=== PATIENT | female | born 1955 | race Caucasian/White ===

== ENCOUNTER 2016-10-04 21:54 | Emergency (ER) | payer SELFPAY ==
[2016-10-04] MEDS ORDERED: CEPHALEXIN 250 MG Prepack 8 PO STA (22:54)
[2016-10-04] MEDS ORDERED: CEPHALEXIN 250 MG CAPSULE PO STA (22:54)
[2016-10-04] MEDS ORDERED: SULFAMETH/TRIMETH DS 800/160 MG TABLET PO STA (22:55)
[2016-10-04] MEDS ORDERED: CEPHALEXIN 250 MG CAPSULE PO ONE (23:21)
[2016-10-04] MEDS ORDERED: CEPHALEXIN 250 MG Prepack 8 PO ONE (23:21)
[2016-10-04] MEDS ORDERED: SULFAMETH/TRIMETH DS 800/160 MG TABLET PO ONE (23:21)
== END 2016-10-05 01:05 | disposition home or self-care (01) ==
DX: L03.116 Cellulitis of left lower limb (principal); Z59.0 Homelessness; I10 Essential (primary) hypertension
CPT/HCPCS: 93971; 99283; A9270

== ENCOUNTER 2017-03-16 14:43 | Outpatient (CLI) | payer OTHER ==
--- NOTE | 2017-03-17 16:49 | Mammography Report ---
DIGITAL SCREENING MAMMOGRAM: 03/16/2017 CLINICAL INDICATION: A 61-year-old, for screening. COMPARISON: 06/2011, 12/2006. TECHNIQUE: Routine CC and MLO projections were obtained of the breasts. Bilateral laterally exaggera viktoria craniocaudal views. FINDINGS: Scattered fibroglandular tissue is present within the breasts. There are no dominant christina s, suspicious microcalcifications, or secondary signs of malignancy. In comparison to the previous st udies, there are no significant changes. ASSESSMENT: NO MAMMOGRAPHIC EVIDENCE OF MALIGNANCY. NO SIGNIFICANT INTERVAL CHANGES. RECOMMENDATION: Screening mammography is recommended annually. BIRADS category 1 - negative. STANDARD QUALIFYING STATEMENTS 1. This examination was reviewed with the aid of Computed-Aided Detection (CAD). 2. A negative or benign imaging report should not delay biopsy if clinically suspicious findings are present. Consider surgical consultation if warranted. More than 5% of cancers are not identified by i maging. 3. Dense breasts may obscure an underlying neoplasm. JOB #: [id number] EXT JOB #:[id number]
== END 2017-03-16 14:44 | disposition home or self-care (01) ==
LOC: DI.S 14:43
PROVIDERS: ATTEND Physician Assistant
DX: Z12.31 Encounter for screening mammogram for malignant neoplasm of breast (principal)
CPT/HCPCS: 77067

== ENCOUNTER 2017-10-06 12:03 | Outpatient (CLI) | payer OTHER ==
--- NOTE | 2017-10-06 17:16 | XRAY Report ---
THREE VIEW LEFT SHOULDER: 10/06/2017 CLINICAL INDICATION: Pain. FINDINGS: Internal and external rotational views and a scapular Y view of the left shoulder were obtained. There are degenerative changes at the acromioclavicular and glenohumeral joints, mild. There is no evidence of acute fracture or dislocation. No radiopaque foreign body is seen in the soft tissues. IMPRESSION: MILD OSTEOARTHRITIS. TD: 10/06/2017 17:10
== END 2017-10-06 12:04 | disposition home or self-care (01) ==
LOC: DI 12:03
PROVIDERS: ATTEND Physician Assistant
DX: M19.012 Primary osteoarthritis, left shoulder (principal)

== ENCOUNTER 2018-07-07 15:57 | Emergency (ER) | payer OTHER ==
--- NOTE | 2018-07-07 17:25 | XRAY Report ---
Reason: Trauma Procedure Date: 07/07/2018 Accession Number: [id number] / [id number] Procedure: XR - Humerus RT CPT Code: FULL RESULT: EXAM: RIGHT HUMERUS RADIOGRAPHY EXAM DATE: 07/07/2018 04:40 PM. CLINICAL HISTORY: Trauma. COMPARISON: XR HUMERUS 06/17/2012 12:38 AM. TECHNIQUE: 2 views. FINDINGS: Bones: No humerus fracture. Joints: Alignment at the shoulder and elbow appears unremarkable. Soft Tissues: No soft tissue foreign body. IMPRESSION: No fracture or displacement. RADIA
--- NOTE | 2018-07-07 17:26 | XRAY Report ---
Reason: Trauma Procedure Date: 07/07/2018 Accession Number: [id number] / [id number] Procedure: XR - Knee 4 View LT CPT Code: FULL RESULT: EXAM: LEFT KNEE RADIOGRAPHY EXAM DATE: 07/07/2018 04:40 PM. CLINICAL HISTORY: Trauma. COMPARISON: XR KNEE 3 VIEW 08/05/2008 7:28 AM. TECHNIQUE: 4 views. FINDINGS: Bones: There is mild spurring and degenerative disease of the medial compartment of the knee. Negative for fracture and bony destruction. Joints: Normal. No effusion. No subluxations. Soft Tissues: There is mild spurring of the superior patella. IMPRESSION: Mild degenerative disease of medial and patellofemoral compartment. No fracture. RADIA
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
[2018-07-07] MEDS ORDERED: NAPROXEN 250 MG TABLET PO STA (17:58)
[2018-07-07 18:27] VITALS: BP 130/70
== END 2018-07-07 18:25 | disposition home or self-care (01) ==
LOC: ED 15:57
DX: S43.401A Unspecified sprain of right shoulder joint, initial encounter (principal); S80.02XA Contusion of left knee, initial encounter; W10.9XXA Fall (on) (from) unspecified stairs and steps, initial encounter; I10 Essential (primary) hypertension
CPT/HCPCS: 73060; 73564; 99283; A9270

== ENCOUNTER 2018-07-20 12:58 | Emergency (ER) | payer OTHER ==
[2018-07-20] MEDS ORDERED: cephALEXin 250 MG CAPSULE PO STA (16:08)
--- NOTE | 2018-07-20 16:10 | ED Physician Documentation ---
PD HPI LOWER EXT INJURY - Stated complaint Stated Complaint: BILAT LEG SWELLING - Chief complaint Chief Complaint: Ext Problem - History obtained from History obtained from: Patient - History of Present Illness PD HPI LOW EXT INJURY LOCATION: Other (She fell about a week ago injuring her right shoulder and her left knee. Since then she has had progressive swelling of both legs, left greater than right with redness of the left leg similar prior cellulitis. No fevers. 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 - Present Medications Home Medications: Ambulatory Orders Medication Instructions Recorded Confirmed Venlafaxine [Effexor] 75 mg PO DAILY 04/03/15 04/09/15 RX: Hydrochlorothiazide 25 mg PO DAILY 04/09/15 04/09/15 Cyclobenzaprine [Flexeril] 10 mg PO TID PRN #20 tablet 07/07/18 Cephalexin [Keflex] 500 mg PO Q6H #28 capsule 07/20/18 Fluconazole [Diflucan] 150 mg PO ONCE PRN #1 tablet 07/20/18 Naproxen Sodium [Aleve] 07/20/18 RX: Hydrochlorothiazide 07/20/18 RX: Levothyroxine [Synthroid] 07/20/18 RX: Losartan [Cozaar] 07/20/18 RX: Metoprolol Tartrate 50 mg PO 07/20/18 RX: Venlafaxine HCl 07/20/18 Turmeric/Turmeric Root Extract 07/20/18 [Turmeric 500 mg Capsule] - Allergies Allergies/Adverse Reactions: Allergies Allergy/AdvReac Type Severity Reaction Status Date / Time iodine AdvReac Rash Verified 07/20/18 16:22 - Social History Does the pt smoke?: No Smoking Status: Never smoker Does the pt drink ETOH?: No Does the pt have substance abuse?: No - Immunizations Immunizations are current?: Yes PD ED PE NORMAL - Vitals Vital signs reviewed: Yes - General General: Alert and oriented X 3, No acute distress - Extremities Extremities: Other (She does have leg swelling below the knee especially in the left but bilaterally with some cellulitic changes of the [place] on the left.) - Neuro Neuro: Alert and oriented X 3, Normal speech Results - Vitals Vitals: Vital Signs - 24 hr 07/20/18 07/20/18 13:44 18:07 Temperature 36.7 C Heart Rate 99 90 Respiratory 16 16 Rate Blood Pressure 136/84 H 134/80 H O2 Saturation 97 98 Oxygen O2 Source Room air - Rads (name of study) BLE DVT sono Radiology: EMP read contemporaneously (neg) PD MEDICAL DECISION MAKING - ED course ED course: 62-year-old woman with bilateral leg swelling, left greater than right with cellulitis of the left leg. This is posttraumatic. DVT ultrasound was checked and negative. She is nontoxic and treated with Keflex. Departure - Departure Disposition: 01 Home, Self Care Clinical Impression: Cellulitis Condition: Good Record reviewed to determine appropriate education?: Yes Instructions: Cellulitis Dc Prescriptions: Cephalexin [Keflex] 500 mg PO Q6H #28 capsule Fluconazole [Diflucan] 150 mg PO ONCE PRN #1 tablet PRN Reason: yeast infection Comments: Call your doctor to arrange a follow-up appointment, make the next available appointment. In the interim, return anytime if worse or if new symptoms develop. Your blood pressure was elevated today on check into the emergency department. This does not mean that you have hypertension, it is a common phenomenon to come to the emergency department and have elevated blood pressure. I recommend that you see your primary care physician within the week to have it rechecked when you are feeling better. Discharge Date/Time: 07/20/18 18:07
[2018-07-20 18:08] VITALS: BP 134/80
--- NOTE | 2018-07-20 18:19 | Ultrasound Report ---
Reason: leg swelling Procedure Date: 07/20/2018 Accession Number: [id number] / [id number] Procedure: US - Duplex Ext Veins Bilateral CPT Code: FULL RESULT: EXAM: BILATERAL LOWER EXTREMITY VENOUS ULTRASOUND EXAM DATE: 07/20/2018 05:50 PM. CLINICAL HISTORY: Leg swelling. COMPARISON: None. TECHNIQUE: Real-time sonographic vascular imaging was performed by the real estate legal secretary through the lower extremities utilizing both color-flow and Doppler spectral analysis. Multiple customer retention representative static images were saved for review. FINDINGS: Right: Common Femoral Vein (CFV): Normal. CFV-GSV Junction: Normal. Profunda Femoral Vein (PFV): Normal. Femoral Vein (FV) Prox: Normal. Femoral Vein (FV) Mid: Normal. Femoral Vein (FV) Dist: Normal. Popliteal Vein: Normal. Posterior Tibial Veins: Normal. Peroneal Veins: Normal. Left: Common Femoral Vein (CFV): Normal. CFV-GSV Junction: Normal. Profunda Femoral Vein (PFV): Normal. Femoral Vein (FV) Prox: Normal. Femoral Vein (FV) Mid: Normal. Femoral Vein (FV) Dist: Normal. Popliteal Vein: Normal. Posterior Tibial Veins: Normal. Peroneal Veins: Normal. Other: None. IMPRESSION: No evidence for deep venous thrombosis bilaterally. RADIA
== END 2018-07-20 18:07 | disposition home or self-care (01) ==
LOC: MERGE 12:58 → ED 12:58
DX: L03.116 Cellulitis of left lower limb (principal); I10 Essential (primary) hypertension
CPT/HCPCS: 93970; 99283; A9270

== ENCOUNTER 2018-12-20 16:44 | Outpatient (CLI) | payer MEDICARE ==
--- NOTE | 2018-12-21 09:50 | XRAY Report ---
Reason: SHORTNESS OF BREATH Procedure Date: 12/20/2018 Accession Number: [id number] / [id number] Procedure: XR - Chest 2 View X-Ray CPT Code: 16335 FULL RESULT: EXAM: CHEST RADIOGRAPHY EXAM DATE: 12/20/2018 04:45 PM. CLINICAL HISTORY: Shortness of breath. COMPARISON: CHEST 1 VIEW 04/03/2015 5:56 PM. TECHNIQUE: 2 views. FINDINGS: Lungs/Pleura: No focal opacities evident. No pleural effusion. No pneumothorax. Normal volumes. Mediastinum: Heart and mediastinal contours are unremarkable. Other: The bones are qualitatively osteopenic; this limits evaluation for underlying fractures or masses. IMPRESSION: No definite airspace disease is detected. RADIA
== END 2018-12-20 16:45 | disposition home or self-care (01) ==
LOC: DI 16:44
PROVIDERS: ATTEND Physician Assistant
DX: R06.02 Shortness of breath (principal)
CPT/HCPCS: 71046

== ENCOUNTER 2019-02-05 15:44 | Outpatient (CLI) | payer MEDICARE ==
--- NOTE | 2019-02-05 17:20 | Ultrasound Report ---
Reason: PAIN IN LEFT LOWER LIMB Procedure Date: 02/05/2019 Accession Number: [id number] / [id number] Procedure: US - Duplex Ext Veins Left CPT Code: FULL RESULT: EXAM: LEFT LOWER EXTREMITY VENOUS ULTRASOUND EXAM DATE: 02/05/2019 04:59 PM. CLINICAL HISTORY: Left lower extremity pain and swelling. COMPARISON: DUPLEX EXT VEINS LEFT 10/04/2016 11:16 PM. TECHNIQUE: Real-time sonographic vascular imaging was performed by the multi share program coordinator through the lower extremity utilizing both color-flow and Doppler spectral analysis. Multiple school admissions representative static images were saved for review. FINDINGS: Common Femoral Vein (CFV): Normal. CFV-GSV Junction: Normal. Profunda Femoral Vein (PFV): Normal. Femoral Vein (FV) Prox: Normal. Femoral Vein (FV) Mid: Normal. Femoral Vein (FV) Dist: Normal. Popliteal Vein: Normal. Posterior Tibial Veins: Normal. Peroneal Veins: Normal. IMPRESSION: No evidence for deep venous thrombosis. RADIA The call report notification system was initiated by Dr. Shamar Michele at 05:19 PM on 02/05/2019.
== END 2019-02-05 15:45 | disposition home or self-care (01) ==
LOC: DI 15:44
PROVIDERS: ATTEND Nurse Practitioner Family
DX: M79.605 Pain in left leg (principal)

== ENCOUNTER 2019-02-11 14:01 | Emergency (ER) | payer MEDICARE ==
--- NOTE | 2019-02-11 15:53 | ED Physician Documentation ---
PD HPI LOWER EXT INJURY - Stated complaint Stated Complaint: LEFT LEG PX - Chief complaint Chief Complaint: Back Pain - History obtained from History obtained from: Patient - History of Present Illness PD HPI LOW EXT INJURY LOCATION: Left, Lower leg, Ankle Type of injury: No: Fall, Twist Timing - onset: How many months ago Timing - duration: Months Timing - details: Gradual onset (has had edema and pain in legs, mostly the left, with feeling of pain from the pressure and aching up side of leg to hip. Started on diuretic by PMD but not improved. Tried to elevate often.) Worsened by: Palpating Associated symptoms: Swelling (both legs, mostly the left, from knee on down.). No: Weakness, Numbness Similar symptoms before: No diagnosis, Work up / diagnostics (had Duplex 2 weeks ago without DVT.) Recently seen: Clinic (had diuretic started but it has not helped the swelling.) Review of Systems Constitutional: denies: Fever Nose: denies: Rhinorrhea / runny nose, Congestion Throat: denies: Sore throat Cardiac: denies: Chest pain / pressure, Palpitations Respiratory: denies: Dyspnea (no orthopnea) GI: denies: Vomiting, Diarrhea, Bloody / black stool Musculoskeletal: reports: Extremity swelling Neurologic: reports: Generalized weakness. 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 - Present Medications Home Medications: Ambulatory Orders Medication Instructions Recorded Confirmed Venlafaxine [Effexor] 75 mg PO DAILY 04/03/15 04/09/15 Hydrochlorothiazide 25 mg PO DAILY 04/09/15 04/09/15 Cyclobenzaprine [Flexeril] 10 mg PO TID PRN #20 tablet 07/07/18 Cephalexin [Keflex] 500 mg PO Q6H #28 capsule 07/20/18 Fluconazole [Diflucan] 150 mg PO ONCE PRN #1 tablet 07/20/18 Hydrochlorothiazide 07/20/18 Levothyroxine [Synthroid] 07/20/18 Losartan [Cozaar] 07/20/18 Metoprolol Tartrate 50 mg PO 07/20/18 Naproxen Sodium [Aleve] 07/20/18 Turmeric/Turmeric Root Extract 07/20/18 [Turmeric 500 mg Capsule] Venlafaxine HCl 07/20/18 Hydrocodone/Acetaminophen [Kennard 1 each PO Q6H PRN #20 tablet 02/11/19 5-325 Tablet] - Allergies Allergies/Adverse Reactions: Allergies Allergy/AdvReac Type Severity Reaction Status Date / Time iodine AdvReac Rash Verified 02/11/19 14:14 - Social History Does the pt smoke?: No Smoking Status: Never smoker Does the pt drink ETOH?: No Does the pt have substance abuse?: No - Immunizations Immunizations are current?: Yes PD ED PE NORMAL - Vitals Vital signs reviewed: Yes - General General: Alert and oriented X 3, No acute distress, Well developed/nourished - Cardiac Cardiac: RRR, No murmur - Respiratory Respiratory: Clear bilaterally - Derm Derm: Normal color, Warm and dry, No rash - Extremities Extremities: Other (bilateral leg edema, pitting, more to left. No calf tenderness per se. Foot with good color/cap refill/and sensation. ) Results - Vitals Vitals: Oxygen O2 Source Room air - Labs Labs: Laboratory Tests 02/11/19 02/11/19 02/11/19 16:30 16:30 16:30 WBC 9.0 RBC 4.37 Hgb 12.0 Hct 36.8 L MCV 84.1 MCH 27.5 MCHC 32.7 RDW 13.9 Plt Count 256 MPV 6.2 L Neut # (Auto) 6.0 Lymph # (Auto) 1.9 [place] # (Auto) 0.8 Eos # (Auto) 0.4 Baso # (Auto) 0.0 Absolute Nucleated RBC 0.00 Nucleated RBC % 0.0 Sodium 139 Potassium 3.5 Chloride 100 L Carbon Dioxide 27 Anion Gap 12.0 BUN 28 H Creatinine 0.8 Estimated GFR (MDRD) 72 L Glucose 102 H Calcium 9.3 Magnesium 2.2 Total Bilirubin 0.5 AST 19 ALT 21 Alkaline Phosphatase 87 Troponin I < 0.04 B-Natriuretic Peptide Total Protein 7.8 Albumin 4.0 Globulin 3.8 Albumin/Globulin Ratio 1.1 Lipase 32 02/11/19 16:30 WBC RBC Hgb Hct MCV MCH MCHC RDW Plt Count MPV Neut # (Auto) Lymph # (Auto) [place] # (Auto) Eos # (Auto) Baso # (Auto) Absolute Nucleated RBC Nucleated RBC % Sodium Potassium Chloride Carbon Dioxide Anion Gap BUN Creatinine Estimated GFR (MDRD) Glucose Calcium Magnesium Total Bilirubin AST ALT Alkaline Phosphatase Troponin I B-Natriuretic Peptide 46 Total Protein Albumin Globulin Albumin/Globulin Ratio Lipase - Rads (name of study) duplex left leg Radiology: Prelim report reviewed (no DVT), See rad report chest xray Radiology: Prelim report reviewed (no CHF) PD MEDICAL DECISION MAKING - ED course Complexity details: considered differential (consider massage or PT for possible lymphedema, and to work on mechanical edema with compressive socks and elevation, problem is compressive socks to fit her leg shape and large thighs, but can at least do kneehigh. ), d/w patient Departure - Departure Disposition: 01 Home, Self Care Clinical Impression: Leg edema, left Leg pain Qualifiers: Laterality: left Qualified Code(s): M79.605 - Pain in left leg Condition: Stable Record reviewed to determine appropriate education?: Yes Instructions: ED Leg Swelling Unilateral Follow-Up: Tobi Clancy MD [Primary Care Provider] - Prescriptions: Hydrocodone/Acetaminophen [Kennard 5-325 Tablet] 1 each PO Q6H PRN #20 tablet PRN Reason: Pain Comments: Your ultrasound did not show any clots. Your chest x-ray and blood tests do not suggest fluid overload. I therefore do not know that the diuretic you are taking will actually help your leg edema. I think it is more mechanical and needs elevation and compressive socks. Regarding the pain in the leg, he can continue the ibuprofen. Add Tylenol or hydrocodone as needed for pain. It may be nerve pain in the leg and so continue your current gabapentin at night and add a dose of 300 mg in the morning. Reducing the swelling of the leg will help the pain as well and so have the compressive socks on during the day all all the time. Elevate and rest your leg often. Follow-up with your primary care in the next few days. Discharge Date/Time: 02/11/19 18:37
[2019-02-11 16:39] LABS: BASOPHILS % (AUTO) 0.5 %; EOSINOPHILS # (AUTO) 0.4 10^3/uL (0.0-0.7); LYMPHOCYTES # (AUTO) 1.9 10^3/uL (1.5-3.5); LYMPHOCYTES % (AUTO) 20.9 %; MEAN CORPUSCULAR HEMOGLOBIN 27.5 pg (27.0-31.0); MEAN CORPUSCULAR HGB CONC 32.7 g/dL (32.0-36.0); MEAN CORPUSCULAR VOLUME 84.1 fL (81.0-99.0); MEAN PLATELET VOLUME 6.2 fL (7.9-10.8); MONOCYTES # (AUTO) 0.8 10^3/uL (0.0-1.0); MONOCYTES % (AUTO) 8.8 %; NEUTROPHILS % (AUTO) 65.8 %; PLT - PLATELET COUNT 256 10^3/uL (130-450); RED BLOOD COUNT 4.37 10^6/uL (4.20-5.40); RED CELL DISTRIBUTION WIDTH 13.9 % (12.0-15.0)
[2019-02-11 16:52] LABS: ALBUMIN/GLOBULIN RATIO 1.1 (1.0-2.2); BILIRUBIN,TOTAL 0.5 mg/dL (0.2-1.0); CALCIUM 9.3 mg/dL (8.5-10.3); CREATININE 0.8 mg/dL (0.4-1.0); MAGNESIUM 2.2 mg/dL (1.7-2.8); TOTAL PROTEIN 7.8 g/dL (6.7-8.2)
--- NOTE | 2019-02-11 17:50 | Ultrasound Report ---
Reason: persistent/worse leg edema Procedure Date: 02/11/2019 Accession Number: [id number] / [id number] Procedure: US - Duplex Ext Veins Left CPT Code: FULL RESULT: EXAM: LEFT LOWER EXTREMITY VENOUS ULTRASOUND EXAM DATE: 02/11/2019 04:50 PM. CLINICAL HISTORY: Persistent/worse leg edema. Chronic left lower extremity pain, edema. COMPARISON: DUPLEX EXT VEINS LEFT 02/05/2019 4:31 PM. TECHNIQUE: Real-time sonographic vascular imaging was performed by the independent freight agent through the lower extremity utilizing both color-flow and Doppler spectral analysis. Multiple professional healthcare representative static images were saved for review. FINDINGS: Common Femoral Vein (CFV): Normal. CFV-GSV Junction: Normal. Profunda Femoral Vein (PFV): Normal. Femoral Vein (FV) Prox: Normal. Femoral Vein (FV) Mid: Normal. Femoral Vein (FV) Dist: Normal. Popliteal Vein: Normal. Posterior Tibial Veins: Normal. Peroneal Veins: Normal. IMPRESSION: No evidence for deep venous thrombosis. RADIA
--- NOTE | 2019-02-11 17:57 | XRAY Report ---
Reason: dyspnea/ leg edema Procedure Date: 02/11/2019 Accession Number: [id number] / [id number] Procedure: XR - Chest 2 View X-Ray CPT Code: 52018 FULL RESULT: EXAM: CHEST RADIOGRAPHY EXAM DATE: 02/11/2019 05:40 PM. CLINICAL HISTORY: Dyspnea/ leg edema. COMPARISON: CHEST 2 VIEW 12/20/2018 4:45 PM. TECHNIQUE: 2 views. FINDINGS: Lungs/Pleura: No focal opacities evident. No pleural effusion. No pneumothorax. Normal volumes. Mediastinum: The heart size is normal. There is mild aortic atherosclerotic calcification. Other: None. IMPRESSION: Negative for an acute cardiopulmonary abnormality. RADIA
[2019-02-11] MEDS ORDERED: HYDROcod/ACETAM 5/325 MG TABLET PO STA (17:59)
[2019-02-11 18:32] VITALS: BP 143/65
== END 2019-02-11 18:37 | disposition home or self-care (01) ==
LOC: ED 14:01
DX: M79.605 Pain in left leg (principal); R60.0 Localized edema; I10 Essential (primary) hypertension
CPT/HCPCS: 36415; 71046; 80053; 83690; 83735; 83880; 84484; 85025; 93971; 99283; A9270

== ENCOUNTER 2019-03-04 14:37 | Outpatient (CLI) | payer MEDICARE ==
--- NOTE | 2019-03-04 17:02 | XRAY Report ---
Reason: LEFT HIP PAIN Procedure Date: 03/04/2019 Accession Number: [id number] / [id number] Procedure: XRS - Hip w/Pelvis 2-3V LT CPT Code: FULL RESULT: EXAM: LEFT HIP RADIOGRAPHY EXAM DATE: 03/04/2019 03:08 PM. CLINICAL HISTORY: Left hip pain. COMPARISON: None. TECHNIQUE: 2 views. FINDINGS: Bones: Normal. No fractures or bone lesion. Joints: The joint space is mildly narrowed, symmetric compared to the right. There is no subluxation. There is mild osteophytosis. Soft Tissues: Normal. No soft tissue swelling. IMPRESSION: Mild joint space narrowing. RADIA
== END 2019-03-04 14:38 | disposition home or self-care (01) ==
LOC: DI.S 14:37
PROVIDERS: ATTEND Physician Assistant
DX: M25.552 Pain in left hip (principal)

== ENCOUNTER 2019-03-29 12:56 | Outpatient (CLI) | payer MEDICARE, OTHER ==
--- NOTE | 2019-03-31 14:23 | MRI Report ---
Reason: UNSPECIFIED INJURY OF MUSCLE TENDON OF ROTATOR C Procedure Date: 03/29/2019 Accession Number: [id number] / [id number] Procedure: MRI - Shoulder LT W/O CPT Code: FULL RESULT: EXAM: LEFT SHOULDER MRI WITHOUT CONTRAST EXAM DATE: 03/29/2019 02:38 PM. CLINICAL HISTORY: Unspecified injury of muscle tendon of rotator cuff. COMPARISON: SHOULDER 3 VIEW LT 03/21/2019 3:43 PM. TECHNIQUE: Multiplanar, multisequence T1-weighted and fluid-sensitive sequences of the shoulder without contrast. Other: None. FINDINGS: Acromioclavicular Region: The acromion is type II. Mild acromioclavicular joint arthrosis. Superior and inferior acromioclavicular joint capsular hypertrophy. Negative for increased AC joint fluid. Os acromiale. The coracoacromial and coracoclavicular ligaments are intact. Small fluid collection subacromial-subdeltoid bursa. Glenohumeral Region: Superior subluxation humerus head with erosion of the undersurface acromion. Chronic rotator cuff arthropathy. No effusion or loose bodies. Moderate chondromalacia inferior glenoid (image 11, series 501). Thinning of the superior glenoid articular cartilage associated with superior labrum tear. The glenohumeral ligaments and joint capsule are unremarkable. Moderate anterior glenoid chondromalacia. Bone Marrow: No fracture, marrow edema or bone lesions. Labrum: The labrum is unremarkable on this nonarthrographic study. Question anterior labrum tear. Musculature/Rotator Cuff: Negative for infraspinatus tendon disruption. Infraspinatus muscle atrophy. Severe atrophy supraspinatus muscle. Large retracted complete supraspinatus tendon tear with the tendon retracted to the superior glenohumeral joint. Subscapularis tendinosis with fluid signal partial tear undersurface subscapularis tendon 5 mm and small linear fluid signal partial tear mid subscapularis tendon. No edema or fatty atrophy. Biceps Tendon: Grade 2 partial tear proximal intra-articular biceps tendon. Other: The subcutaneous tissues are unremarkable. IMPRESSION: 1. Axial acquisition compromised secondary to patient motion andlow signal. 2. Superior labrum tear and possible anterior labrum tear. 3. Superior subluxation of the humerus head from chronic rotator cuff arthropathy with erosion undersurface acromion. 4. Os acromiale. 5. Chronic complete tear supraspinatus tendon with tendon retraction, supraspinatus muscle atrophy and tendon retraction to the superior glenohumeral joint. Rotator cuff tear 4 cm. 6. Extensive subscapularis tendinosis with fluid signal 5 mm partial tear undersurface distal subscapularis tendon. 7. Negative for infraspinatus tendon tear with infraspinatus muscle atrophy. 8. Limited visualization biceps tendon with probable grade II tear proximal intra-articular biceps tendon. [facility]
== END 2019-03-29 12:57 | disposition home or self-care (01) ==
LOC: DI 12:56
PROVIDERS: ATTEND Orthopaedic Surgery Sports Medicine
DX: S43.492A Other sprain of left shoulder joint, initial encounter (principal); S43.002A Unspecified subluxation of left shoulder joint, initial encounter; S46.012A Strain of muscle(s) and tendon(s) of the rotator cuff of left shoulder, initial encounter

== ENCOUNTER 2019-04-09 12:21 | Outpatient (CLI) | payer MEDICARE ==
[2019-04-09] MEDS ORDERED: IOTHALAMATE MEGLUMINE 50 ML VIAL ONE (12:52)
[2019-04-09] MEDS ORDERED: BUFFERED LIDOCAINE 10 ML SYRINGE ONE (12:53)
[2019-04-09] MEDS ORDERED: ROPIVACAINE 0.5% PF 20 ML VIAL IU ONE (13:30)
[2019-04-09] MEDS ORDERED: TRIAMCINOLONE 40 MG/ML VIAL IM ONE (14:52)
[2019-04-09] MEDS ORDERED: BUFFERED LIDOCAINE 10 ML SYRINGE IU ONE (14:52)
[2019-04-09] MEDS ORDERED: IOTHALAMATE MEGLUMINE 50 ML VIAL IVP ONE (15:02)
--- NOTE | 2019-04-12 13:08 | XRAY Report ---
Reason: UNSPECIFIED INJURY OF MUSCLE TENDON OF THE ROTAT Procedure Date: 04/09/2019 Accession Number: [id number] / [id number] Procedure: FL - Inj/Aspiration Major Joint CPT Code: FULL RESULT: EXAM: LEFT SHOULDER STEROID INJECTION WITH FLUOROSCOPIC GUIDANCE EXAM DATE: 04/09/2019 01:54 PM. CLINICAL HISTORY: Unspecified injury of muscle tendon of the rotator cuff. COMPARISON: None. TECHNIQUE: The risks, benefits, and alternatives of the procedure were discussed with the patient. All questions were answered. Written and verbal consent were obtained. The glenohumeral joint was marked under fluoroscopy and prepped and draped in a sterile manner. Local anesthesia was performed with 1% lidocaine. A 22-gauge needle was then inserted into the glenohumeral joint. 5 mL of a solution containing 4 mL 0.5% ropivacaine and 1 mL Kenalog 40 mg was then injected. The needle was removed without immediate complication. Other: None. Fluoroscopy Time: 0.4 minutes. Number of Images: 17. FINDINGS: Bones and joints: No fracture or subluxation. Injection: Fluoroscopic images demonstrate needle placement and contrast in the glenohumeral joint. IMPRESSION: Successful fluoroscopically guided shoulder joint steroid injection of the shoulder. [facility]
== END 2019-04-09 12:22 | disposition home or self-care (01) ==
LOC: DI 12:21
PROVIDERS: ATTEND Orthopaedic Surgery Sports Medicine
DX: S43.002A Unspecified subluxation of left shoulder joint, initial encounter (principal)
CPT/HCPCS: 20610; J2795; Q9961

== ENCOUNTER 2019-06-05 11:12 | Outpatient (CLI) | payer MEDICARE ==
--- NOTE | 2019-06-06 15:51 | XRAY Report ---
Reason: RIGHT SHOULDER PAIN Procedure Date: 06/05/2019 Accession Number: [id number] / [id number] Procedure: XR - Shoulder 3 View RT CPT Code: FULL RESULT: EXAM: RIGHT SHOULDER RADIOGRAPHY 3 VIEWS EXAM DATE: 06/05/2019. CLINICAL HISTORY: RIGHT shoulder pain. COMPARISON: Right shoulder done 06/17/2012. TECHNIQUE: AP, Grashey and scapular Y views. FINDINGS: Bones: No fracture or other acute abnormality. Small subarticular cysts in the clavicle at the acromioclavicular joint. Joints: Narrowing of the glenohumeral joint. Elevation of the head of the humerus in the glenoid, the humeral head 4 mm beneath the acromion. Soft tissues: 4 mm well-defined calcification at the lateral margin of the acromion. IMPRESSION: No acute abnormality Chronic rotator cuff tear. Mild degenerative changes of the acromioclavicular joint. Small soft tissue calcification lateral to the acromion, probably calcific tendinosis. [facility]
== END 2019-06-05 11:13 | disposition home or self-care (01) ==
LOC: DI 11:12
PROVIDERS: ATTEND Physician Assistant
DX: M75.101 Unspecified rotator cuff tear or rupture of right shoulder, not specified as traumatic (principal); M19.011 Primary osteoarthritis, right shoulder; M79.89 Other specified soft tissue disorders

== ENCOUNTER 2019-08-15 07:04 | Outpatient (CLI) | payer MEDICARE ==
--- NOTE | 2019-08-15 15:20 | MRI Report ---
Reason: PAIN IN RT SHOULDER Procedure Date: 08/15/2019 Accession Number: [id number] / [id number] Procedure: MRI - Shoulder RT W/O CPT Code: Final Report FULL RESULT: EXAM: RIGHT SHOULDER MRI WITHOUT CONTRAST. EXAM DATE: 08/15/2019 08:02 AM. CLINICAL HISTORY: Pain in right shoulder. COMPARISON: SHOULDER 3 VIEW RT 06/05/2019 11:38 AM. TECHNIQUE: Multiplanar, multisequence T1-weighted and fluid-sensitive sequences of the shoulder without contrast. Other: Motion artifact especially on axial images. FINDINGS: Rotator cuff: Full thickness tear involving the supraspinatus and infraspinatus measures approximately 3.8 cm anterior posterior and 2.5 cm medial to lateral. Moderate atrophy and fatty infiltration of the supraspinatus and infraspinatus. Mild atrophy involving upper fibers of the subscapularis. There may be calcification within the distal remnant of the rotator cuff adjacent to the greater tuberosity. Long head biceps tendon: Not definitely identified within the field of view suspicious for tear. Evaluation limited by patient motion. Labrum: Intact. No tear identified. Bones and articular surfaces: Superior subluxation of the humeral head. No significant articular cartilage defect. Acromioclavicular joint: Moderate degenerative change. Type II acromion. IMPRESSION: 1. Large full-thickness tear of the supraspinatus and infraspinatus measuring 3.8 x 2.5 cm. 2. Moderate degenerative change at the acromioclavicular joint. 3. Nonvisualization of intact long head biceps tendon suspicious for tear with distal retraction. [facility]
== END 2019-08-15 07:05 | disposition home or self-care (01) ==
LOC: DI 07:04
PROVIDERS: ATTEND Orthopaedic Surgery Sports Medicine
DX: M75.101 Unspecified rotator cuff tear or rupture of right shoulder, not specified as traumatic (principal); M19.011 Primary osteoarthritis, right shoulder

== ENCOUNTER 2019-09-25 10:54 | Outpatient (CLI) | payer MEDICARE, OTHER ==
[2019-09-25] MEDS ORDERED: BUFFERED LIDOCAINE 10 ML SYRINGE ONE (11:06)
[2019-09-25] MEDS ORDERED: IOTHALAMATE MEGLUMINE 50 ML VIAL ONE (11:06)
[2019-09-25] MEDS ORDERED: IOTHALAMATE MEGLUMINE 50 ML VIAL IVP ONE (12:44)
[2019-09-25] MEDS ORDERED: TRIAMCINOLONE 40 MG/ML VIAL IM ONE (12:44)
[2019-09-25] MEDS ORDERED: BUFFERED LIDOCAINE 10 ML SYRINGE IU ONE (12:44)
[2019-09-25] MEDS ORDERED: ROPIVACAINE 0.5% PF 20 ML AMPULE EPI ONE (12:44)
--- NOTE | 2019-09-25 14:00 | XRAY Report ---
Reason: PAIN IN RT SHLDR Procedure Date: 09/25/2019 Accession Number: [id number] / [id number] Procedure: FL - Inj/Aspiration Major Joint CPT Code: Final Report FULL RESULT: EXAM: RIGHT SHOULDER STEROID INJECTION WITH FLUOROSCOPIC GUIDANCE EXAM DATE: 09/25/2019 01:02 PM. CLINICAL HISTORY: Pain in right shoulder. COMPARISON: None. TECHNIQUE: The risks, benefits, and alternatives of the procedure were discussed with the patient. All questions were answered. Written and verbal consent were obtained. The glenohumeral joint was marked under fluoroscopy and prepped and draped in a sterile manner. Local anesthesia was performed with 1% lidocaine. A 22-gauge needle was then inserted into the glenohumeral joint. 4 mL of a solution containing 3 mL 0.5% ropivacaine and 40 mg/1 mL triamcinolone. was then injected. The needle was removed without immediate complication. Other: None. Fluoroscopy Time: 0.1 minutes. Number of Images: 2. FINDINGS: Bones and joints: No fracture or subluxation. Injection: Fluoroscopic images demonstrate needle placement and contrast in the glenohumeral joint. No contrast extravasation outside of the glenohumeral joint. IMPRESSION: Successful fluoroscopically guided steroid injection of the shoulder. [facility]
== END 2019-09-25 10:55 | disposition home or self-care (01) ==
LOC: DI 10:54
PROVIDERS: ATTEND Orthopaedic Surgery Sports Medicine
DX: M25.511 Pain in right shoulder (principal)
CPT/HCPCS: 20610; Q9961

== ENCOUNTER 2020-07-31 07:56 | Outpatient (CLI) | payer MEDICARE, OTHER | END 2020-07-31 07:57 | disposition home or self-care (01) | LOC: DI 07:56 | PROVIDERS: ATTEND Physician Assistant Medical | DX: I51.7 Cardiomegaly (principal) | CPT/HCPCS: 93306 ==

== ENCOUNTER 2020-08-05 08:15 | Outpatient (CLI) | payer MEDICARE, OTHER ==
--- NOTE | 2020-08-05 10:47 | CARDIAC PROCEDURE NOTE ---
DATE OF SERVICE: 08/05/2020 Physician: Leatha Alexander MD, [facility] INDICATION: Dyspnea on exertion, leg edema. CARDIAC RISK FACTORS: Postmenopausal status, morbid obesity, diabetes, hypertension. PROCEDURE: After signing informed consent, the patient underwent a [id number] treadmill stress test. No cardiac imaging was ordered with this test. RESTING HEART RATE: 85. PEAK HEART RATE: 130 (85% predicted maximum heart rate for age). RESTING BLOOD PRESSURE: 120/82. PEAK BLOOD PRESSURE: 178/82. She exercised for 3 minutes and 40 seconds on a modified-Juan protocol, further modified as it was all in stage I of the modified-Juan test. The patient achieved a peak heart rate of 130 (85% PMHR) and 2.35 METs. The patient had leg achiness and leg fatigue and developed shortness of breath at mid test. She reported her perceived exertion at 18/20 at peak on the Jose scale. Oxygen saturation dropped to 90% at peak on room air. The patient had no chest pain. RESTING EKG: Normal sinus rhythm, left atrial enlargement, early R/S transition, biphasic T-wave in lead aVL, probable LVH voltage. EKG AT PEAK: PVCs are seen at peak, and new T-wave flattening in lead I, continued biphasic T-wave in the aVL; no other ST-segment or T-wave changes are seen. The T-wave abnormality in lead I reverted to normal after 1 minute of recovery. SUMMARY: 1. Abnormal resting EKG. 2. Borderline significant changes do occur by EKG criteria, to suggest ischemia during exercise. 3. Poor exercise tolerance. 4. Desaturation occurs with exercise. RECOMMENDATIONS: 1. Repeat using a pharmaceutical stress test (Lexiscan) and nuclear myocardial perfusion imaging. 2. Consider pulmonary evaluation, given the desaturation. cc: Awilda Reyes PA-C TD: 08/05/2020 10:24 [facility]
== END 2020-08-05 08:16 | disposition home or self-care (01) ==
LOC: DI 08:15
PROVIDERS: ATTEND Physician Assistant Medical
DX: R06.09 Other forms of dyspnea (principal); R60.0 Localized edema; I87.8 Other specified disorders of veins; R94.31 Abnormal electrocardiogram [ECG] [EKG]

== ENCOUNTER 2021-04-12 09:52 | Outpatient (CLI) | payer MEDICARE, OTHER ==
--- NOTE | 2021-04-13 14:34 | Mammography Report ---
BILATERAL DIGITAL SCREENING MAMMOGRAM 3D/2D: 04/12/2021 CLINICAL: Routine screening. Comparison is made to exams dated: 03/16/2017 mammogram, 07/27/2011 mammogram, and 02/26/2007 mammogram - [facility]. There are scattered fibroglandular elements in both breasts. No significant masses, calcifications, or other findings are seen in either breast. There has been no significant interval change. IMPRESSION: NEGATIVE There is no mammographic evidence of malignancy. A 1 year screening mammogram is recommended. This exam was interpreted at Station ID: [id number]. NOTE: For mammograms, a report in lay terms will be sent to the patient. Approximately 15% of breast malignancies will not be visualized mammographically. In the management of a palpable breast mass, a negative mammogram must not discourage biopsy of a clinically suspicious lesion. Electronically Signed By: Hamilton Munoz M.D. ddp/penrad:04/12/2021 11:07:05 ACR BI-RADS Category 1: Negative [id number] PARENCHYMAL PATTERN: (A) - The breast(s) demonstrate(s) scattered fibroglandular densities. BI-RADS CATEGORY: (1) - 1 RECOMMENDATION: (ANNUAL) - Recommend routine annual screening mammography. [id number] 1 year screening LATERALITY: (B)
== END 2021-04-12 09:53 | disposition home or self-care (01) ==
LOC: DI.N 09:52
PROVIDERS: ATTEND Internal Medicine
DX: Z12.31 Encounter for screening mammogram for malignant neoplasm of breast (principal)

== ENCOUNTER 2021-07-27 16:52 | Outpatient (CLI) | payer MEDICARE ==
--- NOTE | 2021-07-28 09:29 | XRAY Report ---
PROCEDURE: Chest 2 View X-Ray INDICATIONS: COUGH TECHNIQUE: 2 view(s) of the chest. COMPARISON: 02/11/2019. FINDINGS: Surgical changes and devices: There is prior right shoulder reverse arthroplasty. Lungs and pleura: No pleural effusions or pneumothorax. Lungs are clear. Mediastinum: Mediastinal contours are normal. Heart size is normal. Bones and chest wall: No suspicious bony abnormalities. Soft tissues appear unremarkable. IMPRESSION: No acute cardiopulmonary pathology. Reviewed by: Bartolome Manriquez MD on 07/28/2021 9:28 AM [facility] Approved by: Bartolome Manriquez MD on 07/28/2021 9:28 AM [facility] Station ID: [id number]
== END 2021-07-27 23:59 ==
LOC: DI.N 16:52
PROVIDERS: ATTEND Family Medicine
DX: R05.9 Cough, unspecified (principal); Z20.822 Contact with and (suspected) exposure to COVID-19
CPT/HCPCS: 71046; U0004

== ENCOUNTER 2021-10-30 13:21 | Outpatient (CLI) | payer MEDICARE | END 2021-10-30 13:22 | disposition home or self-care (01) | LOC: RT 13:21 | PROVIDERS: ATTEND Internal Medicine | DX: R06.00 Dyspnea, unspecified (principal) | CPT/HCPCS: 94010; 94729 ==

== ENCOUNTER 2021-12-18 11:06 | Outpatient (CLI) | payer MEDICARE ==
[2021-12-18] MEDS ORDERED: ALBUTEROL 1 PUFF INH STA (12:34)
== END 2021-12-18 11:07 | disposition home or self-care (01) ==
LOC: RT 11:06
PROVIDERS: ATTEND Internal Medicine
DX: R06.02 Shortness of breath (principal); R06.09 Other forms of dyspnea
CPT/HCPCS: 94060

== ENCOUNTER 2021-12-18 12:34 | Outpatient (CLI) | payer MEDICARE ==
--- NOTE | 2021-12-18 13:34 | XRAY Report ---
PROCEDURE: Hip w/Pelvis 2-3V LT INDICATIONS: LEFT HIP PAIN TECHNIQUE: AP pelvis with lateral view(s) of the left hip(s). COMPARISON: None FINDINGS: Bones: No fractures or dislocations. Pelvic ring appears intact. No suspicious bony lesions. Bilat eral mild acetabular joint space narrowing. Sclerotic and bilateral sacroiliac joints present. Degene rative changes noted in the lower lumbar spine Soft tissues: The visualized bowel gas pattern is normal. No suspicious soft tissue calcifications. IMPRESSION: Mild bilateral acetabular joint space narrowing without osteophyte Sclerotic bilateral facet joints. Degenerative lower lumbar spine Reviewed by: Harvey Ortiz MD on 12/18/2021 12:33 PM [facility] Approved by: Harvey Ortiz MD on 12/18/2021 12:33 PM [facility] Station ID: [id number]
== END 2021-12-18 12:35 | disposition home or self-care (01) ==
LOC: DI 12:34
PROVIDERS: ATTEND Internal Medicine
DX: M16.0 Bilateral primary osteoarthritis of hip (principal); M47.816 Spondylosis without myelopathy or radiculopathy, lumbar region; R06.02 Shortness of breath; R06.09 Other forms of dyspnea
CPT/HCPCS: 94060

== ENCOUNTER 2022-05-29 20:29 | Emergency (ER) | payer MEDICARE ==
--- OUTSIDE RECORDS SUMMARY | 2022-05-29 20:34 | EXTERNAL MEDICAL SUMMARY RPT | Continuity of Care Document ---
:1955 Author Organization [facility] Address [address] [place] [address] Phone Allergies No information. Encounters No information. Functional Status No information. Immunizations No information. Medications No information. Problems No information. Procedures date description facility [id number] [facility] Results/Labs test date author facility value unit interpret ation Result panel 1 (unknown) (no (unknown) (unknown) 53-66 Mild A few (units (unknown) date) OH + snores, PLM unknown) (unknown) (no (unknown) (unknown) (no value) (units (unk nown) date) unknown) (unknown) (no (unknown) (unknown) 0013 164 W,1,2,3 (units (unknown) date) 5,6 S 91 unknown) (unknown) (no (unknown) (unknown) 0113 284 W,1,2 6 (units (unknown) date) S,O 90 unknown) (unknown) (no (unknown) (unknown) 0213 404 W,1,,32 (units (unknown) date) 6,7,9 S 88 unknown) (unknown) (no (unknown) (unknown) 0313 524 2,3, (units ( unknown) date) REM ??? 9,10,11 unknown) ? (unknown) (no (unknown) (unknown) 0413 644 REM. (units ( unknown) date) W,1,2 11,12,13 S unknown) (unknown) (no (unknown) (unknown) 0513 764 W,1,2 (units (unknown) date) 14, 16 S ? unknown) (unknown) (no (unknown) (unknown) 0611 880 (units (unkno wn) date) unknown) (unknown) (no (unknown) (unknown) 2259 15 W 5 S (units ( unknown) date) 89 53- unknown) (unknown) (no (unknown) (unknown) 2313 44 W,1 5 S (units (unknown) date) 90 unknown) (unknown) (no (unknown) (unknown) Orders: (units (unkno wn) date) unknown) (unknown) (no (unknown) (unknown) (no value) (units (unk nown) date) unknown) (unknown) (no (unknown) (unknown) 60-74 Mild A few (units (unknown) date) snores, PLM unknown) (unknown) (no (unknown) (unknown) (no value) (units (unk nown) date) unknown) (unknown) (no (unknown) (unknown) 55-76 X PLM (units (un known) date) Bthrm in and out unknown) (unknown) (no (unknown) (unknown) 89 60-61 X (units (unk nown) date) Desats from 92 to unknown) 89%, No PLM (unknown) (no (unknown) (unknown) [place], [place] (units ( unknown) date) [id number] unknown) (unknown) (no (unknown) (unknown) Draft (units (unkno wn) date) unknown) (unknown) (no (unknown) (unknown) LIGHTS ON (units (unkn own) date) unknown) (unknown) (no (unknown) (unknown) Sleep Visit (units (un known) date) unknown) (unknown) (no (unknown) (unknown) [facility] ([facility] ([facility] unknown) (unknown) (no (unknown) (unknown) (no value) (units (unk nown) date) unknown) (unknown) (no (unknown) (unknown) Min. SpO2 HR (units (u nknown) date) Snores Events unknown) Comments (unknown) (no (unknown) (unknown) Resting quietly (units (unknown) date) in REM supine unknown) (unknown) (no (unknown) (unknown) S 89 59-61 ??? (units (unknown) date) ?X A few OH, freq unknown) (unknown) (no (unknown) (unknown) #: [id number] (units ( unknown) date) unknown) (unknown) (no (unknown) (unknown) (units (unknown) date) Scoring unknown) Summary (unknown) (no (unknown) (unknown) 03/14/22 (units (unkno wn) date) unknown) (unknown) (no (unknown) (unknown) 11. REM then (units (u nknown) date) continued and OH unknown) was observed. Cpap was increased again to 12. She (unknown) (no (unknown) (unknown) 57-71 SLEEP (units (un known) date) ONSET unknown) (unknown) (no (unknown) (unknown) 65 LIGHTS OFF (units ( unknown) date) unknown) (unknown) (no (unknown) (unknown) 87 50-52 X A few (units (unknown) date) [place], [place] unknown) (unknown) (no (unknown) (unknown) ? (units (unkno wn) date) unknown) (unknown) (no (unknown) (unknown) ?1955? (units (unknown) date) ? unknown) (unknown) (no (unknown) (unknown) ? (units (unk nown) date) Arousals: unknown) Occasional with respiratory events, some PLMs (unknown) (no (unknown) (unknown) ? ECG: (units (unknown) date) PVC noted unknown) (unknown) (no (unknown) (unknown) ? EEG (units (unknown) date) abnormalities: unknown) None noted (unknown) (no (unknown) (unknown) ? (units (unk nown) date) Estimated RDI: unknown) 6.3 ?AHI: 5.9 (unknown) (no (unknown) (unknown) ? (units (unk nown) date) Nocturia: x1 unknown) (unknown) (no (unknown) (unknown) ? PLMS: (units (unknown) date) Continual and unknown) contributed to pt?s inability to obtain deeper (unknown) (no (unknown) (unknown) ? REM (units (unknown) date) Latency:? 226.5 unknown) minutes (unknown) (no (unknown) (unknown) ? Sleep (units (unknown) date) Latency:?? 14.5 unknown) mins (unknown) (no (unknown) (unknown) ? (units (unk nown) date) Snoring: A few unknown) mild snores (unknown) (no (unknown) (unknown) ? (units (unk nown) date) Technical Issues: unknown) N/A (unknown) (no (unknown) (unknown) ? (units (unknown) date) unknown) (unknown) (no (unknown) (unknown) Age/Sex: 66 / F (units (unknown) date) Date of Service: unknown) (unknown) (no (unknown) (unknown) Assessment and (units (unknown) date) Plan unknown) (unknown) (no (unknown) (unknown) Attending Dr: (units ( unknown) date) Delmer Santillan MD unknown) (unknown) (no (unknown) (unknown) Bed #:? 1 (units (unkn own) date) unknown) (unknown) (no (unknown) (unknown) Cpap 10. She (units (u nknown) date) demonstrated unknown) frequent 3% desaturations and Cpap was increased to (unknown) (no (unknown) (unknown) Cpap to 16. (units (un known) date) unknown) (unknown) (no (unknown) (unknown) DATE: 03/14/22 (units (unknown) date) unknown) (unknown) (no (unknown) (unknown) : 1955 (units (unknown) date) Acct:[id number] unknown) (unknown) (no (unknown) (unknown) Dept at (units (unkno wn) date) . unknown) (unknown) (no (unknown) (unknown) Documented By: (units (unknown) date) Delmer Santillan MD unknown) 03/15/22 07 (unknown) (no (unknown) (unknown) ESS:? (units (un known) date) unknown) (unknown) (no (unknown) (unknown) Height:? 61 (units (un known) date) unknown) (unknown) (no (unknown) (unknown) [facility] (units (unknown) date) [facility] unknown) [facility]ENTER (unknown) (no (unknown) (unknown) Insurance Info:? (units (unknown) date) Medicare unknown) (unknown) (no (unknown) (unknown) Loc: SLEEP (units (unk nown) date) unknown) (unknown) (no (unknown) (unknown) MASK USED DURING (units (unknown) date) TESTING: unknown) Respironics Wisp, Sz Small nasal cushion (unknown) (no (unknown) (unknown) MEDICATIONS:? (units ( unknown) date) amlodipine, unknown) fluticasone, gabapentin, losartan, metoprolol, (unknown) (no (unknown) (unknown) Neck (units (unkno wn) date) Circumference: unknown) 17.5 (unknown) (no (unknown) (unknown) Ordering (units (unkno wn) date) Physician:? unknown) Jacque (unknown) (no (unknown) (unknown) Patient Medical (units (unknown) date) History:? unknown) anxiety/depressio n, diabetes, HTN, ARMATURE TESTER, sinusitis, (unknown) (no (unknown) (unknown) Patient Name:?? (units (unknown) date) Kelsey, unknown) John Aguirre? ?MR#:? [id number]? : (unknown) (no (unknown) (unknown) Patient (units (unkno wn) date) considered her unknown) sleep deep, which ?seems longer and deeper than at home? (unknown) (no (unknown) (unknown) Patient (units (unkno wn) date) estimates 4-5 unknown) hours of sleep, which is longer than usual (unknown) (no (unknown) (unknown) Patient had (units (un known) date) difficulty unknown) getting to sleep, but no difficulty staying asleep. (unknown) (no (unknown) (unknown) Patient stated (units (unknown) date) that it took unknown) hours to fall asleep, which is not usual. (unknown) (no (unknown) (unknown) Patient woke by (units (unknown) date) Tech. unknown) (unknown) (no (unknown) (unknown) Patient: (units (unkno wn) date) KelseyWild unknown) ie M MR (unknown) (no (unknown) (unknown) Performed by (units (u nknown) date) unknown) (unknown) (no (unknown) (unknown) Performed by: (units ( unknown) date) unknown) (unknown) (no (unknown) (unknown) Previous Sleep (units (unknown) date) Studies: unknown) 01/20/2022 (unknown) (no (unknown) (unknown) Pt believes her (units (unknown) date) tolerance, Mask unknown) fit and comfort were excellent. And the pressure (unknown) (no (unknown) (unknown) Pt would squeeze (units (unknown) date) legs together, unknown) bend knees, continually move legs and feet, and (unknown) (no (unknown) (unknown) Pt?s Morning (units (u nknown) date) Comments: unknown) (unknown) (no (unknown) (unknown) Reason for SLEEP (units (unknown) date) STUDY:? unknown) Breathing-related sleep disorder, EDS, history of (unknown) (no (unknown) (unknown) Recording Tech:? (units (unknown) date) Pamella unknown) KATIE Elise? (unknown) (no (unknown) (unknown) Recording/Scorin (units (unknown) date) g Notes: unknown) (unknown) (no (unknown) (unknown) Referral Sleep (units (unknown) date) Medicine G47.33 - unknown) Obstructive sleep apnea (adult) (pediatric) (unknown) (no (unknown) (unknown) Referrals (units (unkn own) date) unknown) (unknown) (no (unknown) (unknown) Referring (units (unkn own) date) Physician: Delmer unknown) MD Jacque. (unknown) (no (unknown) (unknown) Result Visit is (units (unknown) date) scheduled on: unknown) ?03/29/2022 (unknown) (no (unknown) (unknown) Pamella (units (unkno wn) date) KATIE Elise unknown) (unknown) (no (unknown) (unknown) SLEEP AID USED: (units (unknown) date) Melatonin unknown) (unknown) (no (unknown) (unknown) Severity of GENNY: (units (unknown) date) Moderate unknown) (unknown) (no (unknown) (unknown) Signed By: (units (unk nown) date) unknown) (unknown) (no (unknown) (unknown) Sleep Procedure (units (unknown) date) unknown) (unknown) (no (unknown) (unknown) Study Type: (units (un known) date) CPAP? unknown) ? (unknown) (no (unknown) (unknown) Tech (units (unkno wn) date) Observations unknown) (unknown) (no (unknown) (unknown) Tech (units (unkno wn) date) Observations: unknown) (unknown) (no (unknown) (unknown) Furniture Mechanic?s (units (u nknown) date) Summary:?Pt unknown) started the Cpap Titration in with Cpap 5, in supine (unknown) (no (unknown) (unknown) This note may (units ( unknown) date) have been all or unknown) partially generated using voice recognition (unknown) (no (unknown) (unknown) Time Epoch (units (unk nown) date) Stages CPAP unknown) Position (unknown) (no (unknown) (unknown) Weight:? 260 (units (u nknown) date) unknown) (unknown) (no (unknown) (unknown) a few OH and (units (u nknown) date) frequent 3% unknown) desaturations, were observed in NREM. PLMs (unknown) (no (unknown) (unknown) and bending (units (un known) date) knees unknown) (unknown) (no (unknown) (unknown) desats, PLM (units (un known) date) unknown) (unknown) (no (unknown) (unknown) for OH, and a (units ( unknown) date) few CA were also unknown) noted. ?PLMs stopped during REM and did not (unknown) (no (unknown) (unknown) have occurred. (units (unknown) date) If there are any unknown) questions, please contact the Medical Records (unknown) (no (unknown) (unknown) hypothyroidism, (units (unknown) date) arthritis unknown) (unknown) (no (unknown) (unknown) increased to 6, (units (unknown) date) 7, 9, 10,and 11 unknown) for mild snores and OH. She achieved all stages (unknown) (no (unknown) (unknown) may occur. (units (unk nown) date) Occasional unknown) wrong-word or 'sound-alike' substitutions may have (unknown) (no (unknown) (unknown) no arousals, (units (u nknown) date) ?throughout the unknown) study. She tolerated well, the Wisp interface, and (unknown) (no (unknown) (unknown) occurred due to (units (unknown) date) the inherent unknown) limitations of voice recognition software. Please (unknown) (no (unknown) (unknown) of sleep, with (units (unknown) date) minimal N3 and unknown) delayed Stg REM. She achieved Stg REM supine on (unknown) (no (unknown) (unknown) position. Sleep (units (unknown) date) onset was 14.5 unknown) minutes. Continuous PLMs, occasional mild snores, (unknown) (no (unknown) (unknown) present again. (units (unknown) date) Pt continued to unknown) rest quietly. Cpap was increased to 16 for OH at (unknown) (no (unknown) (unknown) read the note (units ( unknown) date) carefully and unknown) recognize, using context, where these substitutions (unknown) (no (unknown) (unknown) rock her body. (units (unknown) date) She stated ?my unknown) legs are driving me crazy tonight.? Cpap was (unknown) (no (unknown) (unknown) significantly (units (u nknown) date) contributed to unknown) pt?s inability to obtain and maintain deeper sleep. (unknown) (no (unknown) (unknown) snoring, (units (unkno wn) date) insomnia unknown) (unknown) (no (unknown) (unknown) software. (units (unkn own) date) Although every unknown) effort is made to edit content, tobacco sampler errors (unknown) (no (unknown) (unknown) stages of sleep, (units (unknown) date) also caused unknown) anxiety,(per pt) due to consistently jerking legs (unknown) (no (unknown) (unknown) the end of the (units (unknown) date) study. Pt unknown) demonstrated frequent SpO2 desaturations of ?3%, with (unknown) (no (unknown) (unknown) then rested (units (un known) date) quietly in and unknown) out of Stg REM. Cpap was increased to 13 and to 14 (unknown) (no (unknown) (unknown) venlafaxine, (units (u nknown) date) levothyroxine, unknown) metformin, methocarbamol, nitroglycerin (unknown) (no (unknown) (unknown) was just right. (units (unknown) date) unknown) Result panel 2 (unknown) (no (unknown) (unknown) 53-66 Mild A few (units (unknown) date) OH + snores, PLM unknown) (unknown) (no (unknown) (unknown) (no value) (units (unk nown) date) unknown) (unknown) (no (unknown) (unknown) 0013 164 W,1,2,3 (units (unknown) date) 5,6 S 91 unknown) (unknown) (no (unknown) (unknown) 0113 284 W,1,2 6 (units (unknown) date) S,O 90 unknown) (unknown) (no (unknown) (unknown) 0213 404 W,1,,32 (units (unknown) date) 6,7,9 S 88 unknown) (unknown) (no (unknown) (unknown) 0313 524 2,3, (units ( unknown) date) REM ??? 9,10,11 unknown) ? (unknown) (no (unknown) (unknown) 0413 644 REM. (units ( unknown) date) W,1,2 11,12,13 S unknown) (unknown) (no (unknown) (unknown) 0513 764 W,1,2 (units (unknown) date) 14, 16 S ? unknown) (unknown) (no (unknown) (unknown) 0611 880 (units (unkno wn) date) unknown) (unknown) (no (unknown) (unknown) 2259 15 W 5 S 89 (units (unknown) date) 53- unknown) (unknown) (no (unknown) (unknown) 2313 44 W,1 5 S (units (unknown) date) 90 unknown) (unknown) (no (unknown) (unknown) Orders: (units (unkno wn) date) unknown) (unknown) (no (unknown) (unknown) (no value) (units (unk nown) date) unknown) (unknown) (no (unknown) (unknown) 60-74 Mild A few (units (unknown) date) snores, PLM unknown) (unknown) (no (unknown) (unknown) (no value) (units (unk nown) date) unknown) (unknown) (no (unknown) (unknown) 03/15/22 1246 (units ( unknown) date) unknown) (unknown) (no (unknown) (unknown) 55-76 X PLM (units (un known) date) Bthrm in and out unknown) (unknown) (no (unknown) (unknown) 89 60-61 X (units (unk nown) date) Desats from 92 to unknown) 89%, No PLM (unknown) (no (unknown) (unknown) [place], [place] (units ( unknown) date) [id number] unknown) (unknown) (no (unknown) (unknown) LIGHTS ON (units (unkn own) date) unknown) (unknown) (no (unknown) (unknown) Signed (units (unkno wn) date) unknown) (unknown) (no (unknown) (unknown) Sleep Visit (units (un known) date) unknown) (unknown) (no (unknown) (unknown) [facility] ([facility] ([facility] Center unknown) (unknown) (no (unknown) (unknown) (no value) (units (unk nown) date) unknown) (unknown) (no (unknown) (unknown) Min. SpO2 HR (units (u nknown) date) Snores Events unknown) Comments (unknown) (no (unknown) (unknown) Resting quietly (units (unknown) date) in REM supine unknown) (unknown) (no (unknown) (unknown) S 89 59-61 ??? (units (unknown) date) ?X A few OH, freq unknown) (unknown) (no (unknown) (unknown) #: [id number] (units ( unknown) date) unknown) (unknown) (no (unknown) (unknown) (units (unknown) date) Scoring unknown) Summary (unknown) (no (unknown) (unknown) 03/14/22 (units (unkno wn) date) unknown) (unknown) (no (unknown) (unknown) 11. REM then (units (u nknown) date) continued and OH unknown) was observed. Cpap was increased again to 12. She (unknown) (no (unknown) (unknown) 57-71 SLEEP (units (un known) date) ONSET unknown) (unknown) (no (unknown) (unknown) 65 LIGHTS OFF (units ( unknown) date) unknown) (unknown) (no (unknown) (unknown) 87 50-52 X A few (units (unknown) date) [place], [place] unknown) (unknown) (no (unknown) (unknown) ? (units (unkno wn) date) unknown) (unknown) (no (unknown) (unknown) ?-? (units (unknown) date) ? unknown) (unknown) (no (unknown) (unknown) ? (units (unk nown) date) Arousals: unknown) Occasional with respiratory events, some PLMs (unknown) (no (unknown) (unknown) ? ECG: (units (unknown) date) PVC noted unknown) (unknown) (no (unknown) (unknown) ? EEG (units (unknown) date) abnormalities: unknown) None noted (unknown) (no (unknown) (unknown) ? (units (unk nown) date) Estimated RDI: unknown) 6.3 ?AHI: 5.9 (unknown) (no (unknown) (unknown) ? (units (unk nown) date) Nocturia: x1 unknown) (unknown) (no (unknown) (unknown) ? PLMS: (units (unknown) date) Continual and unknown) contributed to pt?s inability to obtain deeper (unknown) (no (unknown) (unknown) ? REM (units (unknown) date) Latency:? 226.5 unknown) minutes (unknown) (no (unknown) (unknown) ? Sleep (units (unknown) date) Latency:?? 14.5 unknown) mins (unknown) (no (unknown) (unknown) ? (units (unk nown) date) Snoring: A few unknown) mild snores (unknown) (no (unknown) (unknown) ? (units (unk nown) date) Technical Issues: unknown) N/A (unknown) (no (unknown) (unknown) ? (units (unknown) date) unknown) (unknown) (no (unknown) (unknown) Age/Sex: 66 / F (units (unknown) date) Date of Service: unknown) (unknown) (no (unknown) (unknown) Assessment and (units (unknown) date) Plan unknown) (unknown) (no (unknown) (unknown) Attending Dr: (units ( unknown) date) Delmer Santillan MD unknown) (unknown) (no (unknown) (unknown) Bed #:? 1 (units (unkn own) date) unknown) (unknown) (no (unknown) (unknown) Cpap 10. She (units (u nknown) date) demonstrated unknown) frequent 3% desaturations and Cpap was increased to (unknown) (no (unknown) (unknown) Cpap to 16. (units (un known) date) unknown) (unknown) (no (unknown) (unknown) DATE: 03/14/22 (units (unknown) date) unknown) (unknown) (no (unknown) (unknown) : 1955 (units (unknown) date) Acct:[id number] unknown) (unknown) (no (unknown) (unknown) Dept at (units (unkno wn) date) . unknown) (unknown) (no (unknown) (unknown) Documented By: (units (unknown) date) Delmer Santillan MD unknown) 03/15/22 0712 (unknown) (no (unknown) (unknown) ESS:? (units (un known) date) unknown) (unknown) (no (unknown) (unknown) Height:? 61 (units (un known) date) unknown) (unknown) (no (unknown) (unknown) [facility] (units (unknown) date) [facility] unknown) CENTER (unknown) (no (unknown) (unknown) Insurance Info:? (units (unknown) date) Medicare unknown) (unknown) (no (unknown) (unknown) Loc: SLEEP (units (unk nown) date) unknown) (unknown) (no (unknown) (unknown) MASK USED DURING (units (unknown) date) TESTING: unknown) Respironics Wisp, Sz Small nasal cushion (unknown) (no (unknown) (unknown) MEDICATIONS:? (units ( unknown) date) amlodipine, unknown) fluticasone, gabapentin, losartan, metoprolol, (unknown) (no (unknown) (unknown) Neck (units (unkno wn) date) Circumference: unknown) 17.5 (unknown) (no (unknown) (unknown) Ordering (units (unkno wn) date) Physician:? unknown) Jacque (unknown) (no (unknown) (unknown) Patient Medical (units (unknown) date) History:? unknown) anxiety/depressio n, diabetes, HTN, ARMATURE TESTER, sinusitis, (unknown) (no (unknown) (unknown) Patient Name:?? (units (unknown) date) Kelsey, unknown) John Aguirre? ?MR#:? [id number]? : (unknown) (no (unknown) (unknown) Patient (units (unkno wn) date) considered her unknown) sleep deep, which ?seems longer and deeper than at home? (unknown) (no (unknown) (unknown) Patient (units (unkno wn) date) estimates 4-5 unknown) hours of sleep, which is longer than usual (unknown) (no (unknown) (unknown) Patient had (units (un known) date) difficulty unknown) getting to sleep, but no difficulty staying asleep. (unknown) (no (unknown) (unknown) Patient stated (units (unknown) date) that it took unknown) hours to fall asleep, which is not usual. (unknown) (no (unknown) (unknown) Patient woke by (units (unknown) date) Tech. unknown) (unknown) (no (unknown) (unknown) Patient: (units (unkno wn) date) KelseyDuniaWild unknown) ie M MR (unknown) (no (unknown) (unknown) Performed by (units (u nknown) date) unknown) (unknown) (no (unknown) (unknown) Performed by: (units ( unknown) date) unknown) (unknown) (no (unknown) (unknown) Previous Sleep (units (unknown) date) Studies: unknown) 01/20/2022 (unknown) (no (unknown) (unknown) Pt believes her (units (unknown) date) tolerance, Mask unknown) fit and comfort were excellent. And the pressure (unknown) (no (unknown) (unknown) Pt would squeeze (units (unknown) date) legs together, unknown) bend knees, continually move legs and feet, and (unknown) (no (unknown) (unknown) Pt?s Morning (units (u nknown) date) Comments: unknown) (unknown) (no (unknown) (unknown) Reason for SLEEP (units (unknown) date) STUDY:? unknown) Breathing-related sleep disorder, EDS, history of (unknown) (no (unknown) (unknown) Recording Tech:? (units (unknown) date) Pamella unknown) Arik RPSGT? (unknown) (no (unknown) (unknown) Recording/Scorin (units (unknown) date) g Notes: unknown) (unknown) (no (unknown) (unknown) Referral Sleep (units (unknown) date) Medicine G47.33 - unknown) Obstructive sleep apnea (adult) (pediatric) (unknown) (no (unknown) (unknown) Referrals (units (unkn own) date) unknown) (unknown) (no (unknown) (unknown) Referring (units (unkn own) date) Physician: Delmer unknown) MD Jacque. (unknown) (no (unknown) (unknown) Result Visit is (units (unknown) date) scheduled on: unknown) ?03/29/2022 (unknown) (no (unknown) (unknown) Pamella (units (unkno wn) date) RY EliseGT unknown) (unknown) (no (unknown) (unknown) SLEEP AID USED: (units (unknown) date) Melatonin unknown) (unknown) (no (unknown) (unknown) Severity of GENNY: (units (unknown) date) Moderate unknown) (unknown) (no (unknown) (unknown) Signed By: (units (unk nown) date) <Electronically unknown) signed by Delmer Santillan MD> (unknown) (no (unknown) (unknown) Sleep Procedure (units (unknown) date) unknown) (unknown) (no (unknown) (unknown) Study Type: (units (un known) date) CPAP? unknown) ? (unknown) (no (unknown) (unknown) Tech (units (unkno wn) date) Observations unknown) (unknown) (no (unknown) (unknown) Tech (units (unkno wn) date) Observations: unknown) (unknown) (no (unknown) (unknown) Furniture Mechanic?s (units (u nknown) date) Summary:?Pt unknown) started the Cpap Titration in with Cpap 5, in supine (unknown) (no (unknown) (unknown) This note may (units ( unknown) date) have been all or unknown) partially generated using voice recognition (unknown) (no (unknown) (unknown) Time Epoch (units (unk nown) date) Stages CPAP unknown) Position (unknown) (no (unknown) (unknown) Weight:? 260 (units (u nknown) date) unknown) (unknown) (no (unknown) (unknown) a few OH and (units (u nknown) date) frequent 3% unknown) desaturations, were observed in NREM. PLMs (unknown) (no (unknown) (unknown) and bending (units (un known) date) knees unknown) (unknown) (no (unknown) (unknown) desats, PLM (units (un known) date) unknown) (unknown) (no (unknown) (unknown) for OH, and a (units ( unknown) date) few [place] were also unknown) noted. ?PLMs stopped during REM and did not (unknown) (no (unknown) (unknown) have occurred. (units (unknown) date) If there are any unknown) questions, please contact the Medical Records (unknown) (no (unknown) (unknown) hypothyroidism, (units (unknown) date) arthritis unknown) (unknown) (no (unknown) (unknown) increased to 6, (units (unknown) date) 7, 9, 10,and 11 unknown) for mild snores and OH. She achieved all stages (unknown) (no (unknown) (unknown) may occur. (units (unk nown) date) Occasional unknown) wrong-word or 'sound-alike' substitutions may have (unknown) (no (unknown) (unknown) no arousals, (units (u nknown) date) ?throughout the unknown) study. She tolerated well, the Wisp interface, and (unknown) (no (unknown) (unknown) occurred due to (units (unknown) date) the inherent unknown) limitations of voice recognition software. Please (unknown) (no (unknown) (unknown) of sleep, with (units (unknown) date) minimal N3 and unknown) delayed Stg REM. She achieved Stg REM supine on (unknown) (no (unknown) (unknown) position. Sleep (units (unknown) date) onset was 14.5 unknown) minutes. Continuous PLMs, occasional mild snores, (unknown) (no (unknown) (unknown) present again. (units (unknown) date) Pt continued to unknown) rest quietly. Cpap was increased to 16 for OH at (unknown) (no (unknown) (unknown) read the note (units ( unknown) date) carefully and unknown) recognize, using context, where these substitutions (unknown) (no (unknown) (unknown) rock her body. (units (unknown) date) She stated ?my unknown) legs are driving me crazy tonight.? Cpap was (unknown) (no (unknown) (unknown) significantly (units (u nknown) date) contributed to unknown) pt?s inability to obtain and maintain deeper sleep. (unknown) (no (unknown) (unknown) snoring, (units (unkno wn) date) insomnia unknown) (unknown) (no (unknown) (unknown) software. (units (unkn own) date) Although every unknown) effort is made to edit content, tobacco sampler errors (unknown) (no (unknown) (unknown) stages of sleep, (units (unknown) date) also caused unknown) anxiety,(per pt) due to consistently jerking legs (unknown) (no (unknown) (unknown) the end of the (units (unknown) date) study. Pt unknown) demonstrated frequent SpO2 desaturations of ?3%, with (unknown) (no (unknown) (unknown) then rested (units (un known) date) quietly in and unknown) out of Stg REM. Cpap was increased to 13 and to 14 (unknown) (no (unknown) (unknown) venlafaxine, (units (u nknown) date) levothyroxine, unknown) metformin, methocarbamol, nitroglycerin (unknown) (no (unknown) (unknown) was just right. (units (unknown) date) unknown) Result panel 3 (unknown) (no (unknown) (unknown) (no value) (units (unk nown) date) unknown) (unknown) (no (unknown) (unknown) Continuous Positive (unit s (unknown) date) Airway Pressure unknown) (93.99) (unknown) (no (unknown) (unknown) Orders: (units (unkno wn) date) unknown) (unknown) (no (unknown) (unknown) (no value) (units (unk nown) date) unknown) (unknown) (no (unknown) (unknown) [place] [address] (unit s (unknown) date) unknown) (unknown) (no (unknown) (unknown) Draft (units (unkno wn) date) unknown) (unknown) (no (unknown) (unknown) Sleep Visit (units (un known) date) unknown) (unknown) (no (unknown) (unknown) [facility] (un its (unknown) date) unknown) (unknown) (no (unknown) (unknown) (no value) (units (unk nown) date) unknown) (unknown) (no (unknown) (unknown) #: [phone] (units ( unknown) date) unknown) (unknown) (no (unknown) (unknown) (un its (unknown) date) Scoring unknown) Summary (unknown) (no (unknown) (unknown) *Please reference (units (unknown) date) Sleep Study for unknown) Procedure Documentation (unknown) (no (unknown) (unknown) 03/14/22 (units (unkno wn) date) unknown) (unknown) (no (unknown) (unknown) 11. REM then (units (u nknown) date) continued and OH was unknown) observed. Cpap was increased again to 12. She (unknown) (no (unknown) (unknown) 91?60-74? ? (un its (unknown) date) ?Mild? unknown) ???A ? few snores, PLM? (unknown) (no (unknown) (unknown) ? (units (unkno wn) date) unknown) (unknown) (no (unknown) (unknown) ? ? 87? (units ( unknown) date) ???50-52?X? unknown) ?A ? few [place], [place]? (unknown) (no (unknown) (unknown) ? ? ? (units (unkno wn) date) unknown) (unknown) (no (unknown) (unknown) ?0013? (units (unknown) date) ???164? unknown) ???W,1,2,3?5,6?S? (unknown) (no (unknown) (unknown) ?0113? (units (unknown) date) ???284? unknown) ???W,1,2?6?S,O?90? (unknown) (no (unknown) (unknown) ?0213? (units (unknown) date) ???404? unknown) ???W,1,,32?6,7,9?S? (unknown) (no (unknown) (unknown) ?0313? (units (unknown) date) ???524? unknown) ???2,3,???REM? 9,10,11? (unknown) (no (unknown) (unknown) ?0413? (units (unknown) date) ???644?REM. unknown) ? W,1,2?11,12,13?S? (unknown) (no (unknown) (unknown) ?0513? (units (unknown) date) ???764? unknown) ???W,1,2?14, 16?S? (unknown) (no (unknown) (unknown) ?0611? (units (unknown) date) ???880? unknown) ? (unknown) (no (unknown) (unknown) ?2259? (units (unknown) date) ???15?W? ? unknown) ?5?S?89? (unknown) (no (unknown) (unknown) ?2313? (units (unknown) date) ???44?W,1? ? unknown ) ?5?S?90? ? (unknown) (no (unknown) (unknown) ? (un its (unknown) date) ?LIGHTS ON?? ? unknown ) (unknown) (no (unknown) (unknown) ?55-76? (un its (unknown) date) ???X?PLM? ? unknown) ?Bthrm ? in and out?? ? (unknown) (no (unknown) (unknown) ?89? (units (unknown) date) ???60-61?X? unknown) ?[place] ? from 92 to 89%, No (unknown) (no (unknown) (unknown) ?1955? (un its (unknown) date) ?? unknown) (unknown) (no (unknown) (unknown) ?57-71? (unit s (unknown) date) ? unknown) ???SLEEP ONSET?? ? (unknown) (no (unknown) (unknown) ?Min. SpO2? ? (units (unknown) date) ?HR? unknown) ???Snores?Events? (unknown) (no (unknown) (unknown) ???53-65? (uni ts (unknown) date) ? unknown) ???LIGHTS OFF?? ? (unknown) (no (unknown) (unknown) ???88?53-66? (un its (unknown) date) ?Mild? unknown) ???A ? few OH + snores, PLM? (unknown) (no (unknown) (unknown) ? S? (units (unknown) date) ???89?59-61? unknown ) ?X?A ? few OH, (unknown) (no (unknown) (unknown) ? (units (unknown) date) unknown) (unknown) (no (unknown) (unknown) ?Arousals:? (un its (unknown) date) Occasional with unknown) respiratory events, some PLMs (unknown) (no (unknown) (unknown) ?ECG:?PVC (unit s (unknown) date) noted unknown) (unknown) (no (unknown) (unknown) ?EEG?abnorm (un its (unknown) date) alities: None noted unknown) (unknown) (no (unknown) (unknown) ?Estimated? (un its (unknown) date) RDI:?6.3 unknown) ?AHI:?5.9 (unknown) (no (unknown) (unknown) ?Nocturia:? (un its (unknown) date) x1 unknown) (unknown) (no (unknown) (unknown) ?PLMS:?Cont (un its (unknown) date) inual and contributed unknown) to pt?s inability to obtain deeper (unknown) (no (unknown) (unknown) ?REM (units (unknown) date) Latency:? 226.5 unknown) minutes (unknown) (no (unknown) (unknown) ?Sleep (units (unknown) date) Latency:?? 14.5 mins unknown) (unknown) (no (unknown) (unknown) ?Snoring: A (un its (unknown) date) few mild snores unknown) (unknown) (no (unknown) (unknown) ?Technical (uni ts (unknown) date) Issues:?N/A unknown) (unknown) (no (unknown) (unknown) Add'l Plan Details (units (unknown) date) unknown) (unknown) (no (unknown) (unknown) Add'l Plan*: (units (u nknown) date) unknown) (unknown) (no (unknown) (unknown) Age/Sex: 66 / F Date (uni ts (unknown) date) of Service: unknown) (unknown) (no (unknown) (unknown) Alternative therapies, (un its (unknown) date) including dental unknown) appliances and surgical procedures could (unknown) (no (unknown) (unknown) Assessment and Plan (unit s (unknown) date) unknown) (unknown) (no (unknown) (unknown) Attaining optimal (units (unknown) date) weight is recommended. unknown ) (unknown) (no (unknown) (unknown) Attending Dr: Delmer (uni ts (unknown) date) Jacque MCKINNON unknown) (unknown) (no (unknown) (unknown) [place] A: Obstructive (unit s (unknown) date) Sleep Apnea, Moderate unknown) (G47.33) (unknown) (no (unknown) (unknown) [place] B: Polysomnogram (un its (unknown) date) (89.17) unknown) (unknown) (no (unknown) (unknown) [place] C: (units (unkno wn) date) unknown) (unknown) (no (unknown) (unknown) Bed #:? 1 (units (unkn own) date) unknown) (unknown) (no (unknown) (unknown) Comments?? ? (units (u nknown) date) unknown) (unknown) (no (unknown) (unknown) Cpap 10. She (units (u nknown) date) demonstrated frequent unknown) 3% desaturations and Cpap was increased to (unknown) (no (unknown) (unknown) Cpap to 16. (units (un known) date) unknown) (unknown) (no (unknown) (unknown) DATE: 03/14/22 (units (unknown) date) unknown) (unknown) (no (unknown) (unknown) : 1955 (units (unknown) date) Acct:[id number] unknown) (unknown) (no (unknown) (unknown) Dept at (units (unkno wn) date) . unknown) (unknown) (no (unknown) (unknown) Diplomat, [place] (units (unknown) date) Board of Sleep unknown) Medicine (unknown) (no (unknown) (unknown) Documented By: (units (unknown) date) Delmer Santillan MD unknown) 03/22/22 1611 (unknown) (no (unknown) (unknown) ESS:? (units (un known) date) unknown) (unknown) (no (unknown) (unknown) FAAP, sub-specialty (unit s (unknown) date) boards in Sleep unknown) Medicine (unknown) (no (unknown) (unknown) Height:? 61 (units (un known) date) unknown) (unknown) (no (unknown) (unknown) IMPRESSION: (units (un known) date) unknown) (unknown) (no (unknown) (unknown) [facility] (un its (unknown) date) [facility]) (unknown) (no (unknown) (unknown) If there are any (units (unknown) date) questions regarding unknown) the patient please contact us at the Sleep (unknown) (no (unknown) (unknown) Insurance Info:? (units (unknown) date) Medicare unknown) (unknown) (no (unknown) (unknown) Loc: SLEEP (units (unk nown) date) unknown) (unknown) (no (unknown) (unknown) MASK USED DURING (units (unknown) date) TESTING: Respironics unknown) Wisp, Sz Small nasal cushion (unknown) (no (unknown) (unknown) MEDICATIONS:? (units ( unknown) date) amlodipine, unknown) fluticasone, gabapentin, losartan, metoprolol, (unknown) (no (unknown) (unknown) Neck Circumference: (unit s (unknown) date) 17.5 unknown) (unknown) (no (unknown) (unknown) Ordering Physician:? (uni ts (unknown) date) Dr. Santillan unknown) (unknown) (no (unknown) (unknown) PLM?Resting (un its (unknown) date) ? quietly in REM unknown) supine?? ? (unknown) (no (unknown) (unknown) Patient Medical (units (unknown) date) History:? 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 (units (unknown) date) John Chang? unknown ) ?MR#:? [id number]? : (unknown) (no (unknown) (unknown) Patient considered (units (unknown) date) her sleep deep, which unknown) ?seems longer and deeper than at home? (unknown) (no (unknown) (unknown) Patient estimates 4-5 (un its (unknown) date) hours of sleep, which unknown) is longer than usual (unknown) (no (unknown) (unknown) Patient had (units (un known) date) difficulty getting to unknown) sleep, but no difficulty staying asleep. (unknown) (no (unknown) (unknown) Patient stated that (unit s (unknown) date) it took hours to fall unknown) asleep, which is not usual. (unknown) (no (unknown) (unknown) Patient woke by Tech. (un its (unknown) date) unknown) (unknown) (no (unknown) (unknown) Patient: (units (unkno wn) date) ChangJohann M unknown) MR (unknown) (no (unknown) (unknown) Performed by (units (u nknown) date) unknown) (unknown) (no (unknown) (unknown) Performed by: (units ( unknown) date) unknown) (unknown) (no (unknown) (unknown) Previous Sleep (units (unknown) date) Studies: 01/20/2022 unknown) (unknown) (no (unknown) (unknown) Pt believes her (units (unknown) date) tolerance, Mask fit unknown) and comfort were excellent. And the pressure (unknown) (no (unknown) (unknown) Pt would squeeze legs (un its (unknown) date) together, bend knees, unknown) continually move legs and feet, and (unknown) (no (unknown) (unknown) Pt?s Morning (units (u nknown) date) Comments: unknown) (unknown) (no (unknown) (unknown) RECOMMENDATION: (units (unknown) date) unknown) (unknown) (no (unknown) (unknown) Reason for SLEEP (units (unknown) date) STUDY:? unknown) Breathing-related sleep disorder, EDS, history of (unknown) (no (unknown) (unknown) Recording Tech:? (units (unknown) date) Pamella Arik, unknown) RPSGT? (unknown) (no (unknown) (unknown) Recording/Scoring (units (unknown) date) Notes: unknown) (unknown) (no (unknown) (unknown) Referral Sleep (units (unknown) date) Medicine G47.33 - unknown) Obstructive sleep apnea (adult) (pediatric) (unknown) (no (unknown) (unknown) Referrals (units (unkn own) date) unknown) (unknown) (no (unknown) (unknown) Referring Physician: (uni ts (unknown) date) Delmer Santillan MD. unknown) (unknown) (no (unknown) (unknown) Result Visit is (units (unknown) date) scheduled on: unknown) ?03/29/2022 (unknown) (no (unknown) (unknown) Review of proper (units (unknown) date) sleep hygiene, unknown) including the use of nicotine and excessive (unknown) (no (unknown) (unknown) Delmer Santillan M.D. (units (unknown) date) unknown) (unknown) (no (unknown) (unknown) Pamella Elise, (unit s (unknown) date) RPSGT unknown) (unknown) (no (unknown) (unknown) SLEEP AID USED: (units (unknown) date) Melatonin unknown) (unknown) (no (unknown) (unknown) Severity of GENNY: (units (unknown) date) Moderate unknown) (unknown) (no (unknown) (unknown) Signed By: (units (unk nown) date) unknown) (unknown) (no (unknown) (unknown) Sleep Procedure (units (unknown) date) unknown) (unknown) (no (unknown) (unknown) Study Type: (units (un known) date) CPAP? unknown ) ? 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 Therefore, I would recommend (unknown) (no (unknown) (unknown) The EKG showed (units (unknown) date) occasional PVC?s. unknown) (unknown) (no (unknown) (unknown) The patient should be (un its (unknown) date) advised regarding unknown) safety issues associated with (unknown) (no (unknown) (unknown) The patient underwent (un its (unknown) date) a digital unknown) polysomnographic sleep study is which the (unknown) (no (unknown) (unknown) This nocturnal (units (unknown) date) polysomnographic sleep unknown ) study was performed as a follow-up on a (unknown) (no (unknown) (unknown) This note may have (units (unknown) date) been all or partially unknown) generated using voice recognition (unknown) (no (unknown) (unknown) This recording was (units (unknown) date) performed using unknown) [employer] G3 PSG recording system and (unknown) (no (unknown) (unknown) Time?Epoch? (uni ts (unknown) date) ?Stages? unknown ) ?CPAP?Position? ? (unknown) (no (unknown) (unknown) Weight:? 260 (units (u nknown) date) unknown) (unknown) (no (unknown) (unknown) [facility] (units (unknown) date) unknown) (unknown) (no (unknown) (unknown) a few OH and frequent (un its (unknown) date) 3% desaturations, were unknown ) observed in NREM. PLMs (unknown) (no (unknown) (unknown) also be considered. (unit s (unknown) date) Given the relatively unknown) low oxygen saturation minimums on this (unknown) (no (unknown) (unknown) and bending knees (units (unknown) date) unknown) (unknown) (no (unknown) (unknown) and higher CPAP (units (unknown) date) pressures, would unknown) consider bi-level PAP titration study. (unknown) (no (unknown) (unknown) and pulse oximetry (units (unknown) date) with placement based unknown) on guidelines outlined in the AASM (unknown) (no (unknown) (unknown) bedtime is also (units (unknown) date) recommended. unknown) (unknown) (no (unknown) (unknown) caffeine and the (units (unknown) date) avoidance of alcohol unknown) and benzodiazepine hypnotics before (unknown) (no (unknown) (unknown) deemed to be of (units (unknown) date) adequate quality to unknown) allow interpretation. Scoring was based on (unknown) (no (unknown) (unknown) disturbance. This (units (unknown) date) sleep study showed at unknown) the recommended pressure no significant (unknown) (no (unknown) (unknown) effort, nasal and (units (unknown) date) oral airflow, nasal unknown) pressure, leg movements, body position,? (unknown) (no (unknown) (unknown) equipment while in a (uni ts (unknown) date) somnolent state. unknown) (unknown) (no (unknown) (unknown) following were (units (unknown) date) recorded unknown) simultaneously: Electroencephalogram based on the 10-20 (unknown) (no (unknown) (unknown) for OH, and a few [place] (uni ts (unknown) date) were also noted. ?PLMs unknown ) stopped during REM and did not (unknown) (no (unknown) (unknown) freq desats, PLM? ? (unit s (unknown) date) ? unknown) (unknown) (no (unknown) (unknown) have occurred. If (units (unknown) date) there are any unknown) questions, please contact the Medical Records (unknown) (no (unknown) (unknown) hypothyroidism, (units (unknown) date) arthritis unknown) (unknown) (no (unknown) (unknown) increased to 6, 7, 9, (un its (unknown) date) 10,and 11 for mild unknown) snores and OH. She achieved all stages (unknown) (no (unknown) (unknown) may occur. Occasional (un its (unknown) date) wrong-word or unknown) 'sound-alike' substitutions may have (unknown) (no (unknown) (unknown) nasal CPAP at a (units (unknown) date) pressure of 10 cwp unknown) with a and in-line heated humidification. (unknown) (no (unknown) (unknown) no arousals, (units (u nknown) date) ?throughout the study. unknown ) She tolerated well, the Wisp interface, and (unknown) (no (unknown) (unknown) occurred due to the (unit s (unknown) date) inherent limitations unknown) of voice recognition software. Please (unknown) (no (unknown) (unknown) of sleep, with (units (unknown) date) minimal N3 and delayed unknown ) Stg REM. She achieved Stg REM supine on (unknown) (no (unknown) (unknown) patient did respond (unit s (unknown) date) to CPAP with a unknown) decrease in nocturnal respiratory (unknown) (no (unknown) (unknown) patient with a (units (unknown) date) previous study that unknown) showed moderate obstructive sleep apnea. The (unknown) (no (unknown) (unknown) position. Sleep onset (uni ts (unknown) date) was 14.5 minutes. unknown) Continuous PLMs, occasional mild snores, (unknown) (no (unknown) (unknown) present again. Pt (units (unknown) date) continued to rest unknown) quietly. Cpap was increased to 16 for OH at (unknown) (no (unknown) (unknown) read the note (units ( unknown) date) carefully and unknown) recognize, using context, where these substitutions (unknown) (no (unknown) (unknown) rock her body. She (units (unknown) date) stated ?my legs are unknown) driving me crazy tonight.? Cpap was (unknown) (no (unknown) (unknown) scoring manual. Audio (un its (unknown) date) and video recordings unknown) were also obtained at the same time. (unknown) (no (unknown) (unknown) scoring software. The (un its (unknown) date) raw data was reviewed unknown) in its entirety and the data was (unknown) (no (unknown) (unknown) significantly (units (u nknown) date) contributed to pt?s unknown) inability to obtain and maintain deeper sleep. (unknown) (no (unknown) (unknown) sleepiness, and avoid (un its (unknown) date) operating motor unknown) vehicles or handling heavy/dangerous (unknown) (no (unknown) (unknown) snoring, insomnia (units (unknown) date) unknown) (unknown) (no (unknown) (unknown) snoring. The apnea/ (unit s (unknown) date) hypopnea index was 8.2 unknown ) and the sleep efficiency was 95.6%. (unknown) (no (unknown) (unknown) software. Although (units (unknown) date) every effort is made unknown) to edit content, tobacco sampler errors (unknown) (no (unknown) (unknown) stages of sleep, also (un its (unknown) date) caused anxiety,(per unknown) pt) due to consistently jerking legs (unknown) (no (unknown) (unknown) system, (units (unkno wn) date) electro-oculogram, unknown) electromyogram, electrocardiogram, respiratory (unknown) (no (unknown) (unknown) the Recommended (units (unknown) date) Standards and unknown) Specifications as outlined in the AASM Manual for (unknown) (no (unknown) (unknown) the Scoring of Sleep (uni ts (unknown) date) and Associated Events, unknown ) Version 2.6. (unknown) (no (unknown) (unknown) the end of the study. (un its (unknown) date) Pt demonstrated unknown) frequent SpO2 desaturations of ?3%, with (unknown) (no (unknown) (unknown) then rested quietly (unit s (unknown) date) in and out of Stg REM. unknown ) Cpap was increased to 13 and to 14 (unknown) (no (unknown) (unknown) venlafaxine, (units (u nknown) date) levothyroxine, unknown) metformin, methocarbamol, nitroglycerin (unknown) (no (unknown) (unknown) was just right. (units (unknown) date) unknown) Result panel 4 (unknown) (no (unknown) (unknown) (no value) (units (unk nown) date) unknown) (unknown) (no (unknown) (unknown) Continuous Positive (unit s (unknown) date) Airway Pressure unknown) (93.99) (unknown) (no (unknown) (unknown) Orders: (units (unkno wn) date) unknown) (unknown) (no (unknown) (unknown) (no value) (units (unk nown) date) unknown) (unknown) (no (unknown) (unknown) 03/22/22 1829 (units ( unknown) date) unknown) (unknown) (no (unknown) (unknown) [place] [id number] (unit s (unknown) date) unknown) (unknown) (no (unknown) (unknown) Signed (units (unkno wn) date) unknown) (unknown) (no (unknown) (unknown) Sleep Visit (units (un known) date) unknown) (unknown) (no (unknown) (unknown) [facility] (un its (unknown) date) unknown) (unknown) (no (unknown) (unknown) (no value) (units (unk nown) date) unknown) (unknown) (no (unknown) (unknown) #: [phone] (units ( unknown) date) unknown) (unknown) (no (unknown) (unknown) (un its (unknown) date) Scoring unknown) Summary (unknown) (no (unknown) (unknown) *Please reference (units (unknown) date) Sleep Study for unknown) Procedure Documentation (unknown) (no (unknown) (unknown) 03/14/22 (units (unkno wn) date) unknown) (unknown) (no (unknown) (unknown) 11. REM then (units (u nknown) date) continued and OH was unknown) observed. Cpap was increased again to 12. She (unknown) (no (unknown) (unknown) 91?60-74? ? (un its (unknown) date) ?Mild? unknown) ???A ? few snores, PLM? (unknown) (no (unknown) (unknown) ? (units (unkno wn) date) unknown) (unknown) (no (unknown) (unknown) ? ? 87? (units ( unknown) date) ???50-52?X? unknown) ?A ? few [place], [place]? (unknown) (no (unknown) (unknown) ? ? ? (units (unkno wn) date) unknown) (unknown) (no (unknown) (unknown) ?0013? (units (unknown) date) ???164? unknown) ???W,1,2,3?5,6?S? (unknown) (no (unknown) (unknown) ?0113? (units (unknown) date) ???284? unknown) ???W,1,2?6?S,O?90? (unknown) (no (unknown) (unknown) ?0213? (units (unknown) date) ???404? unknown) ???W,1,,32?6,7,9?S? (unknown) (no (unknown) (unknown) ?0313? (units (unknown) date) ???524? unknown) ???2,3,???REM? 9,10,11? (unknown) (no (unknown) (unknown) ?0413? (units (unknown) date) ???644?REM. unknown) ? W,1,2?11,12,13?S? (unknown) (no (unknown) (unknown) ?0513? (units (unknown) date) ???764? unknown) ???W,1,2?14, 16?S? (unknown) (no (unknown) (unknown) ?0611? (units (unknown) date) ???880? unknown) ? (unknown) (no (unknown) (unknown) ?2259? (units (unknown) date) ???15?W? ? unknown) ?5?S?89? (unknown) (no (unknown) (unknown) ?2313? (units (unknown) date) ???44?W,1? ? unknown ) ?5?S?90? ? (unknown) (no (unknown) (unknown) ? (un its (unknown) date) ?LIGHTS ON?? ? unknown ) (unknown) (no (unknown) (unknown) ?55-76? (un its (unknown) date) ???X?PLM? ? unknown) ?Bthrm ? in and out?? ? (unknown) (no (unknown) (unknown) ?89? (units (unknown) date) ???60-61?X? unknown) ?[place] ? from 92 to 89%, No (unknown) (no (unknown) (unknown) ?1955? (un its (unknown) date) ?? unknown) (unknown) (no (unknown) (unknown) ?57-71? (unit s (unknown) date) ? unknown) ???SLEEP ONSET?? ? (unknown) (no (unknown) (unknown) ?Min. SpO2? ? (units (unknown) date) ?HR? unknown) ???Snores?Events? (unknown) (no (unknown) (unknown) ???53-65? (uni ts (unknown) date) ? unknown) ???LIGHTS OFF?? ? (unknown) (no (unknown) (unknown) ???88?53-66? (un its (unknown) date) ?Mild? unknown) ???A ? few OH + snores, PLM? (unknown) (no (unknown) (unknown) ? S? (units (unknown) date) ???89?59-61? unknown ) ?X?A ? few OH, (unknown) (no (unknown) (unknown) ? (units (unknown) date) unknown) (unknown) (no (unknown) (unknown) ?Arousals:? (un its (unknown) date) Occasional with unknown) respiratory events, some PLMs (unknown) (no (unknown) (unknown) ?ECG:?PVC (unit s (unknown) date) noted unknown) (unknown) (no (unknown) (unknown) ?EEG?abnorm (un its (unknown) date) alities: None noted unknown) (unknown) (no (unknown) (unknown) ?Estimated? (un its (unknown) date) RDI:?6.3 unknown) ?AHI:?5.9 (unknown) (no (unknown) (unknown) ?Nocturia:? (un its (unknown) date) x1 unknown) (unknown) (no (unknown) (unknown) ?PLMS:?Cont (un its (unknown) date) inual and contributed unknown) to pt?s inability to obtain deeper (unknown) (no (unknown) (unknown) ?REM (units (unknown) date) Latency:? 226.5 unknown) minutes (unknown) (no (unknown) (unknown) ?Sleep (units (unknown) date) Latency:?? 14.5 mins unknown) (unknown) (no (unknown) (unknown) ?Snoring: A (un its (unknown) date) few mild snores unknown) (unknown) (no (unknown) (unknown) ?Technical (uni ts (unknown) date) Issues:?N/A unknown) (unknown) (no (unknown) (unknown) Add'l Plan Details (units (unknown) date) unknown) (unknown) (no (unknown) (unknown) Add'l Plan*: (units (u nknown) date) unknown) (unknown) (no (unknown) (unknown) Age/Sex: 66 / F Date (uni ts (unknown) date) of Service: unknown) (unknown) (no (unknown) (unknown) Alternative therapies, (un its (unknown) date) including dental unknown) appliances and surgical procedures could (unknown) (no (unknown) (unknown) Assessment and Plan (unit s (unknown) date) unknown) (unknown) (no (unknown) (unknown) Attaining optimal (units (unknown) date) weight is recommended. unknown ) (unknown) (no (unknown) (unknown) Attending Dr: Delmer (uni ts (unknown) date) Jacque MCKINNON unknown) (unknown) (no (unknown) (unknown) [place] A: Obstructive (unit s (unknown) date) Sleep Apnea, Moderate unknown) (G47.33) (unknown) (no (unknown) (unknown) [place] B: Polysomnogram (un its (unknown) date) (89.17) unknown) (unknown) (no (unknown) (unknown) [place] C: (units (unkno wn) date) unknown) (unknown) (no (unknown) (unknown) Bed #:? 1 (units (unkn own) date) unknown) (unknown) (no (unknown) (unknown) Comments?? ? (units (u nknown) date) unknown) (unknown) (no (unknown) (unknown) Cpap 10. She (units (u nknown) date) demonstrated frequent unknown) 3% desaturations and Cpap was increased to (unknown) (no (unknown) (unknown) Cpap to 16. (units (un known) date) unknown) (unknown) (no (unknown) (unknown) DATE: 03/14/22 (units (unknown) date) unknown) (unknown) (no (unknown) (unknown) : 1955 (units (unknown) date) Acct:[id number] unknown) (unknown) (no (unknown) (unknown) Dept at (units (unkno wn) date) . unknown) (unknown) (no (unknown) (unknown) Diplomat, [place] (units (unknown) date) Board of Sleep unknown) Medicine (unknown) (no (unknown) (unknown) Documented By: (units (unknown) date) Delmer Santillan MD unknown) 03/22/22 1611 (unknown) (no (unknown) (unknown) ESS:? (units (un known) date) unknown) (unknown) (no (unknown) (unknown) FAAP, sub-specialty (unit s (unknown) date) boards in Sleep unknown) Medicine (unknown) (no (unknown) (unknown) Height:? 61 (units (un known) date) unknown) (unknown) (no (unknown) (unknown) IMPRESSION: (units (un known) date) unknown) (unknown) (no (unknown) (unknown) [facility] (un its (unknown) date) [facility]) (unknown) (no (unknown) (unknown) If there are any (units (unknown) date) questions regarding unknown) the patient please contact us at the Sleep (unknown) (no (unknown) (unknown) Insurance Info:? (units (unknown) date) Medicare unknown) (unknown) (no (unknown) (unknown) Loc: SLEEP (units (unk nown) date) unknown) (unknown) (no (unknown) (unknown) MASK USED DURING (units (unknown) date) TESTING: Respironics unknown) Wisp, Sz Small nasal cushion (unknown) (no (unknown) (unknown) MEDICATIONS:? (units ( unknown) date) amlodipine, unknown) fluticasone, gabapentin, losartan, metoprolol, (unknown) (no (unknown) (unknown) Neck Circumference: (unit s (unknown) date) 17.5 unknown) (unknown) (no (unknown) (unknown) Ordering Physician:? (uni ts (unknown) date) Dr. Santillan unknown) (unknown) (no (unknown) (unknown) PLM?Resting (un its (unknown) date) ? quietly in REM unknown) supine?? ? (unknown) (no (unknown) (unknown) Patient Medical (units (unknown) date) History:? 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 (units (unknown) date) John Chang? unknown ) ?MR#:? [id number] : (unknown) (no (unknown) (unknown) Patient considered (units (unknown) date) her sleep deep, which unknown) ?seems longer and deeper than at home? (unknown) (no (unknown) (unknown) Patient estimates 4-5 (un its (unknown) date) hours of sleep, which unknown) is longer than usual (unknown) (no (unknown) (unknown) Patient had (units (un known) date) difficulty getting to unknown) sleep, but no difficulty staying asleep. (unknown) (no (unknown) (unknown) Patient stated that (unit s (unknown) date) it took hours to fall unknown) asleep, which is not usual. (unknown) (no (unknown) (unknown) Patient woke by Tech. (un its (unknown) date) unknown) (unknown) (no (unknown) (unknown) Patient: (units (unkno wn) date) Johann Chang unknown) MR (unknown) (no (unknown) (unknown) Performed by (units (u nknown) date) unknown) (unknown) (no (unknown) (unknown) Performed by: (units ( unknown) date) unknown) (unknown) (no (unknown) (unknown) Previous Sleep (units (unknown) date) Studies: 01/20/2022 unknown) (unknown) (no (unknown) (unknown) Pt believes her (units (unknown) date) tolerance, Mask fit unknown) and comfort were excellent. And the pressure (unknown) (no (unknown) (unknown) Pt would squeeze legs (un its (unknown) date) together, bend knees, unknown) continually move legs and feet, and (unknown) (no (unknown) (unknown) Pt?s Morning (units (u nknown) date) Comments: unknown) (unknown) (no (unknown) (unknown) RECOMMENDATION: (units (unknown) date) unknown) (unknown) (no (unknown) (unknown) Reason for SLEEP (units (unknown) date) STUDY:? unknown) Breathing-related sleep disorder, EDS, history of (unknown) (no (unknown) (unknown) Recording Tech:? (units (unknown) date) Pamella Elise, unknown) RPSGT? (unknown) (no (unknown) (unknown) Recording/Scoring (units (unknown) date) Notes: unknown) (unknown) (no (unknown) (unknown) Referral Sleep (units (unknown) date) Medicine G47.33 - unknown) Obstructive sleep apnea (adult) (pediatric) (unknown) (no (unknown) (unknown) Referrals (units (unkn own) date) unknown) (unknown) (no (unknown) (unknown) Referring Physician: (uni ts (unknown) date) Delmer Santillan MD. unknown) (unknown) (no (unknown) (unknown) Result Visit is (units (unknown) date) scheduled on: unknown) ?03/29/2022 (unknown) (no (unknown) (unknown) Review of proper (units (unknown) date) sleep hygiene, unknown) including the use of nicotine and excessive (unknown) (no (unknown) (unknown) Delmer Santillan M.D. (units (unknown) date) unknown) (unknown) (no (unknown) (unknown) Pamella Elise, (unit s (unknown) date) RPSGT unknown) (unknown) (no (unknown) (unknown) SLEEP AID USED: (units (unknown) date) Melatonin unknown) (unknown) (no (unknown) (unknown) Severity of GENNY: (units (unknown) date) Moderate unknown) (unknown) (no (unknown) (unknown) Signed By: (units (unk nown) date) <Electronically signed unknown ) by Delmer Santillan MD> (unknown) (no (unknown) (unknown) Sleep Procedure (units (unknown) date) unknown) (unknown) (no (unknown) (unknown) Study Type: (units (un known) date) CPAP? unknown ) ? 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 Therefore, I would recommend (unknown) (no (unknown) (unknown) The EKG showed (units (unknown) date) occasional PVC?s. unknown) (unknown) (no (unknown) (unknown) The patient should be (un its (unknown) date) advised regarding unknown) safety issues associated with (unknown) (no (unknown) (unknown) The patient underwent (un its (unknown) date) a digital unknown) polysomnographic sleep study is which the (unknown) (no (unknown) (unknown) This nocturnal (units (unknown) date) polysomnographic sleep unknown ) study was performed as a follow-up on a (unknown) (no (unknown) (unknown) This note may have (units (unknown) date) been all or partially unknown) generated using voice recognition (unknown) (no (unknown) (unknown) This recording was (units (unknown) date) performed using unknown) [employer] G3 PSG recording system and (unknown) (no (unknown) (unknown) Time?Epoch? (uni ts (unknown) date) ?Stages? unknown ) ?CPAP?Position? ? (unknown) (no (unknown) (unknown) Weight:? 260 (units (u nknown) date) unknown) (unknown) (no (unknown) (unknown) [facility] (units (unknown) date) unknown) (unknown) (no (unknown) (unknown) a few OH and frequent (un its (unknown) date) 3% desaturations, were unknown ) observed in NREM. PLMs (unknown) (no (unknown) (unknown) also be considered. (unit s (unknown) date) Given the relatively unknown) low oxygen saturation minimums on this (unknown) (no (unknown) (unknown) and bending knees (units (unknown) date) unknown) (unknown) (no (unknown) (unknown) and higher CPAP (units (unknown) date) pressures, would unknown) consider bi-level PAP titration study. (unknown) (no (unknown) (unknown) and pulse oximetry (units (unknown) date) with placement based unknown) on guidelines outlined in the AASM (unknown) (no (unknown) (unknown) bedtime is also (units (unknown) date) recommended. unknown) (unknown) (no (unknown) (unknown) caffeine and the (units (unknown) date) avoidance of alcohol unknown) and benzodiazepine hypnotics before (unknown) (no (unknown) (unknown) deemed to be of (units (unknown) date) adequate quality to unknown) allow interpretation. Scoring was based on (unknown) (no (unknown) (unknown) disturbance. This (units (unknown) date) sleep study showed at unknown) the recommended pressure no significant (unknown) (no (unknown) (unknown) effort, nasal and (units (unknown) date) oral airflow, nasal unknown) pressure, leg movements, body position,? (unknown) (no (unknown) (unknown) equipment while in a (uni ts (unknown) date) somnolent state. unknown) (unknown) (no (unknown) (unknown) following were (units (unknown) date) recorded unknown) simultaneously: Electroencephalogram based on the 10-20 (unknown) (no (unknown) (unknown) for OH, and a few CA (uni ts (unknown) date) were also noted. ?PLMs unknown ) stopped during REM and did not (unknown) (no (unknown) (unknown) freq desats, PLM? ? (unit s (unknown) date) ? unknown) (unknown) (no (unknown) (unknown) have occurred. If (units (unknown) date) there are any unknown) questions, please contact the Medical Records (unknown) (no (unknown) (unknown) hypothyroidism, (units (unknown) date) arthritis unknown) (unknown) (no (unknown) (unknown) increased to 6, 7, 9, (un its (unknown) date) 10,and 11 for mild unknown) snores and OH. She achieved all stages (unknown) (no (unknown) (unknown) may occur. Occasional (un its (unknown) date) wrong-word or unknown) 'sound-alike' substitutions may have (unknown) (no (unknown) (unknown) nasal CPAP at a (units (unknown) date) pressure of 10 cwp unknown) with a and in-line heated humidification. (unknown) (no (unknown) (unknown) no arousals, (units (u nknown) date) ?throughout the study. unknown ) She tolerated well, the Wisp interface, and (unknown) (no (unknown) (unknown) occurred due to the (unit s (unknown) date) inherent limitations unknown) of voice recognition software. Please (unknown) (no (unknown) (unknown) of sleep, with (units (unknown) date) minimal N3 and delayed unknown ) Stg REM. She achieved Stg REM supine on (unknown) (no (unknown) (unknown) patient did respond (unit s (unknown) date) to CPAP with a unknown) decrease in nocturnal respiratory (unknown) (no (unknown) (unknown) patient with a (units (unknown) date) previous study that unknown) showed moderate obstructive sleep apnea. The (unknown) (no (unknown) (unknown) position. Sleep onset (uni ts (unknown) date) was 14.5 minutes. unknown) Continuous PLMs, occasional mild snores, (unknown) (no (unknown) (unknown) present again. Pt (units (unknown) date) continued to rest unknown) quietly. Cpap was increased to 16 for OH at (unknown) (no (unknown) (unknown) read the note (units ( unknown) date) carefully and unknown) recognize, using context, where these substitutions (unknown) (no (unknown) (unknown) rock her body. She (units (unknown) date) stated ?my legs are unknown) driving me YouTube.? Cpap was (unknown) (no (unknown) (unknown) scoring manual. Audio (un its (unknown) date) and video recordings unknown) were also obtained at the same time. (unknown) (no (unknown) (unknown) scoring software. The (un its (unknown) date) raw data was reviewed unknown) in its entirety and the data was (unknown) (no (unknown) (unknown) significantly (units (u nknown) date) contributed to pt?s unknown) inability to obtain and maintain deeper sleep. (unknown) (no (unknown) (unknown) sleepiness, and avoid (un its (unknown) date) operating motor unknown) vehicles or handling heavy/dangerous (unknown) (no (unknown) (unknown) snoring, insomnia (units (unknown) date) unknown) (unknown) (no (unknown) (unknown) snoring. The apnea/ (unit s (unknown) date) hypopnea index was 8.2 unknown ) and the sleep efficiency was 95.6%. (unknown) (no (unknown) (unknown) software. Although (units (unknown) date) every effort is made unknown) to edit content, tobacco sampler errors (unknown) (no (unknown) (unknown) stages of sleep, also (un its (unknown) date) caused anxiety,(per unknown) pt) due to consistently jerking legs (unknown) (no (unknown) (unknown) system, (units (unkno wn) date) electro-oculogram, unknown) electromyogram, electrocardiogram, respiratory (unknown) (no (unknown) (unknown) the Recommended (units (unknown) date) Standards and unknown) Specifications as outlined in the AASM Manual for (unknown) (no (unknown) (unknown) the Scoring of Sleep (uni ts (unknown) date) and Associated Events, unknown ) Version 2.6. (unknown) (no (unknown) (unknown) the end of the study. (un its (unknown) date) Pt demonstrated unknown) frequent SpO2 desaturations of ?3%, with (unknown) (no (unknown) (unknown) then rested quietly (unit s (unknown) date) in and out of Stg REM. unknown ) Cpap was increased to 13 and to 14 (unknown) (no (unknown) (unknown) venlafaxine, (units (u nknown) date) levothyroxine, unknown) metformin, methocarbamol, nitroglycerin (unknown) (no (unknown) (unknown) was just right. (units (unknown) date) unknown) Result panel 5 (unknown) (no (unknown) (unknown) (no value) (units (unk nown) date) unknown) (unknown) (no (unknown) (unknown) Assessment and (units (unknown) date) Plan: unknown) (unknown) (no (unknown) (unknown) Status: Acute (units ( unknown) date) unknown) (unknown) (no (unknown) (unknown) (no value) (units (unk nown) date) unknown) (unknown) (no (unknown) (unknown) DAVID Catalan (units ( unknown) date) [id number] unknown) (unknown) (no (unknown) (unknown) Draft (units (unkno wn) date) unknown) (unknown) (no (unknown) (unknown) Rash (units (unkno wn) date) unknown) (unknown) (no (unknown) (unknown) Sleep Visit (units (un known) date) unknown) (unknown) (no (unknown) (unknown) [facility] unknown) (unknown) (no (unknown) (unknown) (no value) (units (unk nown) date) unknown) (unknown) (no (unknown) (unknown) #: [id number] (units ( unknown) date) unknown) (unknown) (no (unknown) (unknown) 'This nocturnal (units (unknown) date) polysomnographic unknown) sleep study was performed as a follow-up on a (unknown) (no (unknown) (unknown) (1) Obstructive (units (unknown) date) sleep apnea: unknown) (unknown) (no (unknown) (unknown) (2) PVC (premature (units (unknown) date) ventricular unknown) contraction): (unknown) (no (unknown) (unknown) 03/29/22 (units (unkno wn) date) unknown) (unknown) (no (unknown) (unknown) 03/29/22] (units (unkn own) date) unknown) (unknown) (no (unknown) (unknown) Affect: normal (units (unknown) date) affect unknown) (unknown) (no (unknown) (unknown) Age/Sex: 66 / F (units (unknown) date) Date of Service: unknown) (unknown) (no (unknown) (unknown) Allergies (units (unkn own) date) unknown) (unknown) (no (unknown) (unknown) Alternative (units (unk nown) date) therapies, unknown) including dental appliances and surgical procedures could (unknown) (no (unknown) (unknown) Anxiety (units (unkno wn) date) unknown) (unknown) (no (unknown) (unknown) Appearance: (units (un known) date) grossly normal unknown) (unknown) (no (unknown) (unknown) Assessment + Plan (units (unknown) date) unknown) (unknown) (no (unknown) (unknown) Attaining optimal (units (unknown) date) weight is unknown) recommended. (unknown) (no (unknown) (unknown) Attending Dr: (units ( unknown) date) [facility] unknown) (unknown) (no (unknown) (unknown) Attitude: (units (unkn own) date) cooperative unknown) (unknown) (no (unknown) (unknown) Benign paroxysmal (units (unknown) date) positional vertigo unknown) (unknown) (no (unknown) (unknown) CPAP overnight (units (unknown) date) titration was unknown) recommended and completed. Results explained in (unknown) (no (unknown) (unknown) Cardiac (units (unkno wn) date) unknown) (unknown) (no (unknown) (unknown) Cellulitis (units (unk nown) date) unknown) (unknown) (no (unknown) (unknown) Chief Complaint: (units (unknown) date) CPAP titration unknown) study results review (unknown) (no (unknown) (unknown) Cognition: normal (units (unknown) date) cognition unknown) (unknown) (no (unknown) (unknown) Complete tear of (units (unknown) date) right rotator cuff unknown) (unknown) (no (unknown) (unknown) Confirmed (units (unkn own) date) 03/29/22] unknown) (unknown) (no (unknown) (unknown) Conjunctivae: (units ( unknown) date) conjunctivae normal unknown) (unknown) (no (unknown) (unknown) Const (units (unkno wn) date) unknown) (unknown) (no (unknown) (unknown) : 1955 (units (unknown) date) Acct:[id number] unknown) (unknown) (no (unknown) (unknown) Denies chills, (units (unknown) date) Reports fatigue, unknown) Reports lethargy, Reports night sweats, Reports (unknown) (no (unknown) (unknown) Denies reflux pain (units (unknown) date) at night unknown) (unknown) (no (unknown) (unknown) Denies weakness (units (unknown) date) associated with unknown) strong emotion or sleep paralysis (unknown) (no (unknown) (unknown) Dependent edema (units (unknown) date) unknown) (unknown) (no (unknown) (unknown) Depression (units (unk nown) date) unknown) (unknown) (no (unknown) (unknown) Dept at (units (unkno wn) date) . unknown) (unknown) (no (unknown) (unknown) Diabetes (units (unkno wn) date) unknown) (unknown) (no (unknown) (unknown) Diplomat, [place] (units (unknown) date) Board of Sleep unknown) Medicine (unknown) (no (unknown) (unknown) Diskus) 1 inh (units ( unknown) date) inhalation BID unknown) 02/01/22 [History Confirmed 03/29/22] (unknown) (no (unknown) (unknown) Documented By: (units (unknown) date) Thiago Sandoval unknown) 03/29/22 1130 (unknown) (no (unknown) (unknown) ENT (units (unkno wn) date) unknown) (unknown) (no (unknown) (unknown) Eczema (units (unkno wn) date) unknown) (unknown) (no (unknown) (unknown) Effort + (units (unkno wn) date) Inspection: normal unknown) respiratory effort, able to speak in complete (unknown) (no (unknown) (unknown) Encouraged to (units (u nknown) date) follow up with unknown) cardiology for PVCs, sleep study report shared with (unknown) (no (unknown) (unknown) Exam (units (unkno wn) date) unknown) (unknown) (no (unknown) (unknown) Eyes (units (unkno wn) date) unknown) (unknown) (no (unknown) (unknown) FAAP, (units (unkno wn) date) sub-specialty unknown) boards in Sleep Medicine' (unknown) (no (unknown) (unknown) GI (units (unkno wn) date) unknown) (unknown) (no (unknown) (unknown) (units (unkno wn) date) unknown) (unknown) (no (unknown) (unknown) General: (units (unkno wn) date) cooperative unknown) (unknown) (no (unknown) (unknown) General: patient (units (unknown) date) alert, patient unknown) awake and patient oriented x3 (unknown) (no (unknown) (unknown) HENMT (units (unkno wn) date) unknown) (unknown) (no (unknown) (unknown) HPI (units (unkno wn) date) unknown) (unknown) (no (unknown) (unknown) HTN (hypertension) (units (unknown) date) unknown) (unknown) (no (unknown) (unknown) Head: normal to (units (unknown) date) inspection unknown) (unknown) (no (unknown) (unknown) History of chest (units (unknown) date) pain unknown) (unknown) (no (unknown) (unknown) History of suicide (units (unknown) date) attempt unknown) (unknown) (no (unknown) (unknown) If there are any (units (unknown) date) questions regarding unknown) the patient please contact us at the Sleep (unknown) (no (unknown) (unknown) Impetigo (units (unkno wn) date) unknown) (unknown) (no (unknown) (unknown) Influenza (2017) (units (unknown) date) unknown) (unknown) (no (unknown) (unknown) Intake (units (unkno wn) date) unknown) (unknown) (no (unknown) (unknown) Loc: SLEEP (units (unk nown) date) unknown) (unknown) (no (unknown) (unknown) Lumbar spinal (units ( unknown) date) stenosis unknown) (unknown) (no (unknown) (unknown) Maintain optimal (units (unknown) date) weight unknown) (unknown) (no (unknown) (unknown) Medical History (units (unknown) date) (Updated 02/01/22 @ unknown) 11:22 by BE Ortiz) (unknown) (no (unknown) (unknown) Medications (units (un known) date) unknown) (unknown) (no (unknown) (unknown) Mental Status: (units (unknown) date) mental status unknown) grossly normal (unknown) (no (unknown) (unknown) Moderate GENNY with (units (unknown) date) desaturation unknown) events. Patient reports a history of snoring and (unknown) (no (unknown) (unknown) Mood: congruent (units (unknown) date) mood unknown) (unknown) (no (unknown) (unknown) Musc (units (unkno wn) date) unknown) (unknown) (no (unknown) (unknown) Neck (units (unkno wn) date) unknown) (unknown) (no (unknown) (unknown) Neck: normal (units (u nknown) date) visual inspection unknown) (unknown) (no (unknown) (unknown) Neuro (units (unkno wn) date) unknown) (unknown) (no (unknown) (unknown) Neurological (units (u nknown) date) unknown) (unknown) (no (unknown) (unknown) Neuropathy (units (unk nown) date) unknown) (unknown) (no (unknown) (unknown) Nutritional (units (un known) date) Appearance: obese unknown) morbidly obese (unknown) (no (unknown) (unknown) Obstructive sleep (units (unknown) date) apnea unknown) (unknown) (no (unknown) (unknown) Orientation: (units (u nknown) date) alert, awake and unknown) oriented x3 (unknown) (no (unknown) (unknown) Osteoarthritis (units (unknown) date) unknown) (unknown) (no (unknown) (unknown) PFSH (units (unkno wn) date) unknown) (unknown) (no (unknown) (unknown) PVC (premature (units (unknown) date) ventricular unknown) contraction) (unknown) (no (unknown) (unknown) Pain (units (unkno wn) date) unknown) (unknown) (no (unknown) (unknown) Pain scale (1-10): (units (unknown) date) 3 unknown) (unknown) (no (unknown) (unknown) Patient was (units (un known) date) instructed to unknown) return if any questions or concerns arise. (unknown) (no (unknown) (unknown) Patient: (units (unkno wn) date) Johann Chang unknown) M MR (unknown) (no (unknown) (unknown) Pharyngitis (units (un known) date) unknown) (unknown) (no (unknown) (unknown) Plan (units (unkno wn) date) unknown) (unknown) (no (unknown) (unknown) Psych (units (unkno wn) date) unknown) (unknown) (no (unknown) (unknown) Psychological (units ( unknown) date) unknown) (unknown) (no (unknown) (unknown) Psychosocial (units (u nknown) date) stressors unknown) (unknown) (no (unknown) (unknown) Pt here for follow (units (unknown) date) up of Sleep Study unknown) Follow Up Visit Reason (describe): (unknown) (no (unknown) (unknown) Pt here for follow (units (unknown) date) up of a CPAP unknown) titration sleep study (unknown) (no (unknown) (unknown) ROS Sleep (units (unkn own) date) unknown) (unknown) (no (unknown) (unknown) Reason For Visit (units (unknown) date) unknown) (unknown) (no (unknown) (unknown) Reports depression (units (unknown) date) and napping on unknown) occassion; Denies hypnagogic hallucinations or (unknown) (no (unknown) (unknown) Reports dyspnea at (units (unknown) date) night (COPD); unknown) Denies cough (unknown) (no (unknown) (unknown) Reports morning (units (unknown) date) headache and unknown) trouble concentrating or focusing; Denies dizzy in (unknown) (no (unknown) (unknown) Reports myalgia (units (unknown) date) interfering with unknown) sleep and arthralgia interfering with sleep; (unknown) (no (unknown) (unknown) Reports nasal (units ( unknown) date) congestion at night unknown) and dry mouth in the morning; Denies (unknown) (no (unknown) (unknown) Reports nocturia (units (unknown) date) unknown) (unknown) (no (unknown) (unknown) Reports nocturnal (units (unknown) date) palpitations; unknown) Denies chest pain (unknown) (no (unknown) (unknown) Reports seasonal (units (unknown) date) allergies; Denies unknown) itchy eyes, redness, blurry vision or eye (unknown) (no (unknown) (unknown) Resp (units (unkno wn) date) unknown) (unknown) (no (unknown) (unknown) Respiratory (units (un known) date) unknown) (unknown) (no (unknown) (unknown) Restrictive airway (units (unknown) date) disease unknown) (unknown) (no (unknown) (unknown) Return for results (units (unknown) date) review after unknown) testing. (unknown) (no (unknown) (unknown) Review of proper (units (unknown) date) sleep hygiene, unknown) including the use of nicotine and excessive (unknown) (no (unknown) (unknown) Delmer Santillan M.D. (units (unknown) date) unknown) (unknown) (no (unknown) (unknown) Sclera: sclerae (units (unknown) date) normal unknown) (unknown) (no (unknown) (unknown) Signed By: (units (unk nown) date) unknown) (unknown) (no (unknown) (unknown) Sinusitis (units (unkn own) date) unknown) (unknown) (no (unknown) (unknown) Sleep Study Follow (units (unknown) date) Up Chief Complaint: unknown) Pap titration study (unknown) (no (unknown) (unknown) Sleep Study (units (un known) date) Results Follow Up unknown) (unknown) (no (unknown) (unknown) Sleep hygiene (units ( unknown) date) reviewed and unknown) handout made available. (unknown) (no (unknown) (unknown) Smoking Status: (units (unknown) date) Former smoker unknown) (unknown) (no (unknown) (unknown) Social History (units (unknown) date) unknown) (unknown) (no (unknown) (unknown) Speech and (units (unk nown) date) Movement: speech unknown) clear (unknown) (no (unknown) (unknown) Speech: speech (units (unknown) date) normal unknown) (unknown) (no (unknown) (unknown) Tendinitis (units (unk nown) date) unknown) (unknown) (no (unknown) (unknown) The CPAP titration (units (unknown) date) study was graded unknown) out as good. Therefore, I would recommend (unknown) (no (unknown) (unknown) The EKG showed (units (unknown) date) occasional PVC?s. unknown) (unknown) (no (unknown) (unknown) The patient should (units (unknown) date) be advised unknown) regarding safety issues associated with (unknown) (no (unknown) (unknown) This note may have (units (unknown) date) been all or unknown) partially generated using voice recognition (unknown) (no (unknown) (unknown) Tobacco + (units (unkn own) date) Substance Use unknown) (unknown) (no (unknown) (unknown) Tobacco Status (units (unknown) date) unknown) (unknown) (no (unknown) (unknown) Venous stasis (units ( unknown) date) unknown) (unknown) (no (unknown) (unknown) Visit Reasons: (units (unknown) date) CPAP titration unknown) results (unknown) (no (unknown) (unknown) Vitamin D (units (unkn own) date) deficiency unknown) (unknown) (no (unknown) (unknown) [facility] ([facility] ([facility]) [facility]) unknown) (unknown) (no (unknown) (unknown) [History Confirmed (units (unknown) date) 03/29/22] unknown) (unknown) (no (unknown) (unknown) a disturbed sleep (units (unknown) date) pattern, Mallampati unknown) score of IV. There is also a history of (unknown) (no (unknown) (unknown) alcohol intake: (units (unknown) date) current unknown) (unknown) (no (unknown) (unknown) also be (units (unkno wn) date) considered. Given unknown) the relatively low oxygen saturation minimums on this (unknown) (no (unknown) (unknown) amlodipine 10 mg (units (unknown) date) tablet 5 mg PO unknown) DAILY 01/18/21 [History Confirmed 03/29/22] (unknown) (no (unknown) (unknown) and higher CPAP (units (unknown) date) pressures, would unknown) consider bi-level PAP titration study.? (unknown) (no (unknown) (unknown) apnea and the (units ( unknown) date) effect on sleep in unknown) general were discussed at length. Diagnostic (unknown) (no (unknown) (unknown) bedtime is also (units (unknown) date) recommended. unknown) (unknown) (no (unknown) (unknown) caffeine and the (units (unknown) date) avoidance of unknown) alcohol and benzodiazepine hypnotics before (unknown) (no (unknown) (unknown) desaturation (units (u nknown) date) events down to 81%. unknown) Report reviewed in its entirety and all of her (unknown) (no (unknown) (unknown) disturbance. This (units (unknown) date) sleep study showed unknown) at the recommended pressure no significant (unknown) (no (unknown) (unknown) epistaxis, runny (units (unknown) date) nose or sore throat unknown) in the morning (unknown) (no (unknown) (unknown) equipment while in (units (unknown) date) a somnolent state. unknown) (unknown) (no (unknown) (unknown) fluticasone 100 (units (unknown) date) mcg-salmeterol 50 unknown) mcg/dose blistr powdr for inhalation (Advair (unknown) (no (unknown) (unknown) fluticasone (units (un known) date) propionate 50 unknown) mcg/actuation nasal spray,suspension 1 spray (unknown) (no (unknown) (unknown) for overnight CPAP (units (unknown) date) titration study for unknown) optimal pressure. (unknown) (no (unknown) (unknown) gabapentin 300 mg (units (unknown) date) capsule 900 mg PO unknown) BEDTIME 01/18/21 [History Confirmed (unknown) (no (unknown) (unknown) have occurred. If (units (unknown) date) there are any unknown) questions, please contact the Medical Records (unknown) (no (unknown) (unknown) household members: (units (unknown) date) friend(s) unknown) (unknown) (no (unknown) (unknown) hypertension, (units ( unknown) date) depression, COPD. unknown) The basics of the pathophysiology of sleep (unknown) (no (unknown) (unknown) hypertension, (units ( unknown) date) depression, COPD. unknown) Diagnostic sleep study was indicated and (unknown) (no (unknown) (unknown) intranasal BID PRN (units (unknown) date) Congestion 01/18/21 unknown) [History Confirmed 03/29/22] (unknown) (no (unknown) (unknown) iodine Adverse (units (unknown) date) Reaction unknown) (Intermediate, Verified 03/29/22 11:34) (unknown) (no (unknown) (unknown) levothyroxine 100 (units (unknown) date) mcg tablet unknown) (Euthyrox) 100 mcg PO DAILY 01/06/22 [History (unknown) (no (unknown) (unknown) losartan 100 mg (units (unknown) date) tablet 100 mg PO unknown) DAILY 01/18/21 [History Confirmed 03/29/22] (unknown) (no (unknown) (unknown) may occur. (units (unk nown) date) Occasional unknown) wrong-word or 'sound-alike' substitutions may have (unknown) (no (unknown) (unknown) metformin 500 mg (units (unknown) date) tablet,extended unknown) release 24 hr 1,000 mg PO DAILY 01/06/22 (unknown) (no (unknown) (unknown) methocarbamol 750 (units (unknown) date) mg tablet 750 mg PO unknown) TID 01/06/22 [History Confirmed 03/29/22] (unknown) (no (unknown) (unknown) metoprolol (units (unk nown) date) tartrate 50 mg unknown) tablet 50 mg PO DAILY 01/18/21 [History Confirmed (unknown) (no (unknown) (unknown) nasal CPAP at a (units (unknown) date) pressure of 10 cwp unknown) with a ? and in-line heated humidification. (unknown) (no (unknown) (unknown) nitroglycerin (units ( unknown) date) sublingual 01/06/22 unknown) [History Confirmed 03/29/22] (unknown) (no (unknown) (unknown) occurred due to (units (unknown) date) the inherent unknown) limitations of voice recognition software. Please (unknown) (no (unknown) (unknown) pain (units (unkno wn) date) unknown) (unknown) (no (unknown) (unknown) patient scheduled (units (unknown) date) for overnight CPAP unknown) titration study. (unknown) (no (unknown) (unknown) patient with a (units (unknown) date) previous study that unknown) showed moderate obstructive sleep apnea. The (unknown) (no (unknown) (unknown) patient? did (units (u nknown) date) respond to CPAP unknown) with a decrease in nocturnal respiratory (unknown) (no (unknown) (unknown) quesitons were (units (unknown) date) answered. She was unknown) provided a copy of the study. Recommendations (unknown) (no (unknown) (unknown) read the note (units ( unknown) date) carefully and unknown) recognize, using context, where these substitutions (unknown) (no (unknown) (unknown) revealed moderate (units (unknown) date) obstructive sleep unknown) apnea with desaturation events down to 81%. (unknown) (no (unknown) (unknown) sentences and no (units (unknown) date) grunting unknown) (unknown) (no (unknown) (unknown) sleep paralysis (units (unknown) date) unknown) (unknown) (no (unknown) (unknown) sleep study was (units (unknown) date) indicated and unknown) revealed moderate obstructive sleep apnea with (unknown) (no (unknown) (unknown) sleepiness, and (units (unknown) date) avoid operating unknown) motor vehicles or handling heavy/dangerous (unknown) (no (unknown) (unknown) snoring and Denies (units (unknown) date) stops breathing unknown) during sleep (unknown) (no (unknown) (unknown) snoring. The (units (u nknown) date) apnea/ hypopnea unknown) index was 8.2 and the sleep efficiency was 95.6%.? (unknown) (no (unknown) (unknown) software. Although (units (unknown) date) every effort is unknown) made to edit content, tobacco sampler errors (unknown) (no (unknown) (unknown) the morning or (units (unknown) date) vertigo unknown) (unknown) (no (unknown) (unknown) their entirety and (units (unknown) date) she would like to unknown) proceed with CPAP therapy. (unknown) (no (unknown) (unknown) them today. (units (un known) date) unknown) (unknown) (no (unknown) (unknown) venlafaxine 75 mg (units (unknown) date) capsule,extended unknown) release 24 hr 75 mg PO DAILY 01/18/21 Result panel 6 (unknown) (no (unknown) (unknown) (no value) (units (unk nown) date) unknown) (unknown) (no (unknown) (unknown) Assessment and (units (unknown) date) Plan: unknown) (unknown) (no (unknown) (unknown) Status: Acute (units ( unknown) date) unknown) (unknown) (no (unknown) (unknown) (no value) (units (unk nown) date) unknown) (unknown) (no (unknown) (unknown) [place] (units ( unknown) date) [id number] unknown) (unknown) (no (unknown) (unknown) Draft (units (unkno wn) date) unknown) (unknown) (no (unknown) (unknown) Rash (units (unkno wn) date) unknown) (unknown) (no (unknown) (unknown) Sleep Visit (units (un known) date) unknown) (unknown) (no (unknown) (unknown) [facility]) (unknown) (no (unknown) (unknown) (no value) (units (unk nown) date) unknown) (unknown) (no (unknown) (unknown) #: [id number] (units ( unknown) date) unknown) (unknown) (no (unknown) (unknown) 'This nocturnal (units (unknown) date) polysomnographic unknown) sleep study was performed as a follow-up on a (unknown) (no (unknown) (unknown) (1) Obstructive (units (unknown) date) sleep apnea: unknown) (unknown) (no (unknown) (unknown) (2) PVC (premature (units (unknown) date) ventricular unknown) contraction): (unknown) (no (unknown) (unknown) 03/29/22 (units (unkno wn) date) unknown) (unknown) (no (unknown) (unknown) 03/29/22] (units (unkn own) date) unknown) (unknown) (no (unknown) (unknown) Affect: normal (units (unknown) date) affect unknown) (unknown) (no (unknown) (unknown) Age/Sex: 66 / F (units (unknown) date) Date of Service: unknown) (unknown) (no (unknown) (unknown) Allergies (units (unkn own) date) unknown) (unknown) (no (unknown) (unknown) Alternative (units (unk nown) date) therapies, unknown) including dental appliances and surgical procedures could (unknown) (no (unknown) (unknown) Anxiety (units (unkno wn) date) unknown) (unknown) (no (unknown) (unknown) Appearance: (units (un known) date) grossly normal unknown) (unknown) (no (unknown) (unknown) Assessment + Plan (units (unknown) date) unknown) (unknown) (no (unknown) (unknown) Attaining optimal (units (unknown) date) weight is unknown) recommended. (unknown) (no (unknown) (unknown) Attending Dr: (units ( unknown) date) [facility] unknown) (unknown) (no (unknown) (unknown) Attitude: (units (unkn own) date) cooperative unknown) (unknown) (no (unknown) (unknown) Benign paroxysmal (units (unknown) date) positional vertigo unknown) (unknown) (no (unknown) (unknown) CPAP overnight (units (unknown) date) titration was unknown) recommended and completed. Results explained in (unknown) (no (unknown) (unknown) Cardiac (units (unkno wn) date) unknown) (unknown) (no (unknown) (unknown) Cellulitis (units (unk nown) date) unknown) (unknown) (no (unknown) (unknown) Chief Complaint: (units (unknown) date) CPAP titration unknown) study results review (unknown) (no (unknown) (unknown) Cognition: normal (units (unknown) date) cognition unknown) (unknown) (no (unknown) (unknown) Complete tear of (units (unknown) date) right rotator cuff unknown) (unknown) (no (unknown) (unknown) Confirmed (units (unkn own) date) 03/29/22] unknown) (unknown) (no (unknown) (unknown) Conjunctivae: (units ( unknown) date) conjunctivae normal unknown) (unknown) (no (unknown) (unknown) Const (units (unkno wn) date) unknown) (unknown) (no (unknown) (unknown) : 1955 (units (unknown) date) Acct:[id number] unknown) (unknown) (no (unknown) (unknown) Denies chills, (units (unknown) date) Reports fatigue, unknown) Reports lethargy, Reports night sweats, Reports (unknown) (no (unknown) (unknown) Denies reflux pain (units (unknown) date) at night unknown) (unknown) (no (unknown) (unknown) Denies weakness (units (unknown) date) associated with unknown) strong emotion or sleep paralysis (unknown) (no (unknown) (unknown) Dependent edema (units (unknown) date) unknown) (unknown) (no (unknown) (unknown) Depression (units (unk nown) date) unknown) (unknown) (no (unknown) (unknown) Dept at (units (unkno wn) date) . 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, [place] (units (unknown) date) Board of Sleep unknown) Medicine (unknown) (no (unknown) (unknown) Diskus) 1 inh (units ( unknown) date) inhalation BID unknown) 02/01/22 [History Confirmed 03/29/22] (unknown) (no (unknown) (unknown) Documented By: (units (unknown) date) Thiago Sandoval unknown) 03/29/22 1130 (unknown) (no (unknown) (unknown) ENT (units (unkno wn) date) unknown) (unknown) (no (unknown) (unknown) Eczema (units (unkno wn) date) unknown) (unknown) (no (unknown) (unknown) Effort + (units (unkno wn) date) Inspection: normal unknown) respiratory effort, able to speak in complete (unknown) (no (unknown) (unknown) Encouraged to (units (u nknown) date) follow up with unknown) cardiology for PVCs, sleep study report shared with (unknown) (no (unknown) (unknown) Exam (units (unkno wn) date) unknown) (unknown) (no (unknown) (unknown) Eyes (units (unkno wn) date) unknown) (unknown) (no (unknown) (unknown) FAAP, (units (unkno wn) date) sub-specialty unknown) boards in Sleep Medicine' (unknown) (no (unknown) (unknown) GI (units (unkno wn) date) unknown) (unknown) (no (unknown) (unknown) (units (unkno wn) date) unknown) (unknown) (no (unknown) (unknown) General: (units (unkno wn) date) cooperative unknown) (unknown) (no (unknown) (unknown) General: patient (units (unknown) date) alert, patient unknown) awake and patient oriented x3 (unknown) (no (unknown) (unknown) HENMT (units (unkno wn) date) unknown) (unknown) (no (unknown) (unknown) HPI (units (unkno wn) date) unknown) (unknown) (no (unknown) (unknown) HTN (hypertension) (units (unknown) date) unknown) (unknown) (no (unknown) (unknown) Head: normal to (units (unknown) date) inspection unknown) (unknown) (no (unknown) (unknown) History of chest (units (unknown) date) pain unknown) (unknown) (no (unknown) (unknown) History of suicide (units (unknown) date) attempt unknown) (unknown) (no (unknown) (unknown) If there are any (units (unknown) date) questions regarding unknown) the patient please contact us at the Sleep (unknown) (no (unknown) (unknown) Impetigo (units (unkno wn) date) unknown) (unknown) (no (unknown) (unknown) Influenza (2017) (units (unknown) date) unknown) (unknown) (no (unknown) (unknown) Intake (units (unkno wn) date) unknown) (unknown) (no (unknown) (unknown) Loc: [facility] (units (unk nown) date) unknown) (unknown) (no (unknown) (unknown) Lumbar spinal (units ( unknown) date) stenosis unknown) (unknown) (no (unknown) (unknown) Maintain optimal (units (unknown) date) weight unknown) (unknown) (no (unknown) (unknown) Medical History (units (unknown) date) (Updated 02/01/22 @ unknown) 11:22 by BE Ortiz) (unknown) (no (unknown) (unknown) Medications (units (un known) date) unknown) (unknown) (no (unknown) (unknown) Mental Status: (units (unknown) date) mental status unknown) grossly normal (unknown) (no (unknown) (unknown) Moderate GENNY with (units (unknown) date) desaturation unknown) events. Patient reports a history of snoring and (unknown) (no (unknown) (unknown) Mood: congruent (units (unknown) date) mood unknown) (unknown) (no (unknown) (unknown) Musc (units (unkno wn) date) unknown) (unknown) (no (unknown) (unknown) Neck (units (unkno wn) date) unknown) (unknown) (no (unknown) (unknown) Neck: normal (units (u nknown) date) visual inspection unknown) (unknown) (no (unknown) (unknown) Neuro (units (unkno wn) date) unknown) (unknown) (no (unknown) (unknown) Neurological (units (u nknown) date) unknown) (unknown) (no (unknown) (unknown) Neuropathy (units (unk nown) date) unknown) (unknown) (no (unknown) (unknown) Nutritional (units (un known) date) Appearance: obese unknown) morbidly obese (unknown) (no (unknown) (unknown) Obstructive sleep (units (unknown) date) apnea unknown) (unknown) (no (unknown) (unknown) Orientation: (units (u nknown) date) alert, awake and unknown) oriented x3 (unknown) (no (unknown) (unknown) Osteoarthritis (units (unknown) date) unknown) (unknown) (no (unknown) (unknown) PFSH (units (unkno wn) date) unknown) (unknown) (no (unknown) (unknown) PVC (premature (units (unknown) date) ventricular unknown) contraction) (unknown) (no (unknown) (unknown) Pain (units (unkno wn) date) unknown) (unknown) (no (unknown) (unknown) Pain scale (1-10): (units (unknown) date) 3 unknown) (unknown) (no (unknown) (unknown) Patient was (units (un known) date) instructed to unknown) return if any questions or concerns arise. (unknown) (no (unknown) (unknown) Patient: (units (unkno wn) date) Johann Chang unknown) M MR (unknown) (no (unknown) (unknown) Pharyngitis (units (un known) date) unknown) (unknown) (no (unknown) (unknown) Plan (units (unkno wn) date) unknown) (unknown) (no (unknown) (unknown) Psych (units (unkno wn) date) unknown) (unknown) (no (unknown) (unknown) Psychological (units ( unknown) date) unknown) (unknown) (no (unknown) (unknown) Psychosocial (units (u nknown) date) stressors unknown) (unknown) (no (unknown) (unknown) Pt had difficulty (units (unknown) date) falling asleep unknown) Difficulty Falling Asleep: significant, (unknown) (no (unknown) (unknown) Pt here for follow (units (unknown) date) up of Sleep Study unknown) Follow Up Visit Reason (describe): (unknown) (no (unknown) (unknown) Pt here for follow (units (unknown) date) up of a CPAP unknown) titration sleep study (unknown) (no (unknown) (unknown) ROS Sleep (units (unkn own) date) unknown) (unknown) (no (unknown) (unknown) Reason For Visit (units (unknown) date) unknown) (unknown) (no (unknown) (unknown) Reports depression (units (unknown) date) and napping on unknown) occassion; Denies hypnagogic hallucinations or (unknown) (no (unknown) (unknown) Reports dyspnea at (units (unknown) date) night (COPD); unknown) Denies cough (unknown) (no (unknown) (unknown) Reports morning (units (unknown) date) headache and unknown) trouble concentrating or focusing; Denies dizzy in (unknown) (no (unknown) (unknown) Reports myalgia (units (unknown) date) interfering with unknown) sleep and arthralgia interfering with sleep; (unknown) (no (unknown) (unknown) Reports nasal (units ( unknown) date) congestion at night unknown) and dry mouth in the morning; Denies (unknown) (no (unknown) (unknown) Reports nocturia (units (unknown) date) unknown) (unknown) (no (unknown) (unknown) Reports nocturnal (units (unknown) date) palpitations; unknown) Denies chest pain (unknown) (no (unknown) (unknown) Reports seasonal (units (unknown) date) allergies; Denies unknown) itchy eyes, redness, blurry vision or eye (unknown) (no (unknown) (unknown) Resp (units (unkno wn) date) unknown) (unknown) (no (unknown) (unknown) Respiratory (units (un known) date) unknown) (unknown) (no (unknown) (unknown) Restrictive airway (units (unknown) date) disease unknown) (unknown) (no (unknown) (unknown) Return for results (units (unknown) date) review after unknown) testing. (unknown) (no (unknown) (unknown) Review of proper (units (unknown) date) sleep hygiene, unknown) including the use of nicotine and excessive (unknown) (no (unknown) (unknown) Delmer Santillan M.D. (units (unknown) date) unknown) (unknown) (no (unknown) (unknown) Sclera: sclerae (units (unknown) date) normal unknown) (unknown) (no (unknown) (unknown) Signed By: (units (unk nown) date) unknown) (unknown) (no (unknown) (unknown) Sinusitis (units (unkn own) date) unknown) (unknown) (no (unknown) (unknown) Sleep Study Follow (units (unknown) date) Up Chief Complaint: unknown) Pap titration study (unknown) (no (unknown) (unknown) Sleep Study (units (un known) date) Results Follow Up unknown) (unknown) (no (unknown) (unknown) Sleep hygiene (units ( unknown) date) reviewed and unknown) handout made available. (unknown) (no (unknown) (unknown) Smoking Status: (units (unknown) date) Former smoker unknown) (unknown) (no (unknown) (unknown) Social History (units (unknown) date) unknown) (unknown) (no (unknown) (unknown) Speech and (units (unk nown) date) Movement: speech unknown) clear (unknown) (no (unknown) (unknown) Speech: speech (units (unknown) date) normal unknown) (unknown) (no (unknown) (unknown) Tendinitis (units (unk nown) date) unknown) (unknown) (no (unknown) (unknown) The CPAP titration (units (unknown) date) study was graded unknown) out as good. Therefore, I would recommend (unknown) (no (unknown) (unknown) The EKG showed (units (unknown) date) occasional PVC?s. unknown) (unknown) (no (unknown) (unknown) The patient should (units (unknown) date) be advised unknown) regarding safety issues associated with (unknown) (no (unknown) (unknown) This note may have (units (unknown) date) been all or unknown) partially generated using voice recognition (unknown) (no (unknown) (unknown) Tobacco + (units (unkn own) date) Substance Use unknown) (unknown) (no (unknown) (unknown) Tobacco Status (units (unknown) date) unknown) (unknown) (no (unknown) (unknown) Venous stasis (units ( unknown) date) unknown) (unknown) (no (unknown) (unknown) Visit Reasons: (units (unknown) date) CPAP titration unknown) results (unknown) (no (unknown) (unknown) Vitamin D (units (unkn own) date) deficiency unknown) (unknown) (no (unknown) (unknown) [facility] (units ([facility]) date) unknown) (unknown) (no (unknown) (unknown) [History Confirmed (units (unknown) date) 03/29/22] unknown) (unknown) (no (unknown) (unknown) a disturbed sleep (units (unknown) date) pattern, Mallampati unknown) score of IV. There is also a history of (unknown) (no (unknown) (unknown) alcohol intake: (units (unknown) date) current unknown) (unknown) (no (unknown) (unknown) also be (units (unkno wn) date) considered. Given unknown) the relatively low oxygen saturation minimums on this (unknown) (no (unknown) (unknown) amlodipine 10 mg (units (unknown) date) tablet 5 mg PO unknown) DAILY 01/18/21 [History Confirmed 03/29/22] (unknown) (no (unknown) (unknown) and higher CPAP (units (unknown) date) pressures, would unknown) consider bi-level PAP titration study.? (unknown) (no (unknown) (unknown) apnea and the (units ( unknown) date) effect on sleep in unknown) general were discussed at length. Diagnostic (unknown) (no (unknown) (unknown) bedtime is also (units (unknown) date) recommended. unknown) (unknown) (no (unknown) (unknown) caffeine and the (units (unknown) date) avoidance of unknown) alcohol and benzodiazepine hypnotics before (unknown) (no (unknown) (unknown) desaturation (units (u nknown) date) events down to 81%. unknown) Report reviewed in its entirety and all of her (unknown) (no (unknown) (unknown) difficulty staying (units (unknown) date) asleep Difficulty unknown) Staying Asleep: no, difficulty with hook-up (unknown) (no (unknown) (unknown) disturbance. This (units (unknown) date) sleep study showed unknown) at the recommended pressure no significant (unknown) (no (unknown) (unknown) epistaxis, runny (units (unknown) date) nose or sore throat unknown) in the morning (unknown) (no (unknown) (unknown) equipment while in (units (unknown) date) a somnolent state. unknown) (unknown) (no (unknown) (unknown) fluticasone 100 (units (unknown) date) mcg-salmeterol 50 unknown) mcg/dose blistr powdr for inhalation (Advair (unknown) (no (unknown) (unknown) fluticasone (units (un known) date) propionate 50 unknown) mcg/actuation nasal spray,suspension 1 spray (unknown) (no (unknown) (unknown) for overnight CPAP (units (unknown) date) titration study for unknown) optimal pressure. (unknown) (no (unknown) (unknown) gabapentin 300 mg (units (unknown) date) capsule 900 mg PO unknown) BEDTIME 01/18/21 [History Confirmed (unknown) (no (unknown) (unknown) have occurred. If (units (unknown) date) there are any unknown) questions, please contact the Medical Records (unknown) (no (unknown) (unknown) household members: (units (unknown) date) friend(s) unknown) (unknown) (no (unknown) (unknown) hypertension, (units ( unknown) date) depression, COPD. unknown) The basics of the pathophysiology of sleep (unknown) (no (unknown) (unknown) hypertension, (units ( unknown) date) depression, COPD. unknown) Diagnostic sleep study was indicated and (unknown) (no (unknown) (unknown) intranasal BID PRN (units (unknown) date) Congestion 01/18/21 unknown) [History Confirmed 03/29/22] (unknown) (no (unknown) (unknown) iodine Adverse (units (unknown) date) Reaction unknown) (Intermediate, Verified 03/29/22 11:34) (unknown) (no (unknown) (unknown) levothyroxine 100 (units (unknown) date) mcg tablet unknown) (Euthyrox) 100 mcg PO DAILY 01/06/22 [History (unknown) (no (unknown) (unknown) losartan 100 mg (units (unknown) date) tablet 100 mg PO unknown) DAILY 01/18/21 [History Confirmed 03/29/22] (unknown) (no (unknown) (unknown) may occur. (units (unk nown) date) Occasional unknown) wrong-word or 'sound-alike' substitutions may have (unknown) (no (unknown) (unknown) metformin 500 mg (units (unknown) date) tablet,extended unknown) release 24 hr 1,000 mg PO DAILY 01/06/22 (unknown) (no (unknown) (unknown) methocarbamol 750 (units (unknown) date) mg tablet 750 mg PO unknown) TID 01/06/22 [History Confirmed 03/29/22] (unknown) (no (unknown) (unknown) metoprolol (units (unk nown) date) tartrate 50 mg unknown) tablet 50 mg PO DAILY 01/18/21 [History Confirmed (unknown) (no (unknown) (unknown) nasal CPAP at a (units (unknown) date) pressure of 10 cwp unknown) with a ? and in-line heated humidification. (unknown) (no (unknown) (unknown) nitroglycerin (units ( unknown) date) sublingual 01/06/22 unknown) [History Confirmed 03/29/22] (unknown) (no (unknown) (unknown) no significant (units (unknown) date) problems with the unknown) PAP mask during the sleep study (unknown) (no (unknown) (unknown) occurred due to (units (unknown) date) the inherent unknown) limitations of voice recognition software. Please (unknown) (no (unknown) (unknown) pain (units (unkno wn) date) unknown) (unknown) (no (unknown) (unknown) patient scheduled (units (unknown) date) for overnight CPAP unknown) titration study. (unknown) (no (unknown) (unknown) patient with a (units (unknown) date) previous study that unknown) showed moderate obstructive sleep apnea. The (unknown) (no (unknown) (unknown) patient? did (units (u nknown) date) respond to CPAP unknown) with a decrease in nocturnal respiratory (unknown) (no (unknown) (unknown) quesitons were (units (unknown) date) answered. She was unknown) provided a copy of the study. Recommendations (unknown) (no (unknown) (unknown) read the note (units ( unknown) date) carefully and unknown) recognize, using context, where these substitutions (unknown) (no (unknown) (unknown) revealed moderate (units (unknown) date) obstructive sleep unknown) apnea with desaturation events down to 81%. (unknown) (no (unknown) (unknown) sentences and no (units (unknown) date) grunting unknown) (unknown) (no (unknown) (unknown) sleep paralysis (units (unknown) date) unknown) (unknown) (no (unknown) (unknown) sleep study was (units (unknown) date) indicated and unknown) revealed moderate obstructive sleep apnea with (unknown) (no (unknown) (unknown) sleepiness, and (units (unknown) date) avoid operating unknown) motor vehicles or handling heavy/dangerous (unknown) (no (unknown) (unknown) snoring and Denies (units (unknown) date) stops breathing unknown) during sleep (unknown) (no (unknown) (unknown) snoring. The (units (u nknown) date) apnea/ hypopnea unknown) index was 8.2 and the sleep efficiency was 95.6%.? (unknown) (no (unknown) (unknown) software. Although (units (unknown) date) every effort is unknown) made to edit content, tobacco sampler errors (unknown) (no (unknown) (unknown) the morning or (units (unknown) date) vertigo unknown) (unknown) (no (unknown) (unknown) their entirety and (units (unknown) date) she would like to unknown) proceed with CPAP therapy. (unknown) (no (unknown) (unknown) them today. (units (un known) date) unknown) (unknown) (no (unknown) (unknown) venlafaxine 75 mg (units (unknown) date) capsule,extended unknown) release 24 hr 75 mg PO DAILY 01/18/21 Result panel 7 (unknown) (no (unknown) (unknown) (no value) (units (unk nown) date) unknown) (unknown) (no (unknown) (unknown) Assessment and (units (unknown) date) Plan: unknown) (unknown) (no (unknown) (unknown) Status: Acute (units ( unknown) date) unknown) (unknown) (no (unknown) (unknown) (no value) (units (unk nown) date) unknown) (unknown) (no (unknown) (unknown) [place] (units ( unknown) date) [id number] unknown) (unknown) (no (unknown) (unknown) Draft (units (unkno wn) date) unknown) (unknown) (no (unknown) (unknown) Rash (units (unkno wn) date) unknown) (unknown) (no (unknown) (unknown) Sleep Visit (units (un known) date) unknown) (unknown) (no (unknown) (unknown) [facility] unknown) (unknown) (no (unknown) (unknown) (no value) (units (unk nown) date) unknown) (unknown) (no (unknown) (unknown) #: [id number] (units ( unknown) date) unknown) (unknown) (no (unknown) (unknown) 'This nocturnal (units (unknown) date) polysomnographic unknown) sleep study was performed as a follow-up on a (unknown) (no (unknown) (unknown) (1) Obstructive (units (unknown) date) sleep apnea: unknown) (unknown) (no (unknown) (unknown) (2) PVC (premature (units (unknown) date) ventricular unknown) contraction): (unknown) (no (unknown) (unknown) 03/29/22 (units (unkno wn) date) unknown) (unknown) (no (unknown) (unknown) 03/29/22] (units (unkn own) date) unknown) (unknown) (no (unknown) (unknown) Affect: normal (units (unknown) date) affect unknown) (unknown) (no (unknown) (unknown) Age/Sex: 66 / F (units (unknown) date) Date of Service: unknown) (unknown) (no (unknown) (unknown) Allergies (units (unkn own) date) unknown) (unknown) (no (unknown) (unknown) Alternative (units (unk nown) date) therapies, unknown) including dental appliances and surgical procedures could (unknown) (no (unknown) (unknown) Anxiety (units (unkno wn) date) unknown) (unknown) (no (unknown) (unknown) Appearance: (units (un known) date) grossly normal unknown) (unknown) (no (unknown) (unknown) Assessment + Plan (units (unknown) date) unknown) (unknown) (no (unknown) (unknown) Attaining optimal (units (unknown) date) weight is unknown) recommended. (unknown) (no (unknown) (unknown) Attending Dr: (units ( unknown) date) [facility] unknown) (unknown) (no (unknown) (unknown) Attitude: (units (unkn own) date) cooperative unknown) (unknown) (no (unknown) (unknown) Benign paroxysmal (units (unknown) date) positional vertigo unknown) (unknown) (no (unknown) (unknown) BiPAP titration (units (unknown) date) study unknown) (unknown) (no (unknown) (unknown) CPAP overnight (units (unknown) date) titration was unknown) recommended and completed. Results explained in (unknown) (no (unknown) (unknown) Cardiac (units (unkno wn) date) unknown) (unknown) (no (unknown) (unknown) Cellulitis (units (unk nown) date) unknown) (unknown) (no (unknown) (unknown) Chief Complaint: (units (unknown) date) CPAP titration unknown) study results review (unknown) (no (unknown) (unknown) Cognition: normal (units (unknown) date) cognition unknown) (unknown) (no (unknown) (unknown) Complete tear of (units (unknown) date) right rotator cuff unknown) (unknown) (no (unknown) (unknown) Confirmed (units (unkn own) date) 03/29/22] unknown) (unknown) (no (unknown) (unknown) Conjunctivae: (units ( unknown) date) conjunctivae normal unknown) (unknown) (no (unknown) (unknown) Const (units (unkno wn) date) unknown) (unknown) (no (unknown) (unknown) : 1955 (units (unknown) date) Acct:[id number] unknown) (unknown) (no (unknown) (unknown) Denies chills, (units (unknown) date) Reports fatigue, unknown) Reports lethargy, Reports night sweats, Reports (unknown) (no (unknown) (unknown) Denies reflux pain (units (unknown) date) at night unknown) (unknown) (no (unknown) (unknown) Denies weakness (units (unknown) date) associated with unknown) strong emotion or sleep paralysis (unknown) (no (unknown) (unknown) Dependent edema (units (unknown) date) unknown) (unknown) (no (unknown) (unknown) Depression (units (unk nown) date) unknown) (unknown) (no (unknown) (unknown) Dept at (units (unkno wn) date) . 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, [place] (units (unknown) date) Board of Sleep unknown) Medicine (unknown) (no (unknown) (unknown) Diskus) 1 inh (units ( unknown) date) inhalation BID unknown) 02/01/22 [History Confirmed 03/29/22] (unknown) (no (unknown) (unknown) Documented By: (units (unknown) date) Thiago Sandoval unknown) 03/29/22 1130 (unknown) (no (unknown) (unknown) ENT (units (unkno wn) date) unknown) (unknown) (no (unknown) (unknown) Eczema (units (unkno wn) date) unknown) (unknown) (no (unknown) (unknown) Effort + (units (unkno wn) date) Inspection: normal unknown) respiratory effort, able to speak in complete (unknown) (no (unknown) (unknown) Encouraged to (units (u nknown) date) follow up with unknown) cardiology for PVCs, sleep study report shared with (unknown) (no (unknown) (unknown) Exam (units (unkno wn) date) unknown) (unknown) (no (unknown) (unknown) Eyes (units (unkno wn) date) unknown) (unknown) (no (unknown) (unknown) FAAP, (units (unkno wn) date) sub-specialty unknown) boards in Sleep Medicine' (unknown) (no (unknown) (unknown) GI (units (unkno wn) date) unknown) (unknown) (no (unknown) (unknown) (units (unkno wn) date) unknown) (unknown) (no (unknown) (unknown) General: (units (unkno wn) date) cooperative unknown) (unknown) (no (unknown) (unknown) General: patient (units (unknown) date) alert, patient unknown) awake and patient oriented x3 (unknown) (no (unknown) (unknown) HENMT (units (unkno wn) date) unknown) (unknown) (no (unknown) (unknown) HPI (units (unkno wn) date) unknown) (unknown) (no (unknown) (unknown) HTN (hypertension) (units (unknown) date) unknown) (unknown) (no (unknown) (unknown) Head: normal to (units (unknown) date) inspection unknown) (unknown) (no (unknown) (unknown) History of chest (units (unknown) date) pain unknown) (unknown) (no (unknown) (unknown) History of suicide (units (unknown) date) attempt unknown) (unknown) (no (unknown) (unknown) If there are any (units (unknown) date) questions regarding unknown) the patient please contact us at the Sleep (unknown) (no (unknown) (unknown) Impetigo (units (unkno wn) date) unknown) (unknown) (no (unknown) (unknown) Influenza (2017) (units (unknown) date) unknown) (unknown) (no (unknown) (unknown) Intake (units (unkno wn) date) unknown) (unknown) (no (unknown) (unknown) Loc: [facility] (units (unk nown) date) unknown) (unknown) (no (unknown) (unknown) Lumbar spinal (units ( unknown) date) stenosis unknown) (unknown) (no (unknown) (unknown) Maintain optimal (units (unknown) date) weight unknown) (unknown) (no (unknown) (unknown) Medical History (units (unknown) date) (Updated 02/01/22 @ unknown) 11:22 by BE Otriz) (unknown) (no (unknown) (unknown) Medications (units (un known) date) unknown) (unknown) (no (unknown) (unknown) Mental Status: (units (unknown) date) mental status unknown) grossly normal (unknown) (no (unknown) (unknown) Moderate GENNY with (units (unknown) date) desaturation unknown) events. Patient reports a history of snoring and (unknown) (no (unknown) (unknown) Moderate GENNY. (units ( unknown) date) Diagnostic sleep unknown) study consistent with moderate GENNY and (unknown) (no (unknown) (unknown) Mood: congruent (units (unknown) date) mood unknown) (unknown) (no (unknown) (unknown) Musc (units (unkno wn) date) unknown) (unknown) (no (unknown) (unknown) Neck (units (unkno wn) date) unknown) (unknown) (no (unknown) (unknown) Neck: normal (units (u nknown) date) visual inspection unknown) (unknown) (no (unknown) (unknown) Neuro (units (unkno wn) date) unknown) (unknown) (no (unknown) (unknown) Neurological (units (u nknown) date) unknown) (unknown) (no (unknown) (unknown) Neuropathy (units (unk nown) date) unknown) (unknown) (no (unknown) (unknown) Nutritional (units (un known) date) Appearance: obese unknown) morbidly obese (unknown) (no (unknown) (unknown) Obstructive sleep (units (unknown) date) apnea unknown) (unknown) (no (unknown) (unknown) Occasional PVCs. (units (unknown) date) Appointment unknown) scheduled with PCP for follow up. (unknown) (no (unknown) (unknown) Orientation: (units (u nknown) date) alert, awake and unknown) oriented x3 (unknown) (no (unknown) (unknown) Osteoarthritis (units (unknown) date) unknown) (unknown) (no (unknown) (unknown) PFSH (units (unkno wn) date) unknown) (unknown) (no (unknown) (unknown) PVC (premature (units (unknown) date) ventricular unknown) contraction) (unknown) (no (unknown) (unknown) Pain (units (unkno wn) date) unknown) (unknown) (no (unknown) (unknown) Pain scale (1-10): (units (unknown) date) 3 unknown) (unknown) (no (unknown) (unknown) Patient was (units (un known) date) instructed to unknown) return if any questions or concerns arise (unknown) (no (unknown) (unknown) Patient was (units (un known) date) instructed to unknown) return if any questions or concerns arise. (unknown) (no (unknown) (unknown) Patient: (units (unkno wn) date) Johann Chang unknown) M MR (unknown) (no (unknown) (unknown) Pharyngitis (units (un known) date) unknown) (unknown) (no (unknown) (unknown) Plan (units (unkno wn) date) unknown) (unknown) (no (unknown) (unknown) Psych (units (unkno wn) date) unknown) (unknown) (no (unknown) (unknown) Psychological (units ( unknown) date) unknown) (unknown) (no (unknown) (unknown) Psychosocial (units (u nknown) date) stressors unknown) (unknown) (no (unknown) (unknown) Pt had difficulty (units (unknown) date) falling asleep unknown) Difficulty Falling Asleep: significant, (unknown) (no (unknown) (unknown) Pt here for follow (units (unknown) date) up of Sleep Study unknown) Follow Up Visit Reason (describe): (unknown) (no (unknown) (unknown) Pt here for follow (units (unknown) date) up of a CPAP unknown) titration sleep study (unknown) (no (unknown) (unknown) ROS Sleep (units (unkn own) date) unknown) (unknown) (no (unknown) (unknown) Reason For Visit (units (unknown) date) unknown) (unknown) (no (unknown) (unknown) Reports depression (units (unknown) date) and napping on unknown) occassion; Denies hypnagogic hallucinations or (unknown) (no (unknown) (unknown) Reports dyspnea at (units (unknown) date) night (COPD); unknown) Denies cough (unknown) (no (unknown) (unknown) Reports morning (units (unknown) date) headache and unknown) trouble concentrating or focusing; Denies dizzy in (unknown) (no (unknown) (unknown) Reports myalgia (units (unknown) date) interfering with unknown) sleep and arthralgia interfering with sleep; (unknown) (no (unknown) (unknown) Reports nasal (units ( unknown) date) congestion at night unknown) and dry mouth in the morning; Denies (unknown) (no (unknown) (unknown) Reports nocturia (units (unknown) date) unknown) (unknown) (no (unknown) (unknown) Reports nocturnal (units (unknown) date) palpitations; unknown) Denies chest pain (unknown) (no (unknown) (unknown) Reports seasonal (units (unknown) date) allergies; Denies unknown) itchy eyes, redness, blurry vision or eye (unknown) (no (unknown) (unknown) Resp (units (unkno wn) date) unknown) (unknown) (no (unknown) (unknown) Respiratory (units (un known) date) unknown) (unknown) (no (unknown) (unknown) Restrictive airway (units (unknown) date) disease unknown) (unknown) (no (unknown) (unknown) Return for follow (units (unknown) date) up review unknown) (unknown) (no (unknown) (unknown) Return for results (units (unknown) date) review after unknown) testing. (unknown) (no (unknown) (unknown) Review of proper (units (unknown) date) sleep hygiene, unknown) including the use of nicotine and excessive (unknown) (no (unknown) (unknown) Delmer Santillan M.D. (units (unknown) date) unknown) (unknown) (no (unknown) (unknown) Sclera: sclerae (units (unknown) date) normal unknown) (unknown) (no (unknown) (unknown) Signed By: (units (unk nown) date) unknown) (unknown) (no (unknown) (unknown) Sinusitis (units (unkn own) date) unknown) (unknown) (no (unknown) (unknown) Sleep Study Follow (units (unknown) date) Up Chief Complaint: unknown) Pap titration study (unknown) (no (unknown) (unknown) Sleep Study (units (un known) date) Results Follow Up unknown) (unknown) (no (unknown) (unknown) Sleep hygiene (units ( unknown) date) reviewed and unknown) handout made available. (unknown) (no (unknown) (unknown) Sleep hygiene (units ( unknown) date) reviewed and unknown) handout provided. (unknown) (no (unknown) (unknown) Smoking Status: (units (unknown) date) Former smoker unknown) (unknown) (no (unknown) (unknown) Social History (units (unknown) date) unknown) (unknown) (no (unknown) (unknown) Speech and (units (unk nown) date) Movement: speech unknown) clear (unknown) (no (unknown) (unknown) Speech: speech (units (unknown) date) normal unknown) (unknown) (no (unknown) (unknown) Tendinitis (units (unk nown) date) unknown) (unknown) (no (unknown) (unknown) The CPAP titration (units (unknown) date) study was graded unknown) out as good. Therefore, I would recommend (unknown) (no (unknown) (unknown) The EKG showed (units (unknown) date) occasional PVC?s. unknown) (unknown) (no (unknown) (unknown) The patient should (units (unknown) date) be advised unknown) regarding safety issues associated with (unknown) (no (unknown) (unknown) This note may have (units (unknown) date) been all or unknown) partially generated using voice recognition (unknown) (no (unknown) (unknown) Tobacco + (units (unkn own) date) Substance Use unknown) (unknown) (no (unknown) (unknown) Tobacco Status (units (unknown) date) unknown) (unknown) (no (unknown) (unknown) Venous stasis (units ( unknown) date) unknown) (unknown) (no (unknown) (unknown) Visit Reasons: (units (unknown) date) CPAP titration unknown) results (unknown) (no (unknown) (unknown) Vitamin D (units (unkn own) date) deficiency unknown) (unknown) (no (unknown) (unknown) [facility] (units (unknown) date) unknown) (unknown) (no (unknown) (unknown) [History Confirmed (units (unknown) date) 03/29/22] unknown) (unknown) (no (unknown) (unknown) a disturbed sleep (units (unknown) date) pattern, Mallampati unknown) score of IV. There is also a history of (unknown) (no (unknown) (unknown) alcohol intake: (units (unknown) date) current unknown) (unknown) (no (unknown) (unknown) also be (units (unkno wn) date) considered. Given unknown) the relatively low oxygen saturation minimums on this (unknown) (no (unknown) (unknown) amlodipine 10 mg (units (unknown) date) tablet 5 mg PO unknown) DAILY 01/18/21 [History Confirmed 03/29/22] (unknown) (no (unknown) (unknown) and higher CPAP (units (unknown) date) pressures, would unknown) consider bi-level PAP titration study.? (unknown) (no (unknown) (unknown) apnea and the (units ( unknown) date) effect on sleep in unknown) general were discussed at length. Diagnostic (unknown) (no (unknown) (unknown) bedtime is also (units (unknown) date) recommended. unknown) (unknown) (no (unknown) (unknown) caffeine and the (units (unknown) date) avoidance of unknown) alcohol and benzodiazepine hypnotics before (unknown) (no (unknown) (unknown) desaturation (units (u nknown) date) events down to 81%. unknown) Report reviewed in its entirety and all of her (unknown) (no (unknown) (unknown) desaturation (units (u nknown) date) events. CPAP unknown) titration completed and graded out as good however (unknown) (no (unknown) (unknown) desaturation (units (u nknown) date) persists. unknown) Recommendation for BiPAP titration study and patient (unknown) (no (unknown) (unknown) difficulty staying (units (unknown) date) asleep Difficulty unknown) Staying Asleep: no, difficulty with hook-up (unknown) (no (unknown) (unknown) disturbance. This (units (unknown) date) sleep study showed unknown) at the recommended pressure no significant (unknown) (no (unknown) (unknown) epistaxis, runny (units (unknown) date) nose or sore throat unknown) in the morning (unknown) (no (unknown) (unknown) equipment while in (units (unknown) date) a somnolent state. unknown) (unknown) (no (unknown) (unknown) fluticasone 100 (units (unknown) date) mcg-salmeterol 50 unknown) mcg/dose blistr powdr for inhalation (Advair (unknown) (no (unknown) (unknown) fluticasone (units (un known) date) propionate 50 unknown) mcg/actuation nasal spray,suspension 1 spray (unknown) (no (unknown) (unknown) for overnight CPAP (units (unknown) date) titration study for unknown) optimal pressure. (unknown) (no (unknown) (unknown) gabapentin 300 mg (units (unknown) date) capsule 900 mg PO unknown) BEDTIME 01/18/21 [History Confirmed (unknown) (no (unknown) (unknown) have occurred. If (units (unknown) date) there are any unknown) questions, please contact the Medical Records (unknown) (no (unknown) (unknown) household members: (units (unknown) date) friend(s) unknown) (unknown) (no (unknown) (unknown) hypertension, (units ( unknown) date) depression, COPD. unknown) The basics of the pathophysiology of sleep (unknown) (no (unknown) (unknown) hypertension, (units ( unknown) date) depression, COPD. unknown) Diagnostic sleep study was indicated and (unknown) (no (unknown) (unknown) intranasal BID PRN (units (unknown) date) Congestion 01/18/21 unknown) [History Confirmed 03/29/22] (unknown) (no (unknown) (unknown) iodine Adverse (units (unknown) date) Reaction unknown) (Intermediate, Verified 03/29/22 11:34) (unknown) (no (unknown) (unknown) levothyroxine 100 (units (unknown) date) mcg tablet unknown) (Euthyrox) 100 mcg PO DAILY 01/06/22 [History (unknown) (no (unknown) (unknown) losartan 100 mg (units (unknown) date) tablet 100 mg PO unknown) DAILY 01/18/21 [History Confirmed 03/29/22] (unknown) (no (unknown) (unknown) may occur. (units (unk nown) date) Occasional unknown) wrong-word or 'sound-alike' substitutions may have (unknown) (no (unknown) (unknown) metformin 500 mg (units (unknown) date) tablet,extended unknown) release 24 hr 1,000 mg PO DAILY 01/06/22 (unknown) (no (unknown) (unknown) methocarbamol 750 (units (unknown) date) mg tablet 750 mg PO unknown) TID 01/06/22 [History Confirmed 03/29/22] (unknown) (no (unknown) (unknown) metoprolol (units (unk nown) date) tartrate 50 mg unknown) tablet 50 mg PO DAILY 01/18/21 [History Confirmed (unknown) (no (unknown) (unknown) nasal CPAP at a (units (unknown) date) pressure of 10 cwp unknown) with a ? and in-line heated humidification. (unknown) (no (unknown) (unknown) nitroglycerin (units ( unknown) date) sublingual 01/06/22 unknown) [History Confirmed 03/29/22] (unknown) (no (unknown) (unknown) no significant (units (unknown) date) problems with the unknown) PAP mask during the sleep study (unknown) (no (unknown) (unknown) occurred due to (units (unknown) date) the inherent unknown) limitations of voice recognition software. Please (unknown) (no (unknown) (unknown) pain (units (unkno wn) date) unknown) (unknown) (no (unknown) (unknown) patient scheduled (units (unknown) date) for overnight CPAP unknown) titration study. (unknown) (no (unknown) (unknown) patient with a (units (unknown) date) previous study that unknown) showed moderate obstructive sleep apnea. The (unknown) (no (unknown) (unknown) patient? did (units (u nknown) date) respond to CPAP unknown) with a decrease in nocturnal respiratory (unknown) (no (unknown) (unknown) quesitons were (units (unknown) date) answered. She was unknown) provided a copy of the study. Recommendations (unknown) (no (unknown) (unknown) read the note (units ( unknown) date) carefully and unknown) recognize, using context, where these substitutions (unknown) (no (unknown) (unknown) revealed moderate (units (unknown) date) obstructive sleep unknown) apnea with desaturation events down to 81%. (unknown) (no (unknown) (unknown) sentences and no (units (unknown) date) grunting unknown) (unknown) (no (unknown) (unknown) sleep paralysis (units (unknown) date) unknown) (unknown) (no (unknown) (unknown) sleep study was (units (unknown) date) indicated and unknown) revealed moderate obstructive sleep apnea with (unknown) (no (unknown) (unknown) sleepiness, and (units (unknown) date) avoid operating unknown) motor vehicles or handling heavy/dangerous (unknown) (no (unknown) (unknown) snoring and Denies (units (unknown) date) stops breathing unknown) during sleep (unknown) (no (unknown) (unknown) snoring. The (units (u nknown) date) apnea/ hypopnea unknown) index was 8.2 and the sleep efficiency was 95.6%.? (unknown) (no (unknown) (unknown) software. Although (units (unknown) date) every effort is unknown) made to edit content, tobacco sampler errors (unknown) (no (unknown) (unknown) the morning or (units (unknown) date) vertigo unknown) (unknown) (no (unknown) (unknown) their entirety and (units (unknown) date) she would like to unknown) proceed with CPAP therapy. (unknown) (no (unknown) (unknown) them today. (units (un known) date) unknown) (unknown) (no (unknown) (unknown) venlafaxine 75 mg (units (unknown) date) capsule,extended unknown) release 24 hr 75 mg PO DAILY 01/18/21 (unknown) (no (unknown) (unknown) wishes to proceed. (units (unknown) date) unknown) Result panel 8 (unknown) (no (unknown) (unknown) (no value) (units (unk nown) date) unknown) (unknown) (no (unknown) (unknown) Assessment and (units (unknown) date) Plan: unknown) (unknown) (no (unknown) (unknown) Status: Acute (units ( unknown) date) unknown) (unknown) (no (unknown) (unknown) (no value) (units (unk nown) date) unknown) (unknown) (no (unknown) (unknown) 03/29/22 (units (unkno wn) date) unknown) (unknown) (no (unknown) (unknown) 03/29/22 1738 (units ( unknown) date) unknown) (unknown) (no (unknown) (unknown) 11:37 (units (unkno wn) date) unknown) (unknown) (no (unknown) (unknown) [place] (units ( unknown) date) [id number] unknown) (unknown) (no (unknown) (unknown) Rash (units (unkno wn) date) unknown) (unknown) (no (unknown) (unknown) Signed (units (unkno wn) date) unknown) (unknown) (no (unknown) (unknown) Sleep Visit (units (un known) date) unknown) (unknown) (no (unknown) (unknown) [facility] unknown) (unknown) (no (unknown) (unknown) (no value) (units (unk nown) date) unknown) (unknown) (no (unknown) (unknown) #: [id number] (units ( unknown) date) unknown) (unknown) (no (unknown) (unknown) 'This nocturnal (units (unknown) date) polysomnographic unknown) sleep study was performed as a follow-up on a (unknown) (no (unknown) (unknown) (1) Obstructive (units (unknown) date) sleep apnea: unknown) (unknown) (no (unknown) (unknown) (2) PVC (premature (units (unknown) date) ventricular unknown) contraction): (unknown) (no (unknown) (unknown) 03/29/22 (units (unkno wn) date) unknown) (unknown) (no (unknown) (unknown) 03/29/22] (units (unkn own) date) unknown) (unknown) (no (unknown) (unknown) Affect: normal (units (unknown) date) affect unknown) (unknown) (no (unknown) (unknown) Age/Sex: 66 / F (units (unknown) date) Date of Service: unknown) (unknown) (no (unknown) (unknown) Allergies (units (unkn own) date) unknown) (unknown) (no (unknown) (unknown) Alternative (units (unk nown) date) therapies, unknown) including dental appliances and surgical procedures could (unknown) (no (unknown) (unknown) Anxiety (units (unkno wn) date) unknown) (unknown) (no (unknown) (unknown) Appearance: (units (un known) date) grossly normal unknown) (unknown) (no (unknown) (unknown) Assessment + Plan (units (unknown) date) unknown) (unknown) (no (unknown) (unknown) Attaining optimal (units (unknown) date) weight is unknown) recommended. (unknown) (no (unknown) (unknown) Attending Dr: (units ( unknown) date) [facility] unknown) (unknown) (no (unknown) (unknown) Attitude: (units (unkn own) date) cooperative unknown) (unknown) (no (unknown) (unknown) BMI 45.1 (units (unkno wn) date) unknown) (unknown) (no (unknown) (unknown) BP 151/84 H (units (u nknown) date) unknown) (unknown) (no (unknown) (unknown) Benign paroxysmal (units (unknown) date) positional vertigo unknown) (unknown) (no (unknown) (unknown) BiPAP titration (units (unknown) date) study unknown) (unknown) (no (unknown) (unknown) Blood Pressure (units (unknown) date) Location Lt unknown) brachial (unknown) (no (unknown) (unknown) CPAP overnight (units (unknown) date) titration was unknown) recommended and completed. Results explained in (unknown) (no (unknown) (unknown) Cardiac (units (unkno wn) date) unknown) (unknown) (no (unknown) (unknown) Cellulitis (units (unk nown) date) unknown) (unknown) (no (unknown) (unknown) Chief Complaint: (units (unknown) date) CPAP titration unknown) study results review (unknown) (no (unknown) (unknown) Cognition: normal (units (unknown) date) cognition unknown) (unknown) (no (unknown) (unknown) Complete tear of (units (unknown) date) right rotator cuff unknown) (unknown) (no (unknown) (unknown) Confirmed (units (unkn own) date) 03/29/22] unknown) (unknown) (no (unknown) (unknown) Conjunctivae: (units ( unknown) date) conjunctivae normal unknown) (unknown) (no (unknown) (unknown) Const (units (unkno wn) date) unknown) (unknown) (no (unknown) (unknown) : 1955 (units (unknown) date) Acct:[id number] unknown) (unknown) (no (unknown) (unknown) Denies chills, (units (unknown) date) Reports fatigue, unknown) Reports lethargy, Reports night sweats, Reports (unknown) (no (unknown) (unknown) Denies reflux pain (units (unknown) date) at night unknown) (unknown) (no (unknown) (unknown) Denies weakness (units (unknown) date) associated with unknown) strong emotion or sleep paralysis (unknown) (no (unknown) (unknown) Dependent edema (units (unknown) date) unknown) (unknown) (no (unknown) (unknown) Depression (units (unk nown) date) 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, [place] (units (unknown) date) Board of Sleep unknown) Medicine (unknown) (no (unknown) (unknown) Diskus) 1 inh (units ( unknown) date) inhalation BID unknown) 02/01/22 [History Confirmed 03/29/22] (unknown) (no (unknown) (unknown) Documented By: (units (unknown) date) Thiago Sandoval unknown) 03/29/22 1130 (unknown) (no (unknown) (unknown) ENT (units (unkno wn) date) unknown) (unknown) (no (unknown) (unknown) Eczema (units (unkno wn) date) unknown) (unknown) (no (unknown) (unknown) Effort + (units (unkno wn) date) Inspection: normal unknown) respiratory effort, able to speak in complete (unknown) (no (unknown) (unknown) Encouraged to (units ( unknown) date) follow up with her unknown) PCP or cardiology for PVCs. She has an (unknown) (no (unknown) (unknown) Exam (units (unkno wn) date) unknown) (unknown) (no (unknown) (unknown) Eyes (units (unkno wn) date) unknown) (unknown) (no (unknown) (unknown) FAAP, (units (unkno wn) date) sub-specialty unknown) boards in Sleep Medicine' (unknown) (no (unknown) (unknown) GI (units (unkno wn) date) unknown) (unknown) (no (unknown) (unknown) (units (unkno wn) date) unknown) (unknown) (no (unknown) (unknown) General: (units (unkno wn) date) cooperative unknown) (unknown) (no (unknown) (unknown) General: patient (units (unknown) date) alert, patient unknown) awake and patient oriented x3 (unknown) (no (unknown) (unknown) HENMT (units (unkno wn) date) unknown) (unknown) (no (unknown) (unknown) HPI (units (unkno wn) date) unknown) (unknown) (no (unknown) (unknown) HTN (hypertension) (units (unknown) date) unknown) (unknown) (no (unknown) (unknown) Head: normal to (units (unknown) date) inspection unknown) (unknown) (no (unknown) (unknown) Height 154.94 cm (units (unknown) date) unknown) (unknown) (no (unknown) (unknown) History of chest (units (unknown) date) pain unknown) (unknown) (no (unknown) (unknown) History of suicide (units (unknown) date) attempt unknown) (unknown) (no (unknown) (unknown) If there are any (units (unknown) date) questions regarding unknown) the patient please contact us at the Sleep (unknown) (no (unknown) (unknown) Impetigo (units (unkno wn) date) unknown) (unknown) (no (unknown) (unknown) Influenza (2017) (units (unknown) date) unknown) (unknown) (no (unknown) (unknown) Intake (units (unkno wn) date) unknown) (unknown) (no (unknown) (unknown) Loc: [facility] (units (unk nown) date) unknown) (unknown) (no (unknown) (unknown) Lumbar spinal (units ( unknown) date) stenosis unknown) (unknown) (no (unknown) (unknown) Maintain optimal (units (unknown) date) weight unknown) (unknown) (no (unknown) (unknown) Medical History (units (unknown) date) (Updated 02/01/22 @ unknown) 11:22 by BE Ortiz) (unknown) (no (unknown) (unknown) Medications (units (un known) date) unknown) (unknown) (no (unknown) (unknown) Mental Status: (units (unknown) date) mental status unknown) grossly normal (unknown) (no (unknown) (unknown) Moderate GENNY with (units (unknown) date) desaturation unknown) events. Patient reports a history of snoring and (unknown) (no (unknown) (unknown) Moderate GENNY. (units ( unknown) date) Diagnostic sleep unknown) study consistent with moderate GENNY and (unknown) (no (unknown) (unknown) Mood: congruent (units (unknown) date) mood unknown) (unknown) (no (unknown) (unknown) Musc (units (unkno wn) date) unknown) (unknown) (no (unknown) (unknown) Neck (units (unkno wn) date) unknown) (unknown) (no (unknown) (unknown) Neck: normal (units (u nknown) date) visual inspection unknown) (unknown) (no (unknown) (unknown) Neuro (units (unkno wn) date) unknown) (unknown) (no (unknown) (unknown) Neurological (units (u nknown) date) unknown) (unknown) (no (unknown) (unknown) Neuropathy (units (unk nown) date) unknown) (unknown) (no (unknown) (unknown) Nutritional (units (un known) date) Appearance: obese unknown) morbidly obese (unknown) (no (unknown) (unknown) Obstructive sleep (units (unknown) date) apnea unknown) (unknown) (no (unknown) (unknown) Occasional PVCs. (units (unknown) date) Appointment unknown) scheduled with PCP for follow up. (unknown) (no (unknown) (unknown) Orientation: (units (u nknown) date) alert, awake and unknown) oriented x3 (unknown) (no (unknown) (unknown) Osteoarthritis (units (unknown) date) unknown) (unknown) (no (unknown) (unknown) PFSH (units (unkno wn) date) unknown) (unknown) (no (unknown) (unknown) PVC (premature (units (unknown) date) ventricular unknown) contraction) (unknown) (no (unknown) (unknown) Pain (units (unkno wn) date) unknown) (unknown) (no (unknown) (unknown) Pain scale (1-10): (units (unknown) date) 3 unknown) (unknown) (no (unknown) (unknown) Patient was (units (un known) date) instructed to unknown) return if any questions or concerns arise (unknown) (no (unknown) (unknown) Patient was (units (un known) date) instructed to unknown) return if any questions or concerns arise. (unknown) (no (unknown) (unknown) Patient: (units (unkno wn) date) Johann Chang unknown) M MR (unknown) (no (unknown) (unknown) Pharyngitis (units (un known) date) unknown) (unknown) (no (unknown) (unknown) Plan (units (unkno wn) date) unknown) (unknown) (no (unknown) (unknown) Position Sitting (units (unknown) date) unknown) (unknown) (no (unknown) (unknown) Psych (units (unkno wn) date) unknown) (unknown) (no (unknown) (unknown) Psychological (units ( unknown) date) unknown) (unknown) (no (unknown) (unknown) Psychosocial (units (u nknown) date) stressors unknown) (unknown) (no (unknown) (unknown) Pt had difficulty (units (unknown) date) falling asleep unknown) Difficulty Falling Asleep: significant, (unknown) (no (unknown) (unknown) Pt here for follow (units (unknown) date) up of Sleep Study unknown) Follow Up Visit Reason (describe): (unknown) (no (unknown) (unknown) Pt here for follow (units (unknown) date) up of a CPAP unknown) titration sleep study (unknown) (no (unknown) (unknown) Pulse 59 L (units (unk nown) date) unknown) (unknown) (no (unknown) (unknown) Pulse Source (units (u nknown) date) Monitor unknown) (unknown) (no (unknown) (unknown) ROS Sleep (units (unkn own) date) unknown) (unknown) (no (unknown) (unknown) Reason For Visit (units (unknown) date) unknown) (unknown) (no (unknown) (unknown) Reports depression (units (unknown) date) and napping on unknown) occassion; Denies hypnagogic hallucinations or (unknown) (no (unknown) (unknown) Reports dyspnea at (units (unknown) date) night (COPD); unknown) Denies cough (unknown) (no (unknown) (unknown) Reports morning (units (unknown) date) headache and unknown) trouble concentrating or focusing; Denies dizzy in (unknown) (no (unknown) (unknown) Reports myalgia (units (unknown) date) interfering with unknown) sleep and arthralgia interfering with sleep; (unknown) (no (unknown) (unknown) Reports nasal (units ( unknown) date) congestion at night unknown) and dry mouth in the morning; Denies (unknown) (no (unknown) (unknown) Reports nocturia (units (unknown) date) unknown) (unknown) (no (unknown) (unknown) Reports nocturnal (units (unknown) date) palpitations; unknown) Denies chest pain (unknown) (no (unknown) (unknown) Reports seasonal (units (unknown) date) allergies; Denies unknown) itchy eyes, redness, blurry vision or eye (unknown) (no (unknown) (unknown) Resp (units (unkno wn) date) unknown) (unknown) (no (unknown) (unknown) Respiration 16 (units (unknown) date) unknown) (unknown) (no (unknown) (unknown) Respiratory (units (un known) date) unknown) (unknown) (no (unknown) (unknown) Restrictive airway (units (unknown) date) disease unknown) (unknown) (no (unknown) (unknown) Return for follow (units (unknown) date) up review unknown) (unknown) (no (unknown) (unknown) Return for results (units (unknown) date) review after unknown) testing. (unknown) (no (unknown) (unknown) Review of proper (units (unknown) date) sleep hygiene, unknown) including the use of nicotine and excessive (unknown) (no (unknown) (unknown) Delmer Santillan M.D. (units (unknown) date) unknown) (unknown) (no (unknown) (unknown) Sclera: sclerae (units (unknown) date) normal unknown) (unknown) (no (unknown) (unknown) Signed By: (units (unk nown) date) <Electronically unknown) signed by Thiago Sandoval> (unknown) (no (unknown) (unknown) Sinusitis (units (unkn own) date) unknown) (unknown) (no (unknown) (unknown) Sleep Study Follow (units (unknown) date) Up Chief Complaint: unknown) Pap titration study (unknown) (no (unknown) (unknown) Sleep Study (units (un known) date) Results Follow Up unknown) (unknown) (no (unknown) (unknown) Sleep hygiene (units ( unknown) date) reviewed and unknown) handout made available. (unknown) (no (unknown) (unknown) Sleep hygiene (units ( unknown) date) reviewed and unknown) handout provided. (unknown) (no (unknown) (unknown) Smoking Status: (units (unknown) date) Former smoker unknown) (unknown) (no (unknown) (unknown) Social History (units (unknown) date) unknown) (unknown) (no (unknown) (unknown) Speech and (units (unk nown) date) Movement: speech unknown) clear (unknown) (no (unknown) (unknown) Speech: speech (units (unknown) date) normal unknown) (unknown) (no (unknown) (unknown) Temp 97.6 F (units (un known) date) unknown) (unknown) (no (unknown) (unknown) Temp Source (units (un known) date) Temporal Artery unknown) Scan (unknown) (no (unknown) (unknown) Tendinitis (units (unk nown) date) unknown) (unknown) (no (unknown) (unknown) The CPAP titration (units (unknown) date) study was graded unknown) out as good. Therefore, I would recommend (unknown) (no (unknown) (unknown) The EKG showed (units (unknown) date) occasional PVC?s. unknown) (unknown) (no (unknown) (unknown) The patient should (units (unknown) date) be advised unknown) regarding safety issues associated with (unknown) (no (unknown) (unknown) This note may have (units (unknown) date) been all or unknown) partially generated using voice recognition (unknown) (no (unknown) (unknown) Tobacco + (units (unkn own) date) Substance Use unknown) (unknown) (no (unknown) (unknown) Tobacco Status (units (unknown) date) unknown) (unknown) (no (unknown) (unknown) Venous stasis (units ( unknown) date) unknown) (unknown) (no (unknown) (unknown) Visit Reasons: (units (unknown) date) CPAP titration unknown) results (unknown) (no (unknown) (unknown) Vitals (units (unkno wn) date) unknown) (unknown) (no (unknown) (unknown) Vitamin D (units (unkn own) date) deficiency unknown) (unknown) (no (unknown) (unknown) Weight 108.409 kg (units (unknown) date) unknown) (unknown) (no (unknown) (unknown) [facility] (units (unknown) date) unknown) (unknown) (no (unknown) (unknown) [History Confirmed (units (unknown) date) 03/29/22] unknown) (unknown) (no (unknown) (unknown) a disturbed sleep (units (unknown) date) pattern, Mallampati unknown) score of IV. There is also a history of (unknown) (no (unknown) (unknown) alcohol intake: (units (unknown) date) current unknown) (unknown) (no (unknown) (unknown) also be (units (unkno wn) date) considered. Given unknown) the relatively low oxygen saturation minimums on this (unknown) (no (unknown) (unknown) amlodipine 10 mg (units (unknown) date) tablet 5 mg PO unknown) DAILY 01/18/21 [History Confirmed 03/29/22] (unknown) (no (unknown) (unknown) and higher CPAP (units (unknown) date) pressures, would unknown) consider bi-level PAP titration study.? (unknown) (no (unknown) (unknown) appointment (units (un known) date) scheduled with her unknown) PCP. (unknown) (no (unknown) (unknown) at . (units (unknown) date) unknown) (unknown) (no (unknown) (unknown) bedtime is also (units (unknown) date) recommended. unknown) (unknown) (no (unknown) (unknown) caffeine and the (units (unknown) date) avoidance of unknown) alcohol and benzodiazepine hypnotics before (unknown) (no (unknown) (unknown) desaturation (units (u nknown) date) events. CPAP unknown) titration completed and graded out as good however (unknown) (no (unknown) (unknown) desaturation (units (u nknown) date) persists. unknown) Recommendation for BiPAP titration study and patient (unknown) (no (unknown) (unknown) difficulty staying (units (unknown) date) asleep Difficulty unknown) Staying Asleep: no, difficulty with hook-up (unknown) (no (unknown) (unknown) disturbance. This (units (unknown) date) sleep study showed unknown) at the recommended pressure no significant (unknown) (no (unknown) (unknown) due to the (units (unk nown) date) inherent unknown) limitations of voice recognition software. Please read the (unknown) (no (unknown) (unknown) epistaxis, runny (units (unknown) date) nose or sore throat unknown) in the morning (unknown) (no (unknown) (unknown) equipment while in (units (unknown) date) a somnolent state. unknown) (unknown) (no (unknown) (unknown) fluticasone 100 (units (unknown) date) mcg-salmeterol 50 unknown) mcg/dose blistr powdr for inhalation (Advair (unknown) (no (unknown) (unknown) fluticasone (units (un known) date) propionate 50 unknown) mcg/actuation nasal spray,suspension 1 spray (unknown) (no (unknown) (unknown) gabapentin 300 mg (units (unknown) date) capsule 900 mg PO unknown) BEDTIME 01/18/21 [History Confirmed (unknown) (no (unknown) (unknown) household members: (units (unknown) date) friend(s) unknown) (unknown) (no (unknown) (unknown) hypertension, (units ( unknown) date) depression, COPD. unknown) Diagnostic sleep study revealed moderate (unknown) (no (unknown) (unknown) hypertension, (units ( unknown) date) depression, COPD. unknown) Diagnostic sleep study was indicated and (unknown) (no (unknown) (unknown) intranasal BID PRN (units (unknown) date) Congestion 01/18/21 unknown) [History Confirmed 03/29/22] (unknown) (no (unknown) (unknown) iodine Adverse (units (unknown) date) Reaction unknown) (Intermediate, Verified 03/29/22 11:34) (unknown) (no (unknown) (unknown) levothyroxine 100 (units (unknown) date) mcg tablet unknown) (Euthyrox) 100 mcg PO DAILY 01/06/22 [History (unknown) (no (unknown) (unknown) losartan 100 mg (units (unknown) date) tablet 100 mg PO unknown) DAILY 01/18/21 [History Confirmed 03/29/22] (unknown) (no (unknown) (unknown) metformin 500 mg (units (unknown) date) tablet,extended unknown) release 24 hr 1,000 mg PO DAILY 01/06/22 (unknown) (no (unknown) (unknown) methocarbamol 750 (units (unknown) date) mg tablet 750 mg PO unknown) TID 01/06/22 [History Confirmed 03/29/22] (unknown) (no (unknown) (unknown) metoprolol (units (unk nown) date) tartrate 50 mg unknown) tablet 50 mg PO DAILY 01/18/21 [History Confirmed (unknown) (no (unknown) (unknown) nasal CPAP at a (units (unknown) date) pressure of 10 cwp unknown) with a ? and in-line heated humidification. (unknown) (no (unknown) (unknown) nitroglycerin (units ( unknown) date) sublingual 01/06/22 unknown) [History Confirmed 03/29/22] (unknown) (no (unknown) (unknown) no significant (units (unknown) date) problems with the unknown) PAP mask during the sleep study (unknown) (no (unknown) (unknown) note carefully and (units (unknown) date) recognize, using unknown) context, where these substitutions have (unknown) (no (unknown) (unknown) obstructive sleep (units (unknown) date) apnea with unknown) desaturation events down to 81%. CPAP titration (unknown) (no (unknown) (unknown) occurred. If there (units (unknown) date) are any questions, unknown) please contact the Medical Records Dept (unknown) (no (unknown) (unknown) pain (units (unkno wn) date) unknown) (unknown) (no (unknown) (unknown) patient scheduled (units (unknown) date) for overnight BiPAP unknown) titration study. (unknown) (no (unknown) (unknown) patient with a (units (unknown) date) previous study that unknown) showed moderate obstructive sleep apnea. The (unknown) (no (unknown) (unknown) patient? did (units (u nknown) date) respond to CPAP unknown) with a decrease in nocturnal respiratory (unknown) (no (unknown) (unknown) revealed moderate (units (unknown) date) obstructive sleep unknown) apnea with desaturation events down to 81%. (unknown) (no (unknown) (unknown) sentences and no (units (unknown) date) grunting unknown) (unknown) (no (unknown) (unknown) sleep paralysis (units (unknown) date) unknown) (unknown) (no (unknown) (unknown) sleepiness, and (units (unknown) date) avoid operating unknown) motor vehicles or handling heavy/dangerous (unknown) (no (unknown) (unknown) snoring and Denies (units (unknown) date) stops breathing unknown) during sleep (unknown) (no (unknown) (unknown) snoring. The (units (u nknown) date) apnea/ hypopnea unknown) index was 8.2 and the sleep efficiency was 95.6%.? (unknown) (no (unknown) (unknown) software. Although (units (unknown) date) every effort is unknown) made to edit content, tobacco sampler errors ma (unknown) (no (unknown) (unknown) study results (units ( unknown) date) reviewed and with unknown) her persisting desaturation events, BiPAP (unknown) (no (unknown) (unknown) the morning or (units (unknown) date) vertigo unknown) (unknown) (no (unknown) (unknown) their entirety and (units (unknown) date) she would like to unknown) proceed with CPAP therapy. (unknown) (no (unknown) (unknown) titration study (units (unknown) date) recommended. She unknown) agrees to proceed with BiPAP titration (unknown) (no (unknown) (unknown) venlafaxine 75 mg (units (unknown) date) capsule,extended unknown) release 24 hr 75 mg PO DAILY 01/18/21 (unknown) (no (unknown) (unknown) wishes to proceed. (units (unknown) date) unknown) (unknown) (no (unknown) (unknown) y occur. Occasional (units (unknown) date) wrong-word or unknown) 'sound-alike' substitutions may have occurred Social History date description facility (no date) Ex-smoker (finding) [facility] Vital Signs No information.
[2022-05-29 20:39] VITALS: BP 148/69
[2022-05-29 20:51] LABS: RAPID STREP SCREEN Negative (Negative)
[2022-05-29] MEDS ORDERED: NIRMATRELVIR/RITONAVIR PREPACK PO STA (21:01)
--- NOTE | 2022-05-29 21:04 | ED Physician Documentation ---
History of Present Illness - Stated complaint Stated Complaint: THROAT PX/COUGH/CHEST PX - Chief complaint Chief Complaint: Heent - Additonal information Additional information: 66-year-old female presents emergency department for evaluation of 2 days cough, congestion, sore throat and mild dyspnea. She does have a history of COPD. She recently returned from [place] where she had to visit for her sister's . She is doubly vaccinated and singularly boosted for COVID-19. She did take at at home COVID-19 test today and was positive. She presents to the ER hoping to obtain Paxlovid. Review of Systems Constitutional: reports: Fever Eyes: reports: Reviewed and negative Nose: reports: Rhinorrhea / runny nose, Congestion Throat: reports: Sore throat Cardiac: reports: Reviewed and negative Respiratory: reports: Dyspnea, Cough GI: reports: Reviewed and negative : reports: Reviewed and negative Skin: reports: Reviewed and negative PD PAST MEDICAL HISTORY - Past Medical History Past Medical History: Yes Cardiovascular: Hypertension Respiratory: COPD Endocrine/Autoimmune: Type 2 diabetes, HyPOthyroidism Psych: Depression - Past Surgical History Past Surgical History: Yes General: Appendectomy 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, 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 - Present Medications Home Medications: Ambulatory Orders Medication Instructions Recorded Confirmed Venlafaxine [Effexor] 75 mg PO DAILY 04/03/15 01/21/22 Losartan [Cozaar] 100 mg PO DAILY 07/20/18 01/21/22 Metoprolol Tartrate 50 mg PO DAILY 07/20/18 01/21/22 Amlodipine Besylate [Norvasc] 10 mg PO DAILY 01/21/22 01/21/22 Fluticasone Propion/Salmeterol 1 inh INH BID 01/21/22 01/21/22 [Fluticasone-Salmeterol 100-50] Furosemide [Lasix] 20 mg PO DAILY PRN 01/21/22 01/21/22 Levothyroxine Sodium [Euthyrox] 100 mcg PO QDBREAKFAST 01/21/22 01/21/22 Metformin HCl 1,000 mg PO BID 01/21/22 01/21/22 methocarbamoL [Methocarbamol] 750 mg PO Q8HR PRN 01/21/22 01/21/22 - Allergies Allergies/Adverse Reactions: Allergies Allergy/AdvReac Type Severity Reaction Status Date / Time iodine AdvReac Rash Verified 10/02/22 20:39 - Social History Does the pt smoke?: No Smoking Status: Never smoker Does the pt drink ETOH?: No Does the pt have substance abuse?: No - Immunizations Immunizations are current?: Yes PD ED PE NORMAL - General General: Alert and oriented X 3, No acute distress. No: Well developed/nourished (Morbidly obese) - HEENT HEENT: Atraumatic, Ears normal, Moist mucous membranes, Pharynx benign - Neck Neck: Supple, no meningeal sign, No adenopathy - Cardiac Cardiac: RRR, No murmur - Respiratory Respiratory: No respiratory distress, Clear bilaterally (No wheeze, Rales or retractions. Room air saturations 97%) - Abdomen Abdomen: Normal bowel sounds, Soft, Non tender, Non distended - Back Back: No CVA TTP - Derm Derm: Normal color, Warm and dry, No rash - Extremities Extremities: No deformity - Neuro Neuro: Alert and oriented X 3, help desk administrator 2-12 intact Eye Opening: Spontaneous Motor: Obeys Commands Verbal: Oriented GCS Score: 15 Results - Vitals Vitals: Vital Signs - 24 hr 05/29/22 20:37 Temperature 36.5 C Heart Rate 83 Respiratory 20 Rate Blood Pressure 148/69 H O2 Saturation 96 Oxygen O2 Source Room air - Labs Labs: Laboratory Tests 05/29/22 20:30 Group A Strep Rapid Negative PD MEDICAL DECISION MAKING - ED course Complexity details: considered differential, d/w patient ED course: This very pleasant 66-year-old female who has a history of hypertension, obesity and COPD presents to the emergency department hoping to obtain Paxlovid for her COVID-19 infection. She became symptomatic 2 days ago and tested positive today. She does meet the FDA EUA criteria for initiation of Paxlovid. She is not taking a statin. Her cardiopulmonary auscultation was clear without wheeze. Room air saturations are 96%. She would not meet the criteria for inpatient hospitalization. As such she is discharged with prescription for Paxlovid levied from the emergency department. We discussed the need to continue quarantine at home. Emergent return precautions were discussed for worsening symptoms Departure - Departure Disposition: 01 Home, Self Care Clinical Impression: COVID-19 virus infection Condition: Stable Record reviewed to determine appropriate education?: Yes Comments: Johann you recently returned from [place] and have been having cough cold sore throat and congestion now for 2 days. You did test positive with a home test For COVID today. With your history of COPD you would be at high risk for adverse outcomes with COVID-19 infection. However because you are already v accinated and boosted it is likely that you will do okay with this infection. We will be giving you the Paxlovid, this is an oral outpatient antiviral treatment that can be used for treatment of COVID-19 infection within the first 5 days of symptoms. If at any point you find that you have severe respiratory difficulty, develop chest pain have any fainting episodes or oxygen levels less than 90% at home you should return immediately to the ER for second evaluation.
== END 2022-05-29 21:09 | disposition home or self-care (01) ==
LOC: ED 20:29
DX: U07.1 COVID-19 (principal); R05.9 Cough, unspecified; R09.81 Nasal congestion; J44.9 Chronic obstructive pulmonary disease, unspecified; E66.01 Morbid (severe) obesity due to excess calories; Z68.41 Body mass index [BMI] 40.0-44.9, adult; I10 Essential (primary) hypertension; E11.9 Type 2 diabetes mellitus without complications; Z79.84 Long term (current) use of oral hypoglycemic drugs; Z79.899 Other long term (current) drug therapy
CPT/HCPCS: 87070; 87430; 99282; 99283; J3490

== ENCOUNTER 2022-07-19 13:49 | Outpatient (CLI) | payer MEDICARE ==
--- NOTE | 2022-07-19 15:57 | XRAY Report ---
PROCEDURE: Knee 3 View LT INDICATIONS: L KNEE PX TECHNIQUE: 3 views of the left knee(s) were acquired. COMPARISON: None. FINDINGS: Bones: No fractures or dislocations. No suspicious bony lesions. Moderate medial compartmental daniel nt space narrowing with small medial and lateral marginal osteophytes at. No joint effusion. Soft tissues: No joint effusion. No suspicious soft tissue calcifications. IMPRESSION: Moderate medial compartmental joint space narrowing Reviewed by: Harvey Ortiz MD on 07/19/2022 2:56 PM AKST Approved by: Harvey Ortiz MD on 07/19/2022 2:56 PM AKST Station ID: [id number]
== END 2022-07-19 13:50 | disposition home or self-care (01) ==
LOC: DI.N 13:49
PROVIDERS: ATTEND Physician Assistant
DX: M25.862 Other specified joint disorders, left knee (principal)

== ENCOUNTER 2022-08-04 12:42 | Outpatient (CLI) | payer MEDICARE ==
--- NOTE | 2022-08-05 10:37 | Mammography Report ---
BILATERAL DIGITAL SCREENING MAMMOGRAM 3D/2D WITH EXAGGERATED CC: 08/04/2022 CLINICAL: Routine screening. Comparison is made to exams dated: 04/12/2021 mammogram and 03/16/2017 mammogram - [facility]. There are scattered areas of fibroglandular density in both breasts (category b / 25%-50% glandular t issue). No significant masses, calcifications, or other findings are seen in either breast. There has been no significant interval change. IMPRESSION: NEGATIVE There is no mammographic evidence of malignancy. A 1 year screening mammogram is recommended. Based on the Tyrer Cuzick model (a risk assessment model) the patients lifetime risk is 2.5% and her 10 year risk is 1.4%. According to the ACR, ACS, and NCCN guidelines, an annual breast MRI exam rosy g with mammogram is recommended if the patients lifetime risk is 20% or greater. This exam was interpreted at Station ID: [id number]. NOTE: For mammograms, a report in lay terms will be sent to the patient. Approximately 15% of breast malignancies will not be visualized mammographically. In the management of a palpable breast mass, a negative mammogram must not discourage biopsy of a clinically suspicious lesion. Electronically Signed By: Allan conner/soni:08/04/2022 15:52:52 ACR BI-RADS Category 1: Negative 3341F PARENCHYMAL PATTERN: (A) - The breast(s) demonstrate(s) scattered fibroglandular densities. BI-RADS CATEGORY: (1) - 1 RECOMMENDATION: (ANNUAL) - Recommend routine annual screening mammography. [id number] 1 year screening LATERALITY: (B)
== END 2022-08-04 12:43 | disposition home or self-care (01) ==
LOC: DI 12:42
PROVIDERS: ATTEND Physician Assistant
DX: Z12.31 Encounter for screening mammogram for malignant neoplasm of breast (principal)

== ENCOUNTER 2022-08-04 12:42 | Outpatient (CLI) | payer MEDICARE ==
--- NOTE | 2022-08-04 20:55 | DEXA Report ---
PROCEDURE: Dexa Spine and/or Hip INDICATIONS: POST MENOPAUSAL TECHNIQUE: Dual energy x-ray absorptiometry (DXA) was performed on a [employer] System. Regions measur ed are the AP Spine, femoral neck, and if needed forearm. COMPARISON: None. FINDINGS: Lumbar Spine: Bone Mineral Density 1.680 g/cm/cm,T score 4.2. Left Femoral Neck: Bone Mineral Density 0.865 g/cm/cm, T score -1.2. Left Hip: Bone Mineral Density 1.017 g/cm/cm,T score 0.1. (T score greater or equal to -1.0: NORMAL) (T score from -1.1 to -2.4: OSTEOPENIA) (T score less than or equal to -2.5 to: OSTEOPOROSIS) Impression: Osteopenia. Patients with diagnosis of osteoporosis or osteopenia should have regular bone mineral density assess ment. For those eligible for Medicare, routine testing is allowed once every 2 years. Testing frequ ency can be increased for patients who have rapidly progressing disease or for those who are receivin g medical therapy to restore bone mass. Reviewed by: Bartolome Manriquez MD on 08/04/2022 8:54 PM PST Approved by: Bartolome Manriquez MD on 08/04/2022 8:54 PM PST Station ID: [id number]
== END 2022-08-04 12:43 | disposition home or self-care (01) ==
LOC: DI 12:42
PROVIDERS: ATTEND Physician Assistant
DX: M85.88 Other specified disorders of bone density and structure, other site (principal)

== ENCOUNTER 2022-09-21 13:57 | Outpatient (CLI) | payer MEDICARE ==
--- NOTE | 2022-09-21 19:20 | XRAY Report ---
PROCEDURE: Foot 3 View LT INDICATIONS: CONTUSION OF LEFT FOOT TECHNIQUE: 3 views of the foot were acquired. COMPARISON: None FINDINGS: Bones: There are mildly displaced fractures involving the medial bases of both the third and fourth p roximal phalanges. Fracture planes extend into the articular surfaces. No dislocations. Findings are superimposed on moderate first TMT joint degeneration. Soft tissues: No tibiotalar joint effusion. Achilles tendon appears normal. IMPRESSION: Minimally displaced, intra-articular fractures of the third and fourth proximal phalanges. Reviewed by: Randa Luque MD on 09/21/2022 6:19 PM [facility] Approved by: Randa Luque MD on 09/21/2022 6:19 PM [place] Station ID: [id number]
== END 2022-09-21 13:58 | disposition home or self-care (01) ==
LOC: DI 13:57
PROVIDERS: ATTEND Physician Assistant
DX: S92.592A Other fracture of left lesser toe(s), initial encounter for closed fracture (principal)

== ENCOUNTER 2023-11-23 07:05 | Outpatient (CLI) | payer MEDICARE | END 2023-11-23 23:59 | disposition critical access hospital (66) | LOC: EMS 07:05 | DX: I10 Essential (primary) hypertension (principal); R51.9 Headache, unspecified; R07.89 Other chest pain | CPT/HCPCS: A0425; A0429 ==

== ENCOUNTER 2023-11-23 07:27 | Emergency (ER) | payer MEDICARE ==
--- NOTE | 2023-11-23 08:08 | ED Physician Documentation ---
PD HPI CHEST PAIN - Stated complaint Stated Complaint: HBP - Chief complaint Chief Complaint: Cardiac - History obtained from History obtained from: Patient - History of Present Illness Timing - onset: How many days ago (has had several days of headache and some dyspnea. has history of HTN and on meds, but had not really tracked it. Gotten BP cuff recently and has been taking BP regularly the past week or so. Noting it elevated and quite high this morning.) Timing - onset during: Light activity Timing - details: Gradual onset, Waxing and waning Quality: Pressure, Tightness Location: Substernal, Left chest Radiation: No: Jaw, Neck, Back Associated symptoms: Shortness of air. No: Nausea, Vomiting, Feeling faint / dizzy, Palpitations, Cough Similar symptoms before: No diagnosis Review of Systems Constitutional: denies: Fever, Chills Nose: denies: Rhinorrhea / runny nose, Congestion Throat: denies: Sore throat Cardiac: reports: Chest pain / pressure. denies: Palpitations, Pedal edema, Calf pain Respiratory: denies: Cough GI: denies: Abdominal Pain, Nausea, Vomiting Neurologic: reports: Headache. 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 - Present Medications Home Medications: Ambulatory Orders Medication Instructions Recorded Confirmed Venlafaxine [Effexor] 75 mg PO DAILY 04/03/15 11/23/23 Losartan [Cozaar] 100 mg PO DAILY 07/20/18 11/23/23 Metoprolol Tartrate 50 mg PO DAILY 07/20/18 11/23/23 Fluticasone Propion/Salmeterol 1 inh INH BID 01/21/22 11/23/23 [Fluticasone-Salmeterol 100-50] Furosemide [Lasix] 20 mg PO DAILY PRN 01/21/22 11/23/23 Levothyroxine Sodium [Euthyrox] 112 mcg PO QDBREAKFAST 01/21/22 11/23/23 Metformin HCl 1,000 mg PO BID 01/21/22 11/23/23 Gabapentin [Neurontin] 900 mg PO HS 11/23/23 11/23/23 Indomethacin [Indocin] 50 mg PO BIDWM 11/23/23 11/23/23 Nitroglycerin [Nitrostat] 0.4 mg SL ONCE PRN 11/23/23 11/23/23 Rosuvastatin Calcium [Crestor] 10 mg PO HS 11/23/23 11/23/23 Trazodone HCl 100 mg PO HS PRN 11/23/23 11/23/23 - Allergies Allergies/Adverse Reactions: Allergies Allergy/AdvReac Type Severity Reaction Status Date / Time iodine AdvReac Rash Verified 11/23/23 09:28 - Social History Does the pt smoke?: No Smoking Status: Never smoker Does the pt drink ETOH?: No Does the pt have substance abuse?: No - Immunizations Immunizations are current?: Yes PD ED PE NORMAL - Vitals Vital signs reviewed: Yes - General General: Alert and oriented X 3, No acute distress, Well developed/nourished - Neck Neck: Supple, no meningeal sign, No adenopathy, No JVD - Cardiac Cardiac: RRR, Other (2/6 murmur left chest radiating to carotids. ) - Respiratory Respiratory: No respiratory distress, Clear bilaterally - Abdomen Abdomen: Soft, Non tender - Derm Derm: Normal color, Warm and dry - Extremities Extremities: No edema, No calf tenderness / cord - Neuro Neuro: Alert and oriented X 3, collection advisor 2-12 intact, No motor deficit, No sensory deficit, Normal speech Results - Vitals Vitals: Oxygen O2 Source Room air - EKG (time done) 07:56 EKG releavant findings:: EKG personally interpreted by author of this note. Relevant findings are: Rate: Rate (enter#) (78) Rhythm: NSR [place]: Normal Intervals: Normal LA QRS: Normal Ischemia: Normal ST segments. No: ST elevation c/w ischemia, ST depression - Labs Labs: Laboratory Tests 11/23/23 11/23/23 11/23/23 08:06 08:06 08:06 WBC 6.6 RBC 4.28 Hgb 12.0 Hct 36.9 L MCV 86.2 MCH 28.0 MCHC 32.5 RDW 12.8 Plt Count 203 MPV 7.5 L Neut # (Auto) 3.8 Lymph # (Auto) 1.7 [place] # (Auto) 0.7 Eos # (Auto) 0.3 Baso # (Auto) 0.0 Absolute Nucleated RBC 0.00 Nucleated RBC % 0.0 Sodium 140 Potassium 3.6 Chloride 106 Carbon Dioxide 28 Anion Gap 6.0 BUN 15 Creatinine 0.6 Estimated GFR (MDRD) 99 Glucose 145 H Calcium 8.8 Magnesium 1.7 Total Bilirubin 0.2 AST 11 ALT 14 Alkaline Phosphatase 81 Troponin I High Sens 67.1 H* B-Natriuretic Peptide Total Protein 6.8 Albumin 3.7 Globulin 3.1 Albumin/Globulin Ratio 1.2 Lipase < 10 L Urine Color Urine Clarity Urine pH Ur Specific [place] Urine Protein Urine Glucose (UA) Urine Ketones Urine Occult Blood Urine Nitrite Urine Bilirubin Urine Urobilinogen Ur Leukocyte Esterase Ur Microscopic Review Urine Culture Comments 11/23/23 11/23/23 11/23/23 08:06 09:06 09:32 WBC RBC Hgb Hct MCV MCH MCHC RDW Plt Count MPV Neut # (Auto) Lymph # (Auto) [place] # (Auto) Eos # (Auto) Baso # (Auto) Absolute Nucleated RBC Nucleated RBC % Sodium Potassium Chloride Carbon Dioxide Anion Gap BUN Creatinine Estimated GFR (MDRD) Glucose Calcium Magnesium Total Bilirubin AST ALT Alkaline Phosphatase Troponin I High Sens 74.4 H* B-Natriuretic Peptide 93 Total Protein Albumin Globulin Albumin/Globulin Ratio Lipase Urine Color YELLOW Urine Clarity CLEAR Urine pH 6.0 Ur Specific [place] 1.015 Urine Protein NEGATIVE Urine Glucose (UA) NEGATIVE Urine Ketones NEGATIVE Urine Occult Blood NEGATIVE Urine Nitrite NEGATIVE Urine Bilirubin NEGATIVE Urine Urobilinogen 0.2 (NORMAL) Ur Leukocyte Esterase NEGATIVE Ur Microscopic Review NOT INDICATED Urine Culture Comments NOT INDICATED 11/23/23 12:02 WBC RBC Hgb Hct MCV MCH MCHC RDW Plt Count MPV Neut # (Auto) Lymph # (Auto) [place] # (Auto) Eos # (Auto) Baso # (Auto) Absolute Nucleated RBC Nucleated RBC % Sodium Potassium Chloride Carbon Dioxide Anion Gap BUN Creatinine Estimated GFR (MDRD) Glucose Calcium Magnesium Total Bilirubin AST ALT Alkaline Phosphatase Troponin I High Sens 68.1 H* B-Natriuretic Peptide Total Protein Albumin Globulin Albumin/Globulin Ratio Lipase Urine Color Urine Clarity Urine pH Ur Specific [place] Urine Protein Urine Glucose (UA) Urine Ketones Urine Occult Blood Urine Nitrite Urine Bilirubin Urine Urobilinogen Ur Leukocyte Esterase Ur Microscopic Review Urine Culture Comments - Rads (name of study) chest xray Relevant Findings:: Prelim report reviewed, EMP independent interpretation of test (ector cute CHF nor infiltrates. ) ECHO Relevant Findings:: Prelim report reviewed, Final report received (normal EF 60- 65%. No regional wall abnormality. Normal RV size. moderate aortic stenosis. ) PD Medical Decision Making - ED course Complexity details: reviewed results, considered differential (pt with elevated BP ongoing, and has noted it quite higher the past fewdays since. noted it above 200/110 this morning. Some chest pressure and headache, with dyspnea. No edema.), d/w patient Reviewed Lab Results: ECHO showing normal PVEF 60-65%. No regional wall abnormality. Moderate aortic stenosis. no effusion. She has bump of tropoonin into low indeterminant zone and repeat level was slightly lower. This does not meet criteria for acute heart injury/AR and is quite low in the setting of dyspnea/elevated BP for several days or more, I would expect much higher trop if was provoking ischemia/ AR. Presume pressure of heart function with the hypertensive level. ECHO suppports no cardiomyopathy nor apparent myocarditis, adn no regional wall abnormnality. BP is improved to 170s systolic and diastolic is quite normal now at 62 diastolic. Not having any recurrence chest pain and feeling of dyspnea is better. Can increase BP meds due to sustained HTN at least for past week and history of borderline in the past. With htn urgency symptoms of WATSON and dyspnea, which could be enhanced (the dyspnea) given the aortic stenosis (would want more moderate BP level especially in lieu of this). Departure - Departure Disposition: 01 Home, Self Care Clinical Impression: Hypertensive urgency, Troponin level elevated Condition: Stable Record reviewed to determine appropriate education?: Yes Follow-Up: Tobi Clancy MD [Primary Care Provider] - Comments: Your blood pressure was fairly elevated here but has come down to a reasonable level at this point. I would have you continue your furosemide and losartan current doses. Increase your metoprolol to 100 mg daily from the current 50 mg. Regular hydration. Low-salt diet. I would add a baby aspirin 81 mg daily. By your blood test it does look like the blood pressure was high enough to put a stress on the heart muscle. It does not sound like a heart attack per se but just the overworking of the heart. Your ultrasound of the heart did not show any acute abnormality. You do have a moderate tightness of the aortic valve. 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 Follow-up with your primary care in the next week or so. Check your blood pressure twice daily and keep track of it. Will see if we need to adjust your medicines further. Return to the ER if needed. Forms: PCP List Discharge Date/Time: 11/23/23 15:23
[2023-11-23 08:12] LABS: BASOPHILS % (AUTO) 0.6 %; EOSINOPHILS # (AUTO) 0.3 10^3/uL (0.0-0.7); EOSINOPHILS % (AUTO) 4.2 %; HCT - HEMATOCRIT 36.9 % (37.0-47.0); LYMPHOCYTES # (AUTO) 1.7 10^3/uL (1.5-3.5); LYMPHOCYTES % (AUTO) 25.6 %; MEAN CORPUSCULAR HGB CONC 32.5 g/dL (32.0-36.0); MEAN CORPUSCULAR VOLUME 86.2 fL (81.0-99.0); MEAN PLATELET VOLUME 7.5 fL (7.9-10.8); MONOCYTES # (AUTO) 0.7 10^3/uL (0.0-1.0); MONOCYTES % (AUTO) 11.2 %; NEUTROPHILS # (AUTO) 3.8 10^3/uL (1.5-6.6); NEUTROPHILS % (AUTO) 57.9 %; PLT - PLATELET COUNT 203 10^3/uL (130-450); RED BLOOD COUNT 4.28 10^6/uL (4.20-5.40); RED CELL DISTRIBUTION WIDTH 12.8 % (12.0-15.0); WHITE BLOOD COUNT 6.6 x10^3/uL (4.8-10.8)
--- NOTE | 2023-11-23 08:29 | XRAY Report ---
PROCEDURE: Chest 1V INDICATIONS: Chest pain TECHNIQUE: One view of the chest was acquired. COMPARISON: 07/27/2021. FINDINGS: Surgical changes and devices: Reverse total right shoulder arthroplasty. Lungs and pleura: No pleural effusions or pneumothorax. Lungs are clear. Mediastinum: Mediastinal contours appear normal. Heart size is normal. Bones and chest wall: No suspicious bony lesions. Overlying soft tissues appear unremarkable. IMPRESSION: No acute cardiopulmonary process. Reviewed by: Roe Hyman MD on 11/23/2023 8:27 AM PDT Approved by: Roe Hyman MD on 11/23/2023 8:27 AM PDT Station ID: [id number]
[2023-11-23 08:35] LABS: ALBUMIN 3.7 g/dL (3.2-5.5); ALBUMIN/GLOBULIN RATIO 1.2 (1.0-2.2); ALKALINE PHOSPHATASE 81 IU/L (42-121); ALT ALANINE AMINOTRANSFERASE 14 IU/L (10-60); AST ASPARTATE AMINOTRANSFERASE 11 IU/L (10-42); BILIRUBIN,TOTAL 0.2 mg/dL (0.2-1.0); BUN - BLOOD UREA NITROGEN 15 mg/dL (6-20); CALCIUM 8.8 mg/dL (8.5-10.3); CARBON DIOXIDE - CO2 28 mmol/L (21-32); CHLORIDE 106 mmol/L (101-111); CREATININE 0.6 mg/dL (0.6-1.3); GFR - MDRD 99 (>89); GLUCOSE 145 mg/dL (74-104); MAGNESIUM 1.7 mg/dL (1.7-2.3); POTASSIUM 3.6 mmol/L (3.5-4.5); SODIUM 140 mmol/L (135-145); TOTAL PROTEIN 6.8 g/dL (6.4-8.9)
[2023-11-23 08:41] LABS: LIPASE < 10 U/L (11-82)
[2023-11-23] MEDS: MAG HYDROX/AL HYDROX/SIMETH 30 ML UDC PO STA (08:45)
[2023-11-23] MEDS: ACETAMINOPHEN 500 MG TABLET PO STA (09:09)
[2023-11-23] MEDS: MORPHINE 2 MG/ML CARPUJECT IVP STA (09:10)
[2023-11-23 09:20] LABS: BILIRUBIN,URINE NEGATIVE (NEGATIVE); CLARITY,URINE CLEAR (CLEAR); GLUCOSE, URINE (UA) NEGATIVE (NEGATIVE); KETONES,URINE (UA) NEGATIVE (NEGATIVE); LEUKOCYTE ESTERASE, URINE NEGATIVE (NEGATIVE); NITRITE,URINE NEGATIVE (NEGATIVE); OCCULT BLOOD,URINE NEGATIVE (NEGATIVE); PROTEIN,URINE NEGATIVE (NEGATIVE); UROBILINOGEN,URINE 0.2 (NORMAL) E.U./dL (NORMAL)
[2023-11-23] MEDS: LOSARTAN 50 MG TABLET PO STA (11:01)
[2023-11-23] MEDS: KETOROLAC 15 MG/ML VIAL IVP STA (11:02)
[2023-11-23] MEDS: METOPROLOL TARTRATE 50 MG TABLET PO STA (11:02)
[2023-11-23] MEDS: HYDROmorphone 1 MG/ML CARPUJECT IVP STA (14:36)
[2023-11-23 15:10] VITALS: BP 151/79; O2SAT 96
[2023-11-24] MEDS ORDERED: LOSARTAN 50 MG TABLET PO SCH (09:00)
== END 2023-11-23 15:23 | disposition home or self-care (01) ==
LOC: EDUNIT# → EDBD → ED 07:27
DX: I16.0 Hypertensive urgency (principal); R79.89 Other specified abnormal findings of blood chemistry; I10 Essential (primary) hypertension; J44.9 Chronic obstructive pulmonary disease, unspecified; E11.9 Type 2 diabetes mellitus without complications; E03.9 Hypothyroidism, unspecified; Z79.899 Other long term (current) drug therapy
CPT/HCPCS: 36415; 71045; 80053; 81003; 83690; 83735; 83880; 84484; 85025; 93005; 93307; 96374; 96375; 99284; A9270; J1170; 81001; 87086

== ENCOUNTER 2023-12-12 10:45 | Day surgery (SDC) | payer MEDICARE ==
[2023-12-12] MEDS: LACTATED RINGERS 1,000 ML IV ONE ×2 (10:29→10:48)
--- NOTE | 2023-12-12 11:26 | HISTORY & PHYSICAL EXAMINATION ---
PMH/PSH - Past Medical History Cardiovascular: positive: Hypertension Respiratory: positive: COPD, Sleep apnea, CPAP use Endocrine/Autoimmune: positive: Type 2 diabetes, HyPOthyroidism Psych: positive: Depression MRSA Hx?: No - Past Surgical History General: positive: Appendectomy Ortho: positive: Other /[employer]: positive: Tubal ligation, section Social & Family Hx - Social History Does the pt smoke?: No Smoking Status: Never smoker Does the pt drink ETOH?: No Does the pt have substance abuse?: No Meds/Allgy - Home Medications Home Medications: Ambulatory Orders Medication Instructions Recorded Confirmed Venlafaxine [Effexor] 75 mg PO DAILY 04/03/15 12/12/23 Losartan [Cozaar] 100 mg PO DAILY 07/20/18 12/12/23 Metoprolol Tartrate 50 mg PO DAILY 07/20/18 12/12/23 Fluticasone Propion/Salmeterol 1 inh INH BID 01/21/22 12/12/23 [Fluticasone-Salmeterol 100-50] Furosemide [Lasix] 20 mg PO DAILY PRN 01/21/22 12/12/23 Levothyroxine Sodium [Euthyrox] 112 mcg PO QDBREAKFAST 01/21/22 12/12/23 Metformin HCl 1,000 mg PO BID 01/21/22 12/12/23 Gabapentin [Neurontin] 900 mg PO HS 11/23/23 12/12/23 Indomethacin [Indocin] 50 mg PO BIDWM 11/23/23 12/12/23 Nitroglycerin [Nitrostat] 0.4 mg SL ONCE PRN 11/23/23 12/12/23 Rosuvastatin Calcium [Crestor] 10 mg PO HS 11/23/23 12/12/23 Trazodone HCl 100 mg PO HS PRN 11/23/23 11/23/23 oxyBUTYnin chloride [Oxybutynin 5 mg PO DAILY 12/12/23 12/12/23 Chloride ER] - Allergies Allergies/Adverse Reactions: Allergies Allergy/AdvReac Type Severity Reaction Status Date / Time iodine AdvReac Rash Verified 12/12/23 11:17 Exam - Vital Signs Vital Signs: Vital Signs x48h Temp Pulse Resp BP Pulse Ox 12/12/23 11:01 96.8 F L 63 18 164/88 H 95 Results - Lab Results Other Lab Results: Lab Results x24hrs 12/12/23 Range/Units 11:14 POC Whole Bld Glucose 156 H (70 - 100) mg/dL Impression/Plan - Problem List Problem List: Referring Provider: Self Primary Provider: Cheri Newell PA-C History of Present Illness: I am asked to see Johann for a screening colonoscopy examination. GI symptoms: N Family history of colon cancer: N Family history of colon polyps: N Personal history of colon polyps: N Last colonoscopy examination: NA Anticoagulant use: None The Past Family, Social and Personal History has been reviewed with the patient. ROS Denies fevers, chills, night sweats, shortness of breath, chest pain, change in the color of skin or urine, diarrhea, constipation, hematemesis, hematochezia, headache, visual changes, muscle aches. PE VSS, Afeb HEENT: Pupils equil, round and reactive to light, sclera anicteric, normal hearing, oral mucous membranes moist and without lesions NECK: Supple without lymphadenopathy, thyromegaly or carotid bruits LUNGS: Clear to auscultation without wheezing HEART: NSR without murmurs CHEST: Equal and symmetric expansion, no rib pain ABD: Soft, nontender, no hepatosplenomegaly, no hernias GROIN: No hernias or lymphadenopathy EXTREMITIES: Normal neuro and muscular exam SKIN: Anicteric Radiologic Studies N/A Assessment Request for a screening colonoscopy examination. Plan Screening colonoscopy under sedation through the Day Surgery admission protocol at [facility]. Consent: John has been counseled for the procedure, it's indications, risks, benefits and expected outcome as well as alternative therapies. We specifically discussed risks associated with anesthesia and insertion of the endoscope into the large intestine which includes bleeding and injury to the colon which may require surgical intervention. John understands, agrees, and consents to the proposed operative strategy and requests that we proceed with the procedure as outlined in our discussion. Ed Mazariegos MD, [facility] General Surgery Service Mallampati Score Class III: Only the soft palate and the base of the uvula are visible ASA Physical Status Classification System ASA II: A patient with mild systemic disease Allergies: Allergies Reviewed: Done IODINE (IODINE) (Critical) Social History Reviewed: Done Medications: Meds Reviewed: Done mupirocin 2% ointment (mupirocin) Apply 1 a small amount to affected area three times a day pea sized amount to right toe erythromycin 5 mg/gram (0.5 %) ointment (erythromycin) Apply 0.5 a thin layer into affected eye four times a day Apply 0.5 inch clotrimazole 1% cream (clotrimazole) Apply as directed to affected area twice a day ketoconazole 2% cream (ketoconazole) Apply a small amount to affected area twice a day hydrocortisone 2.5% cream (hydrocortisone) Apply a small amount to affected area twice a day * ketoconazole-hydrocortisone 2-2.5% cream (ketoconazole-hydrocortisone) Apply 1 gram to affected area twice a day Desitin 40% paste (zinc oxide-cod liver oil) Apply 1 liberally to skin three times a day as needed apply to intertriginous areas nystatin 100,000 unit/gram powder (nystatin) Apply 1 a small amount to skin four times a day as needed Diflucan 150 mg tablet (fluconazole) Take 1 tablet by mouth once a day * Sudafed 12 Hour 120 mg tablet extended release (pseudoephedrine hcl) Take 1 tablet by mouth twice a day losartan 100 mg tablet (losartan) Take 1 tablet by mouth once a day gabapentin 300 mg capsule (gabapentin) Take 3 capsule by mouth every night venlafaxine 75 mg capsule,extended release 24hr (venlafaxine) metoprolol tartrate 50 mg tablet (metoprolol tartrate) Take 1 tablet by mouth twice a day levothyroxine 75 mcg tablet (levothyroxine) Take 1 tablet by mouth every morning * ONETOUCH TEST IN VITRO STRIP Use furosemide 20 mg tablet (furosemide) Take 1 tablet by mouth once a day Problems: Problems Reviewed: Done Onychomycosis, toenails (ICD-110.1) (RFO92-N95.1) Bacterial conjunctivitis, left (ICD-372.39) (SJI39-T30.89) Intertrigo (ICD-695.89) (ETJ37-C98.4) Tinea (ICD-110.9) (DKX16-Z88.9) Nondisplaced fracture of proximal phalanx of left lesser toe(s), initial encounter for closed fracture (MCH93-R69.515A) Contusion of left foot, initial encounter (ICD-924.20) (CKM19-Z55.32xA) Bacterial sinusitis (TUE44-G74.9) Vertigo (ICD-780.4) (MET78-V36) Serous otitis media (ICD-381.4) (TYU08-R92.90) Cough (ICD-786.2) (MJN63-A83.8) Lower extremity edema, bilateral (ICD-782.3) (UND51-C92.0) Cellulitis of lower limb (ICD-682.6) (OCL03-G58.119) Pain in right shoulder (ICD-719.41) (XFE75-L02.511) Unspecified injury of muscle(s) and tendon(s) of the rotator cuff of left shoulder, initial encounter (ICD-959.2) (LNZ00-B66.002A) CHEST PAIN, ATYPICAL (ICD-786.59) (GBV87-D83.89) SPRAIN/STRAIN, THORACIC REGION (ICD-847.1) GANGLION CYST (ICD-727.43) (KGB58-M68.40) ALLERGIC CONJUNCTIVITIS (ICD-372.14) (WLC96-K52.10) FOLLICULITIS (ICD-704.8) (CWH16-S40.9) HYPERTENSION (ICD-401.1) (XLD61-O72) OSTEOARTHRITIS, KNEES, 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) (MIT07-Q90.9) GERD (ICD-530.81) (KRY36-J77.9) COMMON MIGRAINE (ICD-346.10) (NKY41-C57.009) INSOMNIA (ICD-780.52) (DKW69-D08.00) PRESBYOPIA (ICD-367.4) (SUD70-P11.4) SPONDYLOSIS, LUMBAR (ICD-721.3) (KJT25-W99.817) DEPRESSION (ICD-311) (NTI64-O49.9) AODM (ICD-250.00) (UKC05-M85.9) ANXIETY (ICD-300.00) (RMT63-I23.9) HYPOTHYROIDISM (ICD-244.9) (QFF80-T93.9) Past Medical History: Anxiety Chronic Back Pain Depression Joint Swelling Past Surgical History: Cataract Extraction Risk Factors-CCC: Smoked Tobacco Use: Former smoker Smokeless Tobacco Use: Never Passive Smoke Exposure: yes Alcohol Use: yes Type: Whiskey Drinks per day: <1 Drug Use: no Vital Signs: Patient Profile: 68 Years Old Female Height: 61.0 inches Weight: 257 pounds BMI: 48.74 O2 Sat: 96 % on room air Temp: 97.8 degrees F oral Pulse rate: 90 / minute Resp: 20 per minute BP sittin / 83 Pt. in pain? no Vitals Entered By: Ronna Young RN (November 13, 2023 11:31 AM) Problems were reviewed with the patient during this visit. Medications were reviewed with the patient during this visit. Allergies were reviewed with the patient during this visit. Allergies: IODINE (IODINE) (Critical) Blood Pressure: Today's BP: 177/83 mmHg Patient Portal: [employer] <><><><><><> H&P Update: Patient examined, chart reviewed. No changes identified that would alter plan for . Yariel Mazariegos MD, [facility] General Surgery Service 12/12/23
[2023-12-12] MEDS ORDERED: PROPOFOL 500 MG/50 ML 500 MG/50 ML VIAL ONE (11:42)
--- NOTE | 2023-12-12 11:51 | ANESTHESIA ---
Pre-Anesthesia VS, & Labs - Diagnosis screening - Procedure colonoscopy Vital Signs: Temp Pulse Resp BP Pulse Ox O2 Flow Rate 36.0 C L 63 18 164/88 H 95 12/12/23 11:01 12/12/23 11:01 12/12/23 11:01 12/12/23 11:01 12/12/23 11:01 Height: 5 ft 2 in Weight (kg): 118.4 kg Body Mass Index: 47.7 BMI Classification: Morbidly Obese - NPO Other (prep as directed) - Lab Results Current Lab Results: Laboratory Tests 12/12/23 11:14: POC Whole Bld Glucose 156 H Home Medications and Allergies Home Medications: Ambulatory Orders oxyBUTYnin chloride [Oxybutynin Chloride ER] 5 mg PO DAILY 12/12/23 Venlafaxine [Effexor] 75 mg PO DAILY 04/03/15 Losartan [Cozaar] 100 mg PO DAILY 07/20/18 Metoprolol Tartrate 50 mg PO DAILY 07/20/18 Fluticasone Propion/Salmeterol [Fluticasone-Salmeterol 100-50] 1 inh INH BID 01/21/22 Furosemide [Lasix] 20 mg PO DAILY PRN 01/21/22 Levothyroxine Sodium [Euthyrox] 112 mcg PO QDBREAKFAST 01/21/22 Metformin HCl 1,000 mg PO BID 01/21/22 Gabapentin [Neurontin] 900 mg PO HS 11/23/23 Indomethacin [Indocin] 50 mg PO BIDWM 11/23/23 Nitroglycerin [Nitrostat] 0.4 mg SL ONCE PRN 11/23/23 Rosuvastatin Calcium [Crestor] 10 mg PO HS 11/23/23 Trazodone HCl 100 mg PO HS PRN 11/23/23 oxyBUTYnin chloride [Oxybutynin Chloride ER] 5 mg PO DAILY 12/12/23 Allergies/Adverse Reactions: Allergies Allergy/AdvReac Type Severity Reaction Status Date / Time iodine AdvReac Rash Verified 12/12/23 11:17 Anes History & Medical History - Anesthetic History Anesthesia Complications: reports: No previous complications - Medical History Cardiovascular: reports: Hypertension Pulmonary: reports: COPD, Sleep apnea, CPAP use Endocrine/Autoimmune: reports: Type 2 diabetes, HyPOthyroidism Smoking Status: Never smoker - Surgical History General: reports: Appendectomy Gynecologic: reports: Tubal ligation, section Orthopedic: reports: Other Plan Anesthesia Type: Total IV Consent for Procedure(s) Verified and Reviewed: Yes Code Status: Attempt Resuscitation ASA classification: 3-Severe systemic disease Is this case an emergency?: No
--- NOTE | 2023-12-12 12:00 | ANESTHESIA ---
Pre-Anesthesia VS, & Labs - Diagnosis screening exam - Procedure colonoscopy Vital Signs: Temp Pulse Resp BP Pulse Ox O2 Flow Rate 36.0 C L 63 18 164/88 H 95 12/12/23 11:01 12/12/23 11:01 12/12/23 11:01 12/12/23 11:01 12/12/23 11:01 Height: 5 ft 2 in Weight (kg): 118.4 kg Body Mass Index: 47.7 BMI Classification: Morbidly Obese - NPO >8 hours - Is Patient ?: No - Lab Results Current Lab Results: Laboratory Tests 12/12/23 11:14: POC Whole Bld Glucose 156 H Lab results reviewed: Yes Home Medications and Allergies Home Medications: Ambulatory Orders oxyBUTYnin chloride [Oxybutynin Chloride ER] 5 mg PO DAILY 12/12/23 Venlafaxine [Effexor] 75 mg PO DAILY 04/03/15 Losartan [Cozaar] 100 mg PO DAILY 07/20/18 Metoprolol Tartrate 50 mg PO DAILY 07/20/18 Fluticasone Propion/Salmeterol [Fluticasone-Salmeterol 100-50] 1 inh INH BID 01/21/22 Furosemide [Lasix] 20 mg PO DAILY PRN 01/21/22 Levothyroxine Sodium [Euthyrox] 112 mcg PO QDBREAKFAST 01/21/22 Metformin HCl 1,000 mg PO BID 01/21/22 Gabapentin [Neurontin] 900 mg PO HS 11/23/23 Indomethacin [Indocin] 50 mg PO BIDWM 11/23/23 Nitroglycerin [Nitrostat] 0.4 mg SL ONCE PRN 11/23/23 Rosuvastatin Calcium [Crestor] 10 mg PO HS 11/23/23 Trazodone HCl 100 mg PO HS PRN 11/23/23 oxyBUTYnin chloride [Oxybutynin Chloride ER] 5 mg PO DAILY 12/12/23 Allergies/Adverse Reactions: Allergies Allergy/AdvReac Type Severity Reaction Status Date / Time iodine AdvReac Rash Verified 12/12/23 11:17 Anes History & Medical History - Anesthetic History Anesthesia Complications: reports: No previous complications - Medical History Cardiovascular: reports: Hypertension Pulmonary: reports: COPD, Sleep apnea (does not use cpap) Gastrointestinal: reports: None Urinary: reports: Incontinence Neuro: reports: None Musculoskeletal: reports: None Endocrine/Autoimmune: reports: Type 2 diabetes, HyPOthyroidism Blood Disorders: reports: None Skin: reports: None Smoking Status: Never smoker History of Cancer?: No - Surgical History General: reports: Appendectomy Gynecologic: reports: Tubal ligation, section Orthopedic: reports: Other Exam General: Alert, Oriented x3, Cooperative, No acute distress Dental: WNL Mouth Openin Fingerbreadth Neck Mobility: Normal Mallampati classification: IV Thyromental Distance: 4-6 cm Mental/Cognitive Status: Alert/Oriented X3, Normal for patient Plan Anesthesia Type: General, Total IV Consent for Procedure(s) Verified and Reviewed: Yes Code Status: Attempt Resuscitation ASA classification: 3-Severe systemic disease Is this case an emergency?: No
[2023-12-12] MEDS ORDERED: LIDOCAINE-MPF 2% 5 ML VIAL ONE (12:18)
[2023-12-12] MEDS: SIMETHICONE *(INFANT SUSP)* 40 MG/0.6 ML BOTTLE PO ONE (12:33)
[2023-12-12] MEDS: LACTATED RINGERS 500 ML IV ONE (12:46)
[2023-12-12 13:01] VITALS: BP 129/79; O2SAT 94
--- NOTE | 2023-12-12 13:18 | ANESTHESIA POST OP EVALUATION ---
Anesthesia Post Eval - Post Anesthesia Eval Vitals: Last Vital Signs Temp 36.5 C 12/12/23 12:46 Pulse 72 12/12/23 12:58 Resp 18 12/12/23 12:58 BP 129/79 12/12/23 12:58 Pulse Ox 94 12/12/23 12:58 O2 Flow Rate CV Function Including HR & BP: Stable Pain Control: Satisfactory Nausea & Vomiting: Negative Mental Status: Baseline Respiratory Status: Airway Patent Hydration Status: Satisfactory Anesthesia Complications: None
== END 2023-12-12 10:46 | disposition home or self-care (01) ==
LOC: SDS 10:45
PROVIDERS: ATTEND Surgery
DX: Z12.11 Encounter for screening for malignant neoplasm of colon (principal); E66.01 Morbid (severe) obesity due to excess calories; Z68.42 Body mass index [BMI] 45.0-49.9, adult; E11.9 Type 2 diabetes mellitus without complications; J44.9 Chronic obstructive pulmonary disease, unspecified; G47.30 Sleep apnea, unspecified; Z87.891 Personal history of nicotine dependence; Z79.84 Long term (current) use of oral hypoglycemic drugs
CPT/HCPCS: A9270; G0121; J7120

== ENCOUNTER 2024-02-08 14:00 | Outpatient (CLI) | payer MEDICARE | END 2024-02-08 18:19 | disposition home or self-care (01) | LOC: LAB.N 14:00 | PROVIDERS: ATTEND Physician Assistant Medical | DX: M79.89 Other specified soft tissue disorders (principal) | CPT/HCPCS: 87070; 87205 ==

== ENCOUNTER 2024-02-22 13:43 | Outpatient (CLI) | payer MEDICARE ==
[2024-02-22] MEDS: ALBUTEROL 1 PUFF INH STA (15:55)
== END 2024-02-22 13:44 | disposition home or self-care (01) ==
LOC: RT 13:43
PROVIDERS: ATTEND Physician Assistant
DX: R06.09 Other forms of dyspnea (principal)
CPT/HCPCS: 94060; 94727; 94729

== ENCOUNTER 2024-02-22 14:51 | Outpatient (CLI) | payer MEDICARE ==
--- NOTE | 2024-02-22 20:39 | CT Report ---
PROCEDURE: Sinus INDICATIONS: SMITH, CHRONIC SINUSITIS TECHNIQUE: Noncontrast 3.0 mm axial images acquired from the frontal sinuses to the mid-sella, with coronal and sagittal reformats. For radiation dose reduction, the following was used: automated exposure control , adjustment of mA and/or kV according to patient size. COMPARISON: None. FINDINGS: Image quality: Excellent. Maxillary Sinuses: No bony remodeling or destruction. Sinuses are clear. Ethmoid Air Cells: No bony remodeling or destruction. Sinuses are clear. Sphenoid Sinuses: No bony remodeling or destruction. Sinuses are clear. Frontal Sinuses: No bony remodeling or destruction. Sinuses are clear. Ostiomeatal Complexes: Ostiomeatal complexes are patent. No Janice cells. Miscellaneous: Visualized intra-orbital contents are normal. No kirill bullosa. Slight rightward nasal septal deviation. IMPRESSION: No evidence of acute or chronic sinusitis. Reviewed by: Jonny Lainez MD on 02/22/2024 8:38 PM PDT Approved by: Jonny Lainez MD on 02/22/2024 8:38 PM PDT Station ID: [id number]
--- NOTE | 2024-02-22 23:44 | XRAY Report ---
PROCEDURE: Chest 2V INDICATIONS: SMITH TECHNIQUE: 2 views of the chest were acquired. COMPARISON: 11/15/2023 FINDINGS: Surgical changes and devices: Reverse right shoulder arthroplasty. Lungs and pleura: Thickening of the interstitial markings. No focal consolidation, effusion, or pneu mothorax. Mediastinum: Mediastinal contours appear normal. Heart size is normal. Bones and chest wall: No suspicious bony lesions. Overlying soft tissues appear unremarkable. IMPRESSION: Coarsening of the interstitial markings may indicate mild interstitial edema or viral pneumonitis. Reviewed by: Randa Luque MD on 02/22/2024 11:43 PM PDT Approved by: Randa Luque MD on 02/22/2024 11:43 PM PDT Station ID: [id number]
== END 2024-02-22 14:52 | disposition home or self-care (01) ==
LOC: DI 14:51
PROVIDERS: ATTEND Physician Assistant
DX: R06.09 Other forms of dyspnea (principal); R91.8 Other nonspecific abnormal finding of lung field; Z87.09 Personal history of other diseases of the respiratory system
CPT/HCPCS: 94060; 94727; 94729

== ENCOUNTER 2024-03-26 12:46 | Outpatient (CLI) | payer MEDICARE ==
--- NOTE | 2024-03-26 14:01 | SLEEP CARE CONSULTATION ---
Information from patient questionnaire entered by Haile Archer. I have reviewed and concur with the information entered by Haile Archer. This document represents the service I personally performed and the decisions made by me, Sonia Thorpe ARNP. History of Present Illness Service Date and Time: 03/26/2024 1246 Reason for Visit: New patient, Previously diagnosed sleep apnea Chief Complaint: reports: Other (UPDATE CPAP) Usual bedtime: 8041-2382 Snores at night: Yes Observed to quit breathing while asleep: Yes Sleeps alone due to snoring: No Number of times waking at night: 2 Reasons for waking at night: reports: Bathroom, Other (UNKNOWN) Toss, Turn, or Twitch while sleeping: Yes Recalls having dreams: No Usually gets out of bed at: [id number] Feels refreshed in the morning: No Morning headache: Yes (AFTER FEW HRS) Sleepy or fatigued during the day: Yes Ever fallen asleep while driving: No Takes day naps: Yes Dreams during day naps: No Prior sleep studies: Yes Additional HPI information: SHIREEN CHANG was previously diagnosed to have moderate, AHI 22.3, obstructive sleep apnea-hypopnea syndrome in sleep study dated 01/25/2022 through [facility] and comes in today to establish care for BIPAP therapy. - Parasomnia Symptoms Ever been unable to move upon waking from sleep: Yes Walks in sleep: No Talks in sleep: Yes Ever acted out dreams in sleep: Yes Ever felt weak in the knees when startled or emotional: Yes Bothered by creepy, crawly, restless sensations in legs: Yes Problems with memory or concentration: Yes CPAP Compliance Data - Data Reviewed with Patient Compliance rate %: 0 Current pressure setting (cmH2O): 12/06 with 4 pressure support Compliance data discussion: She has a AirCurve 10 VAuto. She used to get her supplies from [employer] but has not been getting supplies for a while. She had been using a ResMed AirFit N20, medium cushion. She has not been using her CPAP for about a year. Subjective Missed days of use due to: reports: other (not using for last year due to mask issues; getting sad face and got frustrated with it) Patient concerns: reports: mask discomfort, air blowing in eyes, mask leak noise, dry mouth, nose, throat. 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 Patient is / and lives in [place]. Have you smoked in the past 12 months: No Cigarettes per day (20/pack): 40 Years of smokin Quit date: 2005 Smoking Pack Years: 30.0 Alcohol use: Yes Alcohol amount and frequency: ONCE IN 3 MONTHS Caffeine use: No Family History Family history of sleep disordered breathing: Yes Family Hx Sleep Apnea: Sibling: Snoring, Sleep apnea - Treated Allergies and Home Medications Known drug allergies: No (iodine as a child, not sure as an adult) Drug allergies reviewed: Yes Home medication list reviewed: Yes (as listed) Allergy and home medication list: Allergies iodine Adverse Reaction (Verified 03/26/24 12:56) Rash topical iodine Home Medications Medication Instructions Recorded Confirmed Last Taken Type Venlafaxine [Effexor] 75 mg PO DAILY 04/03/15 03/26/24 12/11/23 History Losartan [Cozaar] 100 mg PO DAILY 07/20/18 03/26/24 12/12/23 History Metoprolol Tartrate 50 mg PO DAILY 07/20/18 03/26/24 12/12/23 History Fluticasone Propion/Salmeterol 1 inh INH BID 01/21/22 03/26/24 12/11/23 History [Fluticasone-Salmeterol 100-50] Furosemide [Lasix] 20 mg PO DAILY PRN 01/21/22 03/26/24 12/11/23 History Levothyroxine Sodium [Euthyrox] 112 mcg PO QDBREAKFAST 01/21/22 03/26/24 12/11/23 History Metformin HCl 1,000 mg PO BID 01/21/22 03/26/24 12/10/23 History Gabapentin [Neurontin] 900 mg PO HS 11/23/23 03/26/24 12/11/23 History Indomethacin [Indocin] 50 mg PO BIDWM 11/23/23 03/26/24 12/11/23 History Nitroglycerin [Nitrostat] 0.4 mg SL ONCE PRN 11/23/23 03/26/24 Unknown History Rosuvastatin Calcium [Crestor] 10 mg PO HS 11/23/23 03/26/24 12/11/23 History Trazodone HCl 100 mg PO HS PRN 11/23/23 03/26/24 12/10/23 History oxyBUTYnin chloride [Oxybutynin 5 mg PO DAILY 12/12/23 03/26/24 12/11/23 History Chloride ER] Albuterol Sulf [Ventolin Hfa See Rx Instructions .ROUTE .COMPLEX 03/26/24 03/26/24 Unknown History Inhaler] Aspirin [Vazalore] See Rx Instructions .ROUTE .COMPLEX 03/26/24 03/26/24 Unknown History Cetirizine [ZyrTEC] See Rx Instructions .ROUTE .COMPLEX 03/26/24 03/26/24 Unknown History Fluticasone Propionate See Rx Instructions .ROUTE .COMPLEX 03/26/24 03/26/24 Unknown History Xylitol/Isomalt/Glycerin [Act Dry See Rx Instructions .ROUTE .COMPLEX 03/26/24 03/26/24 Unknown History Mouth Lozenge] amLODIPine [Norvasc] See Rx Instructions .ROUTE .COMPLEX 03/26/24 03/26/24 Unknown History Review of Systems Weight gain over past 5 years: 30 Weight loss over past 5 years: 3 Cardiovascular: reports: high blood pressure, leg or foot swelling Respiratory: reports: shortness of breath Urinary: reports: incontinence Neurological: reports: headaches, gait or balance problems Psychiatric: reports: anxiety, depression Ear/Nose/Throat: reports: nasal congestion, sinus problems, dry mouth/throat, wisdom teeth removed. denies: tonsillectomy Endocrine: reports: thyroid disease, excessive thirst, increased appetite, increased urination, unexplained weakness Musculoskeletal: reports: joint pain, back pain, joint swelling, muscle pain or cramping, mobility problems Physical Exam Vital signs obtained and entered by: HAILE Ramsay MA Blood Pressure: 180/76 (LEFT ARM) Cuff size: long Heart Rate: 62 O2 Saturation: 89 Height: 5 ft 2 in Weight: 273 lb Body Mass Index: 49.9 BMI Classification: Morbidly Obese Neck circumference: 19.25 Mouth and throat: narrow oropharynx Soft palate: long Hard palate: normal Uvula: normal Uvula visualization: 0% Mallampati Class IV Tongue: enlarged in size with teeth hair on lateral edges Tonsils: 2+ Neck: normal w/o lymphadenopathy or thyromegaly Heart: regular rate and rhythm Lungs: clear bilaterally Impression and Plan 1. Obstructive Sleep Apnea-Hypopnea Syndrome, moderate, with poor treatment compliance and unknown apnea control. On BiPAP therapy, the patient has better sleep quality and is more rested overall. Patient states she got frustrated with the "sad face" on her machine and stopped using her BiPAP about a year ago. She returns to get restarted on her machine. Since it has been about a year, I will order a verifying sleep study. I advised her to start using her BiPAP again. She said she does have supplies that she can start using her BiPAP. When she comes back after the sleep study we will set her up with DME supplier, update prescription and help her to regularly return to using her BiPAP. I want to show some compliance with using her machine before we set her up with DME. Patient's apnea severity and rationale for treatment to reduce apnea, improve sleep quality and reduce cardiovascular and cerebrovascular events was reviewed. I also reviewed the benefit of consistent device use of BiPAP for hypertension, diabetes, depression/anxiety. 2. Obesity, unspecified. Currently patients BMI is 49.9. Obesity increases the risk of apnea, BiPAP pressure requirements and overall health risks especially cardiovascular and diabetes. Thus patient is advised to lose weight. 3. Elevated blood pressure in patient with hypertension. Her initial blood pressure was 180/76 at the beginning of our visit today. Her oxygen level was at 89% on room air. She does have moderate COPD. Repeat measurement of her blood pressure was 160/73. I advised her to follow-up with her primary care doctor for further evaluation of her elevated blood pressure. She voiced understanding. * Continue BiPAP pressure at 16/10 cmH2O with 4 cmH2O pressure support * Complete verifying PSG for diagnosis and severity * Update supply prescription * Notify me if snoring with mask or feeling that the pressure is too much or too little * Attempt to lose weight * Call this office if any problems using BiPAP * Return for follow up after sleep study, or sooner if concerns arise Counseling Topics: Weight loss health impact Follow up with: PCP Follow up recommended for: High blood pressure Plan: PSG to verify diagnosis and severity, follow up in office Visit Type: In Office Time Spent with Patient (minutes): 40 Provider Statement: I spent 100% of the Face to Face Visit with the patient with greater than 50% spent counseling the patient and coordination of care.
[2024-03-26 14:17] VITALS: BP 180/76; O2SAT 89
== END 2024-03-26 12:47 | disposition home or self-care (01) ==
LOC: SC 12:46
PROVIDERS: ATTEND Nurse Practitioner Family
DX: G47.33 Obstructive sleep apnea (adult) (pediatric) (principal); E66.01 Morbid (severe) obesity due to excess calories; Z68.42 Body mass index [BMI] 45.0-49.9, adult; I10 Essential (primary) hypertension; J44.9 Chronic obstructive pulmonary disease, unspecified; Z87.891 Personal history of nicotine dependence
CPT/HCPCS: 99203; G0463; 99212

== ENCOUNTER 2025-01-22 12:58 | Observation (INO) ==
--- OUTSIDE RECORDS SUMMARY | 2025-01-22 13:39 | EXTERNAL MEDICAL SUMMARY RPT | Continuity of Care Document ---
Author Organization [place] Address [address] [facility] [address] [place] [address] Phone Problems date description facility 2024-11-15 06:53 Localized edema [facility] 2024-11-15 06:56 Localized edema [facility] 2025-01-14 08:26 Abnormal result of o ther cardiovascular function study [facility] 2025-01-22 13:04 Unspecified abnormalities of he art beat [facility] 2025-01-22 13:04 Elevated blood-press ure reading, without diagnosis of hypertension [facility] 2025-01-22 13:04 Shortness of breath [facility] 2025-01-22 13:04 Fever, unspecified [facility] 2025-01-22 13:04 Localized edema [facility] Social History date description facility
--- NOTE | 2025-01-22 13:48 | ED Physician Documentation ---
PD HPI DYSPNEA Stated complaint Stated Complaint: SOA Chief complaint Chief Complaint: Resp History obtained from History obtained from: Patient (complained of dyspnea, orthopnea, and very swollen legs increasing over the past several days. ) and EMS (Medics noted sats upper 80s% and given neb treatment with possible wheezing. ) History of Present Illness Timing - onset: How many days ago (several) Timing - onset during: Rest and Light activity Timing - duration: Days Timing - details: Gradual onset, Still present and Other (was having urinary incontinence and trouble getting to bathroom, with swollen legs, so stopped her lasix several days ago so she did not have to get up as often. ) Worsened by: Exertion and Laying flat Associated symptoms: Wheezing and Bilateral edema; No Fever or Cough Similar symptoms before: Diagnosis (COPD and CHF; no recent URI symtpoms) Recently seen: Not recently seen Meds/Allgy Home Medications Ambulatory Orders Medication Instructions Recorded Confirmed fluticasone 100 mcg-salmeterol 50 1 inh inhalation BID 01/21/22 01/22/25 mcg/dose blistr powdr for inhalation metformin 1,000 mg tablet 1,000 mg PO BID 01/21/22 gabapentin 300 mg capsule 900 mg PO HS 11/23/23 nitroglycerin 0.4 mg sublingual 0.4 mg sublingual ONCE PRN Chest 11/23/23 01/22/25 tablet Pain rosuvastatin 10 mg tablet (Crestor) 10 mg PO HS 01/22/25 oxybutynin chloride 5 mg 5 mg PO DAILY 12/12/2301/22 tablet,extended release 24 hr albuterol sulfate 90 mcg/actuation See Rx Instructions .Route .COMPLEX 03/26/24 01/22/25 aerosol inhaler (Ventolin HFA) aspirin 81 mg capsule (Vazalore) See Rx Instructions . Route .COMPLEX 03/26/24 01/22/25 fluticasone propionate 50 See Rx Instructions .Route . COMPLEX 03/26/24 01/22/25 mcg/actuation nasal spray,suspension furosemide 20 mg tablet 20 mg PO DAILY PRN Swelling #90 08/27/24 01/22/25 tabs levothyroxine 112 mcg tablet mcg PO 08/27/24 01/22/25 losartan 100 mg tablet mg PO 08/27/24 01/22/25 metoprolol tartrate 50 mg tablet mg PO 08/27/24 venlafaxine 75 mg capsule,extended mg PO 08/27/2412/27 release 24 hr cetirizine 10 mg tablet 10 mg PO BID #60 tabs 01/22/25 Allergies Allergies Allergy/AdvReac Type Severity Reaction Status Date / Time iodine AdvReac Rash Verified 01/22/25 13:04 PFSH Active Problems All Active Problems (Updated 01/22/25 @ 16:34 by Chinedu Meléndez MD) Acute exacerbation of CHF (congestive heart failure) (Acute) Acute dyspnea (Acute) UTI (urinary tract infection) (Acute) CHF (congestive heart failure) (Acute) Hypoxia (Acute) Shortness of breath (Acute) Elevated heart rate with elevated blood pressure without diagnosis of hypertension (Acute) Fever (Acute) Leg edema (Acute) Leg pain (Acute) Leg edema, left (Acute) Knee contusion (Acute) Shoulder sprain (Acute) Fall (Acute) Cellulitis (Acute) Chest pain (Acute) Hypokalemia (Acute) Dehydration (Acute) Myalgia (Acute) Social History Social History Smoking Status: Former smoker If you are a former smoker, when did you quit? (Date/Year): 2005 Number of Years Smoked: 15 How many cigarettes a day do you smoke? (20 cigarettes=1 Pk): 40 Do you vape?: No Living arrangement: At home Relationship: Do you feel safe in your home environment?: Yes Suffered physical, verbal, emotional, or financial abuse?: No History of Abuse: No Frequency: Occasional Exam Exam Vital Signs: Vital Signs x48h Temp Pulse Resp BP Pulse Ox O2 Flow Rate 01/22/25 16:00 105 H 21 141/73 H 97 1 01/22/25 14:07 108 H 22 01/22/25 14:02 96 1 01/22/25 13:56 100 24 175/82 H 88 L 01/22/25 13:04 37.8 C 100 18 150/90 H 94 Constitutional distress noted (mild) and abnormal body habitus (obese) and (overweight) Neck/C-Spine supple Lymph no lymphadenopathy noted Chest palpation of chest normal Respiratory breath sounds equal bilaterally, abnormal respiratory effort (labored), wheezing noted (scattered wheezes), rales noted (base) and no retractions Cardiovascular normal heart rate noted, regular rhythm noted, murmur noted (systolic) and (II/) (left sternal border radiating to neck) and edema noted (2+ edema both legs up to thighs, without redness nor skin sores. ) Gastrointestinal nontender to palpation and nondistended Psychiatry mental status grossly normal, oriented x3, thought process normal and cooperative Skin skin color normal Results Vitals Vitals: Vital Signs - 24 hr 01/22/25 13:04 01/22/25 13:56 01/22/25 14:02 Temperature 37.8 C Temperature Source Oral Pulse Rate 100 100 Respiratory Rate 18 24 Blood Pressure 150/90 H 175/82 H O2 Saturation 94 88 L 96 O2 Source Room air Room air Nasal cannula If not protocol: Oxygen Flow, liters/minute 1 Pain Intensity 4 01/22/25 14:07 01/22/25 16:00 Temperature Temperature Source Pulse Rate 108 H 105 H Respiratory Rate 22 21 Blood Pressure 141/73 H O2 Saturation 97 O2 Source Nasal cannula Nasal cannula If not protocol: Oxygen Flow, liters/minute 1 Pain Intensity Oxygen O2 Source Nasal cannula Labs Labs: Laboratory Tests 01/22/25 01/22/25 01/22/25 13:58 14:07 14:07 WBC 10.1 RBC 4.23 Hgb 11.3 L Hct 36.4 L MCV 86.1 MCH 26.7 L MCHC 31.0 L RDW 13.5 Plt Count 163 MPV 8.1 Neut # (Auto) 7.2 H Lymph # (Auto) 1.1 L [place] # (Auto) 1.6 H Eos # (Auto) 0.2 Baso # (Auto) 0.0 Absolute Nucleated RBC 0.00 Nucleated RBC % 0.0 Manual Slide Review Indicated WBC Morphology NORMAL APPEARANCE Platelet Estimate NORMAL (130-450,000) Platelet Morphology NORMAL APPEARANCE RBC Morph Micro Appear NORMAL APPEARANCE Sodium 137 Potassium 3.7 Chloride 103 Carbon Dioxide 27 Anion Gap 7.0 BUN 8 Creatinine 0.6 Estimated GFR (MDRD) 99 Glucose 167 H Calcium 8.5 Magnesium 1.8 Total Bilirubin 0.7 AST 25 ALT 17 Alkaline Phosphatase 93 Troponin I High Sens 77.4 H* B-Natriuretic Peptide Cancelled 113 H Total Protein 7.2 Albumin 3.7 Globulin 3.5 Albumin/Globulin Ratio 1.1 Lipase < 10 L Urine Color Urine Clarity Urine pH Ur Specific [place] Urine Protein Urine Glucose (UA) Urine Ketones Urine Occult Blood Urine Nitrite Urine Bilirubin Urine Urobilinogen Ur Leukocyte Esterase Urine RBC Urine WBC Urine WBC Clumps Ur Squamous Epith Cells Urine Bacteria Urine Culture Comments Nasal Adenovirus (PCR) NOT DETECTED Nasal B. parapertussis DNA (PCR) NOT DETECTED Nasal Coronavir 229E PCR NOT DETECTED Nasal Coronavir HKU1 PCR NOT DETECTED Nasal Coronavir NL63 PCR NOT DETECTED Nasal Coronavir OC43 PCR NOT DETECTED Nasal Enterovir/Rhinovir PCR NOT DETECTED Nasal Influenza B PCR NOT DETECTED Nasal Influenza A PCR NOT DETECTED Nasal Parainfluen 1 PCR NOT DETECTED Nasal Parainfluen 2 PCR NOT DETECTED Nasal Parainfluen 3 PCR NOT DETECTED Nasal Parainfluen 4 PCR NOT DETECTED Nasal RSV (PCR) NOT DETECTED Nasal B.pertussis DNA PCR NOT DETECTED Nasal C.pneumoniae (PCR) NOT DETECTED Bong Human Metapneumo PCR NOT DETECTED Nasal M.pneumoniae (PCR) NOT DETECTED Nasal SARS-CoV-2 (PCR) NOT DETECTED 01/22/25 14:57 WBC RBC Hgb Hct MCV MCH MCHC RDW Plt Count MPV Neut # (Auto) Lymph # (Auto) [place] # (Auto) Eos # (Auto) Baso # (Auto) Absolute Nucleated RBC Nucleated RBC % Manual Slide Review WBC Morphology Platelet Estimate Platelet Morphology RBC Morph Micro Appear Sodium Potassium Chloride Carbon Dioxide Anion Gap BUN Creatinine Estimated GFR (MDRD) Glucose Calcium Magnesium Total Bilirubin AST ALT Alkaline Phosphatase Troponin I High Sens B-Natriuretic Peptide Total Protein Albumin Globulin Albumin/Globulin Ratio Lipase Urine Color YELLOW Urine Clarity CLOUDY Urine pH 6.0 Ur Specific [place] 1.010 Urine Protein NEGATIVE Urine Glucose (UA) NEGATIVE Urine Ketones NEGATIVE Urine Occult Blood SMALL H Urine Nitrite POSITIVE H Urine Bilirubin NEGATIVE Urine Urobilinogen 0.2 (NORMAL) Ur Leukocyte Esterase SMALL H Urine RBC 0-5 Urine WBC >25 H Urine WBC Clumps PRESENT Ur Squamous Epith Cells RARE Squamous Urine Bacteria Many H Urine Culture Comments INDICATED Nasal Adenovirus (PCR) Nasal B. parapertussis DNA (PCR) Nasal Coronavir 229E PCR Nasal Coronavir HKU1 PCR Nasal Coronavir NL63 PCR Nasal Coronavir OC43 PCR Nasal Enterovir/Rhinovir PCR Nasal Influenza B PCR Nasal Influenza A PCR Nasal Parainfluen 1 PCR Nasal Parainfluen 2 PCR Nasal Parainfluen 3 PCR Nasal Parainfluen 4 PCR Nasal RSV (PCR) Nasal B.pertussis DNA PCR Nasal C.pneumoniae (PCR) Bong Human Metapneumo PCR Nasal M.pneumoniae (PCR) Nasal SARS-CoV-2 (PCR) PD Medical Decision Making ED course Complexity details: reviewed old records (ECHO from outside facility faxed into record from 11/09/2024 showed EF 55-60%, normal ventricle size, and mild to moderate aortic stenosis. ), reviewed results, re-evaluated patient (Pt has diuresed 1100 ml over a few hours and has less dyspnea, but still sats down to 86-88% off oxygen.), considered differential (COPD vs CHF vs pneumonia. Mostly likely CHF with the notable leg edema, and base crackles on lung sounds. ), d/w patient and d/w senior environmental consultant (Dr. Vazquez, hospitalist, who asked that we try diuresis further and reassess after few hours to decide admission criteria. ) ED course: work of breathing, with gradual dyspnea and leg edema. history of CHF but ECHO in October not too bad with higlights noted above. Sats in 80s% RA on arrival and placed on oxygen. GIven Lasix IV as seems more CHF than COPD. CXR without infiltrates and she has not had URI symptoms. Discharge Plan Discharge Patient Disposition: ED Place in Observation Condition: Stable Clinical Impression: CHF (congestive heart failure), UTI (urinary tract infection), Acute dyspnea, Hypoxia, Acute exacerbation of CHF (congestive heart failure) Prescriptions: No Action metformin 1,000 MG tablet 1,000 mg PO BID Patient Comments: TAKE 1 TABLET BY MOUTH TWICE DAILY WITH MEALS fluticasone propion-salmeterol 1 EACH blister with device 1 inh inhalation BID Patient Comments: INHALE 1 DOSE BY MOUTH TWICE DAILY oxybutynin chloride 5 MG tablet extended release 24hr 5 mg PO DAILY nitroglycerin 0.4 MG tablet, sublingual 0.4 mg sublingual ONCE PRN (Reason: Chest Pain) gabapentin 300 MG capsule 900 mg PO HS Patient Comments: TAKE 3 CAPSULES BY MOUTH AT NIGHT rosuvastatin [Crestor] 10 MG tablet 10 mg PO HS albuterol sulfate [Ventolin HFA] 200 PUFFS/18 GM HFA aerosol inhaler See Rx Instructions .Route .COMPLEX Rx Instructions: QD fluticasone propionate 16 GM spray,suspension See Rx Instructions .Route .COMPLEX Rx Instructions: QD NASAL SPRAY 50MCG aspirin [Vazalore] 81 MG capsule See Rx Instructions .Route .COMPLEX Rx Instructions: QD cetirizine 10 mg tablet 10 mg PO BID Qty: 60 0RF losartan 100 mg tablet PO Patient Comments: TAKE 1 TABLET BY MOUTH ONCE DAILY levothyroxine 112 mcg tablet PO Patient Comments: TAKE 1 TABLET BY MOUTH ONCE DAILY IN THE MORNING ON AN EMPTY STOMACH metoprolol tartrate 50 mg tablet PO Patient Comments: TAKE 1 TABLET BY MOUTH ONCE DAILY WITH FOOD venlafaxine 75 mg capsule,extended release 24hr PO furosemide 20 mg tablet 20 mg PO DAILY PRN (Reason: Swelling) Qty: 90 0RF Print Language: Russian Stand Alone Forms: PCP List
[2025-01-22] MEDS: FUROSEMIDE 40 MG/4 ML VIAL IVP STA (13:50)
[2025-01-22] MEDS: ALBUTEROL NEB 2.5 MG/3 ML INH STA (14:05)
[2025-01-22 14:13] LABS: BASOPHILS % (AUTO) 0.2 %; EOSINOPHILS # (AUTO) 0.2 10^3/uL (0.0-0.7); EOSINOPHILS % (AUTO) 1.8 %; HCT - HEMATOCRIT 36.4 % (37.0-47.0); HGB - HEMOGLOBIN 11.3 g/dL (12.0-16.0); LYMPHOCYTES # (AUTO) 1.1 10^3/uL (1.5-3.5); LYMPHOCYTES % (AUTO) 10.5 %; MEAN CORPUSCULAR HEMOGLOBIN 26.7 pg (27.0-31.0); MEAN CORPUSCULAR VOLUME 86.1 fL (81.0-99.0); MEAN PLATELET VOLUME 8.1 fL (7.9-10.8); MONOCYTES # (AUTO) 1.6 10^3/uL (0.0-1.0); MONOCYTES % (AUTO) 16.1 %; NEUTROPHILS # (AUTO) 7.2 10^3/uL (1.5-6.6); NEUTROPHILS % (AUTO) 70.9 %; PLT - PLATELET COUNT 163 10^3/uL (130-450); RED BLOOD COUNT 4.23 10^6/uL (4.20-5.40); RED CELL DISTRIBUTION WIDTH 13.5 % (12.0-15.0); SLIDE REVIEW? Indicated; WHITE BLOOD COUNT 10.1 x10^3/uL (4.8-10.8)
[2025-01-22 14:26] LABS: ALBUMIN 3.7 g/dL (3.2-5.5); ALBUMIN/GLOBULIN RATIO 1.1 (1.0-2.2); ALKALINE PHOSPHATASE 93 IU/L (42-121); ALT ALANINE AMINOTRANSFERASE 17 IU/L (10-60); AST ASPARTATE AMINOTRANSFERASE 25 IU/L (10-42); BILIRUBIN,TOTAL 0.7 mg/dL (0.2-1.0); BUN - BLOOD UREA NITROGEN 8 mg/dL (6-20); CALCIUM 8.5 mg/dL (8.5-10.3); CARBON DIOXIDE - CO2 27 mmol/L (21-32); CHLORIDE 103 mmol/L (101-111); CREATININE 0.6 mg/dL (0.6-1.3); GFR - MDRD 99 (>89); GLUCOSE 167 mg/dL (74-104); LIPASE < 10 U/L (11-82); MAGNESIUM 1.8 mg/dL (1.7-2.3); POTASSIUM 3.7 mmol/L (3.5-4.5); SODIUM 137 mmol/L (135-145); TOTAL PROTEIN 7.2 g/dL (6.4-8.9)
[2025-01-22 14:27] LABS: PLATELET ESTIMATE, MANUAL NORMAL (130-450,000) (NORMAL); PLATELET MORPHOLOGY NORMAL APPEARANCE (NORMAL); RBC MORPHOLOGY (MULTIPLE) NORMAL APPEARANCE (NORMAL); WBC MORPHOLOGY (MULTIPLE) NORMAL APPEARANCE (NORMAL)
--- NOTE | 2025-01-22 14:27 | XRAY Report ---
PROCEDURE: XR Chest 1V INDICATIONS: dyspnea and edema TECHNIQUE: One view of the chest was acquired. COMPARISON: 02/22/2024 FINDINGS AND IMPRESSION: Low lung volumes. No dense airspace consolidation or pleural effusion on this single view study. Heart size is at the upper limit of normal. Degenerative osseous changes in right shoulder reverse arthroplasty partially seen. Reviewed by: Warren Fields MD on 01/22/2025 2:25 PM PDT Approved by: Warren Fields MD on 01/22/2025 2:25 PM PDT Station ID: [id number]
[2025-01-22 14:42] LABS: TROPONIN I HIGH SENSITIVITY 77.4 ng/L (2.3-14.8)
[2025-01-22 15:00] LABS: B. PARAPERTUSSIS- RESP PCR PAN NOT DETECTED; B. PERTUSSIS- RESP PCR PANEL NOT DETECTED; C. PNEUMONIAE- RESP PCR PANEL NOT DETECTED; CORONAVIRUS 229E-RESP PCR NOT DETECTED; CORONAVIRUS HKU1-RESP PCR NOT DETECTED; CORONAVIRUS NL63-RESP PCR NOT DETECTED; CORONAVIRUS OC43-RESP PCR NOT DETECTED; HUMAN METAPNEUMOVIRUS NOT DETECTED; INFLUENZA A- RESP PCR PANEL NOT DETECTED; INFLUENZA B - RESP PCR PANEL NOT DETECTED; M. PNEUMONIAE- RESP PCR PANEL NOT DETECTED; PARAINFLUENZA VIRUS 1 NOT DETECTED; PARAINFLUENZA VIRUS 2 NOT DETECTED; PARAINFLUENZA VIRUS 4 NOT DETECTED; RHINOVIRUS/ENTEROVIRUS NOT DETECTED; RSV- RESP PCR PANEL NOT DETECTED; SARS-CoV-2 -RESP PCR PANEL NOT DETECTED
[2025-01-22 15:09] LABS: BILIRUBIN,URINE NEGATIVE (NEGATIVE); GLUCOSE, URINE (UA) NEGATIVE (NEGATIVE); KETONES,URINE (UA) NEGATIVE (NEGATIVE); LEUKOCYTE ESTERASE, URINE SMALL (NEGATIVE); NITRITE,URINE POSITIVE (NEGATIVE); OCCULT BLOOD,URINE SMALL (NEGATIVE); PROTEIN,URINE NEGATIVE (NEGATIVE); UROBILINOGEN,URINE 0.2 (NORMAL) E.U./dL (NORMAL)
[2025-01-22 15:19] LABS: CLARITY,URINE CLOUDY (CLEAR)
[2025-01-22 15:42] LABS: WBC CLUMPS,URINE PRESENT; WBC,URINE >25 /HPF (0-5)
[2025-01-22 15:43] LABS: BACTERIA,URINE Many /HPF (None Seen); RBC,URINE 0-5 /HPF (0-5); SQUAMOUS EPITHELIAL CELL,UR RARE Squamous (<= Few)
--- NOTE | 2025-01-22 16:29 | ED Physician Documentation ---
ED Addendum Addendum Addendum: Patient was signed out to me by Dr. Meléndez awaiting diuresis and repeat evaluation. Patient diuresed approximately 1100 mL of urine. Still hypoxic, down to 86 to 88% on room air. Will recontact the hospitalist for admission. She also was found to have a UTI and given IV Rocephin for this. Her high sensitive troponin is elevated but that is her baseline level according to her prior blood work. Do not suspect that this represents acute coronary syndrome. Discharge Plan Discharge Patient Disposition: ED Place in Observation Condition: Stable Clinical Impression: Hypoxia CHF (congestive heart failure) Qualifiers: Heart failure type: unspecified Heart failure chronicity: unspecified Qualified Code(s): I50.9 - Heart failure, unspecified UTI (urinary tract infection) Qualifiers: Urinary tract infection type: acute cystitis Hematuria presence: without hematuria Qualified Code(s): N30.00 - Acute cystitis without hematuria Prescriptions: No Action metformin 1,000 MG tablet 1,000 mg PO BID Patient Comments: TAKE 1 TABLET BY MOUTH TWICE DAILY WITH MEALS fluticasone propion-salmeterol 1 EACH blister with device 1 inh inhalation BID Patient Comments: INHALE 1 DOSE BY MOUTH TWICE DAILY oxybutynin chloride 5 MG tablet extended release 24hr 5 mg PO DAILY nitroglycerin 0.4 MG tablet, sublingual 0.4 mg sublingual ONCE PRN (Reason: Chest Pain) gabapentin 300 MG capsule 900 mg PO HS Patient Comments: TAKE 3 CAPSULES BY MOUTH AT NIGHT rosuvastatin [Crestor] 10 MG tablet 10 mg PO HS albuterol sulfate [Ventolin HFA] 200 PUFFS/18 GM HFA aerosol inhaler See Rx Instructions .Route .COMPLEX Rx Instructions: QD fluticasone propionate 16 GM spray,suspension See Rx Instructions .Route .COMPLEX Rx Instructions: QD NASAL SPRAY 50MCG aspirin [Vazalore] 81 MG capsule See Rx Instructions .Route .COMPLEX Rx Instructions: QD cetirizine 10 mg tablet 10 mg PO BID Qty: 60 0RF losartan 100 mg tablet PO Patient Comments: TAKE 1 TABLET BY MOUTH ONCE DAILY levothyroxine 112 mcg tablet PO Patient Comments: TAKE 1 TABLET BY MOUTH ONCE DAILY IN THE MORNING ON AN EMPTY STOMACH metoprolol tartrate 50 mg tablet PO Patient Comments: TAKE 1 TABLET BY MOUTH ONCE DAILY WITH FOOD venlafaxine 75 mg capsule,extended release 24hr PO furosemide 20 mg tablet 20 mg PO DAILY PRN (Reason: Swelling) Qty: 90 0RF Print Language: Czech Stand Alone Forms: PCP List
[2025-01-22] MEDS: cefTRIAXone 1 GM VIAL IVP STA (16:38)
--- NOTE | 2025-01-22 17:33 | HISTORY & PHYSICAL EXAMINATION ---
Chief Complaint Chief Complaint Chief Complaint: leg edema and burning and sob History of Present Illness Admitted From Admitted From:: home History Obtained From Records Reviewed: medtiech History obtained from: patient and ER provider Exam Limitations: none History of Present Illness HPI Comment/Other: Patient was seen in the walk-in clinic today with shortness of breath, fatigue, fever and a burning rash to her bilateral lower extremities. Temperature was 100.4 in the clinic and respirations were 28 with a pulse of 102. Lungs were clear. No wheezes. Bilateral lower extremity wheezing noted. As such 911 was called. The patient was brought in by ambulance and she shared with the ER provider that she had dyspnea, orthopnea and increasing edema of chronically swollen legs. Is been getting progressively worse over the last few days. She has asthma and uses inhalers and her wheezing has also been getting worse. But she denies fever, chest congestion, change in the color of her phlegm. She denies any nose congestion or eustachian tube dysfunction that is new. She denies a sore throat. She has chronic dyspnea on exertion but over the last few days has gotten substantially worse. EMS reported O2 sats in the low 80s. She had stopped taking her Lasix 5 days ago because it gave her urinary incontinence. EMS gave her a DuoNeb with oxygen and brought her to the ED. In the ED blood pressure was 150/90, weight was 118.4 kg. This appears to be her baseline weight where she was at 117.9 in July of last year in August of this year. In the ER she was 88% on room air. She was given 80 mg of Lasix IV push. Her x-ray had low lung volumes, no pleural effusions, no dense airspace consolidation. You could see where she had right shoulder reverse arthroplasty done. Even though she had adequate urine output, she had minimal response with regards to shortness of breath. She was in the ER for over several hours and assess the aspect of please place her in observation to treat possible CHF. She has been having dyspnea on exertion with lower extremity edema since 2019. At that time she was seeing Awilda Reyes as a primary care provider and an echocardiogram was normal. Her right ventricle was normal. Ejection fraction 60 to 65%. No significant vascular abnormality. She underwent a treadmill test August 05, 2020 and although she had not abnormal resting EKG with early transition, she did have borderline changes by EKG criteria to suggest ischemia during exercise. A poor exercise tolerance where she only exercised for 3 minutes and 40 seconds on a modified Juan. She only achieved 2.35 metabolic equivalents. She desaturated with exercise. She progressed with her dyspnea. In 2021 spirometry was ordered because she had a 60-[id number]-zeev history. She smoked 1 packs/day for 20 years. Her FVC was 2.08 with a predicted 73%. FEV1 was 1.61 with a predicted 75%. FEV1 to FVC was 77%. Her SVC was 2.4 at 85%. The FVC reduced relative to SVC indicating air trapping. Following the administration of bronchodilators there is no significant response. This was interpreted as minimal obstructive airways disease. In 2022 sleep study was done. She had moderate snoring which was continuous. Her apnea hypopnea index was 22.6 and sleep efficiency was 60.6%. The PLM index was 11.7. This was consistent with moderate obstructive sleep apnea with significant desaturation events down to 81%. CPAP was recommended. She had occasional PVCs with this. In October 2023 she had another echocardiogram done for chest pain accompanying her dyspnea and COPD. She now has moderate aortic stenosis, normal RV size and systolic function, and LVEF of 60 to 65%. Her peak mean pressure gradient was 36 mmHg / 19 mmHg and aortic valve area by continuity equation was 1.29 cm. Trace aortic regurgitation. She has an extensive medication list. But in speaking to the pharmacist who was attempting to reconcile her medication list, she has not filled her medications since July. The only medications she seems to be taking on a regular basis is rosuvastatin, oxybutynin, and gabapentin. She is not taking the losartan, the Lasix, the levothyroxine, metformin, the metoprolol.But when I speak to the patient about that she says that her medications are paid for with a subsidized program. She is picking up her prescriptions at [facility] but they are just paid for by a different program. The only medicine she stopped recently was the Lasix. She has had a gradually progressive urinary incontinence and urgency over the last year. Over the last few weeks she keeps on losing control and will fill her diaper and start dripping on the floors. She starts to cry she says a since that is deeply humiliating and embarrassing. So a few days ago she stopped of the Lasix and an effort to stop being on the floor. Meds/Allgy Home Medications Ambulatory Orders Medication Instructions Recorded Confirmed fluticasone 100 mcg-salmeterol 50 1 inh inhalation BID 01/21/22 01/22/25 mcg/dose blistr powdr for inhalation metformin 1,000 mg tablet 1,000 mg PO BID 01/21/22 gabapentin 300 mg capsule 900 mg PO HS 11/23/23 nitroglycerin 0.4 mg sublingual 0.4 mg sublingual ONCE PRN Chest 11/23/23 01/22/25 tablet Pain rosuvastatin 10 mg tablet (Crestor) 10 mg PO HS 01/22/25 oxybutynin chloride 5 mg 5 mg PO DAILY 12/12/2301/22 tablet,extended release 24 hr albuterol sulfate 90 mcg/actuation 1 puff inhalation Q ID PRN 03/26/24 01/22/25 aerosol inhaler (Ventolin HFA) shortness of breath or wheezing fluticasone propionate 50 1 spray intranasal BID PRN n rei 03/26/24 01/22/25 mcg/actuation nasal congestion spray,suspension furosemide 20 mg tablet 20 mg PO DAILY PRN Swelling #90 08/27/24 01/22/25 tabs levothyroxine 112 mcg tablet 112 mcg PO DAILY 08/27/24 01/22/25 losartan 100 mg tablet 100 mg PO DAILY 08/27/24 metoprolol tartrate 50 mg tablet 50 mg PO DAILY 01/22/25 venlafaxine 75 mg capsule,extended 75 mg PO DAILY 07/3001/22/25 release 24 hr cetirizine 10 mg tablet 10 mg PO BID #60 tabs 01/22/25 Allergies Allergies Allergy/AdvReac Type Severity Reaction Status Date / Time iodine AdvReac Rash Verified 01/22/25 13:04 [facility] Active Problems All Active Problems (Updated 01/22/25 @ 20:48 by Luzmaria Vazquez MD) Acute respiratory failure with hypoxia (Acute) Acute exacerbation of CHF (congestive heart failure) (Acute) Acute dyspnea (Acute) CHF (congestive heart failure) (Acute) Hypoxia (Acute) Shortness of breath (Acute) Knee contusion (Acute) Shoulder sprain (Acute) Fall (Acute) Cellulitis (Acute) Chest pain (Acute) Hypokalemia (Acute) Medical History Medical History (Updated 01/22/25 @ 20:48 by Luzmaria Vazquez MD) Osteopenia July 2022: 4.2 T-score lumbar spine, -1.2 left femoral neck, 0.1 left hip. Rotator cuff tear July 2019 PVD (peripheral vascular disease) Leg edema evaluated duplex scan October 2024. Right extremity runoff suggest possible proximal common femoral stenosis and possible severe distal SFA with distal monophasic waveforms. Left lower extremity runoff suggest possible focal mid SFA stenosis with monophasic waveforms distally. COPD (chronic obstructive pulmonary disease) Normal colonoscopy november 2023 Type 2 diabetes mellitus without complication, without long-term current use of insulin Hypothyroid Aortic stenosis Depression with anxiety Morbid obesity GENNY on CPAP Leg edema Venous Dopplers without DVT October 2024 Hypertension Dyspnea on effort Family History Family History (Updated 01/22/25 @ 19:25 by Luzmaria Vazquez MD) Mother No problems noted. Father Drowning Brother Alcoholism Sister No problems noted. Son Mental disorder Daughter Mental disorder Social History Social History (Updated 01/22/25 @ 20:47 by Luzmaria Vazquez MD) Smoking Status: Former smoker If you are a former smoker, when did you quit? (Date/Year): 2005 Number of Years Smoked: 15 How many cigarettes a day do you smoke? (20 cigarettes=1 Pk): 40 Second hand tobacco smoke exposure: No Do you dip or chew tobacco?: No Do you vape?: No Living arrangement: At home Marital Status: Single Living Condition: Alone Support Person: Yes Relationship: Child Living Situation Details: lives in own apartment, daughter is unhoused, son is estranged for 20 years Level: Assisted Do you feel safe in your home environment?: Yes Suffered physical, verbal, emotional, or financial abuse?: No History of Abuse: No Frequency: Occasional Number of Amount/day: 2 ETOH Use Details: 2 drinks of fireball whiskey once or twice a year Substance Use: denies use Are you sexually active?: No 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 POLST Status: Full Code Review of Systems Constitutional Reports: Fatigue, Fever, Malaise and Weakness Eyes Reports: Blurry vision (Dark circles around her vision in the last few years) Ears, nose, mouth, and throat Reports: Hearing loss, Nasal discharge and Nasal congestion Cardiovascular Reports: edema, swelling of feet/ankles, lightheadedness, shortness of breath with exertion, shortness of breath when lying down and Decreased exercise tolerance; Denies: chest pain or palpitations Respiratory Reports: Shortness of breath, Wheezing, Apnea, Snoring, Orthopnea, SOB at rest and SOB with exertion; Denies: Cough, Sputum production, Change in phlegm color, Stridor, Pleuritic pain or Coughing up blood Gastrointestinal Reports: Heartburn; Denies: Abdominal pain, Abdominal distention, Nausea, Change in bowel habits or Rectal bleeding Genitourinary Reports: Urinary frequency, Urinary urgency, Nocturia and Urinary incontinence (She wants to see a urologist because its gotten so embarrassing) Musculoskeletal Reports: Extremity pain, Extremity swelling, Muscle cramps and Other (Bilateral knee pain makes it really hard to get out of a chair) Integumentary/Breast Reports: Rash (Over the tops of her shins when her legs are swollen. The rash is hot and ) Neurological Reports: General weakness, Dizziness and Memory problems (Mild.); Denies: Focal weakness, Confusion or Seizure-like activity Psychiatric Reports: Depression and Anxiety Endocrine Reports: Excessive urination and Fatigue Hematologic/Lymphatic Denies: Anemia or Easy bruising Allergic/Immunologic Reports: Wheezing Prior Level of Functionality: She lives in her own apartment. Does not drive a car anymore. Gets help from friends and neighbors with regards to housekeeping and grocery shopping. But takes care of herself, uses a walker, is able to cook for herself. Exam Exam Vital Signs: Vital Signs x48h Temp Pulse Pulse Resp BP BP Pulse Ox 01/22/25 18:25 36.7 C 83 18 135/65 H 93 01/22/25 17:53 37.0 C 100 18 140/70 H 98 01/22/25 16:00 105 H 21 141/73 H 97 01/22/25 14:07 108 H 22 01/22/25 14:02 96 01/22/25 13:56 100 24 175/82 H 88 L 01/22/25 13:04 37.8 C 100 18 150/90 H 94 O2 Flow Rate 01/22/25 18:25 1 01/22/25 17:53 2 01/22/25 16:00 1 01/22/25 14:07 01/22/25 14:02 1 01/22/25 13:56 01/22/25 13:04 Constitutional Pleasant, morbidly obese female who was talking to her daughter Jessica on the phone. I kept Jessica on the phone so I could make sure that we could all be on the same page about what is happening. Alert, able to converse. HENMT normocephalic and head/scalp atraumatic dry mouth, dry lips. Nasal tone of voice. Occasional clearing of throat. Eyes PERRL (has previous cataract surgery changes) and no nystagmus Neck/C-Spine visual inspection normal and supple Respiratory breath sounds equal bilaterally, normal respiratory effort, no wheezes, no rales and no retractions She was described as wheezing and tachypneic in the ER. Currently comfortable and able to have a full conversation with me. Cardiovascular normal heart rate noted, no gallop, no rub and no murmur Gastrointestinal abdomen soft to palpation, nontender to palpation and nondistended hugely obese abdominal pannus, intertriginous folds w early yeast Extremities b/l edema, skin is shrunken. R leg w scattered red, nonblanching areas from 1 cm to 3 cm. Some are not contiguous. mild scaling. no oozing or breakdown . L leg had edema and no skin redness Neurology assistant superintendent II-XII intact, no movement abnormality noted, no focal motor deficit noted and no sensory deficits noted Psychiatry mental status grossly normal Skin rash on R [place] as described above. Conclusion/Plan Problem List (1) Acute respiratory failure with hypoxia: Plan: This alfonzo and emotional lady has multiple reasons to be short of breath. She has a history of diastolic heart failure, aortic stenosis, obstructive sleep apnea, and is deconditioned with morbid obesity.Her pulmonary function studies are not impressive. So the extent of her hypoxemia and shortness of breath is beyond what our objective data shows. There is a question of noncompliance with her medications but she steadily maintains that she is taking her medications on a regular basis. The reason they are not showing up on the pharmacy list when we run a medication check is that she gets her medications paid for by a nonprofit. As such appointment run her insurance plan it may not be showing them. But she names her medications by name and states she is taking them. I will address each of the problems individually to see if they can improve her with observation placement overnight. (2) Acute exacerbation of CHF (congestive heart failure): Plan: This morbidly obese female has preserved ejection fraction. She could have diastolic heart failure. She could have aortic stenosis with congestive heart failure. She could have pulmonary hypertension because of chronic lung disease and chronic asthma. The last echocardiogram she had was in October of this year. Peak mean pressure gradients of the aortic valve are 24 mmHg / 50 mmHg. The echo she had in 2023 had higher velocities so she seems to be improved. Her RVSP at rest is 22 mmHg so it is not that high. She says that she is improved with the diuresis. Her legs were as hard as rocks and very tense a few days ago. The Lasix in the ER has helped and you could already see where her skin is shrinking. She was described as tachypneic and wheezing and respiratory distress in the ER and she appears to be improved on my physical exam. I will continue with the Lasix IV until tomorrow. And reassess in the morning. (3) Aortic stenosis: Plan: I am also recommending that she be seen by cardiology for the aortic stenosis.Troponins were 77.4. I will repeat them. I suspect this is more demand leak than true coronary ischemia. The ER did not do an EKG and I will order that. (4) GENNY on CPAP: Plan: She did not bring her machine with her. She intimates that she may not be using it on a regular basis at home. She does desaturate into the low 80s according to her sleep study and I have explained what that does to your brain and your heart long-term. I have encouraged her to go back on her CPAP mask at when she gets home (5) Type 2 diabetes mellitus without complication, without long-term current use of insulin: Plan: I do not use metformin while she is in the hospital. I will check lactic acid and I will treat her elevated glucose with sliding scale insulin. Check A1c in the morning Lab Results Lab results reviewed: Yes 01/22/25 14:07 01/22/25 14:07 Core Measures Anticipated LOS I expect patient to be DC'd or transferred within 96 hours.: Yes DVT/VTE - Prophylaxis VTE/DVT Device ordered at admit?: Yes
[2025-01-22] MEDS ORDERED: ONDANSETRON ODT 4 MG TABLET TL PRN (18:09)
[2025-01-22] MEDS ORDERED: ONDANSETRON 4 MG/2 ML VIAL IVP PRN (18:09)
[2025-01-22] MEDS ORDERED: IPRATROPIUM/ALBUTEROL 3 ML NEB INH PRN (18:09)
[2025-01-22] MEDS ORDERED: SODIUM CHLORIDE FLUSH 0.9% 10 ML SYRINGE IVP PRN (18:09)
[2025-01-22] MEDS: SODIUM CHLORIDE FLUSH 0.9% 10 ML SYRINGE IVP SCH (18:36)
--- NOTE | 2025-01-22 19:01 | PHARMACY PROGRESS NOTE ---
Best Possible Medication History Admit Date and Time: 01/22/25 1654 Home Medications Medication Instructions Recorded Confirmed Type fluticasone 100 mcg-salmeterol 50 1 inh inhalation BID 01/21/22 01/22/25 History mcg/dose blistr powdr for inhalation metformin 1,000 mg tablet 1,000 mg PO BID 01/21/22 History gabapentin 300 mg capsule 900 mg PO HS 11/23/23 History nitroglycerin 0.4 mg sublingual 0.4 mg sublingual ONCE PRN Chest 11/23/23 01/22/25 History tablet Pain rosuvastatin 10 mg tablet (Crestor) 10 mg PO HS 01/22/25 History oxybutynin chloride 5 mg 5 mg PO DAILY 12/12/2301/22 History tablet,extended release 24 hr albuterol sulfate 90 mcg/actuation 1 puff inhalation Q ID PRN 03/26/24 01/22/25 History aerosol inhaler (Ventolin HFA) shortness of breath or wheezing fluticasone propionate 50 1 spray intranasal BID PRN n rei 03/26/24 01/22/25 History mcg/actuation nasal congestion spray,suspension furosemide 20 mg tablet 20 mg PO DAILY PRN Swelling #90 08/27/24 01/22/25 Rx tabs levothyroxine 112 mcg tablet 112 mcg PO DAILY 08/27/24 01/22/25 History losartan 100 mg tablet 100 mg PO DAILY 08/27/24 History metoprolol tartrate 50 mg tablet 50 mg PO DAILY 01/22/25 History venlafaxine 75 mg capsule,extended 75 mg PO DAILY 07/3001/22/25 History release 24 hr cetirizine 10 mg tablet 10 mg PO BID #60 tabs 01/22/25 Rx Processed by: Pharmacy (Medication reconciliation completed by Design Sales ConsultantMarcia) Medications reviewed in ED?: No Medication History completed: Yes Patient Interview: Completed Secondary Source(s): Prescription bottles (only current bottles are oxybutynin and rosuvastatin, all others over 5 months old) and Insurance records (has not filled most medications since last year and for 90 day supplies. bottles brought in still have a decent amount in them. likely not taking at home) [facility] Statement: As the person ultimately responsible for medication therapy, providers are able to order a medication from an existing home medication list in [facility] via the "Reconcile Routine" prior to Confirmation of that medication by data support analyst. Such practice is discouraged except when the physician, in their clinical judgment, deems that a medical need exists for a medication without regard to previous use.
[2025-01-22] MEDS: NYSTATIN POWDER 15 GM TOP SCH (20:15)
[2025-01-22] MEDS: ATORVASTATIN 40 MG TABLET PO SCH (20:16)
[2025-01-22] MEDS: FUROSEMIDE 40 MG/4 ML VIAL IVP SCH (20:16)
[2025-01-22] MEDS: ACETAMINOPHEN 325 MG TABLET PO PRN (20:16)
[2025-01-22] MEDS: INSULIN LISPRO 300 UNIT/3 ML PEN SUBQ SCH (21:16)
[2025-01-22] MEDS: oxyCODONE 5 MG TABLET PO PRN (21:19)
[2025-01-23] MEDS: COD LIVER OIL/ZINC OXIDE 113 GM TUBE TOP PRN (05:36)
[2025-01-23 05:43] LABS: BASOPHILS % (AUTO) 0.3 %; EOSINOPHILS # (AUTO) 0.2 10^3/uL (0.0-0.7); HCT - HEMATOCRIT 35.9 % (37.0-47.0); HGB - HEMOGLOBIN 11.4 g/dL (12.0-16.0); LYMPHOCYTES # (AUTO) 1.6 10^3/uL (1.5-3.5); LYMPHOCYTES % (AUTO) 19.5 %; MEAN CORPUSCULAR HGB CONC 31.8 g/dL (32.0-36.0); MEAN CORPUSCULAR VOLUME 84.9 fL (81.0-99.0); MEAN PLATELET VOLUME 7.8 fL (7.9-10.8); MONOCYTES # (AUTO) 1.1 10^3/uL (0.0-1.0); MONOCYTES % (AUTO) 14.2 %; NEUTROPHILS % (AUTO) 62.6 %; PLT - PLATELET COUNT 166 10^3/uL (130-450); RED BLOOD COUNT 4.23 10^6/uL (4.20-5.40); RED CELL DISTRIBUTION WIDTH 13.6 % (12.0-15.0); WHITE BLOOD COUNT 7.9 x10^3/uL (4.8-10.8)
[2025-01-23 05:57] LABS: CALCIUM 8.4 mg/dL (8.5-10.3); CREATININE 0.6 mg/dL (0.6-1.3)
[2025-01-23] MEDS: LEVOTHYROXINE 112 MCG TABLET PO SCH (06:07)
[2025-01-23] MEDS: LOSARTAN 50 MG TABLET PO SCH (08:12)
[2025-01-23] MEDS: POTASSIUM CHLORIDE 20 MEQ TABLET PO SCH (08:12)
[2025-01-23] MEDS: METOPROLOL SUCCINATE 50 MG TABLET PO SCH (08:12)
[2025-01-23] MEDS: ENOXAPARIN 40 MG/0.4 ML SYRINGE SUBQ SCH (08:12)
[2025-01-23] MEDS: FOSFOMYCIN TROMETHAMINE 3 GM PACKET PO ONE (08:17)
[2025-01-23] MEDS ORDERED: VENLAFAXINE ER 75 MG CAPSULE PO SCH (09:00)
[2025-01-23 09:30] LABS: ESTIMATED AVERAGE GLUCOSE 177 mg/dL (70-100); HEMOGLOBIN A1c% 7.8 % (4.27-6.07)
--- NOTE | 2025-01-23 15:59 | OT Plan of Care ---
OT Plan of Care OT Plan of Care: Diagnosis Diagnosis CHF, AHRF Chief Complaint SOB Medical History (Updated 01/22/25 @ 20:48 by Luzmaria Vazquez MD) Osteopenia July 2022: 4.2 T-score lumbar spine, -1.2 left femoral neck, 0.1 left hip. Rotator cuff tear July 2019 PVD (peripheral vascular disease) Leg edema evaluated duplex scan October 2024. Right extremity runoff suggest possible proximal common femoral stenosis and possible severe distal SFA with distal monophasic waveforms. Left lower extremity runoff suggest possible focal mid SFA stenosis with monophasic waveforms distally. COPD (chronic obstructive pulmonary disease) Normal colonoscopy november 2023 Type 2 diabetes mellitus without complication, without long-term current use of insulin Hypothyroid Aortic stenosis Depression with anxiety Morbid obesity GENNY on CPAP Leg edema Venous Dopplers without DVT October 2024 Hypertension Dyspnea on effort Assessment Assessment Pt is a 69 y/o female adm with AHRF, CHF exacerbation, and B LE edema. Management requiring NC. Baseline RA. Seen today for OT eval. Met sitting in chair, A&Ox4, willing to participate with therapy. Spo2 94-97% Spo2 during mobility; HR stable. BP stable. Performed sit to stand and ambulation to/from bathroom using RW MIN A Slowed, guarded pace. SOB and noted fatigue with minimal distances Sitting rest breaks required. Currently MIN A UB, MOD A LB ADL with full set up and increased time.- at baseline pt requires use of adaptive equipment for indp ADLs and reports increased difficulty with bathroom transfers. Overall presents with decreased endurance, activity tolerance and ADL status. Will benefit from cont OT services during acute stay. Rec d/c to SNF at this time. Goals - Activities of Daily Living Improve Upper Extremity Modified Independent Dressing to: Improve Lower Extremity Modified Independent Dressing to: Improve Grooming/Hygiene to: Modified Independent Improve Bathing to: Modified Independent Improve Toileting to: Modified Independent Plan Treatment Frequency 1x/day Duration Until discharge -Discharge Recommendations [facility] Transport Needs at Discharge B.L.S
--- NOTE | 2025-01-23 16:01 | PT Plan of Care ---
PT Inpatient Plan of Care DIAGNOSIS Diagnosis: ARF Diagnosis: CHF Referring Provider: Luzmaria Vazquez Patient Status: Observation CHIEF COMPLAINT Chief Complaint: weakness, BLE pain, SOA Onset of Chief Complaint: SKID [address] MAN MEDICAL/SURGICAL HISTORY Medical History (Updated 01/22/25 @ 20:48 by Luzmaria Vazquez MD) Osteopenia July 2022: 4.2 T-score lumbar spine, -1.2 left femoral neck, 0.1 left hip. Rotator cuff tear July 2019 PVD (peripheral vascular disease) Leg edema evaluated duplex scan October 2024. Right extremity runoff suggest possible proximal common femoral stenosis and possible severe distal SFA with distal monophasic waveforms. Left lower extremity runoff suggest possible focal mid SFA stenosis with monophasic waveforms distally. COPD (chronic obstructive pulmonary disease) Normal colonoscopy november 2023 Type 2 diabetes mellitus without complication, without long-term current use of insulin Hypothyroid Aortic stenosis Depression with anxiety Morbid obesity GENNY on CPAP Leg edema Venous Dopplers without DVT October 2024 Hypertension Dyspnea on effort ASSESSMENT Assessment: Pt is a pleasant 69yo F referred for PT eval d/t low endurance and SOA. Admitted with ARF and CHF (new dx). Pt lives in [facility] and uses 4WW at baseline. Cooks for herself and takes dog out 2-3x/day but reports this has been getting more difficulty lately. Has friends/family who help with groceries. Upon PT eval, pt on 1L O2, SpO2 95-97% at rest and with activity. Transfers with minAx1 and short distance amb in room with FWW. Gait with slowed [place], reduced toe clearance and low endurance. Requires standing rest after 10' and RR elevated >1 minute. Pt will benefit from skilled PT in acute setting to address above impairments and increased amb distance. When medically clear, PT rec dc to SNF as pt is far below baseline mobility and not safe to live indep at this time. GOALS Improve supine to sit to:: Modified Independent Improve sit to stand to:: Modified Independent Improve pivot transfer ability to:: Modified Independent Improve sit to supine to:: Modified Independent Improve gait ability to:: CGA Advance Assistive Device to:: Front Wheeled Walker Increase distance walked to (in feet):: 50 PLAN Frequency: 1-2x/day Duration: Until goals are met DISCHARGE RECOMMENDATIONS [facility] Equipment Recommended: Front wheeled walker Other Discharge Equipment: may need FWW, tub transfer bench Transport Needs at Discharge: Wheelchair van
--- NOTE | 2025-01-23 18:17 | PROVIDER PROGRESS NOTE ---
Progress Note Progress Note Progress Note: January 23, 2025 4 PM Is become quite clear during the day with numerous conversations between myself, the patient, the pharmacist, and social work that this patient may have moderate cognitive deficits that put her at risk. She is insistent that she has been picking up her medications on a regular basis and taking her pills on a daily basis and goes as far as naming those medications correctly. But the pharmacist has bent over backwards to investigate insurance records, pharmacy records, office records and this patient is bottles that date to July. And they are full. She has not picked up refills for quite some time. Leg pain is still a problem. When she stands up to walk, her calves and shins hurt quite a bit but she reports that they are getting softer. Much less painful than they were yesterday. Shortness of breath over baseline is still present. She lives alone, and does have people come help her at her apartment but she is supposed to be responsible for herself at home. She is still requiring 1 L nasal cannula and saturating at 92%. Pain in her legs is a 4 out of a 10. Exam: Blood pressure is 130/73. Pulse is 70. Respirations 16. Yesterday she was consistently in the 20s and is slowly come down her respiratory rate and res piratory distress. Pulse is 92. Temperature is 36.5. She is a short statured morbidly obese pleasant female who is oriented to person place and time but very forgetful. She is 5 foot 2 inches tall, 121.5 kg I have seen her twice today and she is insistent that she has not seen me. She is hoping "that the you do not think I am crazy". Neck is supple. Because of the thickness really hard to assess for JVD Nasal tone of voice and prolonged and exhalation but no wheezing today. She had wheezing yesterday. No crackles. Regular rate and rhythm Abdomen is obese, soft, nontender with normal bowel sounds The bruit edema of her legs had already started improving yesterday. I can see where her skin was shrinking on her calves and shins. But they still had tense edema. Today the edema is improved even more. The redness of venous stasis over the top of her right stapleton continues to be bright red but no spreading cellulitis. Neurologically alert and oriented person, place, time and situation. But forgetful. No focal deficits. I reviewed her labs and her potassium is 3.0 today. Glucose is 192. I have been repeating her troponins because of troponin is 77 in the ER. Repeat troponin was 70.6, and today troponin is 80.6. These are relatively flat and I think these are demand ischemia per troponins not rising. White cell count is normal. Hemoglobin still low 11.4. Baseline is usually 12. Platelets 166. BNP is 70. Yesterday it was 113. Conclusion/Plan Problem List (1) Acute respiratory failure with hypoxia: She is improving but not at baseline Plan: This alfonzo and emotional lady has multiple reasons to be short of breath. She has a history of diastolic heart failure, aortic stenosis, obstructive sleep apnea, and is deconditioned with morbid obesity. Her pulmonary function studies are not impressive. So the extent of her hypoxemia and shortness of breath is beyond what our objective data shows. We are identifying a problem with noncompliance with her medications but she steadily maintains that she is taking her medications on a regular basis. She is not and her pharmacist says that even if her meds were being paid for by a fund for assistance, they would still have records of her picking up her refills. She has not. She has she is still hypoxic, and she is usually on room air, I will keep her 1 more midnight.She would benefit from Home health and I will order for discharge,. (2) Acute exacerbation of CHF (congestive heart failure): Plan: This morbidly obese female has preserved ejection fraction and she may have diastolic heart failure. Her BNP is not at all indicative of acute CHF. She could also have aortic stenosis with congestive heart failure. She could have pulmonary hypertension because of chronic lung disease and chronic asthma. The last echocardiogram she had was in October of this year. Peak mean pressure gradients of the aortic valve are 24 mmHg / 50 mmHg. The echo she had in 2023 had higher velocities so she seems to be improved. Her RVSP at rest is 22 mmHg so it is not that high. She says that she is improved with the diuresis. Her legs were as hard as rocks and very tense a few days ago. The IV lasix is definitely helping this on exam. She was wheezing in the ER, not wheezing last night when I saw her and continues to be clear today. i will continue lasix for one more night. (3) Aortic stenosis: Plan: I am also recommending that she be seen by cardiology for the aortic stenosis. Serial troponins are stable, borderline high but "flat". I suspect this is more demand leak than true coronary ischemia. The ER did not do an EKG so I ordered one. EKG had sinus rhythm, LVH with secondary repolarization abnormalities. Early R wave progression starting at V2. RSR prime in the inferior leads. Nonspecific ST-T wave changes in the lateral leads. When I compare it to the EKG from November 15, 2023 there is no real change. (4) GENNY on CPAP: Plan: She did not bring her machine with her. She intimates that she may not be using it on a regular basis at home. She does desaturate into the low 80s according to her sleep study and I have explained what that does to your brain and your heart long-term. I have encouraged her to go back on her CPAP mask at when she gets home (5) Type 2 diabetes mellitus without complication, without long-term current use of insulin: Plan: I do not use metformin while she is in the hospital. A1c is 7.8%. She is on sliding scale insulin. So far requiring 2 units with each meal. I am not changing tx for now. (6) Hypothyroid hx. Because she is noncompliant, I wonder about her TSH. I will be checking a TSH level tomorrow before discharge.
[2025-01-24 05:27] LABS: BASOPHILS % (AUTO) 0.4 %; EOSINOPHILS # (AUTO) 0.3 10^3/uL (0.0-0.7); HCT - HEMATOCRIT 37.7 % (37.0-47.0); HGB - HEMOGLOBIN 11.6 g/dL (12.0-16.0); LYMPHOCYTES # (AUTO) 1.8 10^3/uL (1.5-3.5); LYMPHOCYTES % (AUTO) 21.2 %; MEAN CORPUSCULAR HEMOGLOBIN 26.2 pg (27.0-31.0); MEAN CORPUSCULAR HGB CONC 30.8 g/dL (32.0-36.0); MEAN CORPUSCULAR VOLUME 85.3 fL (81.0-99.0); MONOCYTES # (AUTO) 1.1 10^3/uL (0.0-1.0); MONOCYTES % (AUTO) 12.3 %; NEUTROPHILS # (AUTO) 5.3 10^3/uL (1.5-6.6); NEUTROPHILS % (AUTO) 61.7 %; PLT - PLATELET COUNT 189 10^3/uL (130-450); RED BLOOD COUNT 4.42 10^6/uL (4.20-5.40); RED CELL DISTRIBUTION WIDTH 13.2 % (12.0-15.0); WHITE BLOOD COUNT 8.5 x10^3/uL (4.8-10.8)
[2025-01-24 05:50] LABS: CALCIUM 8.9 mg/dL (8.5-10.3); CREATININE 0.7 mg/dL (0.6-1.3); MAGNESIUM 2.1 mg/dL (1.7-2.3); POTASSIUM 3.4 mmol/L (3.5-4.5)
[2025-01-24] MEDS: POTASSIUM CHLORIDE 20 MEQ TABLET PO ONE (08:32)
[2025-01-24] MEDS: polyethylene glycoL 3350 17 GM PACKET PO SCH (08:36)
--- NOTE | 2025-01-24 15:50 | PROVIDER PROGRESS NOTE ---
Progress Note Progress Note Progress Note: January 24, 2025 3:25 PM S: She cannot believe how deconditioned, and short of breath she is with minimal activity. Her leg edema has tremendously improved. She still has he did kind of pain over the right stapleton just below the knee going lateral. But that is where the skin redness is. But she is markedly improved from when she was on admission to today. Sitting up, eating breakfast, and speaking to me and eating breakfast causes tachypnea. Baseline respiratory rate is 18 and she goes up to 24 with this activity. Still needing oxygen. O: Blood pressure is 154/83, pulse 75, respirations 18, temperature 36.4. Short statured morbidly obese female at 5 feet 2 inches tall, 121.5 kg. Nasal tone of voice. Emotionally labile. She burst into tears when she thinks about her "little doggy" back at the apartment. But her daughter has access to her apartment and should be able to take care of it. The neck is supple but difficult to assess for JVD because of the girth Coarse upper airway sounds with a congested lung sound, congested nasal passages but no wheezing. She does have prolonged and exhalation. Tachypnea is with minimal activity. There regular rate and rhythm Abdomen is obese, soft, nontender, normal bowel sounds. Extremities have continued to shrink even more. But was faint wrinkles yesterday are now deep wrinkles today around both ankles and anterior distal shins. The upper outer calf below the knee on the right leg continues to have the splotchy irregular redness. But no skin breakdown no oozing. No true cellulitis. Alert and oriented to person, place, time and situation. Emotionally labile with tears when she talks about her dog, her daughter, fears for their future. She is able to go from supine to sit with mod assist, sit to stand and ambulation to out of bed to chair for upright LAT using a walker with minimum assist. But she is very slow guarded pace. Increasing dyspnea and noticeable fatigue with just that effort. She needed rest breaks between sitting in the chair and eating breakfast to get her breath back. This is a marked reduction from baseline status in her own apartment. She has almost no tolerance for activity right now. PT and OT are recommending retirement facility placement. I reviewed her labs and she is hypokalemic at 3.4. Glucose is 194. Continues to use on average 2 units with each meal. Before lunch today she needed 3 units. She is supposed to be taking metformin at home but pharmacy has verified that she does not think she is taking it. White cell count is normal, hemoglobin stable at 11.6. Platelets stable at 189. Urine from January 14 grew out E. coli resistant to ampicillin, and intermittent to ampicillin sulbactam but sensitive to everything else. Conclusion/Plan Problem List (1) Acute respiratory failure with hypoxia: She has improved and now on RA as of 1 pm today. Even with PT and OT work out. Plan: This alfonzo and emotional lady has multiple reasons to be short of breath. She has a history of diastolic heart failure, aortic stenosis, obstructive sleep apnea, and is deconditioned with morbid obesity. Her pulmonary function studies are not impressive. So the extent of her hypoxemia and shortness of breath is beyond what our objective data shows. We are identifying a problem with noncompliance with her medications but she steadily maintains that she is taking her medications on a regular basis. She is not and her pharmacist says that even if her meds were being paid for by a fund for assistance, they would still have records of her picking up her refills. She has not. She is medically stable and clear for discharge. OT and PT recommend SNF for rehab and she will be choiced by [facility]. (2) Acute exacerbation of CHF (congestive heart failure): Plan: This morbidly obese female has preserved ejection fraction and she may have diastolic heart failure. Her BNP is not at all indicative of acute CHF. She could also have aortic stenosis with congestive heart failure. She could have pulmonary hypertension because of chronic lung disease and chronic asthma. The last echocardiogram she had was in October of this year. Peak mean pressure gradients of the aortic valve are 24 mmHg / 50 mmHg. The echo she had in 2023 had higher velocities so she seems to be improved. Her RVSP at rest is 22 mmHg so it is not that high. She says that she is improved with the diuresis. Her legs were as hard as rocks and very tense a few days ago. The IV lasix is definitely helping this on exam. She was wheezing in the ER, not wheezing since transfer to [facility] but decreased endurance and moderate resp distress with minimal exertion. She is improving in that legs much better with pain and edema, and ow on room air. Stop IV lasix after today. Resume home prn lasix. (3) E coli UTI I will give one dose of fosfomycin Chronic medical problems (4) Aortic stenosis: Plan: I am also recommending that she be seen by cardiology for the aortic stenosis. Serial troponins are stable, borderline high but "flat". I suspect this is more demand leak than true coronary ischemia. The ER did not do an EKG so I ordered one. EKG had sinus rhythm, LVH with secondary repolarization abnormalities. Early R wave progression starting at V2. RSR prime in the inferior leads. Nonspecific ST-T wave changes in the lateral leads. When I compare it to the EKG from November 15, 2023 there is no real change. (5) GENNY on CPAP: Plan: She did not bring her machine with her. She intimates that she may not be using it on a regular basis at home. She does desaturate into the low 80s according to her sleep study and I have explained what that does to your brain and your heart long-term. I have encouraged her to go back on her CPAP mask at when she gets home (6) Type 2 diabetes mellitus without complication, without long-term current use of insulin: Plan: I do not use metformin while she is in the hospital. A1c is 7.8%. She is on sliding scale insulin. So far requiring 2 units with each meal. I am not changing tx for now. (7) Hypothyroid hx. Because she is noncompliant, I wonder about her TSH. Level was 5.45 this morning. Normal TSH. Current Medications Current Medications Current Medications: Current Medications Generic Name Dose Route Start Last Admin Trade Name Freq PRN Reason Stop Dose Admin Acetaminophen 650 mg 01/22/25 18:09 01/23/25 21:20 Acetaminophen 325 Mg Tablet PO 650 mg Q4HR PRN Administration Pain 1 to 4, or Fever Albuterol/Ipratropium 3 ml 01/22/25 18:09 Ipratropium/Albuterol 3 Ml Neb INH Q4HR PRN Wheezing Atorvastatin Calcium 20 mg 01/22/25 21:00 01/23/25 21:20 Atorvastatin 40 Mg Tablet PO 20 mg QPM LES Administration Enoxaparin Sodium 40 mg 01/23/25 09:00 01/24/25 08:31 Enoxaparin 40 Mg/0.4 Ml Syringe SUBQ 40 mg BID LES Administration Furosemide 40 mg 01/22/25 21:00 01/24/25 08:32 Furosemide 40 Mg/4 Ml Vial IVP 40 mg BID LES Administration Insulin Human Lispro 1 - 5 unit 01/22/25 21:00 01/24/25 11:43 Insulin Lispro 300 Unit/3 Ml Pen SUBQ 3 unit 0800,1200,1700,2100 LES Administration Protocol Levothyroxine Sodium 112 mcg 01/23/25 07:00 01/24/25 06:07 Levothyroxine 112 Mcg Tablet PO 112 mcg QDAC LES Administration Losartan Potassium 50 mg 01/23/25 09:00 01/24/25 08:32 Losartan 50 Mg Tablet PO 50 mg DAILY LSE Administration Metoprolol Succinate 50 mg 01/23/25 09:00 01/24/25 08:33 Metoprolol Succinate 50 Mg Tablet PO 50 mg DAILY LES Administration Nystatin 1 applic 01/22/25 21:00 01/24/25 08:31 Nystatin Powder 15 Gm TOP 1 applic BID LES Administration Ondansetron HCl 4 mg 01/22/25 18:09 Ondansetron Odt 4 Mg Tablet TL Q6HR PRN Nausea / Vomiting Ondansetron HCl 4 mg 01/22/25 18:09 Ondansetron 4 Mg/2 Ml Vial IVP Q6HR PRN Nausea / Vomiting Oxycodone HCl 5 mg 01/22/25 18:09 01/23/25 23:42 Oxycodone 5 Mg Tablet PO 5 mg Q4HR PRN Administration Pain 5 to 7 Polyethylene Glycol 17 gm 01/24/25 09:00 01/24/25 08:36 Polyethylene Glycol 3350 17 Gm Packet PO 17 gm DAILY LES Administration Potassium Chloride 20 meq 01/23/25 08:00 01/24/25 08:32 Potassium Chloride 20 Meq Tablet PO 20 meq DAILYWM LES Administration Sodium Chloride 10 ml 01/22/25 18:09 Sodium Chloride Flush 0.9% 10 Ml Syringe IVP PRN PRN NEEDED PER PROVIDER ORDERS Sodium Chloride 10 ml 01/22/25 18:09 01/24/25 08:32 Sodium Chloride Flush 0.9% 10 Ml Syringe IVP 10 ml 0100,0900,1700 LES Administration Zinc Oxide 113 gm 01/22/25 18:33 01/24/25 08:31 Cod Liver Oil/Zinc Oxide 113 Gm Tube TOP 1 applic PRN PRN Administration Skin Care
[2025-01-25 05:20] LABS: BASOPHILS % (AUTO) 0.4 %; EOSINOPHILS # (AUTO) 0.4 10^3/uL (0.0-0.7); EOSINOPHILS % (AUTO) 4.6 %; HCT - HEMATOCRIT 39.8 % (37.0-47.0); HGB - HEMOGLOBIN 12.2 g/dL (12.0-16.0); LYMPHOCYTES # (AUTO) 1.8 10^3/uL (1.5-3.5); LYMPHOCYTES % (AUTO) 21.5 %; MEAN CORPUSCULAR HEMOGLOBIN 26.5 pg (27.0-31.0); MEAN CORPUSCULAR HGB CONC 30.7 g/dL (32.0-36.0); MEAN CORPUSCULAR VOLUME 86.5 fL (81.0-99.0); MEAN PLATELET VOLUME 8.2 fL (7.9-10.8); MONOCYTES # (AUTO) 0.9 10^3/uL (0.0-1.0); MONOCYTES % (AUTO) 10.9 %; NEUTROPHILS # (AUTO) 5.3 10^3/uL (1.5-6.6); NEUTROPHILS % (AUTO) 62.1 %; PLT - PLATELET COUNT 222 10^3/uL (130-450); RED CELL DISTRIBUTION WIDTH 13.2 % (12.0-15.0); WHITE BLOOD COUNT 8.5 x10^3/uL (4.8-10.8)
[2025-01-25 05:40] LABS: CALCIUM 9.3 mg/dL (8.5-10.3); CREATININE 0.6 mg/dL (0.6-1.3); MAGNESIUM 2.2 mg/dL (1.7-2.3); POTASSIUM 3.9 mmol/L (3.5-4.5)
--- NOTE | 2025-01-25 15:14 | PROVIDER PROGRESS NOTE ---
Progress Note Progress Note Progress Note: January 25, 2025 2:30 PM She is asleep. Wakes easily. She says that she feels so much better than she did when she was admitted. She still gets short of breath when she gets out of bed and walks to the bathroom. Her respiratory rate goes up to 26 when I observe her do this. It takes her about 5 minutes to get back down to 16. Leg edema is much improved. But her legs still hurt. Her skin itches like crazy but she is asking for something to help with her leg itching. On examination: Blood pressure 140/92, pulse 62, respirations 16, temperature 36.3, O2 sat 94% on room air. She has been on room air since 3:00 yesterday afternoon. I can see where she was on room air for short time on the , had to go back on nasal cannula and finally came off nasal cannula yesterday. Short statured morbidly obese female. 5 feet 2 inches tall, 121 point kilograms. Nasal tone of voice. But comfortable. Neck is supple and I cannot really see JVD No wheezing. Prolonged end exhalation phase. At rest and speaking to me there is no tachypnea. When I have her sit up and put her feet on the side of the bed the tachypnea starts. When I watched her get up to go to the bathroom she is very tachypneic. Again takes about 5 minutes to recover. Regular rate and rhythm. Gets tachycardic with the exertion. Abdomen is obese, soft, nontender. Extremities have much less edema than on admission. She is down to about 1+. She still continues to have the red venous stasis changes of skin breakdown over the right lateral stapleton. That is what she said itches. But there is no oozing no cellulitis. Neurologically she has no focal deficits. She is alert and oriented to person place and time. She follows commands. Is an appropriate conversationalist. But very forgetful. Again she is emotionally labile and when we talk about the fact that she may be forgetting her medications she cries. She is also very stressed out because she cannot get a hold of her daughter. Her daughter is supposed to be a ride home and she is worried she will get a ride out of the hospital. I reviewed her labs: Yesterday's potassium was 3.4 and I supplemented it. Today is 3.9 BUN and creatinine are normal Fasting glucose was 180. Before lunch it was 245. She is using 1 to 3 units before each meal depending on her glucose. A1c was 7.8% on January 23. CBC continues to be normal. She had some mild anemia on the first 3 days of s marycruz but today her hemoglobin is 12.2 whereas it was 11.6 yesterday. E. coli grew out of her urine from January 22. Conclusion/Plan Problem List (1) Acute respiratory failure with hypoxia: Hypoxia resolved. Still with respiratory distress and severe dyspnea with exertion Plan: This alfonzo and emotional lady has multiple reasons to be short of breath. She has a history of diastolic heart failure, aortic stenosis, obstructive sleep apnea, and is deconditioned with morbid obesity. Her pulmonary function studies are not impressive. So the extent of her hypoxemia and shortness of breath is beyond what our objective data shows. We are identifying a problem with noncompliance with her medications but she steadily maintains that she is taking her medications on a regular basis. She is not and her pharmacist says that even if her meds were being paid for by a fund for assistance, they would still have records of her picking up her refills. She has not. This patient is usually not on home oxygen. The highest nasal cannula which she is needed is 4 L. She has been off oxygen since yesterday afternoon. I will continue to treat with nebulizers, inhaled steroids. I have stopped her IV diuresis with Lasix. Change her over to oral.She was on 40 mg IV push twice daily. I will change her to 40 mg p.o. daily. At home she takes 20 mg p.o. daily as needed She is medically stable and clear for discharge since 01/24/25. OT and PT recommend SNF for rehab. She was given options of which halfway facility to go to and she has [facility]. Plan is for discharge tomorrow. Today is an avoidable day. (2) Acute exacerbation of CHF (congestive heart failure): Plan: This morbidly obese female has preserved ejection fraction and she may have diastolic heart failure. Her BNP is not at all indicative of acute CHF. Her main manifestation of CHF is the shortness of breath and severe leg edema. She takes the Lasix as an as needed drug not a daily drug. But due to medication noncompliance, this patient may not be taking her Lasix at all. She also tells me that she just hated the urinary incontinence from it and stopped taking it at least 5 days ago. She could also have aortic stenosis with congestive heart failure. She could have pulmonary hypertension because of chronic lung disease and chronic asthma. The last echocardiogram she had was in October of this year. Peak mean pressure gradients of the aortic valve are 24 mmHg / 50 mmHg. The echo she had in 2023 had higher velocities so she seems to be improved. Her RVSP at rest is 22 mmHg so it is not that high. She says that she has improved with the diuresis. Her legs were as hard as rocks and very tense a few days ago. Edema is now down to 1+. The tightness of the shiny skin has resolved. Unfortunately she still continues to have significant dyspnea with minimal exertion. But at least she is off oxygen. As above: Stop IV Lasix and changed to p.o. Lasix (3) E coli UTI I will give one dose of fosfomycin 01/24/25 Chronic medical problems (4) Aortic stenosis: Plan: I am also recommending that she be seen by cardiology for the aortic stenosis. Serial troponins are stable, borderline high but "flat". I suspect this is more demand leak than true coronary ischemia. The ER did not do an EKG so I ordered one. EKG had sinus rhythm, LVH with secondary repolarization abnormalities. Early R wave progression starting at V2. RSR prime in the inferior leads. Nonspecific ST-T wave changes in the lateral leads. When I compare it to the EKG from November 15, 2023 there is no real change. (5) GENNY on CPAP: Plan: She did not bring her machine with her. She intimates that she may not be using it on a regular basis at home. She does desaturate into the low 80s according to her sleep study and I have explained what that does to your brain and your heart long-term. I have encouraged her to go back on her CPAP mask at when she gets home (6) Type 2 diabetes mellitus without complication, without long-term current use of insulin: Plan: I do not use metformin while she is in the hospital. A1c is 7.8%. She is on sliding scale insulin. So far requiring 1-3 units with each meal. I am going to add 2 units with each meal for regular scheduled dose. (7) Hypothyroid hx. Because she is noncompliant, I wonder about her TSH. Level was 5.45 . Normal TSH. My dilemma has to do with her noncompliance. Your TSH is 5.45 and she is not taking her Synthroid, I may be overtreating her since I did resume her Synthroid on admission. I would recommend checking her TSH in 4 weeks to make sure we are not overtreating
[2025-01-25] MEDS ORDERED: CALAMINE/ZINC OXIDE 177 ML BOTTLE TOP PRN (17:39)
[2025-01-25] MEDS: INSULIN LISPRO 300 UNIT/3 ML PEN SUBQ SCH (17:49)
[2025-01-25] MEDS: hydrOXYzine PAMOATE 25 MG CAPSULE PO PRN (20:55)
[2025-01-25] MEDS: GABAPENTIN 300 MG CAPSULE PO SCH (20:55)
[2025-01-25] MEDS ORDERED: GABAPENTIN 300 MG CAPSULE PO SCH (21:00)
[2025-01-26] MEDS: diphenhydrAMINE 25 MG CAPSULE PO PRN (01:49)
[2025-01-26 05:30] LABS: BASOPHILS % (AUTO) 0.5 %; EOSINOPHILS # (AUTO) 0.4 10^3/uL (0.0-0.7); EOSINOPHILS % (AUTO) 4.2 %; HCT - HEMATOCRIT 39.8 % (37.0-47.0); HGB - HEMOGLOBIN 12.1 g/dL (12.0-16.0); LYMPHOCYTES # (AUTO) 2.2 10^3/uL (1.5-3.5); MEAN CORPUSCULAR HEMOGLOBIN 26.2 pg (27.0-31.0); MEAN CORPUSCULAR HGB CONC 30.4 g/dL (32.0-36.0); MEAN CORPUSCULAR VOLUME 86.3 fL (81.0-99.0); MEAN PLATELET VOLUME 8.2 fL (7.9-10.8); MONOCYTES # (AUTO) 0.8 10^3/uL (0.0-1.0); MONOCYTES % (AUTO) 9.5 %; NEUTROPHILS % (AUTO) 59.1 %; PLT - PLATELET COUNT 231 10^3/uL (130-450); RED BLOOD COUNT 4.61 10^6/uL (4.20-5.40); RED CELL DISTRIBUTION WIDTH 13.2 % (12.0-15.0); WHITE BLOOD COUNT 8.4 x10^3/uL (4.8-10.8)
[2025-01-26 05:58] LABS: CALCIUM 9.4 mg/dL (8.5-10.3); CREATININE 0.7 mg/dL (0.6-1.3); MAGNESIUM 2.3 mg/dL (1.7-2.3); POTASSIUM 4.1 mmol/L (3.5-4.5)
[2025-01-26 07:33] VITALS: BP 160/78; TEMP 97.7; O2SAT 91
[2025-01-26] MEDS: SOLIFENACIN SUCCINATE 5 MG TABLET PO SCH (08:36)
[2025-01-26] MEDS: FUROSEMIDE 40 MG TABLET PO SCH (08:36)
--- NOTE | 2025-01-26 11:31 | Discharge Summary ---
"Discharge Summary Admit Date: 01/22/25 Discharge Date: 01/26/25 Discharging Provider: Luzmaria Vazquez MD Primary Care Provider: Tobi Clancy MD Code Status: Attempt Resuscitation DIAGNOSES Discharge Diagnoses with Status of Each Condition: 1. Acute respiratory failure with hypoxia. Hypoxia resolved. Still with moderate to severe tachypnea with minimal exertion 2. Acute exacerbation of CHF with preserved ejection fraction 3. E. coli UTI treated with fosfomycin 4. Moderate aortic stenosis 5. Obstructive sleep apnea on CPAP, not compliant 6. Type 2 diabetes mellitus without complication without long-term use of current insulin 7. Hypothyroidism 8. Memory loss 9. Noncompliance with medication HPI History of Present Illness: Patient was seen in the walk-in clinic today with shortness of breath, fatigue, fever and a burning rash to her bilateral lower extremities. Temperature was 100.4 in the clinic and respirations were 28 with a pulse of 102. Lungs were clear. No wheezes. Bilateral lower extremity wheezing noted. As such 911 was called. The patient was brought in by ambulance and she shared with the ER provider that she had dyspnea, orthopnea and increasing edema of chronically swollen legs. Is been getting progressively worse over the last few days. She has asthma and uses inhalers and her wheezing has also been getting worse. But she denies fever, chest congestion, change in the color of her phlegm. She denies any nose congestion or eustachian tube dysfunction that is new. She denies a sore throat. She has chronic dyspnea on exertion but over the last few days has gotten substantially worse. EMS reported O2 sats in the low 80s. She had stopped taking her Lasix 5 days ago because it gave her urinary incontinence. EMS gave her a DuoNeb with oxygen and brought her to the ED. In the ED blood pressure was 150/90, weight was 118.4 kg. This appears to be her baseline weight where she was at 117.9 in July of last year in August of this year. In the ER she was 88% on room air. She was given 80 mg of Lasix IV push. Her x-ray had low lung volumes, no pleural effusions, no dense airspace consolidation. You could see where she had right shoulder reverse arthroplasty done. Even though she had adequate urine output, she had minimal response with regards to shortness of breath. She was in the ER for over several hours and assess the aspect of please place her in observation to treat possible CHF. She has been having dyspnea on exertion with lower extremity edema since 2019. At that time she was seeing Awilda Reyes as a primary care provider and an echocardiogram was normal. Her right ventricle was normal. Ejection fraction 60 to 65%. No significant vascular abnormality. She underwent a treadmill test August 05, 2020 and although she had not abnormal resting EKG with early transition, she did have borderline changes by EKG criteria to suggest ischemia during exercise. A poor exercise tolerance where she only exercised for 3 minutes and 40 seconds on a modified Juan. She only achieved 2.35 metabolic equivalents. She desaturated with exercise. She progressed with her dyspnea. In 2021 spirometry was ordered because she had a 22-hyqa-ozav history. She smoked 1 packs/day for 20 years. Her FVC was 2.08 with a predicted 73%. FEV1 was 1.61 with a predicted 75%. FEV1 to FVC was 77%. Her SVC was 2.4 at 85%. The FVC reduced relative to SVC indicating air trapping. Following the administration of bronchodilators there is no significant response. This was interpreted as minimal obstructive airways disease. In 2022 sleep study was done. She had moderate snoring which was continuous. Her apnea hypopnea index was 22.6 and sleep efficiency was 60.6%. The PLM index was 11.7. This was consistent with moderate obstructive sleep apnea with significant desaturation events down to 81%. CPAP was recommended. She had occasional PVCs with this. In October 2023 she had another echocardiogram done for chest pain accompanying her dyspnea and COPD. She now has moderate aortic stenosis, normal RV size and systolic function, and LVEF of 60 to 65%. Her peak mean pressure gradient was 36 mmHg / 19 mmHg and aortic valve area by continuity equation was 1.29 cm. Trace aortic regurgitation. She has an extensive medication list. But in speaking to the pharmacist who was attempting to reconcile her medication list, she has not filled her medications since July. The only medications she seems to be taking on a regular basis is rosuvastatin, oxybutynin, and gabapentin. She is not taking the losartan, the Lasix, the levothyroxine, metformin, the metoprolol.But when I speak to the patient about that she says that her medications are paid for with a subsidized program. She is picking up her prescriptions at [facility] but they are just paid for by a different program. The only medicine she stopped recently was the Lasix. She has had a gradually progressive urinary incontinence and urgency over the last year. Over the last few weeks she keeps on losing control and will fill her diaper and start dripping on the floors. She starts to cry she says a since that is deeply humiliating and embarrassing. So a few days ago she stopped of the Lasix and an effort to stop being on the floor. CONSULTS | PROCEDURES Procedures: Urine culture with E. coli chest x-ray with low lung volumes, no airspace consolidation or pleural effusion. Heart size at the upper limits of normal. HOSPITAL COURSE Hospital Course: The first thing we noticed with this patient's today is that she is not taking her medications as she thinks she is. Initially she was quite adamant that she was refilling her medications and taking her pills every day. But when our pharmacy investigated further, and spoke to the outpatient pharmacist, the patient is calling in refills. But not picking them up in the bottles get put back on the shelf. The bottles that she brings in with her are not all of the medications she is supposed to be taking. She is supposed to be taking metoprolol, metformin, losartan, levothyroxine but does not have them with her. The bottles she does have with her are gabapentin nitroglycerin, oxybutynin, rosuvastatin and Lasix. She stopped taking her Lasix because it was making her urinate too much. She is also not taking her venlafaxine. Patient was treated for COPD exacerbation as well as CHF. She received steroids, nebulizers, Lasix. An E. coli UTI was treated with fosfomycin. And her diabetes was treated with sliding scale insulin. She was requiring 1 to 3 units with each meal. Before discharge she was on 2 units with each meal on a regular basis. A1c is 7.8%. When she was stabilized from her lung and heart disease, no longer hypoxic, we evaluated her physical status. She has severely reduced mobility because of severe dyspnea on exertion. She lives alone. Lives in a third story apartment building. Sometimes the elevator does not work. PT evaluated her and found her to be candidate for correction facility intervention. Plan is for her to receive enough strengthening to be able to return to independent living in her apartment.I told her that she should probably try and get her apartment changed to her bottom floor apartment. She lives alone with her little dog. She relies on her daughter to drive her places. But daughter is currently unhoused living out of her car. When she returns to home she should make contact with the senior services center to see if there is any other opportunity for transportation, food, or access to healthcare. 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 On exam, blood pressure is 160/78. She has been on losartan 50 mg a day can go back [facility] her [facility]. Weight is 121.5 kg. O2 sat is 91% on room air. She is an alert elderly female. Cooperative. Speech is lucid. Can speak in full sentences. Her main dyspnea occurs when she tries to mobilize. For instance going from supine to sitting to standing decompensates her. Neck is supple. Lungs do not have wheezing as they did on admission. No crackles or rhonchi. Regular rate and rhythm. And abdomen is soft, nontender, obese, normal bowel sounds. She has Nneka intertrigo and has been requiring calamine for itching skin of the legs and nystatin powder for the Nneka intertrigo. The legs were severely edematous and very hard with woody edema when she came in. With diuresis the skin has become shrunken. She has venous stasis over the right anterior lateral leg below the knee. Splotchy redness that is nonblanching. Scattered lesions below that. She likes the calamine on that and Benadryl at night for that. Greater than 30 minutes was spent coordinating discharge This document was made in part using voice recognition software. While efforts are made to proofread this document, sound alike and grammatical errors may occur. ALLERGIES Allergies Allergy/AdvReac Type Severity Reaction Status Date / Time iodine AdvReac Rash Verified 01/22/25 13:04 MEDICATIONS Ambulatory Orders Medication Instructions Recorded Confirmed nitroglycerin 0.4 mg sublingual 0.4 mg sublingual ONCE PRN Chest 11/23/23 01/22/25 tablet Pain acetaminophen 325 mg tablet 650 mg (2 x 325 mg) PO Q4H R PRN 01/26/25 Pain 1 to 4, or Fever #30 tabs albuterol sulfate 90 mcg/actuation 1 puff inhalation Q ID PRN 01/26/25 aerosol inhaler (Ventolin HFA) shortness of breath or wheezing #8.5 grams calamine 8 %-zinc oxide 8 % lotion 1 applic topical DC N PRN SKIN CARE 01/26/25 #177 mL cetirizine 10 mg tablet 10 mg PO BID #60 tabs 01/22/25 diphenhydramine HCl 25 mg capsule 25 mg PO Q4HR PRN Al lergy Symptoms 01/26/25 (Banophen) #30 caps furosemide 20 mg tablet 20 mg PO DAILY PRN Swelling #90 01/26/25 tabs gabapentin 300 mg capsule 300 mg PO HS #30 caps 01/22/25 ipratropium 0.5 mg-albuterol 3 mg 3 ml inhalation Q4HR PRN Wheezing 01/26/25 (2.5 mg base)/3 mL nebulization #180 mL soln levothyroxine 112 mcg tablet 112 mcg PO DAILY #30 tabs 01/26/25 01/22/25 losartan 100 mg tablet 100 mg PO DAILY #30 tabs 09/2101/22/25 metformin 1,000 mg tablet 1,000 mg PO BID #30 tabs 09/2101/22/25 metoprolol tartrate 50 mg tablet 50 mg PO DAILY #30 ta bs 01/26/25 01/22/25 nystatin 100,000 unit/gram topical 1 applic topical BI D #15 grams 01/26/25 powder (Nyamyc) oxybutynin chloride 5 mg 5 mg PO DAILY #30 tabs 01/2601/22/25 tablet,extended release 24 hr rosuvastatin 10 mg tablet (Crestor) 10 mg PO HS #30 ta bs 01/26/25 01/22/25 venlafaxine 75 mg capsule,extended 75 mg PO DAILY #30 caps 01/26/25 01/22/25 release 24 hr PHYSICAL EXAM AT DISCHARGE Vital Signs: Vital Signs x48h Temp Pulse Resp BP Pulse Ox 01/26/25 07:32 36.5 C 69 16 160/78 H 91 L 01/26/25 04:32 36.4 C L 65 20 150/78 H 95 LABS 01/26/25 04:54 01/26/25 04:54 Discharge Plan Discharge Patient Disposition: 03 [facility] DC/Xfer Condition: Stable Medically Cleared Date:: 01/25/25 Medically Cleared Comments:: waiting for snf Prescriptions: New acetaminophen 325 mg Tablet 650 mg PO Q4HR PRN (Reason: Pain 1 to 4, or Fever) Qty: 30 0RF calamine-zinc oxide 8-8 % Lotion 1 applic topical PRN PRN (Reason: SKIN CARE) Qty: 177 0RF diphenhydramine HCl [Banophen] 25 mg Capsule 25 mg PO Q4HR PRN (Reason: Allergy Symptoms) Qty: 30 0RF ipratropium-albuterol 0.5 mg-3 mg(2.5 mg base)/3 mL Solution For Nebulization 3 ml inhalation Q4HR PRN (Reason: Wheezing) Qty: 180 0RF nystatin [Nyamyc] 100,000 unit/gram Powder 1 applic topical BID Qty: 15 0RF Continued nitroglycerin 0.4 MG tablet, sublingual 0.4 mg sublingual ONCE PRN (Reason: Chest Pain) venlafaxine 75 mg capsule,extended release 24hr 75 mg PO DAILY Qty: 30 0RF cetirizine 10 mg tablet 10 mg PO BID Qty: 60 0RF metformin 1,000 MG tablet 1,000 mg PO BID Qty: 30 0RF Patient Comments: TAKE 1 TABLET BY MOUTH TWICE DAILY WITH MEALS metoprolol tartrate 50 mg tablet 50 mg PO DAILY Qty: 30 0RF Patient Comments: TAKE 1 TABLET BY MOUTH ONCE DAILY WITH FOOD oxybutynin chloride 5 MG tablet extended release 24hr 5 mg PO DAILY Qty: 30 0RF furosemide 20 mg tablet 20 mg PO DAILY PRN (Reason: Swelling) Qty: 90 0RF albuterol sulfate [Ventolin HFA] 200 PUFFS/18 GM HFA aerosol inhaler 1 puff inhalation QID PRN (Reason: shortness of breath or wheezing) Qty: 8.5 0RF losartan 100 mg tablet 100 mg PO DAILY Qty: 30 0RF Patient Comments: TAKE 1 TABLET BY MOUTH ONCE DAILY levothyroxine 112 mcg tablet 112 mcg PO DAILY Qty: 30 0RF Patient Comments: TAKE 1 TABLET BY MOUTH ONCE DAILY IN THE MORNING ON AN EMPTY STOMACH rosuvastatin [Crestor] 10 MG tablet 10 mg PO HS Qty: 30 0RF Changed gabapentin 300 MG capsule 300 mg PO HS Qty: 30 0RF Patient Comments: TAKE 3 CAPSULES BY MOUTH AT NIGHT Discontinued fluticasone propion-salmeterol 1 EACH blister with device 1 inh inhalation BID Patient Comments: INHALE 1 DOSE BY MOUTH TWICE DAILY fluticasone propionate 16 GM spray,suspension 1 spray intranasal BID PRN (Reason: nasal congestion) Diet: Regular Interventions: Belongings Inventory Last Done: 01/22/25 18:20 Health Concerns: You have severe emphysema, congestive heart failure, mild valvular heart disease with aortic valve getting smaller, and also have problems with your weight. All of these have reduced your ability to walk around and do things physically. And you have chronic shortness of breath. You also have obstructive sleep apnea but are not using a CPAP mask. You stopped your Lasix a few days ago because it was making you urinate. And unfortunately you are having so much urinary incontinence it was really upsetting you. So you stopped taking the Lasix so you would not pee so much. He started having worse shortness of breath. He will find some miserable you came to the hospital. We treated you as emphysema exacerbation with antibiotics, intravenous steroids, nebulizers. But we also gave you Lasix for possible new congestive heart failure. After treating you, you still have shortness of breath. Fatigue. You really are not able to take care of yourself right now and physical therapy feels that you would benefit from a short stay in rehab to get yourself stronger. Instructions for discharge: 1. [facility] a [facility]. Then you will go back to your apartment. 2. Please sit down and talk to Dr. Clancy about possibly getting you a ground- floor apartment. 3. While you were here we identified you as having memory loss. Although you remember taking all of your medicines on a regular basis, we spoke to the pharmacy and they are very clear that you are refilling the medicines but not picking them up. And when we look at your pill bottles that you brought in their way too many pills still in your bottles from July of last year. We think you are not taking your medications. Print Language: Sudanese Stand Alone Forms: SNF Discharge"
== END 2025-01-26 12:14 ==
LOC: ED 12:58 → MS2 12:58
PROVIDERS: ADMIT Specialist; ATTEND Specialist
DX: Z91.128 Patient's intentional underdosing of medication regimen for other reason; Z79.890 Hormone replacement therapy; Z63.8 Other specified problems related to primary support group; T48.6X6A Underdosing of antiasthmatics, initial encounter; R32 Unspecified urinary incontinence; G47.33 Obstructive sleep apnea (adult) (pediatric); J96.01 Acute respiratory failure with hypoxia; Z79.84 Long term (current) use of oral hypoglycemic drugs; Z20.822 Contact with and (suspected) exposure to COVID-19; Z91.148 Patient's other noncompliance with medication regimen for other reason; J44.1 Chronic obstructive pulmonary disease with (acute) exacerbation; E11.9 Type 2 diabetes mellitus without complications; E03.9 Hypothyroidism, unspecified; N30.00 Acute cystitis without hematuria; B96.20 Unspecified Escherichia coli [E. coli] as the cause of diseases classified elsewhere; T50.1X6A Underdosing of loop [high-ceiling] diuretics, initial encounter; T46.5X6A Underdosing of other antihypertensive drugs, initial encounter; Z87.891 Personal history of nicotine dependence; Z79.899 Other long term (current) drug therapy; T44.7X6A Underdosing of beta-adrenoreceptor antagonists, initial encounter; R41.3 Other amnesia; Z20.818 Contact with and (suspected) exposure to other bacterial communicable diseases; Z68.42 Body mass index [BMI] 45.0-49.9, adult; R39.15 Urgency of urination; Z20.828 Contact with and (suspected) exposure to other viral communicable diseases; I50.33 Acute on chronic diastolic (congestive) heart failure; E66.01 Morbid (severe) obesity due to excess calories; I35.0 Nonrheumatic aortic (valve) stenosis; B37.2 Candidiasis of skin and nail; T38.3X6A Underdosing of insulin and oral hypoglycemic [antidiabetic] drugs, initial encounter; T38.1X6A Underdosing of thyroid hormones and substitutes, initial encounter

== ENCOUNTER 2025-04-29 15:08 | Inpatient (IN) ==
--- NOTE | 2025-04-29 15:17 | ED Physician Documentation ---
Discharge Plan Discharge Prescriptions: No Action nitroglycerin 0.4 MG tablet, sublingual 0.4 mg sublingual ONCE PRN (Reason: Chest Pain) acetaminophen 325 mg Tablet 650 mg PO Q4HR PRN (Reason: Pain 1 to 4, or Fever) Qty: 30 0RF calamine-zinc oxide 8-8 % Lotion 1 applic topical PRN PRN (Reason: SKIN CARE) Qty: 177 0RF diphenhydramine HCl [Banophen] 25 mg Capsule 25 mg PO Q4HR PRN (Reason: Allergy Symptoms) Qty: 30 0RF ipratropium-albuterol 0.5 mg-3 mg(2.5 mg base)/3 mL Solution For Nebulization 3 ml inhalation Q4HR PRN (Reason: Wheezing) Qty: 180 0RF nystatin [Nyamyc] 100,000 unit/gram Powder 1 applic topical BID Qty: 15 0RF venlafaxine 75 mg capsule,extended release 24hr 75 mg PO DAILY Qty: 30 0RF cetirizine 10 mg tablet 10 mg PO BID Qty: 60 0RF metformin 1,000 MG tablet 1,000 mg PO BID Qty: 30 0RF Patient Comments: TAKE 1 TABLET BY MOUTH TWICE DAILY WITH MEALS metoprolol tartrate 50 mg tablet 50 mg PO DAILY Qty: 30 0RF Patient Comments: TAKE 1 TABLET BY MOUTH ONCE DAILY WITH FOOD oxybutynin chloride 5 MG tablet extended release 24hr 5 mg PO DAILY Qty: 30 0RF gabapentin 300 MG capsule 300 mg PO HS Qty: 30 0RF Patient Comments: TAKE 3 CAPSULES BY MOUTH AT NIGHT furosemide 20 mg tablet 20 mg PO DAILY PRN (Reason: Swelling) Qty: 90 0RF albuterol sulfate [Ventolin HFA] 200 PUFFS/18 GM HFA aerosol inhaler 1 puff inhalation QID PRN (Reason: shortness of breath or wheezing) Qty: 8.5 0RF losartan 100 mg tablet 100 mg PO DAILY Qty: 30 0RF Patient Comments: TAKE 1 TABLET BY MOUTH ONCE DAILY levothyroxine 112 mcg tablet 112 mcg PO DAILY Qty: 30 0RF Patient Comments: TAKE 1 TABLET BY MOUTH ONCE DAILY IN THE MORNING ON AN EMPTY STOMACH rosuvastatin [Crestor] 10 MG tablet 10 mg PO HS Qty: 30 0RF Print Language: Malagasy
[2025-04-29] MEDS: SODIUM CHLORIDE 0.9% 500 ML IV ONE (15:39)
--- NOTE | 2025-04-29 16:28 | ED Physician Documentation ---
History of Present Illness Stated complaint Stated Complaint: LIGHTHEADED Chief complaint Chief Complaint: General Additonal information Additional information: 69-year-old female with history of UTI, urinary incontinence, pyelonephritis presents to the emergency department for concerns of weakness and lightheadedness. Patient was working with physical therapy for rehabilitation and was unable to complete all of her physical therapy because of how lightheade d she was feeling. She is also feeling like she is having a hard time voiding urinary urgency and frequency as well as urinary incontinence she feels like she has been unable to void since around 3 AM with generalized back pain. She was originally seen in walk-in clinic but was hypotensive and sent to the emergency department for further evaluation. Meds/Allgy Home Medications Ambulatory Orders Medication Instructions Recorded Confirmed nitroglycerin 0.4 mg sublingual 0.4 mg sublingual ONCE PRN Chest 11/23/23 04/29/25 tablet Pain acetaminophen 325 mg tablet 650 mg (2 x 325 mg) PO Q4H R PRN 01/26/25 04/29/25 Pain 1 to 4, or Fever #30 tabs albuterol sulfate 90 mcg/actuation 1 puff inhalation Q ID PRN 01/26/25 04/29/25 aerosol inhaler (Ventolin HFA) shortness of breath or wheezing #8.5 grams calamine 8 %-zinc oxide 8 % lotion 1 applic topical WA N PRN SKIN CARE 01/26/25 04/29/25 #177 mL furosemide 20 mg tablet 20 mg PO DAILY PRN Swelling #90 01/26/25 04/29/25 tabs gabapentin 300 mg capsule 300 mg PO HS #30 caps 04/29/25 ipratropium 0.5 mg-albuterol 3 mg 3 ml inhalation Q4HR PRN Wheezing 01/26/25 04/29/25 (2.5 mg base)/3 mL nebulization #180 mL soln levothyroxine 112 mcg tablet 112 mcg PO DAILY #30 tabs 01/26/25 04/29/25 losartan 100 mg tablet 100 mg PO DAILY #30 tabs 09/2104/29/25 metformin 1,000 mg tablet 1,000 mg PO BID #30 tabs 09/2104/29/25 metoprolol tartrate 50 mg tablet 50 mg PO DAILY #30 ta bs 01/26/25 04/29/25 nystatin 100,000 unit/gram topical 1 applic topical BI D #15 grams 01/26/25 04/29/25 powder (Nyamyc) oxybutynin chloride 5 mg 5 mg PO DAILY #30 tabs 01/2604/29/25 tablet,extended release 24 hr rosuvastatin 10 mg tablet (Crestor) 10 mg PO HS #30 ta bs 01/26/25 04/29/25 venlafaxine 75 mg capsule,extended 75 mg PO DAILY #30 caps 01/26/25 04/29/25 release 24 hr amlodipine 5 mg tablet 5 mg PO DAILY 04/29/2504/29 cetirizine 10 mg tablet 10 mg PO BID PRN allergy sym ptoms 04/29/25 04/29/25 Allergies Allergies Allergy/AdvReac Type Severity Reaction Status Date / Time iodine AdvReac Rash Verified 04/29/25 15:26 PFSH Active Problems All Active Problems (Updated 04/29/25 @ 20:35 by Natividad Turner RN) PATRICIA (acute kidney injury) (Acute) Acute UTI (Acute) Acute pyelonephritis (Acute) Hypotension (Acute) Urinary incontinence (Acute) Arthritis (Acute) Shortness of breath (Acute) Knee contusion (Acute) Shoulder sprain (Acute) Fall (Acute) Cellulitis (Acute) Chest pain (Acute) Hypokalemia (Acute) Medical History Medical History (Updated 04/29/25 @ 20:35 by Natividad Turner, DILLON) Neuropathy Cataract Hyperlipidemia CHF (congestive heart failure) 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 Rotator cuff tear July 2019 PVD (peripheral vascular disease) Leg edema evaluated duplex scan October 2024. Right extremity runoff suggest possible proximal common femoral stenosis and possible severe distal SFA with distal monophasic waveforms. Left lower extremity runoff suggest possible focal mid SFA stenosis with monophasic waveforms distally. COPD (chronic obstructive pulmonary disease) Normal colonoscopy november 2023 Type 2 diabetes mellitus without complication, without long-term current use of insulin Hypothyroid Aortic stenosis Depression with anxiety Morbid obesity GENNY on CPAP Leg edema Venous Dopplers without DVT October 2024 Hypertension Dyspnea on effort Surgical History Surgical History (Updated 04/29/25 @ 20:33 by Natividad Turner RN) Previous back surgery S/P foot surgery, right Family History Family History (Updated 01/22/25 @ 19:25 by Luzmaria Vazqeuz MD) Mother No problems noted. Father Drowning Brother Alcoholism Sister No problems noted. Son Mental disorder Daughter Mental disorder Social History Social History (Updated 04/29/25 @ 15:37 by Micah Buckley RN) Smoking Status: Former smoker If you are a former smoker, when did you quit? (Date/Year): 2005 Number of Years Smoked: 15 How many cigarettes a day do you smoke? (20 cigarettes=1 Pk): 2 Second hand tobacco smoke exposure: No Do you dip or chew tobacco?: No Do you vape?: No Patient requests smoking cessation consult: No Initiate information on smoking cessation: No Living arrangement: At home Marital Status: Single Living Condition: Alone Support Person: Yes Living Situation Details: lives in own apartment, daughter is unhoused, son is estranged for 20 years Level: Independent Home Mobility Equipment: Walker Do you feel safe in your home environment?: Yes History of physical, verbal, emotional, or financial abuse?: No Frequency: Occasional ETOH - Additional Notes: 2 drinks of fireball whiskey once or twice a year Substance Use: over the counter (eg: immodium) Substance Use Details: ibuprofen Are you sexually active?: No 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 Exam Exam Vital Signs: Vital Signs x48h Temp Pulse Resp BP Pulse Ox O2 Flow Rate 04/29/25 18:07 37.5 C 91 20 130/53 L 97 2 04/29/25 16:52 20 88 L 04/29/25 16:48 95 20 117/49 L 96 2 04/29/25 15:38 89 18 121/70 91 L 04/29/25 15:19 37.5 C 89 18 125/56 L 92 Constitutional normal general appearance, no apparent distress, abnormal body habitus (obese), no limitations and alert HENMT normocephalic and head/scalp atraumatic Eyes PERRL and EOMs intact bilaterally Chest inspection of chest normal and palpation of chest normal Respiratory breath sounds equal bilaterally and normal respiratory effort Cardiovascular normal heart rate noted and regular rhythm noted Gastrointestinal abdomen normal to inspection Genitourinary Left CVA tenderness Skin skin color normal Results Vitals Vitals: Vital Signs - 24 hr 04/29/25 15:19 04/29/25 15:38 04/29/25 16:45 Temperature 37.5 C Temperature Source Temporal Artery Scan Pulse Rate 89 89 Respiratory Rate 18 18 Blood Pressure 125/56 L 121/70 O2 Saturation 92 91 L Oxygen Delivery Method Nasal Cannula O2 Source Room air Room air Oxygen Flow Rate 2 If not protocol: Oxygen Flow, liters/minute Pain Intensity 6 5 04/29/25 16:48 04/29/25 16:52 04/29/25 17:16 Temperature Temperature Source Pulse Rate 95 Respiratory Rate 20 20 Blood Pressure 117/49 L O2 Saturation 96 88 L Oxygen Delivery Method O2 Source Nasal cannula Room air Oxygen Flow Rate If not protocol: Oxygen Flow, liters/minute 2 Pain Intensity 7 7 04/29/25 18:07 04/29/25 18:35 Temperature 37.5 C Temperature Source Temporal Artery Scan Pulse Rate 91 Respiratory Rate 20 Blood Pressure 130/53 L O2 Saturation 97 Oxygen Delivery Method O2 Source Nasal cannula Oxygen Flow Rate If not protocol: Oxygen Flow, liters/minute 2 Pain Intensity 2 Oxygen O2 Source Nasal cannula Oxygen Flow Rate 2 Labs Labs: Laboratory Tests 04/29/25 04/29/25 04/29/25 15:45 16:06 16:24 WBC 15.6 H RBC 4.25 Hgb 11.8 L Hct 36.5 L MCV 85.9 MCH 27.8 MCHC 32.3 RDW 13.1 Plt Count 128 L MPV 8.8 Neut # (Auto) Not Reportable Lymph # (Auto) Not Reportable Emery # (Auto) Not Reportable Eos # (Auto) Not Reportable Baso # (Auto) Not Reportable Absolute Nucleated RBC Not Reportable Total Counted 100 Band Neuts % (Manual) 2 Reactive Lymphs % (Man) 3 Abnorm Lymph % (Manual) 0 Nucleated RBC % Not Reportable Neutrophils # (Manual) 12.3 H Lymphocytes # (Manual) 2.0 Monocytes # (Manual) 1.2 H Eosinophils # (Manual) 0.0 Basophils # (Manual) 0.0 Differential Comment MANUAL DIFFERENTIAL Platelet Estimate DECREASED (<130,000) Platelet Morphology NORMAL APPEARANCE RBC Morph Micro Appear NORMAL APPEARANCE Sodium 134 L Potassium 3.9 Chloride 98 L Carbon Dioxide 24 Anion Gap 12.0 BUN 31 H Creatinine 2.6 H Estimated GFR (MDRD) 18 L Glucose 166 H Calcium 8.0 L Total Bilirubin 0.8 AST 17 ALT 11 Alkaline Phosphatase 66 Total Protein 6.5 Albumin 3.5 Globulin 3.0 Albumin/Globulin Ratio 1.2 Urine Color Urine Clarity Urine pH Ur Specific Paisley Urine Protein Urine Glucose (UA) Urine Ketones Urine Occult Blood Urine Nitrite Urine Bilirubin Urine Urobilinogen Ur Leukocyte Esterase Urine RBC Urine WBC Urine WBC Clumps Ur Epithelial Cells Ur Squamous Epith Cells Urine Bacteria Ur Microscopic Review Urine Culture Comments Nasal Adenovirus (PCR) NOT DETECTED Nasal B. parapertussis DNA (PCR) NOT DETECTED Nasal Coronavir 229E PCR NOT DETECTED Nasal Coronavir HKU1 PCR NOT DETECTED Nasal Coronavir NL63 PCR NOT DETECTED Nasal Coronavir OC43 PCR NOT DETECTED Nasal Enterovir/Rhinovir PCR NOT DETECTED Nasal Influenza B PCR NOT DETECTED Nasal Influenza A PCR NOT DETECTED Nasal Parainfluen 1 PCR NOT DETECTED Nasal Parainfluen 2 PCR NOT DETECTED Nasal Parainfluen 3 PCR NOT DETECTED Nasal Parainfluen 4 PCR NOT DETECTED Nasal RSV (PCR) NOT DETECTED Nasal B.pertussis DNA PCR NOT DETECTED Nasal C.pneumoniae (PCR) NOT DETECTED Bong Human Metapneumo PCR NOT DETECTED Nasal M.pneumoniae (PCR) NOT DETECTED Nasal SARS-CoV-2 (PCR) NOT DETECTED 04/29/25 17:05 WBC RBC Hgb Hct MCV MCH MCHC RDW Plt Count MPV Neut # (Auto) Lymph # (Auto) Emery # (Auto) Eos # (Auto) Baso # (Auto) Absolute Nucleated RBC Total Counted Band Neuts % (Manual) Reactive Lymphs % (Man) Abnorm Lymph % (Manual) Nucleated RBC % Neutrophils # (Manual) Lymphocytes # (Manual) Monocytes # (Manual) Eosinophils # (Manual) Basophils # (Manual) Differential Comment Platelet Estimate Platelet Morphology RBC Morph Micro Appear Sodium Potassium Chloride Carbon Dioxide Anion Gap BUN Creatinine Estimated GFR (MDRD) Glucose Calcium Total Bilirubin AST ALT Alkaline Phosphatase Total Protein Albumin Globulin Albumin/Globulin Ratio Urine Color YELLOW Urine Clarity CLOUDY Urine pH 6.0 Ur Specific Pa[place] 1.020 Urine Protein 300 H Urine Glucose (UA) NEGATIVE Urine Ketones NEGATIVE Urine Occult Blood LARGE Urine Nitrite NEGATIVE Urine Bilirubin SMALL H Urine Urobilinogen 1 Ur Leukocyte Esterase MODERATE H Urine RBC TNTC H Urine WBC >25 H Urine WBC Clumps PRESENT Ur Epithelial Cells FEW Renal Tubular Ur Squamous Epith Cells FEW Squamous Urine Bacteria Few Ur Microscopic Review INDICATED Urine Culture Comments INDICATED Nasal Adenovirus (PCR) Nasal B. parapertussis DNA (PCR) Nasal Coronavir 229E PCR Nasal Coronavir HKU1 PCR Nasal Coronavir NL63 PCR Nasal Coronavir OC43 PCR Nasal Enterovir/Rhinovir PCR Nasal Influenza B PCR Nasal Influenza A PCR Nasal Parainfluen 1 PCR Nasal Parainfluen 2 PCR Nasal Parainfluen 3 PCR Nasal Parainfluen 4 PCR Nasal RSV (PCR) Nasal B.pertussis DNA PCR Nasal C.pneumoniae (PCR) Bong Human Metapneumo PCR Nasal M.pneumoniae (PCR) Nasal SARS-CoV-2 (PCR) PD Medical Decision Making ED course ED course: 69-year-old female presents emerged department for generalized weakness and dizziness feeling more like a lightheaded sensation per patient. Labs are complete for further evaluation she has leukocytosis, WBC of 15.6 significantly elevated BUN 31, creatinine 2.6, GFR 18 patient appears to be in renal failure with PATRICIA. Urinalysis positive for leukocytes with left CVA tenderness urine was sent to the lab for further cultures respiratory swab was negative. Given patient's pyelonephritis as well as PATRICIA she will benefit from hospitalization For IV antibiotics, Rocephin as well as IV fluids. Patient is agreeable to stay report given to Elijah nurse practitioner hospitalist who has graciously agreed to admit the patient. Discharge Plan Discharge Patient Disposition: ED Place in Observation Condition: Stable Clinical Impression: Acute pyelonephritis, Acute UTI, PATRICIA (acute kidney injury) Interventions: ED Admission Assessment Last Done: 04/29/25 20:01 Vitals documented within 30 minutes of discharge?: Yes
[2025-04-29 16:31] LABS: HCT - HEMATOCRIT 36.5 % (37.0-47.0); HGB - HEMOGLOBIN 11.8 g/dL (12.0-16.0); MEAN PLATELET VOLUME 8.8 fL (7.9-10.8); PLT - PLATELET COUNT 128 10^3/uL (130-450); RED CELL DISTRIBUTION WIDTH 13.1 % (12.0-15.0)
[2025-04-29 16:32] LABS: ABNORMAL LYMPHS % (MANUAL) 0 %; BASOPHILS # (MANUAL) 0.0 10^3/uL (0-0.1); EOSINOPHILS # (MANUAL) 0.0 10^3/uL (0-0.7)
[2025-04-29 16:35] LABS: B. PARAPERTUSSIS- RESP PCR PAN NOT DETECTED; B. PERTUSSIS- RESP PCR PANEL NOT DETECTED; C. PNEUMONIAE- RESP PCR PANEL NOT DETECTED; CORONAVIRUS 229E-RESP PCR NOT DETECTED; CORONAVIRUS HKU1-RESP PCR NOT DETECTED; CORONAVIRUS NL63-RESP PCR NOT DETECTED; CORONAVIRUS OC43-RESP PCR NOT DETECTED; HUMAN METAPNEUMOVIRUS NOT DETECTED; INFLUENZA A- RESP PCR PANEL NOT DETECTED; INFLUENZA B - RESP PCR PANEL NOT DETECTED; M. PNEUMONIAE- RESP PCR PANEL NOT DETECTED; PARAINFLUENZA VIRUS 1 NOT DETECTED; PARAINFLUENZA VIRUS 2 NOT DETECTED; PARAINFLUENZA VIRUS 4 NOT DETECTED; RHINOVIRUS/ENTEROVIRUS NOT DETECTED; RSV- RESP PCR PANEL NOT DETECTED; SARS-CoV-2 -RESP PCR PANEL NOT DETECTED
[2025-04-29 16:52] LABS: ALT ALANINE AMINOTRANSFERASE 11.0 IU/L (10-60); AST ASPARTATE AMINOTRANSFERASE 17.0 IU/L (10-42); BUN - BLOOD UREA NITROGEN 31.0 mg/dL (6-20); CARBON DIOXIDE - CO2 24.0 mmol/L (21-32); CREATININE 2.6 mg/dL (0.6-1.3); GFR - MDRD 18.0 (>89)
[2025-04-29 16:57] LABS: BAND NEUTROPHILS % (MANUAL) 2 %; LYMPHOCYTES # (MANUAL) 2.0 10^3/uL (1.5-3.5); LYMPHOCYTES % (MANUAL) 10 %; MONOCYTES # (MANUAL) 1.2 10^3/uL (0.0-1.0); NEUTROPHILS # (MANUAL) 12.3 10^3/uL (1.5-6.6); PLATELET ESTIMATE, MANUAL DECREASED (<130,000) (NORMAL); PLATELET MORPHOLOGY NORMAL APPEARANCE (NORMAL); RBC MORPHOLOGY (MULTIPLE) NORMAL APPEARANCE (NORMAL); REACTIVE LYMPHS % (MANUAL) 3 %
[2025-04-29] MEDS: ACETAMINOPHEN 500 MG TABLET PO STA (17:16)
[2025-04-29 17:18] LABS: KETONES,URINE (UA) NEGATIVE (NEGATIVE); OCCULT BLOOD,URINE LARGE (NEGATIVE)
[2025-04-29 17:19] LABS: GLUCOSE, URINE (UA) NEGATIVE (NEGATIVE)
[2025-04-29 17:25] LABS: EPITHELIAL CELLS,UR FEW Renal Tubular /HPF (<= Few); SQUAMOUS EPITHELIAL CELL,UR FEW Squamous (<= Few); WBC CLUMPS,URINE PRESENT
--- NOTE | 2025-04-29 18:09 | HISTORY & PHYSICAL EXAMINATION ---
Chief Complaint Chief Complaint Chief Complaint: Dizziness History of Present Illness History Obtained From History obtained from: Patient interview History of Present Illness HPI Comment/Other: 69-year-old female with history of HFpEF, GENNY noncompliant with CPAP, type 2 diabetes, moderate aortic stenosis, hypothyroidism who was brought in by ambulance today from the walk-in clinic. She reports that she has had urinary incontinence for over a week, but has not had any urine output since 3:00 this morning. She also reports dizziness that started last night. She was noted to be hypotensive at the walk-in clinic. She reports fevers and chills, but denies chest pain, dyspnea, N/V/D In the ER, workup was significant for white blood cell count 15.6, UA suggestive of UTI, chemistry showing acute kidney injury with creatinine 2.6, up from 0.7. Respiratory viral panel was performed and found to be negative. Patient is on multiple nephrotoxic drugs at home, including as needed Lasix, scheduled losartan, metformin. She was noted to have flank tenderness by ER provider, suspicious of pyelonephritis. Hospitalist was contacted for observation for UTI, acute kidney injury Meds/Allgy Home Medications Ambulatory Orders Medication Instructions Recorded Confirmed nitroglycerin 0.4 mg sublingual 0.4 mg sublingual ONCE PRN Chest 11/23/23 04/29/25 tablet Pain acetaminophen 325 mg tablet 650 mg (2 x 325 mg) PO Q4H R PRN 01/26/25 04/29/25 Pain 1 to 4, or Fever #30 tabs albuterol sulfate 90 mcg/actuation 1 puff inhalation Q ID PRN 01/26/25 04/29/25 aerosol inhaler (Ventolin HFA) shortness of breath or wheezing #8.5 grams calamine 8 %-zinc oxide 8 % lotion 1 applic topical OR N PRN SKIN CARE 01/26/25 04/29/25 #177 mL furosemide 20 mg tablet 20 mg PO DAILY PRN Swelling #90 01/26/25 04/29/25 tabs gabapentin 300 mg capsule 300 mg PO HS #30 caps 04/29/25 ipratropium 0.5 mg-albuterol 3 mg 3 ml inhalation Q4HR PRN Wheezing 01/26/25 04/29/25 (2.5 mg base)/3 mL nebulization #180 mL soln levothyroxine 112 mcg tablet 112 mcg PO DAILY #30 tabs 01/26/25 04/29/25 losartan 100 mg tablet 100 mg PO DAILY #30 tabs 09/2104/29/25 metformin 1,000 mg tablet 1,000 mg PO BID #30 tabs 09/2104/29/25 metoprolol tartrate 50 mg tablet 50 mg PO DAILY #30 ta bs 01/26/25 04/29/25 nystatin 100,000 unit/gram topical 1 applic topical BI D #15 grams 01/26/25 04/29/25 powder (Nyamy) oxybutynin chloride 5 mg 5 mg PO DAILY #30 tabs 01/2604/29/25 tablet,extended release 24 hr rosuvastatin 10 mg tablet (Crestor) 10 mg PO HS #30 ta bs 01/26/25 04/29/25 venlafaxine 75 mg capsule,extended 75 mg PO DAILY #30 caps 01/26/25 04/29/25 release 24 hr amlodipine 5 mg tablet 5 mg PO DAILY 04/29/2504/29 cetirizine 10 mg tablet 10 mg PO BID PRN allergy sym ptoms 04/29/25 04/29/25 Allergies Allergies Allergy/AdvReac Type Severity Reaction Status Date / Time iodine AdvReac Rash Verified 04/29/25 15:26 [facility] Active Problems All Active Problems (Updated 04/29/25 @ 20:35 by Nativdiad Turner, DILLON) PATRICIA (acute kidney injury) (Acute) Acute UTI (Acute) Acute pyelonephritis (Acute) Hypotension (Acute) Urinary incontinence (Acute) Arthritis (Acute) Shortness of breath (Acute) Knee contusion (Acute) Shoulder sprain (Acute) Fall (Acute) Cellulitis (Acute) Chest pain (Acute) Hypokalemia (Acute) Medical History Medical History (Updated 04/29/25 @ 20:35 by Natividad Turner, DILLON) Neuropathy Cataract Hyperlipidemia CHF (congestive heart failure) 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 Rotator cuff tear July 2019 PVD (peripheral vascular disease) Leg edema evaluated duplex scan October 2024. Right extremity runoff suggest possible proximal common femoral stenosis and possible severe distal SFA with distal monophasic waveforms. Left lower extremity runoff suggest possible focal mid SFA stenosis with monophasic waveforms distally. COPD (chronic obstructive pulmonary disease) Normal colonoscopy november 2023 Type 2 diabetes mellitus without complication, without long-term current use of insulin Hypothyroid Aortic stenosis Depression with anxiety Morbid obesity GENNY on CPAP Leg edema Venous Dopplers without DVT October 2024 Hypertension Dyspnea on effort Surgical History Surgical History (Updated 04/29/25 @ 20:33 by Natividad Turner RN) Previous back surgery S/P foot surgery, right Family History Family History (Updated 01/22/25 @ 19:25 by Luzmaria Vazquez MD) Mother No problems noted. Father Drowning Brother Alcoholism Sister No problems noted. Son Mental disorder Daughter Mental disorder Social History Social History (Updated 04/29/25 @ 15:37 by Micah Buckley RN) Smoking Status: Former smoker If you are a former smoker, when did you quit? (Date/Year): 2005 Number of Years Smoked: 15 How many cigarettes a day do you smoke? (20 cigarettes=1 Pk): 2 Second hand tobacco smoke exposure: No Do you dip or chew tobacco?: No Do you vape?: No Patient requests smoking cessation consult: No Initiate information on smoking cessation: No Living arrangement: At home Marital Status: Single Living Condition: Alone Support Person: Yes Living Situation Details: lives in own apartment, daughter is unhoused, son is estranged for 20 years Level: Independent Home Mobility Equipment: Walker Do you feel safe in your home environment?: Yes History of physical, verbal, emotional, or financial abuse?: No Frequency: Occasional ETOH - Additional Notes: 2 drinks of fireball whiskey once or twice a year Substance Use: over the counter (eg: immodium) Substance Use Details: ibuprofen Are you sexually active?: No 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 Review of Systems Status of ROS: 10 or more systems reviewed and unremarkable except as noted in history and below Exam Exam Vital Signs: Vital Signs x48h Temp Pulse Pulse Resp BP BP Pulse Ox 04/29/25 20:28 04/29/25 20:09 37.2 C 95 20 111/38 L 95 04/29/25 19:27 89 16 116/49 L 97 04/29/25 18:07 37.5 C 91 20 130/53 L 97 04/29/25 16:52 20 88 L 04/29/25 16:48 95 20 117/49 L 96 04/29/25 15:38 89 18 121/70 91 L 04/29/25 15:19 37.5 C 89 18 125/56 L 92 O2 Flow Rate 04/29/25 20:28 2 04/29/25 20:09 2 04/29/25 19:27 2 04/29/25 18:07 2 04/29/25 16:52 04/29/25 16:48 2 04/29/25 15:38 04/29/25 15:19 Constitutional Obese elderly female in no acute distress [facility] normocephalic and head/scalp atraumatic Eyes PERRL Neck/C-Spine visual inspection normal Lymph no lymphadenopathy noted Chest inspection of chest normal Respiratory breath sounds equal bilaterally and normal respiratory effort Cardiovascular normal heart rate noted, regular rhythm noted, murmur noted and no edema Gastrointestinal abdomen normal to inspection and abdomen soft to palpation Genitourinary Some left-sided CVA tenderness Extremities normal to inspection Neurology GCS 15 Psychiatry oriented x3 Skin skin color normal Conclusion/Plan Problem List (1) PATRICIA (acute kidney injury): Plan: Patient is on multiple nephrotoxic drugs including metformin, losartan, Lasix She also has a UTI/pyelonephritis, manage as below She received 1 L NS bolus in the ER Providing continued gentle hydration with LR at 100 x 2 bags Avoiding fluid overload as she does have CHF BMP in a.m., If creatinine does not improve, will need renal ultrasound (2) Acute pyelonephritis: Plan: She has a UA suggestive of UTI as well as flank pain Received 2 g Rocephin in the ED I am continuing Rocephin 1 g IV push daily starting tomorrow Bladder scan as needed to assess for retention Blood, Urine cultures in process (3) CHF (congestive heart failure): Plan: Last echocardiogram showed EF 55 to 60%, mild to moderate aortic stenosis, mild tricuspid regurgitation Not in acute exacerbation This complicates her acute kidney injury, being cautious with IV fluid replacement Her Lasix is 3 times a week, holding for now Holding home dose losartan Qualifiers: Heart failure chronicity: unspecified Heart failure type: unspecified Qualified Code(s): I50.9 - Heart failure, unspecified (4) 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
[2025-04-29] MEDS: cefTRIAXone 2 GM in SODIUM CHLORIDE 0.9% MINIBAG 100 ML IV STA (18:59)
[2025-04-29] MEDS ORDERED: ONDANSETRON ODT 4 MG TABLET TL PRN (19:56)
[2025-04-29] MEDS ORDERED: ONDANSETRON 4 MG/2 ML VIAL IVP PRN (19:56)
[2025-04-29] MEDS ORDERED: SODIUM CHLORIDE FLUSH 0.9% 10 ML SYRINGE IVP PRN (19:56)
[2025-04-29] MEDS: INSULIN LISPRO 300 UNIT/3 ML PEN SUBQ SCH (21:00)
[2025-04-29] MEDS: HEPARIN 5,000 UNIT/ML VIAL SUBQ SCH (21:44)
[2025-04-29] MEDS: LACTATED RINGERS 1,000 ML IV SCH (21:46)
[2025-04-29] MEDS: GABAPENTIN 300 MG CAPSULE PO SCH (21:59)
[2025-04-30] MEDS: SODIUM CHLORIDE FLUSH 0.9% 10 ML SYRINGE IVP SCH (00:25)
[2025-04-30] MEDS: NYSTATIN POWDER 15 GM TOP SCH (02:45)
[2025-04-30 05:20] LABS: HCT - HEMATOCRIT 31.9 % (37.0-47.0); HGB - HEMOGLOBIN 10.5 g/dL (12.0-16.0); MEAN PLATELET VOLUME 9.4 fL (7.9-10.8); PLT - PLATELET COUNT 123 10^3/uL (130-450); RED CELL DISTRIBUTION WIDTH 13.2 % (12.0-15.0)
[2025-04-30 05:26] LABS: ABNORMAL LYMPHS % (MANUAL) 0 %; BASOPHILS # (MANUAL) 0.0 10^3/uL (0-0.1)
[2025-04-30 05:35] LABS: BUN - BLOOD UREA NITROGEN 39.0 mg/dL (6-20); CARBON DIOXIDE - CO2 27.0 mmol/L (21-32); CREATININE 3.0 mg/dL (0.6-1.3); GFR - MDRD 15.0 (>89)
[2025-04-30] MEDS: ACETAMINOPHEN 325 MG TABLET PO PRN (05:51)
[2025-04-30 06:23] LABS: BAND NEUTROPHILS % (MANUAL) 7 %; EOSINOPHILS # (MANUAL) 0.5 10^3/uL (0-0.7); LYMPHOCYTES # (MANUAL) 0.4 10^3/uL (1.5-3.5); LYMPHOCYTES % (MANUAL) 3 %; MONOCYTES # (MANUAL) 1.1 10^3/uL (0.0-1.0); NEUTROPHILS # (MANUAL) 11.4 10^3/uL (1.5-6.6); PLATELET ESTIMATE, MANUAL DECREASED (<130,000) (NORMAL); PLATELET MORPHOLOGY NORMAL APPEARANCE (NORMAL); RBC MORPHOLOGY (MULTIPLE) NORMAL APPEARANCE (NORMAL); WBC MORPHOLOGY (MULTIPLE) NORMAL APPEARANCE (NORMAL)
[2025-04-30] MEDS: LACTATED RINGERS 500 ML IV ONE (08:24)
[2025-04-30] MEDS: LEVOTHYROXINE 112 MCG TABLET PO SCH (08:44)
[2025-04-30] MEDS: cefTRIAXone 1 GM VIAL IVP SCH (08:44)
[2025-04-30 10:44] LABS: ESTIMATED AVERAGE GLUCOSE 183 mg/dL (70-100); HEMOGLOBIN A1c% 8.0 % (4.27-6.07)
[2025-04-30] MEDS: LACTATED RINGERS 1,000 ML IV ONE (12:02)
--- NOTE | 2025-04-30 14:17 | PHARMACY PROGRESS NOTE ---
Best Possible Medication History Admit Date and Time: 04/29/25 1839 Home Medications Medication Instructions Recorded Confirmed Type nitroglycerin 0.4 mg sublingual 0.4 mg sublingual ONCE PRN Chest 11/23/23 04/29/25 History tablet Pain acetaminophen 325 mg tablet 650 mg (2 x 325 mg) PO Q4H R PRN 01/26/25 04/29/25 Rx Pain 1 to 4, or Fever #30 tabs albuterol sulfate 90 mcg/actuation 1 puff inhalation Q ID PRN 01/26/25 04/29/25 Rx aerosol inhaler (Ventolin HFA) shortness of breath or wheezing #8.5 grams calamine 8 %-zinc oxide 8 % lotion 1 applic topical OK N PRN SKIN CARE 01/26/25 04/29/25 Rx #177 mL furosemide 20 mg tablet 20 mg PO DAILY PRN Swelling #90 01/26/25 04/29/25 Rx tabs gabapentin 300 mg capsule 300 mg PO HS #30 caps 04/29/25 Rx ipratropium 0.5 mg-albuterol 3 mg 3 ml inhalation Q4HR PRN Wheezing 01/26/25 04/29/25 Rx (2.5 mg base)/3 mL nebulization #180 mL soln levothyroxine 112 mcg tablet 112 mcg PO DAILY #30 tabs 01/26/25 04/29/25 Rx losartan 100 mg tablet 100 mg PO DAILY #30 tabs 09/2104/29/25 Rx metformin 1,000 mg tablet 1,000 mg PO BID #30 tabs 09/2104/29/25 Rx metoprolol tartrate 50 mg tablet 50 mg PO DAILY #30 ta bs 01/26/25 04/29/25 Rx nystatin 100,000 unit/gram topical 1 applic topical BI D #15 grams 01/26/25 04/29/25 Rx powder (Nyamyc) oxybutynin chloride 5 mg 5 mg PO DAILY #30 tabs 01/2604/29/25 Rx tablet,extended release 24 hr rosuvastatin 10 mg tablet (Crestor) 10 mg PO HS #30 ta bs 01/26/25 04/29/25 Rx venlafaxine 75 mg capsule,extended 75 mg PO DAILY #30 caps 01/26/25 04/29/25 Rx release 24 hr cetirizine 10 mg tablet 10 mg PO BID PRN allergy sym ptoms 04/29/25 04/29/25 History hydrochlorothiazide 12.5 mg tablet 12.5 mg PO DAILY 04/30/25 History methocarbamol 750 mg tablet 750 mg PO TID PRN muscle s pasm 04/30/25 04/30/25 History metoprolol succinate 100 mg 100 mg PO DAILY 04/30/25 0 04/30/25 History tablet,extended release 24 hr triamcinolone acetonide 0.1 % 1 applic topical DAILY 0 04/30/25 04/30/25 History lotion Processed by: Pharmacy Medications reviewed in ED?: Yes Medication History completed: Yes Patient Interview: Completed Secondary Source(s): Insurance records [facility] Statement: As the person ultimately responsible for medication therapy, providers are able to order a medication from an existing home medication list in [facility] via the "Reconcile Routine" prior to Confirmation of that medication by donor support technician. Such practice is discouraged except when the physician, in their clinical judgment, deems that a medical need exists for a medication without regard to previous use.
--- NOTE | 2025-04-30 14:43 | PROVIDER PROGRESS NOTE ---
Subjective Prog Note Date Prog Note Date: 04/30/25 Subjective Subjective: She had been sleepy since admit, but has woken up at lunch time and just ate 100% of her meal. Normally at home she drinks about 6 eight ounce bottles of water. She has been feeling so tired and sleepy at home, she thinks that she just has been sleeping, waking to urinate and going back to sleep. urine output has been poor since admit. She is not on home O2, but requiring 2L NC today. Complaints of headache when she coughs. Current Medications Current Medications Current Medications: Current Medications Generic Name Dose Route Start Last Admin Trade Name Freq PRN Reason Stop Dose Admin Acetaminophen 650 mg 04/29/25 19:56 04/30/25 12:14 Acetaminophen 325 Mg Tablet PO 650 mg Q4HR PRN Administration Pain 1 to 4, or Fever Ceftriaxone Sodium 1 gm 04/30/25 09:00 04/30/25 08:44 Ceftriaxone 1 Gm Vial IVP 1 gm DAILY LES Administration Gabapentin 300 mg 04/29/25 21:00 04/29/25 21:59 Gabapentin 300 Mg Capsule PO 300 mg HS LES Administration Heparin Sodium (Porcine) 5,000 unit 04/29/25 21:00 04/30/25 08:46 Heparin 5,000 Unit/Ml Vial SUBQ 5,000 unit BID LES Administration Lactated Ringer's 1,000 mls @ 100 mls/hr 04/29/25 19:56 04/30/25 12:37 Lr IV 05/01/25 11:55 100 mls/hr .Q10H LES Administration Insulin Human Lispro 1 - 5 unit 04/29/25 21:00 04/30/25 11:59 Insulin Lispro 300 Unit/3 Ml Pen SUBQ 1 unit 0800,1200,1700,2100 LES Administration Protocol Levothyroxine Sodium 112 mcg 04/30/25 08:00 04/30/25 08:44 Levothyroxine 112 Mcg Tablet PO 112 mcg QDAC LES Administration Nystatin 1 applic 04/29/25 22:00 04/30/25 08:44 Nystatin Powder 15 Gm TOP 1 applic BID LES Administration Ondansetron HCl 4 mg 04/29/25 19:56 Ondansetron Odt 4 Mg Tablet TL Q6HR PRN Nausea / Vomiting Ondansetron HCl 4 mg 04/29/25 19:56 Ondansetron 4 Mg/2 Ml Vial IVP Q6HR PRN Nausea / Vomiting Sodium Chloride 10 ml 04/29/25 19:56 Sodium Chloride Flush 0.9% 10 Ml Syringe IVP PRN PRN NEEDED PER PROVIDER ORDERS Sodium Chloride 10 ml 04/30/25 01:00 04/30/25 08:44 Sodium Chloride Flush 0.9% 10 Ml Syringe IVP Not Given 0100,0900,1700 [facility] Objective Vital Signs/Intake & Output Reviewed Vital Signs: Yes Vital Signs: Vital Signs x48h Temp Pulse Pulse Resp BP Pulse Ox O2 Flow Rate 04/30/25 11:10 36.7 C 83 18 105/46 L 96 2 04/30/25 11:00 2 04/30/25 10:30 80 04/30/25 09:00 2 04/30/25 07:39 36.5 C 93 20 111/43 L 96 2 04/30/25 07:00 2 04/30/25 07:00 2 04/30/25 06:57 2 Intake & Output: Intake & Output 04/27/25 04/28/25 04/29/25 04/30/25 23:59 23:59 23:59 23:59 Intake Total 750 / 750 2628 / 2628 Output Total 265 / 265 Balance 750 / 750 2363 / 2363 Weight (kg) 117 kg Objective General Appearance: positive No acute distress and Alert Eyes Bilateral: positive Normal inspection and Conjunctivae nml ENT: positive ENT inspection nml Neck: positive Nml inspection Respiratory: positive No respiratory distress and Breath sounds nml Cardiovascular: positive Regular rate & rhythm and Systolic murmur Abdomen: positive Non-tender and No distention Skin: positive Color nml and No rash Extremities: positive Non-tender and No pedal edema Neurologic/Psychiatric: positive Oriented x3 Lab Results 04/30/25 04:57 04/30/25 04:57 Other Labs: Lab Results x24hrs 04/30/25 04/30/25 04/30/25 Range/Units 11:08 07:28 04:57 WBC 13.4 H (4.8-10.8) x10^3/uL RBC 3.80 L (4.20-5.40) 10^6/uL Hgb 10.5 L (12.0-16.0) g/dL Hct 31.9 L (37.0-47.0) % MCV 83.9 (81.0-99.0) fL MCH 27.6 (27.0-31.0) pg MCHC 32.9 (32.0-36.0) g/dL RDW 13.2 (12.0-15.0) % Plt Count 123 L (130-450) 10^3/uL MPV 9.4 (7.9-10.8) fL Neut # (Auto) Not Reportable Lymph # (Auto) Not Reportable [place] # (Auto) Not Reportable Eos # (Auto) Not Reportable Baso # (Auto) Not Reportable Absolute Nucleated RBC Not Reportable Total Counted 100 Band Neuts % (Manual) 7 (0 - 10) % Reactive Lymphs % (Man) % Abnorm Lymph % (Manual) 0 % Nucleated RBC % Not Reportable Neutrophils # (Manual) 11.4 H (1.5-6.6) 10^3/uL Lymphocytes # (Manual) 0.4 L (1.5-3.5) 10^3/uL Monocytes # (Manual) 1.1 H (0.0-1.0) 10^3/uL Eosinophils # (Manual) 0.5 (0-0.7) 10^3/uL Basophils # (Manual) 0.0 (0-0.1) 10^3/uL Differential Comment MANUAL DIFFERENTIAL WBC Morphology NORMAL APPEARANCE (NORMAL) Platelet Estimate DECREASED (<130,000) (NORMAL) Platelet Morphology NORMAL APPEARANCE (NORMAL) RBC Morph Micro Appear NORMAL APPEARANCE (NORMAL) Sodium 134 L (135-145) mmol/L Potassium 3.3 L (3.5-4.5) mmol/L Chloride 98 L (101-111) mmol/L Carbon Dioxide 27 (21-32) mmol/L Anion Gap 9.0 (6-13) BUN 39 H (6-20) mg/dL Creatinine 3.0 H (0.6-1.3) mg/dL Estimated GFR (MDRD) 15 L (>89) Glucose 186 H (74-104) mg/dL POC Whole Bld Glucose 168 159 (70-100) mg/dL Estimat Average Glucose 183 H (70-100) mg/dL Hemoglobin A1c % 8.0 H (4.27-6.07) % Calcium 7.9 L (8.5-10.3) mg/dL Total Bilirubin (0.2-1.0) mg/dL AST (10-42) IU/L ALT (10-60) IU/L Alkaline Phosphatase (42-121) IU/L Total Protein (6.4-8.9) g/dL Albumin (3.2-5.5) g/dL Globulin (2.1-4.2) g/dL Albumin/Globulin Ratio (1.0-2.2) Urine Color Urine Clarity (CLEAR) Urine pH (5.0-7.5) PH Ur Specific [place] (1.002-1.030) Urine Protein (NEGATIVE) mg/dL Urine Glucose (UA) (NEGATIVE) mg/dL Urine Ketones (NEGATIVE) mg/dL Urine Occult Blood (NEGATIVE) Urine Nitrite (NEGATIVE) Urine Bilirubin (NEGATIVE) Urine Urobilinogen (NORMAL) E.U./dL Ur Leukocyte Esterase (NEGATIVE) Urine RBC (0-5) /HPF Urine WBC (0-5) /HPF Urine WBC Clumps Ur Epithelial Cells (<= Few) /HPF Ur Squamous Epith Cells (<= Few) Urine Bacteria (None Seen) /HPF Ur Microscopic Review Urine Culture Comments Nasal Adenovirus (PCR) Nasal B. parapertussis DNA (PCR) Nasal Coronavir 229E PCR Nasal Coronavir HKU1 PCR Nasal Coronavir NL63 PCR Nasal Coronavir OC43 PCR Nasal Enterovir/Rhinovir PCR Nasal Influenza B PCR Nasal Influenza A PCR Nasal Parainfluen 1 PCR Nasal Parainfluen 2 PCR Nasal Parainfluen 3 PCR Nasal Parainfluen 4 PCR Nasal RSV (PCR) Nasal B.pertussis DNA PCR Nasal C.pneumoniae (PCR) Bong Human Metapneumo PCR Nasal M.pneumoniae (PCR) Nasal SARS-CoV-2 (PCR) 04/29/25 04/29/25 04/29/25 Range/Units 20:44 17:05 16:24 WBC 15.6 H (4.8-10.8) x10^3/uL RBC 4.25 (4.20-5.40) 10^6/uL Hgb 11.8 L (12.0-16.0) g/dL Hct 36.5 L (37.0-47.0) % MCV 85.9 (81.0-99.0) fL MCH 27.8 (27.0-31.0) pg MCHC 32.3 (32.0-36.0) g/dL RDW 13.1 (12.0-15.0) % Plt Count 128 L (130-450) 10^3/uL MPV 8.8 (7.9-10.8) fL Neut # (Auto) Not Reportable Lymph # (Auto) Not Reportable [place] # (Auto) Not Reportable Eos # (Auto) Not Reportable Baso # (Auto) Not Reportable Absolute Nucleated RBC Not Reportable Total Counted 100 Band Neuts % (Manual) 2 (0 - 10) % Reactive Lymphs % (Man) 3 % Abnorm Lymph % (Manual) 0 % Nucleated RBC % Not Reportable Neutrophils # (Manual) 12.3 H (1.5-6.6) 10^3/uL Lymphocytes # (Manual) 2.0 (1.5-3.5) 10^3/uL Monocytes # (Manual) 1.2 H (0.0-1.0) 10^3/uL Eosinophils # (Manual) 0.0 (0-0.7) 10^3/uL Basophils # (Manual) 0.0 (0-0.1) 10^3/uL Differential Comment MANUAL DIFFERENTIAL WBC Morphology (NORMAL) Platelet Estimate DECREASED (<130,000) (NORMAL) Platelet Morphology NORMAL APPEARANCE (NORMAL) RBC Morph Micro Appear NORMAL APPEARANCE (NORMAL) Sodium (135-145) mmol/L Potassium (3.5-4.5) mmol/L Chloride (101-111) mmol/L Carbon Dioxide (21-32) mmol/L Anion Gap (6-13) BUN (6-20) mg/dL Creatinine (0.6-1.3) mg/dL Estimated GFR (MDRD) (>89) Glucose (74-104) mg/dL POC Whole Bld Glucose 155 (70-100) mg/dL Estimat Average Glucose (70-100) mg/dL Hemoglobin A1c % (4.27-6.07) % Calcium (8.5-10.3) mg/dL Total Bilirubin (0.2-1.0) mg/dL AST (10-42) IU/L ALT (10-60) IU/L Alkaline Phosphatase (42-121) IU/L Total Protein (6.4-8.9) g/dL Albumin (3.2-5.5) g/dL Globulin (2.1-4.2) g/dL Albumin/Globulin Ratio (1.0-2.2) Urine Color YELLOW Urine Clarity CLOUDY (CLEAR) Urine pH 6.0 (5.0-7.5) PH Ur Specific [place] 1.020 (1.002-1.030) Urine Protein 300 H (NEGATIVE) mg/dL Urine Glucose (UA) NEGATIVE (NEGATIVE) mg/dL Urine Ketones NEGATIVE (NEGATIVE) mg/dL Urine Occult Blood LARGE (NEGATIVE) Urine Nitrite NEGATIVE (NEGATIVE) Urine Bilirubin SMALL H (NEGATIVE) Urine Urobilinogen 1 (NORMAL) E.U./dL Ur Leukocyte Esterase MODERATE H (NEGATIVE) Urine RBC TNTC H (0-5) /HPF Urine WBC >25 H (0-5) /HPF Urine WBC Clumps PRESENT Ur Epithelial Cells FEW Renal Tubular (<= Few) /HPF Ur Squamous Epith Cells FEW Squamous (<= Few) Urine Bacteria Few (None Seen) /HPF Ur Microscopic Review INDICATED Urine Culture Comments INDICATED Nasal Adenovirus (PCR) Nasal B. parapertussis DNA (PCR) Nasal Coronavir 229E PCR Nasal Coronavir HKU1 PCR Nasal Coronavir NL63 PCR Nasal Coronavir OC43 PCR Nasal Enterovir/Rhinovir PCR Nasal Influenza B PCR Nasal Influenza A PCR Nasal Parainfluen 1 PCR Nasal Parainfluen 2 PCR Nasal Parainfluen 3 PCR Nasal Parainfluen 4 PCR Nasal RSV (PCR) Nasal B.pertussis DNA PCR Nasal C.pneumoniae (PCR) Bong Human Metapneumo PCR Nasal M.pneumoniae (PCR) Nasal SARS-CoV-2 (PCR) 04/29/25 04/29/25 Range/Units 16:06 15:45 WBC (4.8-10.8) x10^3/uL RBC (4.20-5.40) 10^6/uL Hgb (12.0-16.0) g/dL Hct (37.0-47.0) % MCV (81.0-99.0) fL MCH (27.0-31.0) pg MCHC (32.0-36.0) g/dL RDW (12.0-15.0) % Plt Count (130-450) 10^3/uL MPV (7.9-10.8) fL Neut # (Auto) Lymph # (Auto) [place] # (Auto) Eos # (Auto) Baso # (Auto) Absolute Nucleated RBC Total Counted Band Neuts % (Manual) (0 - 10) % Reactive Lymphs % (Man) % Abnorm Lymph % (Manual) % Nucleated RBC % Neutrophils # (Manual) (1.5-6.6) 10^3/uL Lymphocytes # (Manual) (1.5-3.5) 10^3/uL Monocytes # (Manual) (0.0-1.0) 10^3/uL Eosinophils # (Manual) (0-0.7) 10^3/uL Basophils # (Manual) (0-0.1) 10^3/uL Differential Comment WBC Morphology (NORMAL) Platelet Estimate (NORMAL) Platelet Morphology (NORMAL) RBC Morph Micro Appear (NORMAL) Sodium 134 L (135-145) mmol/L Potassium 3.9 (3.5-4.5) mmol/L Chloride 98 L (101-111) mmol/L Carbon Dioxide 24 (21-32) mmol/L Anion Gap 12.0 (6-13) BUN 31 H (6-20) mg/dL Creatinine 2.6 H (0.6-1.3) mg/dL Estimated GFR (MDRD) 18 L (>89) Glucose 166 H (74-104) mg/dL POC Whole Bld Glucose (70-100) mg/dL Estimat Average Glucose (70-100) mg/dL Hemoglobin A1c % (4.27-6.07) % Calcium 8.0 L (8.5-10.3) mg/dL Total Bilirubin 0.8 (0.2-1.0) mg/dL AST 17 (10-42) IU/L ALT 11 (10-60) IU/L Alkaline Phosphatase 66 (42-121) IU/L Total Protein 6.5 (6.4-8.9) g/dL Albumin 3.5 (3.2-5.5) g/dL Globulin 3.0 (2.1-4.2) g/dL Albumin/Globulin Ratio 1.2 (1.0-2.2) Urine Color Urine Clarity (CLEAR) Urine pH (5.0-7.5) PH Ur Specific [place] (1.002-1.030) Urine Protein (NEGATIVE) mg/dL Urine Glucose (UA) (NEGATIVE) mg/dL Urine Ketones (NEGATIVE) mg/dL Urine Occult Blood (NEGATIVE) Urine Nitrite (NEGATIVE) Urine Bilirubin (NEGATIVE) Urine Urobilinogen (NORMAL) E.U./dL Ur Leukocyte Esterase (NEGATIVE) Urine RBC (0-5) /HPF Urine WBC (0-5) /HPF Urine WBC Clumps Ur Epithelial Cells (<= Few) /HPF Ur Squamous Epith Cells (<= Few) Urine Bacteria (None Seen) /HPF Ur Microscopic Review Urine Culture Comments Nasal Adenovirus (PCR) NOT DETECTED Nasal B. parapertussis DNA (PCR) NOT DETECTED Nasal Coronavir 229E PCR NOT DETECTED Nasal Coronavir HKU1 PCR NOT DETECTED Nasal Coronavir NL63 PCR NOT DETECTED Nasal Coronavir OC43 PCR NOT DETECTED Nasal Enterovir/Rhinovir PCR NOT DETECTED Nasal Influenza B PCR NOT DETECTED Nasal Influenza A PCR NOT DETECTED Nasal Parainfluen 1 PCR NOT DETECTED Nasal Parainfluen 2 PCR NOT DETECTED Nasal Parainfluen 3 PCR NOT DETECTED Nasal Parainfluen 4 PCR NOT DETECTED Nasal RSV (PCR) NOT DETECTED Nasal B.pertussis DNA PCR NOT DETECTED Nasal C.pneumoniae (PCR) NOT DETECTED Bong Human Metapneumo PCR NOT DETECTED Nasal M.pneumoniae (PCR) NOT DETECTED Nasal SARS-CoV-2 (PCR) NOT DETECTED Assessment/Plan Problem List (1) PATRICIA (acute kidney injury): Impression: Patient is on multiple nephrotoxic drugs including metformin, losartan, Lasix. These have been held. She also has a UTI/pyelonephritis, manage as below continuing with IVF overnight at 100cc/hr. Her UOP has been borderline. Avoiding fluid overload as she does have CHF BMP in a.m., Baseline Cr is normal. Will check renal ultrasound in the AM. Laboratory Tests 04/29/25 04/30/25 16:06 04:57 Creatinine 2.6 H 3.0 H (2) Acute pyelonephritis: Impression: She has a UA suggestive of UTI as well as flank pain- prelim culture results show E coli. She is being treated with Rocephin and I will continue this pending sensitivities. Received 2 g Rocephin in the ED Bladder scan as needed to assess for retention- bladder management protocol. Blood, Urine cultures in process WBC trend is favorable. Laboratory Tests 04/29/25 04/30/25 16:24 04:57 WBC 15.6 H 13.4 H (3) CHF (congestive heart failure): Impression: Systolic ejection murmur on exam. Last echocardiogram dated 10/30/2024. This is an essentially normal study. She had an ejection fraction of 55 to 60% diastolic function was indeterminate. The right ventricle however was normal in size and function, mild to moderate aortic stenosis and mild tricuspid regurgitation with an RVSP at rest which is normal. Takes lasix at home, 3 times weekly, holding here for now. 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 control is not optimal. She is being treated w SSI here. Laboratory Tests 01/23/25 04/30/25 05:30 04:57 Hemoglobin A1c % 7.8 H 8.0 H (5) GENNY on CPAP: Impression: not complaint at home. She has been hypoxic here, on 2 L NC. as her medical issues are treated, i will attempt to wean. no underlying lung disease. (6) E coli bacteremia: Impression: Blood cultures PCR shows E coli. there are GN bacilli growing in her blood cultures awaiting final results. May need extended IV abx. I have spent 51 minutes in the care of this patient today. This includes time [id number], review and ordering of diagnostic imaging and laboratory studies and consultation with other providers. Monitoring the patient's signs symptoms, evaluation of medication effectiveness and patient's response to treatment.
[2025-04-30] MEDS: oxyCODONE 5 MG TABLET PO PRN (22:07)
[2025-05-01 06:08] LABS: HCT - HEMATOCRIT 30.9 % (37.0-47.0); HGB - HEMOGLOBIN 9.8 g/dL (12.0-16.0); MEAN PLATELET VOLUME 9.3 fL (7.9-10.8); NRBC ABSOLUTE COUNT (AUTO) 0.00 x10^3/uL; NUCLEATED RED BLOOD CELLS AUTO 0.0 /100WBC; PLT - PLATELET COUNT 127 10^3/uL (130-450); RED CELL DISTRIBUTION WIDTH 13.1 % (12.0-15.0)
[2025-05-01 06:26] LABS: BUN - BLOOD UREA NITROGEN 42.0 mg/dL (6-20); CARBON DIOXIDE - CO2 29.0 mmol/L (21-32); CREATININE 2.4 mg/dL (0.6-1.3); GFR - MDRD 20.0 (>89)
--- NOTE | 2025-05-01 10:17 | Ultrasound Report ---
PROCEDURE: US Renal (Retroperitoneal) INDICATIONS: PATRICIA, progressing TECHNIQUE: Ultrasound of the kidneys and bladder was obtained. Images are limited by overlying bowel gas and patient body habitus COMPARISON: None FINDINGS: Right kidney: 11.9 cm length. 1.2 cm cortical thickness. Normal renal echotexture present. No hydronephrosis or shadowing calculi. No solid mass lesion. Left kidney: 11.7 cm length. 1.4 cm cortical thickness. Normal renal echotexture present. No hydronephrosis or shadowing calculi. No solid mass lesion. Bladder: Nonvisualized. Nesbitt catheter present. Demonstrate no intraluminal masses or stones. Miscellaneous: No free pelvic fluid. IMPRESSION: Unremarkable ultrasound of the kidneys and bladder Reviewed by: Harvey Ortiz MD on 05/01/2025 9:16 AM [facility] Approved by: Harvey Ortiz MD on 05/01/2025 9:16 AM [facility] Station ID: [id number]
[2025-05-01] MEDS: cefTRIAXone 1 GM VIAL IVP ONE (11:26)
[2025-05-01] MEDS: POTASSIUM CHLORIDE 20 MEQ TABLET PO ONE (11:26)
--- NOTE | 2025-05-01 16:28 | PT Plan of Care ---
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 Rotator cuff tear July 2019 PVD (peripheral vascular disease) Leg edema evaluated duplex scan October 2024. Right extremity runoff suggest possible proximal common femoral stenosis and possible severe distal SFA with distal monophasic waveforms. Left lower extremity runoff suggest possible focal mid SFA stenosis with monophasic waveforms distally. COPD (chronic obstructive pulmonary disease) Normal colonoscopy november 2023 Type 2 diabetes mellitus without complication, without long-term current use of insulin Hypothyroid Aortic stenosis Depression with anxiety Morbid obesity GENNY on CPAP Leg edema Venous Dopplers without DVT October 2024 Hypertension Dyspnea on effort Surgical History (Updated 04/30/25 @ 00:23 by Natividad Turner RN) Status post reverse total arthroplasty of right shoulder Previous back surgery S/P foot surgery, right Balance/ Functional Results Sitting Balance Good Standing Balance Fair Assessment Assessment Pt is an 69yo F referred for PT eval d/t deconditioning and weakness. Admitted with PATRICIA, UTI, and pyelonephritis. Pt lives in [facility] and is Andre with 4WW at baseline. Has been working with HHPT. Please see medical record for further PMH. Cleared for eval by hospitalist. Upon PT eval, met supine in bed vitals WNL and agreeable to participate. Transfers to EOB with modAx1, seated BP 105/40 and HR 97. Systolic change of 29 points, diastolic change of 14. Pt reports dizziness and general malaise, assisted to supine with modAx1. Pt presenting with orthostasis and general deconditioning. Will benefit from skilled PT in acute setting to progress functional indep and gait training. When medically clear, PT rec dc to SNF vs home with HHPT pending progress. Will update recs closer to time of dc. Goals Improve bed mobility to: Modified Independent Improve supine to sit to: Modified Independent Improve sit to stand to: Modified Independent Improve pivot transfer ability Modified Independent to: Improve sit to supine to: Modified Independent Improve gait ability to: CGA Assistive Device Used: Front Wheeled Walker Improve Standing Balance to: Good PT Plan of Care Frequency 1-2x/day Duration Until discharge Discharge Recommendations Discharge Location SNF v home DC Equipment Recommended Front wheeled walker Other has 4WW, may need FWW Transport Needs at Discharge Personal vehicle
--- NOTE | 2025-05-01 17:36 | PROVIDER PROGRESS NOTE ---
Subjective Prog Note Date Prog Note Date: 05/01/25 Subjective Subjective: She is a bit tearful today. expresses frustration that she was just getting better from her last illness and now this is happening. Current Medications Current Medications Current Medications: Current Medications Generic Name Dose Route Start Last Admin Trade Name Freq PRN Reason Stop Dose Admin Acetaminophen 650 mg 04/29/25 19:56 05/01/25 16:05 Acetaminophen 325 Mg Tablet PO 650 mg Q4HR PRN Administration Pain 1 to 4, or Fever Ceftriaxone Sodium 2 gm 05/02/25 09:00 Ceftriaxone 2 Gm Vial IVP DAILY LES Gabapentin 300 mg 04/29/25 21:00 04/30/25 21:52 Gabapentin 300 Mg Capsule PO 300 mg HS LES Administration Heparin Sodium (Porcine) 5,000 unit 04/29/25 21:00 05/01/25 08:18 Heparin 5,000 Unit/Ml Vial SUBQ 5,000 unit BID LES Administration Insulin Human Lispro 1 - 5 unit 04/29/25 21:00 05/01/25 11:57 Insulin Lispro 300 Unit/3 Ml Pen SUBQ 1 unit 0800,1200,1700,2100 LES Administration Protocol Levothyroxine Sodium 112 mcg 04/30/25 08:00 05/01/25 06:59 Levothyroxine 112 Mcg Tablet PO 112 mcg QDAC LES Administration Nystatin 1 applic 04/29/25 22:00 05/01/25 08:26 Nystatin Powder 15 Gm TOP 1 applic BID LES Administration Ondansetron HCl 4 mg 04/29/25 19:56 Ondansetron Odt 4 Mg Tablet TL Q6HR PRN Nausea / Vomiting Ondansetron HCl 4 mg 04/29/25 19:56 Ondansetron 4 Mg/2 Ml Vial IVP Q6HR PRN Nausea / Vomiting Oxycodone HCl 5 mg 04/30/25 18:51 05/01/25 14:13 Oxycodone 5 Mg Tablet PO 5 mg Q4HR PRN Administration Moderate Pain (Level 4-6) Sodium Chloride 10 ml 04/29/25 19:56 Sodium Chloride Flush 0.9% 10 Ml Syringe IVP PRN PRN NEEDED PER PROVIDER ORDERS Sodium Chloride 10 ml 04/30/25 01:00 05/01/25 08:26 Sodium Chloride Flush 0.9% 10 Ml Syringe IVP 10 ml 0100,0900,1700 LES Administration Sterile Water 20 ml 05/02/25 09:00 Water For Injection,Sterile 10 Ml Vial MC DAILY [facility] Objective Vital Signs/Intake & Output Reviewed Vital Signs: Yes Vital Signs: Vital Signs x48h Temp Pulse Resp BP Pulse Ox O2 Flow Rate 05/01/25 16:21 36.7 C 86 20 150/66 H 94 2 Intake & Output: Intake & Output 04/28/25 04/29/25 04/30/25 05/01/25 23:59 23:59 23:59 23:59 Intake Total 750 / 750 4628 / 4628 1780 / 1780 Output Total 1665 / 1665 2275 / 2275 Balance 750 / 750 2963 / 2963 -495 / -495 Weight (kg) 117 kg Objective General Appearance: positive No acute distress and Alert Eyes Bilateral: positive Normal inspection and Conjunctivae nml ENT: positive ENT inspection nml Neck: positive Nml inspection Respiratory: positive No respiratory distress and Breath sounds nml Cardiovascular: positive Regular rate & rhythm and Systolic murmur Abdomen: positive Non-tender and No distention Skin: positive Color nml and No rash Extremities: positive Non-tender and No pedal edema Neurologic/Psychiatric: positive Oriented x3 Lab Results 05/01/25 05:15 05/01/25 05:15 Other Labs: Lab Results x24hrs 05/01/25 05/01/25 05/01/25 Range/Units 16:29 11:16 07:24 WBC (4.8-10.8) x10^3/uL RBC (4.20-5.40) 10^6/uL Hgb (12.0-16.0) g/dL Hct (37.0-47.0) % MCV (81.0-99.0) fL MCH (27.0-31.0) pg MCHC (32.0-36.0) g/dL RDW (12.0-15.0) % Plt Count (130-450) 10^3/uL MPV (7.9-10.8) fL Neut # (Auto) (1.5-6.6) 10^3/uL Lymph # (Auto) (1.5-3.5) 10^3/uL [place] # (Auto) (0.0-1.0) 10^3/uL Eos # (Auto) (0.0-0.7) 10^3/uL Baso # (Auto) (0.0-0.1) 10^3/uL Absolute Nucleated RBC x10^3/uL Nucleated RBC % /100WBC Sodium (135-145) mmol/L Potassium (3.5-4.5) mmol/L Chloride (101-111) mmol/L Carbon Dioxide (21-32) mmol/L Anion Gap (6-13) BUN (6-20) mg/dL Creatinine (0.6-1.3) mg/dL Estimated GFR (MDRD) (>89) Glucose (74-104) mg/dL POC Whole Bld Glucose 219 154 131 (70-100) mg/dL Calcium (8.5-10.3) mg/dL 05/01/25 04/30/25 Range/Units 05:15 20:54 WBC 8.8 (4.8-10.8) x10^3/uL RBC 3.64 L (4.20-5.40) 10^6/uL Hgb 9.8 L (12.0-16.0) g/dL Hct 30.9 L (37.0-47.0) % MCV 84.9 (81.0-99.0) fL MCH 26.9 L (27.0-31.0) pg MCHC 31.7 L (32.0-36.0) g/dL RDW 13.1 (12.0-15.0) % Plt Count 127 L (130-450) 10^3/uL MPV 9.3 (7.9-10.8) fL Neut # (Auto) 6.3 (1.5-6.6) 10^3/uL Lymph # (Auto) 1.0 L (1.5-3.5) 10^3/uL [place] # (Auto) 1.4 H (0.0-1.0) 10^3/uL Eos # (Auto) 0.2 (0.0-0.7) 10^3/uL Baso # (Auto) 0.0 (0.0-0.1) 10^3/uL Absolute Nucleated RBC 0.00 x10^3/uL Nucleated RBC % 0.0 /100WBC Sodium 137 (135-145) mmol/L Potassium 3.3 L (3.5-4.5) mmol/L Chloride 100 L (101-111) mmol/L Carbon Dioxide 29 (21-32) mmol/L Anion Gap 8.0 (6-13) BUN 42 H (6-20) mg/dL Creatinine 2.4 H (0.6-1.3) mg/dL Estimated GFR (MDRD) 20 L (>89) Glucose 120 H (74-104) mg/dL POC Whole Bld Glucose 189 (70-100) mg/dL Calcium 7.8 L (8.5-10.3) mg/dL Assessment/Plan Problem List (1) PATRICIA (acute kidney injury): Impression: Patient is on multiple nephrotoxic drugs including metformin, losartan, Lasix. These have been held. Her PATRICIA is showing evidence of slow improvement. She also has a UTI/pyelonephritis, manage as below She was given IVF at 100cc/hr over 4 L then stopped. Avoiding fluid overload as she does have CHF BMP in a.m., Baseline Cr is normal. Renal ultrasound is normal, no concerns. Laboratory Tests 04/29/25 04/30/25 05/01/25 16:06 04:57 05:15 Creatinine 2.6 H 3.0 H 2.4 H (2) Acute pyelonephritis: Impression: She has a UA suggestive of UTI as well as flank pain-Urine growing meza sensitive E Coli. Received 2 g Rocephin in the ED, with positive blood cultures,she is getting 2 g daily. She has a guthrie in place for retention. WBC trend is favorable. I would like her to get 4 days of parenteral antibiotics, then can transition to oral for duration of treatment. 04/29/25 04/30/25 05/01/25 16:24 04:57 05:15 WBC 15.6 H 13.4 H 8.8 (3) CHF (congestive heart failure): Impression: Systolic ejection murmur on exam. Last echocardiogram dated 10/30/2024. This is an essentially normal study. She had an ejection fraction of 55 to 60% diastolic function was indeterminate. The right ventricle however was normal in size and function, mild to moderate aortic stenosis and mild tricuspid regurgitation with an RVSP at rest which is normal. Takes lasix at home, 3 times weekly, holding here for now. I will plan to give her a dose tomorrow, assuming her renal function is doing well. 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 control is not optimal. She is being treated w SSI here. Laboratory Tests 01/23/25 04/30/25 05:30 04:57 Hemoglobin A1c % 7.8 H 8.0 H (5) GENNY on CPAP: Impression: not complaint at home. She has been hypoxic here, on 2 L NC. as her medical issues are treated, i will attempt to wean. no underlying lung disease. When I am seeing her at mid day, she is on room air. (6) E coli bacteremia: Impression: Blood cultures PCR shows E coli. there are GN bacilli growing in her blood cultures awaiting final results, but should be same pathogen as growing in urine. She is on rocephin at 2gm IV daily, day #3 I have spent 42 minutes in the care of this patient today. This includes time [id number], review and ordering of diagnostic imaging and laboratory studies. Monitoring the patient's signs symptoms, evaluation of medication effectiveness and patient's response to treatment.
[2025-05-02] MEDS: NYSTATIN POWDER 15 GM TOP SCH (05:28)
[2025-05-02 05:51] LABS: HCT - HEMATOCRIT 29.8 % (37.0-47.0); HGB - HEMOGLOBIN 9.4 g/dL (12.0-16.0); MEAN PLATELET VOLUME 9.1 fL (7.9-10.8); NRBC ABSOLUTE COUNT (AUTO) 0.00 x10^3/uL; NUCLEATED RED BLOOD CELLS AUTO 0.0 /100WBC; PLT - PLATELET COUNT 135 10^3/uL (130-450); RED CELL DISTRIBUTION WIDTH 13.2 % (12.0-15.0)
[2025-05-02 06:09] LABS: BUN - BLOOD UREA NITROGEN 42.0 mg/dL (6-20); CARBON DIOXIDE - CO2 31.0 mmol/L (21-32); CREATININE 1.9 mg/dL (0.6-1.3); GFR - MDRD 26.0 (>89)
[2025-05-02] MEDS: POTASSIUM CHLORIDE 20 MEQ TABLET PO ONE (15:33)
--- NOTE | 2025-05-02 17:29 | PROVIDER PROGRESS NOTE ---
Subjective Prog Note Date Prog Note Date: 05/02/25 Subjective Subjective: She is sleeping, on oxygen 1L. does not wake up as I come into the room quietly, listen to her chest and look at her body Current Medications Current Medications Current Medications: Current Medications Generic Name Dose Route Start Last Admin Trade Name Freq PRN Reason Stop Dose Admin Acetaminophen 650 mg 04/29/25 19:56 05/02/25 05:42 Acetaminophen 325 Mg Tablet PO 650 mg Q4HR PRN Administration Pain 1 to 4, or Fever Ceftriaxone Sodium 2 gm 05/02/25 09:00 05/02/25 09:23 Ceftriaxone 2 Gm Vial IVP 2 gm DAILY LES Administration Gabapentin 300 mg 04/29/25 21:00 05/01/25 20:40 Gabapentin 300 Mg Capsule PO 300 mg HS LES Administration Heparin Sodium (Porcine) 5,000 unit 04/29/25 21:00 05/02/25 09:23 Heparin 5,000 Unit/Ml Vial SUBQ 5,000 unit BID LES Administration Insulin Human Lispro 1 - 5 unit 04/29/25 21:00 05/02/25 16:52 Insulin Lispro 300 Unit/3 Ml Pen SUBQ 2 unit 0800,1200,1700,2100 LES Administration Protocol Levothyroxine Sodium 112 mcg 04/30/25 08:00 05/02/25 05:04 Levothyroxine 112 Mcg Tablet PO 112 mcg QDAC LES Administration Nystatin 1 applic 04/29/25 22:00 05/02/25 05:04 Nystatin Powder 15 Gm TOP 1 applic BID LES Administration Nystatin 1 applic 05/02/25 02:00 05/02/25 09:24 Nystatin Powder 15 Gm TOP 1 applic BID LES Administration Ondansetron HCl 4 mg 04/29/25 19:56 Ondansetron Odt 4 Mg Tablet TL Q6HR PRN Nausea / Vomiting Ondansetron HCl 4 mg 04/29/25 19:56 Ondansetron 4 Mg/2 Ml Vial IVP Q6HR PRN Nausea / Vomiting Oxycodone HCl 5 mg 04/30/25 18:51 05/02/25 05:42 Oxycodone 5 Mg Tablet PO 5 mg Q4HR PRN Administration Moderate Pain (Level 4-6) Polyethylene Glycol 17 gm 05/02/25 17:00 Polyethylene Glycol 3350 17 Gm Packet PO DAILY LES Sodium Chloride 10 ml 04/29/25 19:56 Sodium Chloride Flush 0.9% 10 Ml Syringe IVP PRN PRN NEEDED PER PROVIDER ORDERS Sodium Chloride 10 ml 04/30/25 01:00 05/02/25 09:24 Sodium Chloride Flush 0.9% 10 Ml Syringe IVP 10 ml 0100,0900,1700 LES Administration Sterile Water 20 ml 05/02/25 09:00 05/02/25 09:23 Water For Injection,Sterile 10 Ml Vial MC 20 ml DAILY LES Administration Objective Vital Signs/Intake & Output Reviewed Vital Signs: Yes Vital Signs: Vital Signs x48h Temp Pulse Resp BP Pulse Ox O2 Flow Rate 05/02/25 15:30 36.5 C 70 18 115/51 L 98 1 05/02/25 10:23 1 Intake & Output: Intake & Output 04/29/25 04/30/25 05/01/25 05/02/25 23:59 23:59 23:59 23:59 Intake Total 750 / 750 4628 / 4628 2617 / 2617 880 / 880 Output Total 1665 / 1665 2975 / 2975 1675 / 1675 Balance 750 / 750 2963 / 2963 -358 / -358 -795 / -795 Weight (kg) 117 kg Objective General Appearance: positive No acute distress and Alert Eyes Bilateral: positive Normal inspection and Conjunctivae nml ENT: positive ENT inspection nml Neck: positive Nml inspection Respiratory: positive No respiratory distress and Breath sounds nml Cardiovascular: positive Regular rate & rhythm and Systolic murmur Abdomen: positive No distention Skin: positive Color nml and No rash Extremities: positive Non-tender and No pedal edema Neurologic/Psychiatric: positive Oriented x3 Lab Results 05/02/25 05:03 05/02/25 05:03 Other Labs: Lab Results x24hrs 05/02/25 05/02/25 05/02/25 Range/Units 16:43 11:30 07:45 WBC (4.8-10.8) x10^3/uL RBC (4.20-5.40) 10^6/uL Hgb (12.0-16.0) g/dL Hct (37.0-47.0) % MCV (81.0-99.0) fL MCH (27.0-31.0) pg MCHC (32.0-36.0) g/dL RDW (12.0-15.0) % Plt Count (130-450) 10^3/uL MPV (7.9-10.8) fL Neut # (Auto) (1.5-6.6) 10^3/uL Lymph # (Auto) (1.5-3.5) 10^3/uL [place] # (Auto) (0.0-1.0) 10^3/uL Eos # (Auto) (0.0-0.7) 10^3/uL Baso # (Auto) (0.0-0.1) 10^3/uL Absolute Nucleated RBC x10^3/uL Nucleated RBC % /100WBC Sodium (135-145) mmol/L Potassium (3.5-4.5) mmol/L Chloride (101-111) mmol/L Carbon Dioxide (21-32) mmol/L Anion Gap (6-13) BUN (6-20) mg/dL Creatinine (0.6-1.3) mg/dL Estimated GFR (MDRD) (>89) Glucose (74-104) mg/dL POC Whole Bld Glucose 213 218 166 (70-100) mg/dL Calcium (8.5-10.3) mg/dL 05/02/25 05/01/25 Range/Units 05:03 20:24 WBC 6.8 (4.8-10.8) x10^3/uL RBC 3.50 L (4.20-5.40) 10^6/uL Hgb 9.4 L (12.0-16.0) g/dL Hct 29.8 L (37.0-47.0) % MCV 85.1 (81.0-99.0) fL MCH 26.9 L (27.0-31.0) pg MCHC 31.5 L (32.0-36.0) g/dL RDW 13.2 (12.0-15.0) % Plt Count 135 (130-450) 10^3/uL MPV 9.1 (7.9-10.8) fL Neut # (Auto) 4.5 (1.5-6.6) 10^3/uL Lymph # (Auto) 1.0 L (1.5-3.5) 10^3/uL [place] # (Auto) 1.0 (0.0-1.0) 10^3/uL Eos # (Auto) 0.3 (0.0-0.7) 10^3/uL Baso # (Auto) 0.0 (0.0-0.1) 10^3/uL Absolute Nucleated RBC 0.00 x10^3/uL Nucleated RBC % 0.0 /100WBC Sodium 141 (135-145) mmol/L Potassium 3.3 L (3.5-4.5) mmol/L Chloride 102 (101-111) mmol/L Carbon Dioxide 31 (21-32) mmol/L Anion Gap 8.0 (6-13) BUN 42 H (6-20) mg/dL Creatinine 1.9 H (0.6-1.3) mg/dL Estimated GFR (MDRD) 26 L (>89) Glucose 176 H (74-104) mg/dL POC Whole Bld Glucose 204 (70-100) mg/dL Calcium 7.9 L (8.5-10.3) mg/dL Assessment/Plan Problem List (1) PATRICIA (acute kidney injury): Impression: Patient is on multiple nephrotoxic drugs including metformin, losartan, Lasix. These have been held. Her PATRICIA is showing evidence of slow improvement. She also has a UTI/pyelonephritis, manage as below She was given IVF at 100cc/hr over 4 L then stopped. Avoiding fluid overload as she does have CHF BMP in a.m., Baseline Cr is normal. Renal ultrasound is normal, no concerns. Laboratory Tests 04/29/25 04/30/25 05/01/25 16:06 04:57 05:15 Creatinine 2.6 H 3.0 H 2.4 H 05/02/25 05:03 Creatinine 1.9 H (2) Acute pyelonephritis: Impression: She has a UA suggestive of UTI as well as flank pain-Urine growing meza sensitive E Coli. Received 2 g Rocephin in the ED, with positive blood cultures,she is getting 2 g daily. She has a guthrie in place for retention. WBC trend is favorable. I would like her to get 4 days of parenteral antibiotics, then can transition to oral for duration of treatment. She is day #4 Rocephin. 04/29/25 04/30/25 05/01/25 16:24 04:57 05:15 WBC 15.6 H 13.4 H 8.8 05/02/25 05:03 WBC 6.8 (3) CHF (congestive heart failure): Impression: Systolic ejection murmur on exam. Last echocardiogram dated 10/30/2024. This is an essentially normal study. She had an ejection fraction of 55 to 60% diastolic function was indeterminate. The right ventricle however was normal in size and function, mild to moderate aortic stenosis and mild tricuspid regurgitation with an RVSP at rest which is normal. Takes lasix at home, 3 times weekly. I have held that, but I will give her 10mg lasix at 0600 tomorrow. She has been on and off small amounts of oxygen, 2L or less, and often needs to be on it while sleeping. I am giving her 10mg LAsix IV in the AM, in hopes of decreasing her oxygen needs. 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 control is not optimal. She is being treated w SSI here. She would benegit from GLP-1 medication at home, w her elevated A1C and increased BMI 01/23/25 04/30/25 05:30 04:57 Hemoglobin A1c % 7.8 H 8.0 H (5) GENNY on CPAP: Impression: not complaint at home. She has been hypoxic here, has been intermittently on oxygen. (6) E coli bacteremia: Impression: Blood cultures PCR shows E coli. Sensitivities consistent with same bacteria that is in her urine. She is on rocephin at 2gm IV daily, day #4. Repeat blood cultures ordered. (7) Urinary retention: Impression: This patient has been having urinary incontinence at home for some time. She had Guthrie placed per bladder protocol for urinary retention. I think that she will likely need to discharge home with this and follow-up with urology in the future.Guthrie was placed on 04/30/2025. This patient's diagnosis and treatment plan was discussed this AM with attending physician as a part of multi disciplinary rounding meeting. I have spent 38 minutes in the care of this patient today. This includes time [id number], review and ordering of diagnostic imaging and laboratory studies. Monitoring the patient's signs symptoms, evaluation of medication effectiveness and patient's response to treatment.
[2025-05-02] MEDS: INSULIN LISPRO 300 UNIT/3 ML PEN SUBQ SCH (21:48)
[2025-05-03 05:38] LABS: HCT - HEMATOCRIT 30.8 % (37.0-47.0); HGB - HEMOGLOBIN 9.6 g/dL (12.0-16.0); MEAN PLATELET VOLUME 8.9 fL (7.9-10.8); NRBC ABSOLUTE COUNT (AUTO) 0.00 x10^3/uL; NUCLEATED RED BLOOD CELLS AUTO 0.0 /100WBC; PLT - PLATELET COUNT 160 10^3/uL (130-450); RED CELL DISTRIBUTION WIDTH 13.2 % (12.0-15.0)
[2025-05-03 05:58] LABS: BUN - BLOOD UREA NITROGEN 34.0 mg/dL (6-20); CARBON DIOXIDE - CO2 31.0 mmol/L (21-32); CREATININE 1.2 mg/dL (0.6-1.3); GFR - MDRD 44.0 (>89)
[2025-05-03] MEDS ORDERED: FUROSEMIDE 20 MG/2 ML VIAL IVP SCH (08:00)
--- NOTE | 2025-05-03 14:01 | Discharge Summary ---
Discharge Summary Admit Date: 04/29/25 Discharge Date: 05/03/25 Discharging Provider: Kanchan Kimbrough PA-C Primary Care Provider: Tobi Clancy MD Code Status: Attempt Resuscitation DIAGNOSES Discharge Diagnoses with Status of Each Condition: Acute kidney injury, resolved Acute pyelonephritis, treated Congestive heart failure, stable Type 2 diabetes suboptimal control. A1c 8.0%. GENNY on CPAP, noncompliant E. coli bacteremia, will complete 14 days of antibiotics Urinary retention, discharged with Nesbitt needs urology follow-up. HPI History of Present Illness: 69-year-old female with history of HFpEF, GENNY noncompliant with CPAP, type 2 diabetes, moderate aortic stenosis, hypothyroidism who was brought in by ambulance today from the walk-in clinic. She reports that she has had urinary incontinence for over a week, but has not had any urine output since 3:00 this morning. She also reports dizziness that started last night. She was noted to be hypotensive at the walk-in clinic. She reports fevers and chills, but denies chest pain, dyspnea, N/V/D In the ER, workup was significant for white blood cell count 15.6, UA suggestive of UTI, chemistry showing acute kidney injury with creatinine 2.6, up from 0.7. Respiratory viral panel was performed and found to be negative. Patient is on multiple nephrotoxic drugs at home, including as needed Lasix, scheduled losartan, metformin. She was noted to have flank tenderness by ER provider, suspicious of pyelonephritis. Hospitalist was contacted for observation for UTI, acute kidney injury HOSPITAL COURSE Hospital Course: Might benefit from a GLP-1 medication at home if she can afford it passed O2 desat ALLERGIES Allergies Allergy/AdvReac Type Severity Reaction Status Date / Time iodine AdvReac Rash Verified 04/29/25 15:26 MEDICATIONS Ambulatory Orders Medication Instructions Recorded Confirmed nitroglycerin 0.4 mg sublingual 0.4 mg sublingual ONCE PRN Chest 11/23/23 04/29/25 tablet Pain acetaminophen 325 mg tablet 650 mg (2 x 325 mg) PO Q4H R PRN 01/26/25 04/29/25 Pain 1 to 4, or Fever #30 tabs albuterol sulfate 90 mcg/actuation 1 puff inhalation Q ID PRN 01/26/25 04/29/25 aerosol inhaler (Ventolin HFA) shortness of breath or wheezing #8.5 grams calamine 8 %-zinc oxide 8 % lotion 1 applic topical MS N PRN SKIN CARE 01/26/25 04/29/25 #177 mL furosemide 20 mg tablet 20 mg PO DAILY PRN Swelling #90 01/26/25 04/29/25 tabs gabapentin 300 mg capsule 300 mg PO HS #30 caps 04/29/25 ipratropium 0.5 mg-albuterol 3 mg 3 ml inhalation Q4HR PRN Wheezing 01/26/25 04/29/25 (2.5 mg base)/3 mL nebulization #180 mL soln levothyroxine 112 mcg tablet 112 mcg PO DAILY #30 tabs 01/26/25 04/29/25 losartan 100 mg tablet 100 mg PO DAILY #30 tabs 09/2104/29/25 metformin 1,000 mg tablet 1,000 mg PO BID #30 tabs 09/2104/29/25 nystatin 100,000 unit/gram topical 1 applic topical BI D #15 grams 01/26/25 04/29/25 powder ([facility]) rosuvastatin 10 mg tablet (Crestor) 10 mg PO HS #30 ta bs 01/26/25 04/29/25 venlafaxine 75 mg capsule,extended 75 mg PO DAILY #30 caps 01/26/25 04/29/25 release 24 hr cetirizine 10 mg tablet 10 mg PO BID PRN allergy sym ptoms 04/29/25 04/29/25 hydrochlorothiazide 12.5 mg tablet 12.5 mg PO DAILY 04/30/25 methocarbamol 750 mg tablet 750 mg PO TID PRN muscle s pasm 04/30/25 04/30/25 triamcinolone acetonide 0.1 % 1 applic topical DAILY 0 04/30/25 04/30/25 lotion levofloxacin 750 mg tablet 750 mg PO DAILY #10 tabs PHYSICAL EXAM AT DISCHARGE Vital Signs: Vital Signs x48h Temp Pulse Pulse Resp BP Pulse Ox 05/03/25 15:30 36.3 C L 69 14 116/50 L 91 L 05/03/25 14:00 98 LABS 05/03/25 05:11 05/03/25 05:11 Discharge Plan Discharge Patient Disposition: Home, Self Care Condition: Stable Prescriptions: New levofloxacin 750 mg tablet 750 mg PO DAILY Qty: 10 0RF Continued nitroglycerin 0.4 MG tablet, sublingual 0.4 mg sublingual ONCE PRN (Reason: Chest Pain) acetaminophen 325 mg Tablet 650 mg PO Q4HR PRN (Reason: Pain 1 to 4, or Fever) Qty: 30 0RF calamine-zinc oxide 8-8 % Lotion 1 applic topical PRN PRN (Reason: SKIN CARE) Qty: 177 0RF ipratropium-albuterol 0.5 mg-3 mg(2.5 mg base)/3 mL Solution For Nebulization 3 ml inhalation Q4HR PRN (Reason: Wheezing) Qty: 180 0RF nystatin [Nyamyc] 100,000 unit/gram Powder 1 applic topical BID Qty: 15 0RF venlafaxine 75 mg capsule,extended release 24hr 75 mg PO DAILY Qty: 30 0RF metformin 1,000 MG tablet 1,000 mg PO BID Qty: 30 0RF Patient Comments: TAKE 1 TABLET BY MOUTH TWICE DAILY WITH MEALS gabapentin 300 MG capsule 300 mg PO HS Qty: 30 0RF Patient Comments: TAKE 3 CAPSULES BY MOUTH AT NIGHT furosemide 20 mg tablet 20 mg PO DAILY PRN (Reason: Swelling) Qty: 90 0RF albuterol sulfate [Ventolin HFA] 200 PUFFS/18 GM HFA aerosol inhaler 1 puff inhalation QID PRN (Reason: shortness of breath or wheezing) Qty: 8.5 0RF losartan 100 mg tablet 100 mg PO DAILY Qty: 30 0RF Patient Comments: TAKE 1 TABLET BY MOUTH ONCE DAILY levothyroxine 112 mcg tablet 112 mcg PO DAILY Qty: 30 0RF Patient Comments: TAKE 1 TABLET BY MOUTH ONCE DAILY IN THE MORNING ON AN EMPTY STOMACH rosuvastatin [Crestor] 10 MG tablet 10 mg PO HS Qty: 30 0RF cetirizine 10 mg tablet 10 mg PO BID PRN (Reason: allergy symptoms) methocarbamol 750 mg tablet 750 mg PO TID PRN (Reason: muscle spasm) Patient Comments: TAKE 1 TABLET BY MOUTH THREE TIMES DAILY NEEDED FOR MUSCLE SPASM triamcinolone acetonide 0.1 % lotion 1 applic TOPICAL DAILY Patient Comments: APPLY LOTION TOPICALLY TO THE AFFECTED AREA DAILY UNTIL RASH SUBSIDES, THEN USE TWICE A WEEK FOR MAINTENANCE hydrochlorothiazide 12.5 mg tablet 12.5 mg PO DAILY Patient Comments: TAKE 1 TABLET BY MOUTH ONCE DAILY IN THE MORNING FOR BLOOD PRESSURE Discontinued metoprolol tartrate 50 mg tablet 50 mg PO DAILY Qty: 30 0RF Patient Comments: TAKE 1 TABLET BY MOUTH ONCE DAILY WITH FOOD oxybutynin chloride 5 MG tablet extended release 24hr 5 mg PO DAILY Qty: 30 0RF metoprolol succinate 100 mg tablet extended release 24 hr 100 mg PO DAILY Patient Comments: TAKE 1 TABLET BY MOUTH ONCE DAILY FOR BLOOD PRESSURE Activity Restrictions: Activity as Tolerated Diet: Diabetic Health Concerns: You came into the hospital because you were feeling very very poorly. You had a bad urinary tract infection that had gotten into your kidneys and also put bacteria in your blood. Since you have been here we have identified the bacteria that caused the problem and are treating you with appropriate antibiotics. You also had urinary retention and injury to your kidneys. Your kidneys have recovered nicely and because this made you so sick we are going to leave the Nesbitt catheter in place until you are able to follow-up with your primary care and urology. I think that your bladder has been chronically holding too much urine. I am sending a copy of this note both to your primary care doctor and Dr. Hardin who is the urologist here at Located [facility]. Medication changes: Since you have been here you have been off of your metoprolol. You have done well without it. Your blood pressure is not significantly elevated and your heart rate is also under control. For that reason I think overall in life you are going to feel better without your metoprolol. I would recommend that you stop taking it. If you were to start your metoprolol again I am afraid your blood pressure would be too low. You are going to be on antibiotics for an additional 10 days. You got 4 days of IV antibiotics when you were here. I am sending antibiotics into the pharmacy and you will start these tomorrow, Monday. You have gotten a dose of IV antibiotics here at the hospital today that we will cover you for 24 hours. You need to take these once a day. The antibiotic is called Levaquin. Continue to take your Lasix at home as it is prescribed. When you get home you need to start back on your metformin, start this tomorrow if you take it in the morning. I need you to call Dr. Hardin on Monday for follow-up. You also need to call your primary care, Dr. Clancy for follow-up. Make sure to drink plenty of fluids. [facility] am [facility]. I think they are set up to come see you on Monday. Will have them help out with the catheter as well as the services you have been getting previously. Print Language: Maori Patient Instructions: Urinary Catheter Bag Care, Indwelling Urinary Catheter Dc, Nesbitt Catheter Female Ch Follow-up Care: Franky Hardin MD [Provider Admit Priv/Credential, Urology] Tobi Clancy MD [Primary Care Provider, Internal Medicine] Vitals documented within 30 minutes of discharge?: Yes
[2025-05-03 17:51] VITALS: BP 116/50; TEMP 97.3; O2SAT 91
== END 2025-05-03 17:52 | disposition home or self-care (01) | DRG 683 ==
LOC: ED 15:08 → MS2 15:08
PROVIDERS: ADMIT Nurse Practitioner Acute Care; ATTEND Nurse Practitioner Acute Care